=== PATIENT | female | born 1985 | race Caucasian/White ===

== ENCOUNTER 2016-06-22 19:58 | Emergency (ER) | payer MEDICAID ==
[2016-06-23] MEDS ORDERED: Ondansetron ODT TAB* 4 MG PO ONE (00:54)
[2016-06-23] MEDS ORDERED: Ketorolac INJ* 60 MG/2 ML VIAL IM ONE (00:54)
--- NOTE | 2016-06-23 01:00 | ED ---
Lower Extremity - HPI Summary HPI Summary: 31 female presents with complaining of right knee pain that began after falling earlier today 06/22/16. Patient states she was walking on the sidewalk when she slipped and fell forward hitting her knee on the pavement. She was able to walk and bear weight right after the incident however a few hours after the pain began and has increasingly gotten worse. She states the pain is in both the front and the back that is achey and sharp. The pain does not radiate. Did not hit her head and no LOC. She tried taking Tylenol, using icy/hot and ice without much relief. She is able to bear weight however it causes her a lot of pain. Limited ROM. Denies numbness and tingling and any other injuries. Patient states the pain is so severe it has caused her to be nauseous. - History of Current Complaint Chief Complaint: EDExtremityLower Stated Complaint: FALL,RIGHT KNEE INJURY Time Seen by Provider: 06/23/16 00:39 Hx Obtained From: Patient Hx Last Menstrual Period: hysterectomy 01/2013 Mechanism Of Injury: Blunt Trauma, Fall From A Standing Position - landing on knee Onset of Pain: Hours, Post Accident Onset/Duration: Still Present Severity Initially: Moderate Severity Currently: Severe Pain Intensity: 10 Pain Scale Used: 0-10 Numeric Timing: Constant Location: Is Discrete @ - right knee Associated Signs And Symptoms: Positive: Swelling, Bruising, Knee Pain Aggravating Factor(s): Standing, Ambulation, Movement, Weight Bearing Alleviating Factor(s): Rest, Ice Able to Bear Weight: Yes - with pain - Allergies/Home Medications Allergies/Adverse Reactions: Allergies Allergy/AdvReac Type Severity Reaction Status Date / Time No Known Allergies Allergy Verified 02/02/16 01:09 PMH/Surg Hx/FS Hx/Imm Hx Endocrine/Hematology History: Denies: Hx Diabetes, Hx Systemic Lupus Erythematosus, Hx Thyroid Disease Cardiovascular History: Reports: Hx Hypercholesterolemia Denies: Hx Congestive Heart Failure, Hx Hypertension, Hx Pacemaker/ICD, Other Cardiovascular Problems/Disorders Respiratory History: Denies: Hx Asthma, Hx Chronic Bronchitis, Hx Chronic Obstructive Pulmonary Disease (COPD), Other Respiratory Problems/Disorders GI History: Reports: Hx Gall Bladder Disease, Hx Irritable Bowel, Other GI Disorders - PACREATITIS Denies: Hx Ulcer History: Denies: Hx Dialysis, Hx Renal Disease, Other Problems/Disorders Musculoskeletal History: Denies: Other Musculoskeletal History Sensory History: Denies: Hx Contacts or Glasses Opthamlomology History: Denies: Hx Contacts or Glasses Neurological History: Denies: Other Neuro Impairments/Disorders Psychiatric History: Reports: Hx Anxiety, Hx Attention Deficit Hyperactivity Disorder, Hx Depression, Hx Inpatient Treatment, Hx Community Mental Health Tx, Hx Bipolar Disorder, Hx Substance Abuse - etoh abuse hx Denies: Hx Eating Disorder, Hx Panic Disorder, Hx Post Traumatic Stress Disorder, Hx Schizophrenia, Hx Suicide Attempt - some instances of self harm, Hx of Violent Episodes Against Others, Other Psychiatric Issues/Disorders - Surgical History Surgery Procedure, Year, and Place: MULTIPLE LAPRASCOPIC PROCEDURES,. COMPLETE HYSTERECTOMY, 01/2013, [place]. [place] 06/15/13, [facility] [place] [facility] [place] Right knee scopy Hx Anesthesia Reactions: No - Immunization History Date of Tetanus Vaccine: Unknown Infectious Disease History: No Infectious Disease History: Denies: Hx Clostridium Difficile, Hx Hepatitis, Hx Human Immunodeficiency Virus (HIV), Hx of Known/Suspected MRSA, Hx Shingles, Hx Tuberculosis, Hx Known/ Suspected VRE, Hx Known/Suspected VRSA, History Other Infectious Disease, Traveled Outside the [place] in Last 30 Days - Family History Known Family History: Positive: None, Cardiac Disease, Hypertension, Other - father: EtOH abuse - Social History Alcohol Use: None Alcohol Amount: Pt states sober since May 07, 2015 Hx Substance Use: No Substance Use Type: Reports: None Substance Use Comment - Amount & Last Used: 05/07/15 Hx Tobacco Use: Yes Smoking Status (MU): Former Smoker Type: Cigarettes Amount Used/How Often: 1/2 PPD Length of Time of Smoking/Using Tobacco: 10YRS Have You Smoked in the Last Year: Yes Review of Systems Constitutional: Negative Cardiovascular: Negative Respiratory: Negative Gastrointestinal: Negative Genitourinary: Negative Positive: Arthralgia, Myalgia, Decreased ROM - right knee, Edema Positive: Bruising Neurological: Negative Psychological: Normal All Other Systems Reviewed And Are Negative: Yes Physical Exam Triage Information Reviewed: Yes Vital Signs On Initial Exam: Initial Vitals Temp Pulse Resp BP Pulse Ox 98.9 F 118 18 125/82 100 06/22/16 20:25 06/22/16 20:25 06/22/16 20:25 06/22/16 20:25 06/22/16 20:25 Vital Signs Reviewed: Yes Appearance: Positive: Well-Appearing, Pain Distress - mild, sitting in wheelchair with ice applied Skin: Positive: Warm, Skin Color Reflects Adequate Perfusion, Dry, Other - ecchymois of right knee noted Head/Face: Positive: Normal Head/Face Inspection Eyes: Positive: Normal, Conjunctiva Clear ENT: Positive: Normal ENT inspection, Hearing grossly normal Neck: Positive: Supple, Nontender Respiratory/Lung Sounds: Positive: Clear to Auscultation, Breath Sounds Present Cardiovascular: Positive: Normal, RRR, Pulses are Symmetrical in both Upper and Lower Extremities - 2+ pedal pulses bilateral Bowel Sounds: Positive: Present Musculoskeletal: Positive: Normal, Limited @ - right knee with flexion and extension, mild edema and some ecchymosis noted over patella. tenderness on palpation of anterior and posterior knee. no obvious deformity. patella intact. no crepitus or step-off noted. no tenderness on palapation of lower extremity and foot. stregnth right leg 3/5 at knee due to pain left leg 5/5. sensation and skin intact., Pain @ - right knee diffuse, Edema Right - minimal. Negative : Interruption @, Landon Sign Left, Landon Sign Right Neurological: Positive: Normal, Sensory/Motor Intact, Alert, Oriented to Person Place, Time, CN Intact II-III, Reflexes Intact - did not asses right platella reflex due to injury, NV Bundle Intact Distally, Abnormal Gait - due to limping due to pain of right knee, however is able Psychiatric: Positive: Normal AVPU Assessment: Alert Diagnostics - Vital Signs Vital Signs Temp Pulse Resp BP Pulse Ox 06/22/16 20:25 98.9 F 118 18 125/82 100 - Laboratory Lab Statement: Any lab studies that have been ordered have been reviewed, and results considered in the medical decision making process. - Radiology right knee Xray Interpretation: Positive (See Comments) - small to moderate size right knee joint effusion witout radiographically apparent bony abnormality. if the patients symptoms persist, follow up imaging is recommended. Radiology Interpretation Completed By: Radiologist Lower Extremity Course/Dx - Course Course Of Treatment: given toradol and zofran for pain and nausea. patient had some relief. x-ray obtained and negative for fracture. brace and crutches given. ibuprofen prescription given for pain and swelling. instructed to follow up with pcp or orthopedist within the next week to possibly have another x-ray and rule out fracture. may need further imaging such as MRI if symptoms persist to rule out ligament or cartilage damage. ARIC. - Diagnoses Differential Diagnosis/HQI/PQRI: Positive: Contusion, Dislocation, Fracture ( Closed), Sprain, Strain Provider Diagnoses: Knee pain, right, Knee sprain, Contusion of knee, right Discharge - Discharge Plan Condition: Stable Disposition: HOME Prescriptions: Ibuprofen TAB* [Motrin TAB* 800 MG] 800 mg PO Q6H PRN #20 tab PRN Reason: Pain Patient Education Materials: Knee Sprain (ED), Knee Immobilizer (ED) Referrals: Rodrick Holt MD [Medical Doctor] - [facility] [place] [facility] [place] [facility]FERRAL [Outside] Additional Instructions: Take medication as needed for pain and inflammation. Rest and ice your knee. Keep it elevated to decrease swelling while sitting at home. Follow up with PCP or orthopedics for further imaging if symptoms persist. Use crutches and knee immobilizer until symptoms improve and seen by orthopedist.
[2016-06-23 01:30] VITALS: BP 122/88
--- NOTE | 2016-06-23 07:36 | RAD ---
INDICATION: Right knee pain after a fall COMPARISON: None TECHNIQUE: 5 view radiograph of the right knee. FINDINGS: The visualized bones are well-corticated and properly aligned. The joint spaces are properly maintained. There is a small to moderate joint effusion. There is no acute fracture, dislocation or other focal bony abnormality. IMPRESSION: Small to moderate size right knee joint effusion without radiographically apparent bony abnormality. If the patient's symptoms persist, follow-up imaging is recommended.
== END 2016-06-23 01:29 | disposition home or self-care (01) ==
LOC: ED 19:58
DX: S83.91XA Sprain of unspecified site of right knee, initial encounter (principal); S80.01XA Contusion of right knee, initial encounter; M25.561 Pain in right knee; M79.1 Myalgia; Z87.891 Personal history of nicotine dependence; W19.XXXA Unspecified fall, initial encounter; Y93.9 Activity, unspecified; Y92.9 Unspecified place or not applicable; Y99.9 Unspecified external cause status
CPT/HCPCS: 96372; 99282; J1885

== ENCOUNTER 2016-07-18 14:03 | Emergency (ER) | payer MEDICAID, OTHER ==
[2016-07-18] MEDS ORDERED: NS 0.9% 1000 ML* 1,000 ML IV ONE (14:20)
[2016-07-18] MEDS ORDERED: Ketorolac INJ* 30 MG/ML 1 ML VIAL IV PUSH ONE (14:37)
[2016-07-18 15:00] LABS: Hematocrit 38 % (35-47); Hemoglobin 12.9 g/dl (12.0-16.0); Mean Corpuscular HGB Conc 34 g/dl (31-36); Mean Corpuscular Hemoglobin 32 pg (27-31); Mean Corpuscular Volume 96 fL (80-97); Mean Platelet Volume 10 um3 (7.4-10.4); Red Cell Distribution Width 17 % (10.5-15); White Blood Count 11.2 10^3/ul (3.5-10.8)
[2016-07-18 15:03] LABS: Comments Flag Yes
[2016-07-18 15:20] LABS: ALT 10 U/L (7-52); AST 18 U/L (13-39); Albumin 3.5 g/dL (3.2-5.2); Alkaline Phosphatase 59 U/L (34-104); Amylase 47 U/L (29-103); Anion Gap 5 mmol/L (2-11); BUN/Creatinine Ratio 17.6 (8-20); Blood Urea Nitrogen 13 mg/dL (6-24); CO2 Carbon Dioxide 24 mmol/L (22-32); Calcium 8.4 mg/dL (8.6-10.3); Chloride 107 mmol/L (101-111); Creatine Kinase 66 U/L (10-223); Globulin 2.6 g/dL (2-4); Glucose 92 mg/dL (70-100); Lipase 93 U/L (11.0-82.0); Magnesium 1.7 mg/dL (1.9-2.7); Potassium 3.9 mmol/L (3.5-5.0); Sodium 136 mmol/L (133-145); Total Protein 6.1 g/dL (6.4-8.9)
--- NOTE | 2016-07-18 15:20 | RAD ---
HISTORY: Pain, nausea COMPARISONS: None VIEWS: Frontal views of the abdomen. FINDINGS: BOWEL: There is a nonspecific bowel gas pattern, with nondilated small bowel gas noted. There is a moderate amount of stool within the colon. CALCULI: There are no abnormal calculi. BONES AND SOFT TISSUES: There are no osseous abnormalities. OTHER FINDINGS: The lung bases are clear. There is no subphrenic gas. Surgical clips are noted in the right upper abdomen IMPRESSION: NONSPECIFIC BOWEL GAS PATTERN. NO SUBPHRENIC GAS.
[2016-07-18] MEDS ORDERED: Ondansetron INJ* 2 MG/ML VIAL ONE (15:23)
[2016-07-18] MEDS ORDERED: Ondansetron INJ* 2 MG/ML VIAL IV ONE (15:29)
[2016-07-18 15:35] LABS: Add Diff/Slide Review? Slide Review Added
--- NOTE | 2016-07-18 15:38 | RAD ---
INDICATION: Vomiting, diarrhea, abdominal pain. Post cholecystectomy, hysterectomy. COMPARISON: April 27, 2015 CT. TECHNIQUE: Multidetector CT images were obtained from the lung bases to the ischial tuberosities. Evaluation of the viscera is limited without IV contrast. Multiplanar reformation. REPORT: Unremarkable visualized inferior thorax. Post cholecystectomy. Unremarkable unenhanced liver. Negative for biliary dilatation. Unremarkable unenhanced pancreas and spleen. Unremarkable upper GI, small bowel, infra cecal appendix, colon. Negative for perienteric inflammatory change, ascites, free air. Small fat-containing umbilical hernia without inflammatory change. Normal adrenal glands. No visible renal stones, hydronephrosis, or focal renal lesions. Unremarkable nondilated ureters and urinary bladder. Post hysterectomy. Unremarkable adnexal regions. Negative for lymphadenopathy. Normal diameter abdominal aorta and iliac arteries. Physiologic distention of the IVC. Negative for suspicious focal osseous lesions. IMPRESSION: Noncontrast CT without evidence for obstructive uropathy or other acute abdominal pelvic pathologic process. Normal appendix documented. Correlate with clinical assessment and consider contrast-enhanced CT for further evaluation if deemed appropriate.
[2016-07-18] MEDS ORDERED: Morphine INJ* 4 MG/ML 1 ML SYRINGE IV ONE (16:05)
--- NOTE | 2016-07-18 17:28 | ED ---
Miguel Morales Adam, scribed for Elia Martin MD on 07/18/16 at 1429 . Abdominal Pain/Female - HPI Summary HPI Summary: Pt is a 31 year old female presenting with abdominal pain. She states that the pain was present for the first time when she woke up this morning. It is localized in the left side of her abdomen and around her left flank. The pain is an 8/10 in severity and it feels like a cramp, but the pain becomes sharp and more severe with movement. Pt also c/o nausea and vomiting and states that she hasn't been able to keep anything down. She had an episode of diarrhea yesterday. She also reports having SOB and palpitations. PMHx of endometriosis. No hx of kidney stones. Positive tobacco use (1 pack every few days). Occasional alcohol. No drug use. Surgical hx of complete hysterectomy. - History of Current Complaint Chief Complaint: EDAbdPain Stated Complaint: COUGH, ABD PAIN, V.D, Time Seen by Provider: 07/18/16 14:20 Hx Obtained From: Patient Hx Last Menstrual Period: hysterectomy 01/2013 Onset/Duration: Sudden Onset, Lasting Hours, Still Present Timing: Constant Severity Initially: Moderate Severity Currently: Moderate Pain Intensity: 8 Pain Scale Used: 0-10 Numeric Location: Diffuse - Left side of abdomen, Flank - Left Radiates: No Character: Sharp - With movement, Cramping Aggravating Factor(s): Movement Associated Signs and Symptoms: Positive: Nausea, Vomiting, Diarrhea, Other: - SOB, palpitations Allergies/Adverse Reactions: Allergies Allergy/AdvReac Type Severity Reaction Status Date / Time No Known Allergies Allergy Verified 02/02/16 01:09 PMH/Surg Hx/FS Hx/Imm Hx Endocrine/Hematology History: Denies: Hx Diabetes, Hx Systemic Lupus Erythematosus, Hx Thyroid Disease Cardiovascular History: Reports: Hx Hypercholesterolemia Denies: Hx Congestive Heart Failure, Hx Hypertension, Hx Pacemaker/ICD, Other Cardiovascular Problems/Disorders Respiratory History: Denies: Hx Asthma, Hx Chronic Bronchitis, Hx Chronic Obstructive Pulmonary Disease (COPD), Other Respiratory Problems/Disorders GI History: Reports: Hx Gall Bladder Disease, Hx Irritable Bowel, Other GI Disorders - PACREATITIS Denies: Hx Ulcer History: Denies: Hx Dialysis, Hx Renal Disease, Other Problems/Disorders Musculoskeletal History: Denies: Other Musculoskeletal History Sensory History: Denies: Hx Contacts or Glasses Opthamlomology History: Denies: Hx Contacts or Glasses Neurological History: Denies: Other Neuro Impairments/Disorders Psychiatric History: Reports: Hx Anxiety, Hx Attention Deficit Hyperactivity Disorder, Hx Depression, Hx Inpatient Treatment, Hx Community Mental Health Tx, Hx Bipolar Disorder, Hx Substance Abuse - etoh abuse hx Denies: Hx Eating Disorder, Hx Panic Disorder, Hx Post Traumatic Stress Disorder, Hx Schizophrenia, Hx Suicide Attempt - some instances of self harm, Hx of Violent Episodes Against Others, Other Psychiatric Issues/Disorders - Surgical History Surgery Procedure, Year, and Place: MULTIPLE LAPRASCOPIC PROCEDURES,. COMPLE[place]ERECT[place]Y, 01[place]2013, [place]. [place] [facility] [place] Hx Anesthesia Reactions: No - Immunization History Date of Tetanus Vaccine: Unknown Infectious Disease History: No Infectious Disease History: Denies: Hx Clostridium Difficile, Hx Hepatitis, Hx Human Immunodeficiency Virus (HIV), Hx of Known/Suspected MRSA, Hx Shingles, Hx Tuberculosis, Hx Known/ Suspected VRE, Hx Known/Suspected VRSA, History Other Infectious Disease, Traveled Outside the [place] in Last 30 Days - Family History Known Family History: Positive: Cardiac Disease, Hypertension, Other - father: EtOH abuse - Social History Occupation: Unemployed Lives: With Family - Significant other Alcohol Use: None Alcohol Amount: Pt states sober since May 07, 2015 Hx Substance Use: No Substance Use Type: Reports: None Substance Use Comment - Amount & Last Used: 05/07/15 Hx Tobacco Use: Yes Smoking Status (MU): Current Some Day Smoker Type: Cigarettes Amount Used/How Often: 1/2 PPD Length of Time of Smoking/Using Tobacco: 10YRS Have You Smoked in the Last Year: Yes Review of Systems Positive: Palpitations Positive: Shortness Of Breath Positive: Abdominal Pain, Vomiting, Diarrhea, Nausea Positive: flank pain - Left All Other Systems Reviewed And Are Negative: Yes Physical Exam - Summary Physical Exam Summary: VITAL SIGNS: Reviewed. GENERAL: Patient is a well developed and nourished female who is lying comfortable in the stretcher. Patient is not in any acute respiratory distress. HEAD AND FACE: Normocephalic and atraumatic. EYES: PERRLA, EOMI x 2, No injected conjunctiva. EARS: Hearing grossly intact. Ear canals and tympanic membranes are WNL. MOUTH: Oropharynx within normal limits. NECK: Supple, trachea is midline, no adenopathy, no JVD. CHEST: Symmetric, no tenderness at palpation LUNGS: Clear to auscultation bilaterally. No wheezing or crackles. CVS: RRR,, S1 and S2 present, no murmurs or gallops appreciated. ABDOMEN: Soft, non-tender. No signs of distention. Positive bowel sounds. No rebound no guarding, and no masses palpated. No abdominal bruit or pulsations. Positive left flank tenderness. EXTREMITIES: FROM in all major joints, no edema, no cyanosis or clubbing. NEURO: Alert and oriented x 3. No acute neurological deficits. Speech is normal. SKIN: Dry and warm Triage Information Reviewed: Yes Vital Signs On Initial Exam: Initial Vitals Temp Pulse Resp BP Pulse Ox 97.3 F 110 22 185/85 96 07/18/16 14:05 07/18/16 14:05 07/18/16 14:05 07/18/16 14:05 07/18/16 14:05 Vital Signs Reviewed: Yes Diagnostics - Vital Signs Vital Signs Temp Pulse Resp BP Pulse Ox 07/18/16 14:07 97.3 F 94 20 185/85 99 07/18/16 14:05 97.3 F 110 22 185/85 96 - Laboratory Lab Results: Lab Results 07/18/16 07/18/16 Range/Units 14:50 14:50 WBC 11.2 H (3.5-10.8) 10^3/ul RBC 4.00 (4.0-5.4) 10^6/ul Hgb 12.9 (12.0-16.0) g/dl Hct 38 (35-47) % MCV 96 (80-97) fL MCH 32 H (27-31) pg MCHC 34 (31-36) g/dl RDW 17 H (10.5-15) % Plt Count 152 (150-450) 10^3/ul MPV 10 (7.4-10.4) um3 Neut % (Auto) 68.1 (38-83) % Lymph % (Auto) 22.8 L (25-47) % [place] % (Auto) 6.9 (1-9) % Eos % (Auto) 1.0 (0-6) % Baso % (Auto) 1.2 (0-2) % Absolute Neuts (auto) 7.6 (1.5-7.7) 10^3/ul Absolute Lymphs (auto) 2.5 (1.0-4.8) 10^3/ul Absolute Monos (auto) 0.8 (0-0.8) 10^3/ul Absolute Eos (auto) 0.1 (0-0.6) 10^3/ul Absolute Basos (auto) 0.1 (0-0.2) 10^3/ul Absolute Nucleated RBC 0 10^3/ul Nucleated RBC % 0 Lactic Acid 1.1 (0.5-2.0) mmol/L Result Diagrams: 07/18/16 14:50 07/18/16 14:50 Lab Statement: Any lab studies that have been ordered have been reviewed, and results considered in the medical decision making process. - Radiology ABDOMEN X-RAY Radiology Interpretation Completed By: Radiologist - IMPRESSION: NONSPECIFIC BOWEL GAS PATTERN. NO SUBPHRENIC GAS. - CT ABDOMEN/PELVIS CT Interpretation Completed By: Radiologist - IMPRESSION: Noncontrast CT without evidence for obstructive uropathy or other acute abdominal pelvic pathologic process. Normal appendix documented. Correlate with clinical assessment and consider contrast-enhanced CT for further evaluation if deemed appropriate. Abdominal Pain Fem Course/Dx - Course Course Of Treatment: Pt is a 31 year old female presenting with abdominal pain. She states that the pain was present for the first time when she woke up this morning. It is localized in the left side of her abdomen and around her left flank. The pain is an 8/10 in severity and it feels like a cramp, but the pain becomes sharp and more severe with movement. Pt also c/o nausea and vomiting and states that she hasn't been able to keep anything down. She had an episode of diarrhea yesterday. She also reports having SOB and palpitations. PMHx of endometriosis. No hx of kidney stones. Positive tobacco use (1 pack every few days). Occasional alcohol. No drug use. Surgical hx of complete hysterectomy. BW is WNL except for WBC count of 11.2, no bands. Calcium 8.4, Magnesium 1.7, lipase 93. Amylase is normal. Abdomen X-Ray Impression: NONSPECIFIC BOWEL GAS PATTERN. NO SUBPHRENIC GAS. Abdomen/Pelvis CT Impression: Noncontrast CT without evidence for obstructive uropathy or other acute abdominal pelvic pathologic process. Normal appendix documented. Correlate with clinical assessment and consider contrast-enhanced CT for further evaluation if deemed appropriate. (END OF CT IMPRESSION) In the ED course the pt was given IV fluids , Zofran for nausea, and toradol for pain. Her pain decreased from 10/10 to approximately 5/10. Therefore she was given one dose of morphine and her pain is now approximately 3/10. The pain increases when she moves. Otherwise the pain is significantly less when she lies down. At this point I do not believe that the pt has appendicitis. The CT shows no renal colic. did not report any pancreatitis. The lipase is slightly elevated but the pain is diffuse all over right now the abdomen pain is not specific for LUQ or flank anymore. Therefore I don't think she has acute appendicitis. However since the CT was w/o contrast we are unable to determine but pain not specific for RLQ. Pt was offered admission, however she declined and requested to be discharged home. If her symptoms worsen with increase in abdominal pain specially in the LUQ, nausea, vomting, and any other pain she will return to the ED for further evaluation and work-up. I discussed all the findings and test results with the patient. Patient was instructed to return to the emergency room immediately if any of the symptoms return or worsens. They were explained the possibility of an early abdominal pathology which was not detected at this time despite the physical exam and testing. They understand and agree. Abdominal exam before discharge: Soft, NT. No signs of distention. BS present. No rebound no guarding , and no masses palpated. Patient is alert and oriented and hemodynamically stable. Patient is to follow up with primary care physician in the next 2 to 3 days. Patient agree and understands. - Diagnoses Differential Diagnosis: Positive: Constipation, Diverticulitis, Renal Colic, Urinary Tract Infection Provider Diagnoses: Abdominal pain, Increased lipase Discharge - Discharge Plan Condition: Stable Disposition: HOME Prescriptions: Naproxen TAB* [Naprosyn 250 mg TAB*] 500 mg PO Q8H PRN #20 tab PRN Reason: Pain Ondansetron TAB* [Zofran 4 MG Tab*] 4 mg PO Q6H PRN #10 tab PRN Reason: Vomiting Patient Education Materials: Abdominal Pain (ED) Referrals: Immanuel Liu MD [Primary Care Provider] - Additional Instructions: Follow up with your Primary Care Provider this week. The documentation as recorded by the Miguel castillo Adam accurately reflects the service I personally performed and the decisions made by me, Elia Martin MD.
[2016-07-18 18:37] VITALS: BP 136/84
== END 2016-07-18 18:34 | disposition home or self-care (01) ==
LOC: ED 14:03
DX: R10.9 Unspecified abdominal pain (principal); R74.8 Abnormal levels of other serum enzymes; F17.210 Nicotine dependence, cigarettes, uncomplicated; E78.00 Pure hypercholesterolemia, unspecified; F31.9 Bipolar disorder, unspecified; F90.9 Attention-deficit hyperactivity disorder, unspecified type
CPT/HCPCS: 36415; 74020; 74176; 80053; 82150; 82550; 83605; 83690; 83735; 83880; 84702; 85025; 86140; 96360; 96374; 96375; 99283; J1885; J2270; J2405

== ENCOUNTER 2016-07-19 07:40 | Emergency (ER) | payer OTHER ==
[2016-07-19] MEDS ORDERED: NS 0.9% 1000 ML* 1,000 ML IV ONE (07:48)
[2016-07-19] MEDS ORDERED: Morphine INJ* 4 MG/ML 1 ML SYRINGE IV ONE ×2 (07:48→07:54)
[2016-07-19 08:12] LABS: Hematocrit 40 % (35-47); Hemoglobin 13.4 g/dl (12.0-16.0); Mean Corpuscular HGB Conc 33 g/dl (31-36); Mean Corpuscular Hemoglobin 32 pg (27-31); Mean Corpuscular Volume 97 fL (80-97); Mean Platelet Volume 10 um3 (7.4-10.4); Red Blood Count 4.16 10^6/ul (4.0-5.4); Red Cell Distribution Width 17 % (10.5-15); White Blood Count 13.4 10^3/ul (3.5-10.8)
[2016-07-19 08:19] LABS: Urine Bilirubin Negative (Negative); Urine Glucose Negative (Negative); Urine Nitrite Negative (Negative)
[2016-07-19 08:29] LABS: Albumin 3.6 g/dL (3.2-5.2); C Reactive Protein 7.33 mg/L (< 5.00); Calcium 8.3 mg/dL (8.6-10.3); EGFR African American 126.8 (>60); EGFR Non-African American 98.6 (>60); Globulin 2.5 g/dL (2-4); Magnesium 1.8 mg/dL (1.9-2.7); Potassium 3.9 mmol/L (3.5-5.0); Total Bilirubin 0.8 mg/dL (0.2-1.0); Total Protein 6.1 g/dL (6.4-8.9)
[2016-07-19] MEDS ORDERED: fentaNYL* 50 MCG/ML 2 ML VIAL (100 MCG VIAL) IV SLOW PU ONE ×2 (09:19→10:49)
[2016-07-19] MEDS ORDERED: Ondansetron INJ* 2 MG/ML VIAL IV ONE (09:35)
[2016-07-19] MEDS ORDERED: Iohexol 300* (CONTRAST) 10 ML SDV IV ONE (09:47)
--- NOTE | 2016-07-19 12:22 | RAD ---
CLINICAL HISTORY: Abdominal pain COMPARISON: July 18, 2016 TECHNIQUE: Multiple contiguous axial CT scans were obtained of the abdomen and pelvis after the administration of intravenous contrast. Coronal and sagittal multiplanar reformations are submitted for review. Oral contrast was administered. Delayed images were obtained through the abdomen and pelvis. FINDINGS: LUNG BASES: The lung bases are clear. LIVER: The liver is diffusely low in attenuation compared to the spleen. There are no focal hepatic parenchymal masses. BILE DUCTS: There is mild ectasia of the common duct measuring up to 0.9 cm. There is no intrahepatic biliary dilatation. GALLBLADDER: The gallbladder is not visualized. Surgical clips are noted in the gallbladder fossa. PANCREAS: The pancreas is normal, without mass or ductal dilatation. SPLEEN: Normal in size and appearance. UPPER GI TRACT: Evaluation of the gastrointestinal tract is limited by incomplete gastric distention. The upper GI tract is unremarkable. SMALL BOWEL AND MESENTERY: The small bowel is normal in contour, course, and caliber. There is no obstruction or dilatation. COLON: The colon is normal in contour, course, caliber. There is no pericolonic inflammatory change. ADRENALS: Normal bilaterally. KIDNEYS: The kidneys are normal in shape, size, contour, and axis. There is no hydronephrosis or nephrolithiasis. BLADDER: The bladder is smooth in contour. PELVIC ORGANS: The pelvic organs are not visualized. AORTA: The aorta is normal. IVC: Unremarkable LYMPH NODES: There is no lymphadenopathy by size criteria. ABDOMINAL WALL: There is a small fat-containing umbilical hernia BONES AND SOFT TISSUES: There are mild diffuse degenerative changes. OTHER: None IMPRESSION: 1. FATTY LIVER. 2. STATUS POST CHOLECYSTECTOMY WITH MILD ECTASIA OF THE COMMON DUCT.
[2016-07-19 13:22] VITALS: BP 122/90
--- NOTE | 2016-07-19 13:27 | ED ---
Veronique Morales Matthew, scribed for Elia Martin MD on 07/19/16 at 0755 . Abdominal Pain/Female - HPI Summary HPI Summary: A 31 y/o female presents to the ED with left sided abdominal pain since yesterday. The pain is rated 10/10 in severity, described as cramping, and becomes sharp/worse with movement. Associated symptoms today include nausea, cough, and dry heaving. She ate soup last night. The patient was seen yesterday in the ED for similar symptoms. PMHx of endometriosis. No hx of kidney stones. Positive tobacco use (1 pack every few days). Occasional alcohol. No drug use. Surgical hx of complete hysterectomy. - History of Current Complaint Chief Complaint: EDAbdPain Stated Complaint: ABD PAIN Time Seen by Provider: 07/19/16 07:47 Hx Obtained From: Patient Hx Last Menstrual Period: hysterectomy 01/2013 ?: No Onset/Duration: Sudden Onset, Lasting Days, Still Present Timing: Constant Severity Initially: Moderate Severity Currently: Moderate Pain Intensity: 10 Pain Scale Used: 0-10 Numeric Location: Diffuse - left sided Radiates: No Character: Sharp - w/ movement, Cramping Aggravating Factor(s): Movement Associated Signs and Symptoms: Positive: Cough, Nausea, Other: - dry heaving Allergies/Adverse Reactions: Allergies Allergy/AdvReac Type Severity Reaction Status Date / Time No Known Allergies Allergy Verified 07/19/16 07:43 Home Medications: Home Medications Estradiol (NF) 1 mg PO DAILY 07/19/16 [History Confirmed 07/19/16] Ibuprofen TAB* [Advil TAB*] 800 mg PO Q6H PRN 07/19/16 [History Confirmed ] Topiramate TAB(*) [Topamax 25 MG tab] 50 mg PO BID 07/19/16 [History Confirmed 07/19/16] Venlafaxine EXT RELEASE CAP* [Effexor Xr CAP*] 300 mg PO DAILY 07/19/16 [ History Confirmed 07/19/16] PMH/Surg Hx/FS Hx/Imm Hx Endocrine/Hematology History: Denies: Hx Diabetes, Hx Systemic Lupus Erythematosus, Hx Thyroid Disease Cardiovascular History: Reports: Hx Hypercholesterolemia Denies: Hx Congestive Heart Failure, Hx Hypertension, Hx Pacemaker/ICD, Other Cardiovascular Problems/Disorders Respiratory History: Denies: Hx Asthma, Hx Chronic Bronchitis, Hx Chronic Obstructive Pulmonary Disease (COPD), Other Respiratory Problems/Disorders GI History: Reports: Hx Gall Bladder Disease, Hx Irritable Bowel, Other GI Disorders - PACREATITIS Denies: Hx Ulcer History: Denies: Hx Dialysis, Hx Renal Disease, Other Problems/Disorders Musculoskeletal History: Denies: Other Musculoskeletal History Sensory History: Denies: Hx Contacts or Glasses Opthamlomology History: Denies: Hx Contacts or Glasses Neurological History: Denies: Other Neuro Impairments/Disorders Psychiatric History: Reports: Hx Anxiety, Hx Attention Deficit Hyperactivity Disorder, Hx Depression, Hx Inpatient Treatment, Hx Community Mental Health Tx, Hx Bipolar Disorder, Hx Substance Abuse - etoh abuse hx Denies: Hx Eating Disorder, Hx Panic Disorder, Hx Post Traumatic Stress Disorder, Hx Schizophrenia, Hx Suicide Attempt - some instances of self harm, Hx of Violent Episodes Against Others, Other Psychiatric Issues/Disorders - Surgical History Surgery Procedure, Year, and Place: MULTIPLE LAPRASCOPIC PROCEDURES,. COMPLETE HYSTERECTOMY, 01/2013, [facility]. NAOM[place] 06/15/13, [facility] [place] scopy Hx Anesthesia Reactions: No - Immunization History Date of Tetanus Vaccine: Unknown Infectious Disease History: No Infectious Disease History: Denies: Hx Clostridium Difficile, Hx Hepatitis, Hx Human Immunodeficiency Virus (HIV), Hx of Known/Suspected MRSA, Hx Shingles, Hx Tuberculosis, Hx Known/ Suspected VRE, Hx Known/Suspected VRSA, History Other Infectious Disease, Traveled Outside the [place] in Last 30 Days - Family History Known Family History: Positive: Cardiac Disease, Hypertension, Other - father: EtOH abuse - Social History Alcohol Use: None Alcohol Amount: Pt states sober since May 07, 2015 Hx Substance Use: No Substance Use Type: Reports: None Substance Use Comment - Amount & Last Used: 05/07/15 Hx Tobacco Use: Yes Smoking Status (MU): Current Some Day Smoker Type: Cigarettes Amount Used/How Often: 1/2 PPD Length of Time of Smoking/Using Tobacco: 10YRS Have You Smoked in the Last Year: Yes Review of Systems Constitutional: Negative Eyes: Negative ENT: Negative Cardiovascular: Negative Positive: Cough Gastrointestinal: Other - dry heaving Positive: Abdominal Pain - left sided, Nausea Genitourinary: Negative Musculoskeletal: Negative Skin: Negative Neurological: Negative Psychological: Normal All Other Systems Reviewed And Are Negative: Yes Physical Exam - Summary Physical Exam Summary: VITAL SIGNS: Reviewed. GENERAL: Patient is a well developed and nourished female who is lying comfortable in the stretcher. Patient is not in any acute respiratory distress. HEAD AND FACE: Normocephalic and atraumatic. EYES: PERRLA, EOMI x 2, No injected conjunctiva. EARS: Hearing grossly intact. Ear canals and tympanic membranes are WNL. MOUTH: Oropharynx within normal limits. NECK: Supple, trachea is midline, no adenopathy, no JVD. CHEST: Symmetric, no tenderness at palpation LUNGS: Clear to auscultation bilaterally. No wheezing or crackles. CVS: RRR,, S1 and S2 present, no murmurs or gallops appreciated. ABDOMEN: Soft, positive diffuse tenderness but increased in the LUQ tenderness. No signs of distention. Positive bowel sounds. No rebound, positive guarding, and no masses palpated. No abdominal bruit or pulsations. EXTREMITIES: FROM in all major joints, no edema, no cyanosis or clubbing. NEURO: Alert and oriented x 3. No acute neurological deficits. Speech is normal. SKIN: Dry and warm Triage Information Reviewed: Yes Vital Signs On Initial Exam: Initial Vitals Temp Pulse Resp BP Pulse Ox 96.9 F 78 18 142/70 100 07/19/16 07:43 07/19/16 07:43 07/19/16 07:43 07/19/16 07:43 07/19/16 07:43 Vital Signs Reviewed: Yes Diagnostics - Vital Signs Vital Signs Temp Pulse Resp BP Pulse Ox 07/19/16 07:43 96.9 F 78 18 142/70 100 - Laboratory Result Diagrams: 07/19/16 08:00 07/19/16 08:00 Lab Statement: Any lab studies that have been ordered have been reviewed, and results considered in the medical decision making process. Abdominal Pain Fem Course/Dx - Course Course Of Treatment: A 31 y/o female presents to the ED with left sided abdominal pain since yesterday. The pain is rated 10/10 in severity, described as cramping, and becomes sharp/worse with movement. Associated symptoms today include nausea, cough, and dry heaving. She ate soup last night. The patient was seen yesterday in the ED for similar symptoms. PMHx of endometriosis. No hx of kidney stones. Positive tobacco use (1 pack every few days). Occasional alcohol. No drug use. Surgical hx of complete hysterectomy. Blood work WNL except WBC of 13.4, plt count 139 without bands. Glucose 102, C-reactive protein of 7.3. Urinalysis negative for UTI. A/P CT shows fatty liver. I saw the patient yesterday when she was c/o of left flank pain. We did CT without contrast thinking the patient had a kidney stone. I gave pain medications, Zofran for n/v and IV fluids. The symptoms improved. The lipase was slightly elevated at that time; however, the patient felt better and I discharged her home. Today, she returns with the same symptoms only worse, therefore, I believe the patient may have developed acute pancreatitis since the lipase was elevated yesterday. So, I deiced to repeat the CT with contrast, which shows no acute pathology. The patient continues to have pain despite two doses of morphine, fentanyl, and one dose of Dilaudid. Since, the patient continues to have pain, I discussed the case with Dr. Esposito who consulted, saw and examined the patient and after his assessment he recommends the patient be discharged home with PCP follow-up. Since all the blood test and CT are within normal limits I will discharge the patient home. She is hemodynamically stable and A& Ox3. I discussed all the findings and test results with the patient. Patient was instructed to return to the emergency room immediately if any of the symptoms return or worsens. Plan of care was discussed with the patient and understands and agrees. All questions were answered at patient satisfaction. There were no further complaints or concerns. Lung exam before discharge: CTA B /L. Good air exchange. No wheezing or crackles heard. CVS: S1 and S2 present. No murmurs appreciated. Patient is alert and oriented x 3. Patient is hemodynamically stable. Patient will be discharged home with follow up PCP in the next 2-3 days - Diagnoses Differential Diagnosis: Positive: Constipation, Diverticulitis, Pancreatitis, Urinary Tract Infection Provider Diagnoses: Abdominal pain - Provider Notifications Discussed Care Of Patient With: Dr. Esposito (Hospitalist) at 12:48 -- Will consult on the patinet. Discharge - Discharge Plan Condition: Stable Disposition: HOME Patient Education Materials: Abdominal Pain (ED) Referrals: Immanuel Liu MD [Primary Care Provider] - 1 Day Additional Instructions: Please follow-up with your primary care physician as soon as possible. The documentation as recorded by the Veronique castillo Matthew accurately reflects the service I personally performed and the decisions made by me, Elia Martin MD.
--- NOTE | 2016-07-19 21:16 | CONS ---
HOSPITAL MEDICINE CONSULTATION REPORT: DATE OF CONSULT: 07/19/16 - EMERGENCY DEPT PRIMARY CARE PROVIDER: Sushil Ruffin NP. ATTENDING PHYSICIAN: Dr. Papito Esposito (dictation provided by Danay Gutierrez NP). REASON FOR CONSULT: Request for possible admission with chief complaint of abdominal epigastric pain. HISTORY OF PRESENT ILLNESS: Ms. Rashid is a 31-year-old female with a past medical history of irritable bowel syndrome, migraines, and endometriosis as well as chronic alcoholism, status post rehab who presents today to the hospital with concern for epigastric pain. Ms. Rashid states that her issues started on Sunday when she developed diarrhea. Since then, she has had bloating. She has had some dry heaving. On Sunday, she continued to have diarrhea and bloating. She had pain on Sunday along her left side and now, the pain is limited to her epigastric region. She did come to the emergency department on 07/18/16, at which time she had a complete workup including abdomen and pelvis CT without contrast. This was read as showing no acute abnormality. She had labs which were unremarkable. She had a lipase that was very mildly elevated at 93. She was discharged to home. She continued to feel unwell and the pain moved from the left flank area over into her epigastric region with persistent diarrhea, bloating, and dry heaving. She presented again today with epigastric pain and she had another CT abdomen and pelvis with contrast which again did not show any acute abnormalities. Her labs were again normal and her lipase which had been 93 yesterday was now 49. Ms. Rashid initially says that she has not really had any similar symptoms in the past, but when I review the medical record with her, I note that she did in 2016 have very similar symptoms of abdominal and epigastric pain and pain along the left side. With this, she was fully worked up and she ultimately went on for an upper endoscopy with Dr. Stevens who thought the patient only had gastritis at that point. It was supposed that this was related to her ongoing alcoholism. I reminded the patient of this workup and she does agree that this pain was in a similar location as it is today and shared similar features including diarrhea and bloating. The patient does note that she has a recorded history of irritable bowel syndrome, but states that she does not understand the diagnosis. Ms. Rashid states that she has been to rehab and then was incarcerated as of 2 weeks ago when she was released from correction. She reports that she is drinking alcohol, although from her report it is only every other day and only 2 glasses of wine per night. I am suspicious of this given her significant history of alcoholism and only recent history of rehabilitation. In the emergency room today, again her CT abdomen and pelvis was normal. Her labs are normal and Hospital Medicine has been consulted to determine whether or not the patient should be admitted to the hospital for observation given her ongoing complaint of pain. PAST MEDICAL HISTORY: 1. Irritable bowel syndrome. 2. Migraines. 3. Endometriosis. 4. History of alcoholism. 5. History of hysterectomy. 6. History of laparoscopic cholecystectomy. MEDICATIONS: 1. Tylenol p.r.n. 2. Estradiol 1 mg p.o. daily. 3. Ibuprofen 800 mg p.o. q.6 hours p.r.n. 4. Topamax 50 mg p.o. b.i.d. 5. Venlafaxine 300 mg p.o. daily, that is an extended release capsule. ALLERGIES: No known drug allergies. FAMILY HISTORY: The patient reports that her mom has diabetes. Her dad related to alcoholism. SOCIAL HISTORY: The patient smokes half a pack of cigarettes a day. She is drinking alcohol again, but she states it is only in very limited quantities. No report of drug use. She lives with her fiance who is the healthcare proxy. REVIEW OF SYSTEMS: A 14-point review of systems was completed with Ms. Rashid and all those not mentioned above were negative. PHYSICAL EXAM: Vital Signs: Temperature 97.0, pulse rate 69, respiratory rate 16, blood pressure 122/90. General: Ms. Rashid is sitting up in the bed. She is in no acute distress. She appears mildly uncomfortable. Neuro: She is alert and oriented x3. She moves all extremities equally. There is no facial asymmetry or focal weakness. Extraocular movements are intact. Heart: S1, S2. No murmur, rub, or gallop and regular. Lungs are clear to auscultation bilaterally with no accessory muscle use and good aeration. The abdomen is soft. She has some mild tenderness to palpation that is generalized. There is no rebound. The bowel sounds are positive. Extremities: No cyanosis or edema. Skin is intact. DIAGNOSTIC STUDIES/LAB DATA: Sodium 137, potassium 3.9, chloride 107, serum bicarbonate 24, BUN 9, creatinine 0.69, glucose 102, lactic acid 1.5, magnesium 1.8. CRP 7.33. Lipase 49. WBC 13.4, hemoglobin 13.4, hematocrit 40, platelet count 139. Urine shows no evidence of infection. CT abdomen and pelvis from today is read as follows: This is a contrast-enhanced CT which shows "fatty liver and status post cholecystectomy with mild dilatation of the common duct." ASSESSMENT: Ms. Rashid is a 31-year-old female with a past medical history of irritable bowel syndrome, migraines, endometriosis, and alcoholism who presents today to the hospital with concern for abdominal pain, bloating, nausea, and dry heaving. She has had a completely normal workup both yesterday and today with no evidence of pancreatitis or other inflammation in the abdomen with both contrast and noncontrast enhanced CT, both being negative. The patient's symptoms are completely consistent with irritable bowel syndrome with bloating, diarrhea, and nausea with dry heaving. She has tolerated oral intake as of last night per her fiance who is at the bedside. I reviewed with the patient that her symptoms are classic for irritable bowel syndrome and consistent with similar symptoms she was having last year for which she did have another extensive workup including an upper endoscopy. I explained to her that irritable bowel syndrome can be worsened by stress and sometimes by particular foods and that she should follow up with her provider, Ms. Ruffin, and possibly consider followup with Gastroenterology regarding management of her irritable bowel syndrome and possible initiation of medications such as Imodium or cholestyramine if her current bout of symptoms is not short lived. I provided Ms. Rashid with information about irritable bowel syndrome today including a printout and I have given instructions to her and her fiance about food choices including the use of a high-fiber diet and a trial of various food categories to determine if perhaps food allergy or intolerance is playing into her symptoms in addition to the role that stress and/or alcohol intake would play as well. Ms. Rashid is medically stable to go home today. I have reviewed this with Dr. Martin who is in agreement. TIME SPENT: Approximately 60 minutes were spent in the consultation of this patient, more than half time spent with the patient at the bedside reviewing the events leading up to today, performing the physical examination, and reviewing my plan of care. DANAY GUTIERREZ NP CC: Sushil Ruffin, MACHINIST [employer]* [id number]/[facility] #: [id number] [facility] HOSPITALVarsha
== END 2016-07-19 13:30 | disposition home or self-care (01) ==
LOC: ED 07:40
DX: R10.9 Unspecified abdominal pain (principal); R05 Cough; R11.0 Nausea; Z72.0 Tobacco use
CPT/HCPCS: 36415; 74177; 80053; 81003; 82150; 82550; 83605; 83690; 83735; 83880; 85025; 86140; 96374; 96375; 99283; J2270; J2405; J3010; Q9967

== ENCOUNTER 2016-08-07 14:38 | Emergency (ER) | payer OTHER ==
[2016-08-07] MEDS ORDERED: fentaNYL* 50 MCG/ML 2 ML VIAL (100 MCG VIAL) IV SLOW PU ONE (17:29)
[2016-08-07] MEDS ORDERED: Lidocaine 2% VISCOUS* 15 ML UDC PO ONE (17:29)
[2016-08-07] MEDS ORDERED: Al Hydrox/Mg Hydrox/Simet LIQ* 30 ML UDC PO ONE (17:29)
[2016-08-07] MEDS ORDERED: NS 0.9% 1000 ML* 1,000 ML IV ONE (17:29)
[2016-08-07] MEDS ORDERED: Iohexol 300* (CONTRAST) 10 ML SDV IV ONE (17:35)
[2016-08-07 17:38] LABS: Hematocrit 41 % (35-47); Hemoglobin 13.5 g/dl (12.0-16.0); Mean Corpuscular HGB Conc 33 g/dl (31-36); Mean Corpuscular Hemoglobin 32 pg (27-31); Mean Corpuscular Volume 98 fL (80-97); Mean Platelet Volume 10 um3 (7.4-10.4); Red Blood Count 4.17 10^6/ul (4.0-5.4); Red Cell Distribution Width 16 % (10.5-15)
[2016-08-07 17:51] LABS: Albumin 4.4 g/dL (3.2-5.2); BUN/Creatinine Ratio 15.7 (8-20); Calcium 9.6 mg/dL (8.6-10.3); EGFR African American 102.5 (>60); EGFR Non-African American 79.7 (>60); Globulin 3.3 g/dL (2-4); Potassium 4.4 mmol/L (3.5-5.0); Total Bilirubin 0.4 mg/dL (0.2-1.0); Total Protein 7.7 g/dL (6.4-8.9)
--- NOTE | 2016-08-07 18:14 | RAD ---
CLINICAL HISTORY: Epigastric pain, rebound tenderness COMPARISON: July 19, 2016 TECHNIQUE: Multiple contiguous axial CT scans were obtained of the abdomen and pelvis after the administration of intravenous contrast. Coronal and sagittal multiplanar reformations are submitted for review. Oral contrast was not administered. Delayed images were obtained through the abdomen and pelvis. FINDINGS: LUNG BASES: The lung bases are clear. LIVER: The liver is diffusely low in attenuation compared to the spleen. There are no focal hepatic parenchymal masses. BILE DUCTS: There is no intrahepatic or extrahepatic biliary dilatation. The common duct ectasia noted on the previous examination is not visualized on the current examination GALLBLADDER: The gallbladder is not visualized. Surgical clips are noted in the gallbladder fossa. PANCREAS: The pancreas is normal, without mass or ductal dilatation. SPLEEN: Normal in size and appearance. UPPER GI TRACT: Evaluation of the gastrointestinal tract is limited by incomplete gastric distention. The upper GI tract is unremarkable. SMALL BOWEL AND MESENTERY: The small bowel is normal in contour, course, and caliber. There is no obstruction or dilatation. COLON: The colon is normal in contour, course, caliber. There is no pericolonic inflammatory change. There is a tubular, vermiform, hollow viscus that is blind ending, and originates from the cecum, consistent with a normal appendix. There is no periappendiceal inflammatory change. ADRENALS: Normal bilaterally. KIDNEYS: The kidneys are normal in shape, size, contour, and axis. There is no hydronephrosis or nephrolithiasis. BLADDER: The bladder is smooth in contour. PELVIC ORGANS: The pelvic organs are not visualized. AORTA: The aorta is normal. IVC: Unremarkable LYMPH NODES: There is no lymphadenopathy by size criteria. ABDOMINAL WALL: There is a small fat-containing umbilical hernia BONES AND SOFT TISSUES: The bones and soft tissues are unremarkable. OTHER: There is no free intraperitoneal fluid or free intraperitoneal gas. IMPRESSION: STATUS POST CHOLECYSTECTOMY. NO ACUTE CT PATHOLOGY OF THE VISUALIZED ABDOMEN OR PELVIS
[2016-08-07] MEDS ORDERED: HYDROcodone/ACETAMIN 5-325 MG* 1 TAB PO ONE (18:23)
[2016-08-07 18:52] VITALS: BP 116/66
--- NOTE | 2016-08-09 08:24 | ED ---
Veronique Morales Matthew, scribed for Agustin Noguera MD on 08/07/16 at 1732 . Abdominal Pain/Female - HPI Summary HPI Summary: A 31 y/o female presents to the ED with gradually worsening epigastric abdominal pain since 2 days ago. Associated symptoms include SOB, productive cough, lightheadedness, and vomiting since 1.5 hours ago. The patient denies diarrhea, black stools, and blood w/ stool. The patient takes Motrin as needed. No Hx of ulcers. She does not drink everyday. - History of Current Complaint Chief Complaint: EDShortnessOfBreath Stated Complaint: SOB / HIGH HEART RATE/SHOULDER BLADE PAIN Time Seen by Provider: 08/07/16 17:03 Hx Obtained From: Patient Hx Last Menstrual Period: hysterectomy 01/2013 ?: No Onset/Duration: Gradual Onset, Lasting Days, Still Present Timing: Constant Severity Initially: Moderate Severity Currently: Moderate Pain Intensity: 0 Location: Epigastric Radiates: No Aggravating Factor(s): Other: - Touch, Vomiting, Coughing Alleviating Factor(s): Nothing Associated Signs and Symptoms: Positive: Cough - Productive Cough, Vomiting, Other: - Lightheadedness; SOB. Negative: Blood in Stool Allergies/Adverse Reactions: Allergies Allergy/AdvReac Type Severity Reaction Status Date / Time No Known Allergies Allergy Verified 08/07/16 14:41 PMH/Surg Hx/FS Hx/Imm Hx Endocrine/Hematology History: Denies: Hx Diabetes, Hx Systemic Lupus Erythematosus, Hx Thyroid Disease Cardiovascular History: Reports: Hx Hypercholesterolemia Denies: Hx Congestive Heart Failure, Hx Hypertension, Hx Pacemaker/ICD, Other Cardiovascular Problems/Disorders Respiratory History: Denies: Hx Asthma, Hx Chronic Bronchitis, Hx Chronic Obstructive Pulmonary Disease (COPD), Other Respiratory Problems/Disorders GI History: Reports: Hx Gall Bladder Disease, Hx Irritable Bowel, Other GI Disorders - PACREATITIS Denies: Hx Ulcer History: Denies: Hx Dialysis, Hx Renal Disease, Other Problems/Disorders Musculoskeletal History: Denies: Other Musculoskeletal History Sensory History: Denies: Hx Contacts or Glasses Opthamlomology History: Denies: Hx Contacts or Glasses Neurological History: Denies: Other Neuro Impairments/Disorders Psychiatric History: Reports: Hx Anxiety, Hx Attention Deficit Hyperactivity Disorder, Hx Depression, Hx Inpatient Treatment, Hx Community Mental Health Tx, Hx Bipolar Disorder, Hx Substance Abuse - etoh abuse hx Denies: Hx Eating Disorder, Hx Panic Disorder, Hx Post Traumatic Stress Disorder, Hx Schizophrenia, Hx Suicide Attempt - some instances of self harm, Hx of Violent Episodes Against Others, Other Psychiatric Issues/Disorders - Surgical History Surgery Procedure, Year, and Place: MULTIPLE LAPRASCOPIC PROCEDURES,. COMPLETE HYSTERECTOMY, 01/2013, [facility]. NAOMY 06/15/13, [facility] [place]. Right knee scopy Hx Anesthesia Reactions: No - Immunization History Date of Tetanus Vaccine: Unknown Infectious Disease History: No Infectious Disease History: Denies: Hx Clostridium Difficile, Hx Hepatitis, Hx Human Immunodeficiency Virus (HIV), Hx of Known/Suspected MRSA, Hx Shingles, Hx Tuberculosis, Hx Known/ Suspected VRE, Hx Known/Suspected VRSA, History Other Infectious Disease, Traveled Outside the [place] in Last 30 Days - Family History Known Family History: Positive: None, Cardiac Disease, Hypertension, Other - father: EtOH abuse - Social History Alcohol Use: None Alcohol Amount: Pt states sober since May 07, 2015 Hx Substance Use: No Substance Use Type: Reports: None Substance Use Comment - Amount & Last Used: 05/07/15 Hx Tobacco Use: Yes Smoking Status (MU): Current Some Day Smoker Type: Cigarettes Amount Used/How Often: 1/2 PPD Length of Time of Smoking/Using Tobacco: 10YRS Have You Smoked in the Last Year: Yes Review of Systems Constitutional: Negative Negative: Fever, Chills Eyes: Negative Negative: Erythema ENT: Negative Negative: Sore Throat Cardiovascular: Negative Negative: Chest Pain Positive: Shortness Of Breath, Cough - productive Positive: Abdominal Pain - epigastric , Vomiting, Nausea. Negative: Diarrhea - doesn't differ from baseline Genitourinary: Negative Negative: dysuria, hematuria Musculoskeletal: Negative Negative: Myalgia, Edema Skin: Negative Negative: Rash Neurological: Other - lighteadedness Negative: Headache Psychological: Normal All Other Systems Reviewed And Are Negative: Yes Physical Exam Triage Information Reviewed: Yes Vital Signs On Initial Exam: Initial Vitals Temp Pulse Resp BP Pulse Ox 97.8 F 91 16 116/92 100 08/07/16 14:42 08/07/16 14:42 08/07/16 14:42 08/07/16 14:42 08/07/16 14:42 Vital Signs Reviewed: Yes Appearance: Positive: Well-Appearing, Pain Distress - mild to moderate Skin: Positive: Warm, Dry Head/Face: Positive: Other - Normocephalic; Atraumatic Eyes: Positive: Conjunctiva Clear ENT: Positive: Normal ENT inspection Dental: Negative: Cervical Lymphadenopathy Neck: Positive: No Lymphadenopathy, Other: - Full ROM; No JVD Respiratory/Lung Sounds: Positive: Other - Normal Effort; No respiratory distress. Negative: Rales, Rhonchi, Stridor, Tracheal Deviation, Wheezes Cardiovascular: Positive: RRR, Other - Rhythm regular, rate normal, Heart sounds normal; Intact distal pulses; The pedal pulses are 2+ and symmetric. Radial pulses are 2+ and symmetric. Negative: Murmur Abdomen Description: Positive: Soft, Guarding, Other: - Exquisite epigastric tenderness; Positive Rebound. Negative: Distended Bowel Sounds: Positive: Present Musculoskeletal: Negative: Edema Left, Edema Right Neurological: Positive: Alert, Oriented to Person Place, Time Psychiatric: Positive: Affect/Mood Appropriate - Eugenie Coma Scale Coma Scale Total: 15 Diagnostics - Vital Signs Vital Signs Temp Pulse Resp BP Pulse Ox 08/07/16 16:26 87 18 100 08/07/16 14:42 97.8 F 91 16 116/92 100 - Laboratory Result Diagrams: 08/07/16 16:25 08/07/16 16:25 Lab Statement: Any lab studies that have been ordered have been reviewed, and results considered in the medical decision making process. - CT A/P CT CT Interpretation: No Acute Changes - IMPRESSION: STATUS POST CHOLECYSTECTOMY. NO ACUTE CT PATHOLOGY OF THE VISUALIZED ABDOMEN OR PELVIS CT Interpretation Completed By: Radiologist - EKG 14:49 Cardiac Rate: NL - 91 bpm EKG Rhythm: Sinus Rhythm EKG Interpretation: No STEMI Re-Evaluation - Re-Evaluation First Eval Re-Evaluation Time: 18:47 Change: Improved Comment: The patient understands and agrees with the treatment plan. Abdominal Pain Fem Course/Dx - Course Course Of Treatment: A 31 y/o female presents to the ED with gradually worsening epigastric abdominal pain since 2 days ago. Associated symptoms include SOB, productive cough, lightheadedness, and vomiting since 1.5 hours ago. The patient denies diarrhea, black stools, and blood w/ stool. The patient takes Motrin as needed. No Hx of ulcers. She does not drink every day. CT A/P shows status post cholecystectomy. no acute ct pathology of the visualized abdomen or pelvis. EKG shows sinus rhythm with no STEMI. In the ED course, the patient was given Maalox, hydrocodone, lidocaine viscous, IV fluids, and fentanyl. The patient will be discharged home on [place] and follow-up with Dr. Becker. May required colonoscopy, endoscopy, or hida scan. The abdominal pain is acute on chronic. Menses. - Diagnoses Provider Diagnoses: Epigastric abdominal pain Discharge - Discharge Plan Condition: Stable Disposition: HOME Prescriptions: HYDROcodone/ACETAMIN 5-325 MG* [[place] 5-325 TAB*] 1 tab PO Q6H PRN #8 tab MDD 4 PRN Reason: Pain Scale 6-10 Ondansetron ODT TAB* [Zofran 4 MG Odt TAB*] 4 mg PO Q8H PRN #12 tab.odt PRN Reason: Nausea/Vomiting Patient Education Materials: Hydrocodone/Acetaminophen (By mouth), Epigastric Pain (ED) Referrals: Erasmo Becker MD [Medical Doctor] - 3 Days Additional Instructions: Please follow-up with Dr. Becker in 2-3 days. Return to the ED for changing or worsening symptoms. The documentation as recorded by the Veronique castillo Matthew accurately reflects the service I personally performed and the decisions made by , Agustin Noguera MD.
== END 2016-08-07 19:16 | disposition home or self-care (01) ==
LOC: ED 14:38
DX: R10.13 Epigastric pain (principal); R05 Cough; R11.2 Nausea with vomiting, unspecified; R42 Dizziness and giddiness; R06.02 Shortness of breath; Z72.0 Tobacco use
CPT/HCPCS: 36415; 74177; 80053; 83605; 85025; 93005; 99284; A9270-GY; J3010; Q9967

== ENCOUNTER 2016-08-21 20:02 | Emergency (ER) | payer OTHER ==
--- NOTE | 2016-08-21 22:16 | ED ---
Madhavi Morales Salem, scribed for Orion Choi MD on 08/21/16 at 2155 . Abdominal Pain/Female - HPI Summary HPI Summary: Patient is a 31 y/o female who presents to the ED with abd pain since yesterday night. She reports nausea and vomiting all day today. She denies any food intake today and states she has rested all day with little alleviation. She also denies consuming any atypical meals yesterday. Pt states she was in the ER for similar sx a couple of weeks ago, but these sx are worse. She denies following up with PCP after last time. - History of Current Complaint Chief Complaint: EDNauseaVomitDiarrh Stated Complaint: VOMITING/DIARRHEA/ABD PAIN Time Seen by Provider: 08/21/16 21:38 Hx Obtained From: Patient Hx Last Menstrual Period: hysterectomy 01/2013 ?: No Onset/Duration: Gradual Onset, Lasting Days, Still Present Timing: Constant Severity Initially: Moderate Severity Currently: Moderate Pain Intensity: 10 Pain Scale Used: 0-10 Numeric Location: Diffuse Radiates: No Character: Sharp Aggravating Factor(s): Nothing Alleviating Factor(s): Nothing Associated Signs and Symptoms: Positive: Nausea, Vomiting Allergies/Adverse Reactions: Allergies Allergy/AdvReac Type Severity Reaction Status Date / Time No Known Allergies Allergy Verified 08/07/16 14:41 PMH/Surg Hx/FS Hx/Imm Hx Endocrine/Hematology History: Denies: Hx Diabetes, Hx Systemic Lupus Erythematosus, Hx Thyroid Disease Cardiovascular History: Reports: Hx Hypercholesterolemia Denies: Hx Congestive Heart Failure, Hx Hypertension, Hx Pacemaker/ICD, Other Cardiovascular Problems/Disorders Respiratory History: Denies: Hx Asthma, Hx Chronic Bronchitis, Hx Chronic Obstructive Pulmonary Disease (COPD), Other Respiratory Problems/Disorders GI History: Reports: Hx Gall Bladder Disease, Hx Irritable Bowel, Other GI Disorders - PACREATITIS Denies: Hx Ulcer History: Denies: Hx Dialysis, Hx Renal Disease, Other Problems/Disorders Musculoskeletal History: Denies: Other Musculoskeletal History Sensory History: Denies: Hx Contacts or Glasses Opthamlomology History: Denies: Hx Contacts or Glasses Neurological History: Denies: Other Neuro Impairments/Disorders Psychiatric History: Reports: Hx Anxiety, Hx Attention Deficit Hyperactivity Disorder, Hx Depression, Hx Inpatient Treatment, Hx Community Mental Health Tx, Hx Bipolar Disorder, Hx Substance Abuse - etoh abuse hx Denies: Hx Eating Disorder, Hx Panic Disorder, Hx Post Traumatic Stress Disorder, Hx Schizophrenia, Hx Suicide Attempt - some instances of self harm, Hx of Violent Episodes Against Others, Other Psychiatric Issues/Disorders - Surgical History Surgery Procedure, Year, and Place: MULTIPLE LAPRASCOPIC PROCEDURES,. COMPLETE HYSTERECTOMY, 01/2013, [facility]. NAOMY 06/15/13, [facility] [place]. Right knee scopy Hx Anesthesia Reactions: No - Immunization History Date of Tetanus Vaccine: Unknown Infectious Disease History: No Infectious Disease History: Denies: Hx Clostridium Difficile, Hx Hepatitis, Hx Human Immunodeficiency Virus (HIV), Hx of Known/Suspected MRSA, Hx Shingles, Hx Tuberculosis, Hx Known/ Suspected VRE, Hx Known/Suspected VRSA, History Other Infectious Disease, Traveled Outside the [place] in Last 30 Days - Family History Known Family History: Positive: Cardiac Disease, Hypertension, Other - father: EtOH abuse - Social History Alcohol Use: None Alcohol Amount: Pt states sober since May 07, 2015 Hx Substance Use: No Substance Use Type: Reports: None Substance Use Comment - Amount & Last Used: 05/07/15 Hx Tobacco Use: Yes Smoking Status (MU): Current Some Day Smoker Type: Cigarettes Amount Used/How Often: 1/2 PPD Length of Time of Smoking/Using Tobacco: 10YRS Have You Smoked in the Last Year: Yes Review of Systems Negative: Fever Positive: Abdominal Pain, Vomiting, Nausea All Other Systems Reviewed And Are Negative: Yes Physical Exam Triage Information Reviewed: Yes Vital Signs On Initial Exam: Initial Vitals Temp Pulse Resp BP Pulse Ox 98.5 F 76 18 135/76 99 08/21/16 20:09 08/21/16 20:09 08/21/16 20:09 08/21/16 20:09 08/21/16 20:09 Vital Signs Reviewed: Yes Appearance: Positive: Well-Appearing, No Pain Distress Skin: Positive: Warm Eyes: Positive: DARIEN ENT: Positive: Hearing grossly normal Neck: Positive: Supple Respiratory/Lung Sounds: Positive: Breath Sounds Present Cardiovascular: Positive: RRR Abdomen Description: Positive: Nontender, Soft Bowel Sounds: Positive: Present Neurological: Positive: Sensory/Motor Intact, Alert, Oriented to Person Place, Time Psychiatric: Positive: Affect/Mood Appropriate Diagnostics - Vital Signs Vital Signs Temp Pulse Resp BP Pulse Ox 05/15/17 21:40 98.3 F 78 24 115/44 100 08/21/16 20:09 98.5 F 76 18 135/76 99 - Laboratory Result Diagrams: 08/21/16 22:20 08/21/16 22:20 Lab Statement: Any lab studies that have been ordered have been reviewed, and results considered in the medical decision making process. Re-Evaluation - Re-Evaluation First Eval Re-Evaluation Time: 23:57 Change: Improved Comment: Informed pt of plan. Abdominal Pain Fem Course/Dx - Diagnoses Provider Diagnoses: Abdominal pain Discharge - Discharge Plan Condition: Stable Disposition: HOME Patient Education Materials: Abdominal Pain (ED) Referrals: Sushil Ruffin NP [Primary Care Provider] - [facility] [place] PHYSICIAN REFERRAL [Outside] Additional Instructions: Follow up with PCP. The documentation as recorded by the Madhavi castillo Salem accurately reflects the service I personally performed and the decisions made by me, Orion Choi MD.
[2016-08-21] MEDS ORDERED: Ondansetron INJ* 2 MG/ML VIAL IV ONE (22:34)
[2016-08-21] MEDS ORDERED: NS 0.9% 1000 ML* 1,000 ML IV ONE (22:34)
[2016-08-21 22:44] LABS: Hematocrit 37 % (35-47); Hemoglobin 12.1 g/dl (12.0-16.0); Mean Corpuscular HGB Conc 33 g/dl (31-36); Mean Corpuscular Hemoglobin 32 pg (27-31); Mean Corpuscular Volume 98 fL (80-97); Mean Platelet Volume 10 um3 (7.4-10.4); Red Blood Count 3.78 10^6/ul (4.0-5.4); Red Cell Distribution Width 15 % (10.5-15); White Blood Count 6.7 10^3/ul (3.5-10.8)
[2016-08-21 22:55] LABS: Albumin 3.9 g/dL (3.2-5.2); BUN/Creatinine Ratio 15.9 (8-20); C Reactive Protein 2.41 mg/L (< 5.00); Calcium 8.8 mg/dL (8.6-10.3); EGFR African American 103.9 (>60); EGFR Non-African American 80.8 (>60); Globulin 2.7 g/dL (2-4); Potassium 3.5 mmol/L (3.5-5.0); Total Bilirubin 0.5 mg/dL (0.2-1.0); Total Protein 6.6 g/dL (6.4-8.9)
[2016-08-21] MEDS ORDERED: Morphine INJ* 2 MG/ML 1 ML SYRINGE IV ONE (22:56)
[2016-08-21] MEDS ORDERED: Morphine INJ* 2 MG/ML 1 ML SYRINGE ONE (22:59)
[2016-08-21] MEDS ORDERED: Al Hydrox/Mg Hydrox/Simet LIQ* 30 ML UDC PO ONE (23:56)
[2016-08-21] MEDS ORDERED: Lidocaine 2% VISCOUS* 15 ML UDC PO ONE (23:56)
[2016-08-22 00:06] LABS: Urine Bilirubin Negative (Negative); Urine Glucose Negative (Negative); Urine Nitrite Negative (Negative)
[2016-08-22 00:31] VITALS: BP 113/72
== END 2016-08-22 00:29 | disposition home or self-care (01) ==
LOC: ED 20:02
DX: R10.9 Unspecified abdominal pain (principal); R11.2 Nausea with vomiting, unspecified; Z72.0 Tobacco use
CPT/HCPCS: 36415; 80053; 81003; 83690; 85025; 86140; 96374; 96375; 99283; A9270-GY; J2270; J2405

== ENCOUNTER 2016-09-03 16:42 | Emergency (ER) | payer OTHER ==
[2016-09-03 16:56] VITALS: BP 153/92
--- NOTE | 2016-09-03 18:45 | UC ---
Back Pain HPI - HPI Summary HPI Summary: 31 yo female who reports she woke up and moved a certain way this morning and had an intense pain in her low right back which has worsened over the day reporting "it feels like intense spasms". She reports the pain travels down her right glute - reported numbness in her right foot earlier today which has resolved. She now denies numbness/tingling and no bladder/bowel incontinence. She reports she is currently being followed by her PCP and is being referred for a breast reduction. She denies fever or chills. no N/V/D. denies IVDU. - History of Current Complaint Chief Complaint: UCBackPain Stated Complaint: BACK PAIN Time Seen by Provider: 09/03/16 18:40 Hx Obtained From: Patient Hx Last Menstrual Period: Complete Hysterectomy ?: No Onset/Duration: Sudden Onset - this morning Timing: Constant Severity Currently: Severe Pain Intensity: 8 Pain Scale Used: 0-10 Numeric Character: Sharp, Aching, Spasmodic Aggravating: Movement, Lifting, Bending, Walking Alleviating: Rest Associated Signs And Symptoms: Positive: Negative - Risk Factors AAA Risk Factors: Negative TAD Risk Factors: Negative Cauda Equina Risk Factors: Negative Epidural Abscess Risk Factors: Negative - Allergies/Home Medications Allergies/Adverse Reactions: Allergies Allergy/AdvReac Type Severity Reaction Status Date / Time No Known Allergies Allergy Verified 09/03/16 16:56 Home Medications: Home Medications Montelukast Sodium TAB* [Singulair 10 MG TAB*] 10 mg PO DAILY 09/03/16 [History Confirmed 09/03/16] Omeprazole CAP* [Prilosec CAP* 20 MG] 40 mg PO DAILY 09/03/16 [History Confirmed 09/03/16] PMH/Surg Hx/FS Hx/Imm Hx Endocrine History Of: Denies: Diabetes, Thyroid Disease Cardiovascular History Of: Denies: Cardiac Disorders, Hypertension, Pacemaker/ICD, Congestive Heart Failure Respiratory History Of: Reports: Bronchitis Denies: COPD, Asthma GI/ History Of: Reports: Gall Bladder Disease Denies: Ulcer, Renal Disease Psychological History Of: Reports: Anxiety, Depression, Bipolar Disorder Denies: Schizophrenia - Surgical History Surgical History: Yes Surgery Procedure, Year, and Place: MULTIPLE LAPRASCOPIC PROCEDURES,. COMPLETE HYSTERECTOMY, 01/2013, [facility]. NAOMY 06/15/13, [facility] [place]. Right knee scopy - Family History Known Family History: Positive: None, Cardiac Disease, Hypertension, Other - father: EtOH abuse - Social History Alcohol Use: Occasionally Alcohol Amount: Pt states sober since May 07, 2015 Substance Use Type: None Substance Use Comment - Amount & Last Used: 05/07/15 Smoking Status (MU): Current Some Day Smoker Type: Cigarettes Amount Used/How Often: 1/2 PPD Length of Time of Smoking/Using Tobacco: 10YRS Have You Smoked in the Last Year: Yes When Did the Patient Quit Smoking/Using Tobacco: stopped 2 weeks ago (June 2014 ) Household Exposure Type: Cigarettes - Immunization History Most Recent Influenza Vaccination: 2014 Most Recent Tetanus Shot: 2014 Most Recent Pneumonia Vaccination: never Review of Systems Constitutional: Other Skin: Negative Eyes: Negative ENT: Negative Respiratory: Negative Cardiovascular: Negative Gastrointestinal: Negative Genitourinary: Negative Motor: Negative Neurovascular: Negative Musculoskeletal: Other: - low right back pain Neurological: Negative Psychological: Negative All Other Systems Reviewed And Are Negative: Yes Physical Exam Triage Information Reviewed: Yes Appearance: Well-Appearing, Well-Nourished, Pain Distress - mild-mod Vital Signs: Initial Vital Signs Temp 97.7 F 09/03/16 16:53 Pulse 80 09/03/16 16:53 Resp 16 09/03/16 16:53 BP 153/92 09/03/16 16:53 Pulse Ox 100 09/03/16 16:53 Vital Signs Reviewed: Yes Neck: Positive: Supple, Nontender, No Lymphadenopathy. Negative: Nuchal Rigidity Respiratory: Positive: Chest non-tender, Lungs clear, Normal breath sounds, No respiratory distress, No accessory muscle use Cardiovascular: Positive: RRR, No Murmur, Pulses Normal, Brisk Capillary Refill Abdomen Description: Positive: Nontender, Soft. Negative: CVA Tenderness (R), CVA Tenderness (L), Distended, Guarding, Hernia @, Peritoneal Signs Bowel Sounds: Positive: Present Musculoskeletal: Positive: Strength Intact, ROM Intact, No Edema, Other: - tenderness to palpation in right lumbar/sacral area and tenderness to sacral/ iliac joint Neurological: Positive: Alert Psychological Exam: Normal Skin Exam: Normal Back Pain Course/Dx - Course Course Of Treatment: flexeril, supportive treatment - heat, baths with epsom salts, PT eval - Differential Dx/Diagnosis Differential Diagnosis/HQI/PQRI: Strain, Sprain Provider Diagnoses: 1. Low back strain Discharge - Discharge Plan Condition: Stable Disposition: HOME Prescriptions: Cyclobenzaprine TAB* [Flexeril 10 MG TAB*] 10 mg PO TID PRN #9 tab PRN Reason: Spasms Patient Education Materials: Low Back Strain (ED), Sacroiliitis (ED) Referrals: Sushil Ruffin, [facility]NER [Primary Care Provider] - 3 Days (please call for a follow up this week) Additional Instructions: As discussed, rest, heat, baths and physical therapy evaluation. Follow up with your primary this week. If you have any worsening symptoms such as numbness, tingling especially in the groin area or bladder or bowel loss you need to been seen immediately in the Emergency department.
[2016-09-03] MEDS ORDERED: Ketorolac INJ* 60 MG/2 ML VIAL IM ONE (18:52)
[2016-09-03] MEDS ORDERED: Cyclobenzaprine TAB* 10 MG PO ONE (18:53)
== END 2016-09-03 19:46 | disposition home or self-care (01) ==
LOC: UCEAST 16:42
DX: S39.012A Strain of muscle, fascia and tendon of lower back, initial encounter (principal); X58.XXXA Exposure to other specified factors, initial encounter; Y93.9 Activity, unspecified; Y92.9 Unspecified place or not applicable; Z90.49 Acquired absence of other specified parts of digestive tract; Z90.710 Acquired absence of both cervix and uterus; F41.9 Anxiety disorder, unspecified; F31.9 Bipolar disorder, unspecified; Z72.0 Tobacco use
CPT/HCPCS: 96372; 99212; A9270-GY; G0463; J1885

== ENCOUNTER 2016-10-11 12:42 | Emergency (ER) | payer SELFPAY ==
[2016-10-11 18:08] LABS: Hematocrit 46 % (35-47); Hemoglobin 15.1 g/dl (12.0-16.0); Mean Corpuscular HGB Conc 33 g/dl (31-36); Mean Corpuscular Hemoglobin 33 pg (27-31); Mean Corpuscular Volume 98 fL (80-97); Mean Platelet Volume 11 um3 (7.4-10.4); Red Blood Count 4.63 10^6/ul (4.0-5.4); Red Cell Distribution Width 13 % (10.5-15); White Blood Count 10.5 10^3/ul (3.5-10.8)
[2016-10-11 18:41] LABS: ALT 13 U/L (7-52); Albumin 4.5 g/dL (3.2-5.2); Alkaline Phosphatase 79 U/L (34-104); BUN/Creatinine Ratio 14.8 (8-20); Blood Urea Nitrogen 12 mg/dL (6-24); C Reactive Protein 1.99 mg/L (< 5.00); CO2 Carbon Dioxide 21 mmol/L (22-32); Calcium 9.1 mg/dL (8.6-10.3); Chloride 103 mmol/L (101-111); EGFR African American 105.4 (>60); EGFR Non-African American 81.9 (>60); Globulin 3.4 g/dL (2-4); Glucose 85 mg/dL (70-100); Lipase 28 U/L (11.0-82.0); Sodium 135 mmol/L (133-145); Total Protein 7.9 g/dL (6.4-8.9)
[2016-10-11 18:43] LABS: AST 25 U/L (13-39); Anion Gap 11 mmol/L (2-11); Potassium 3.8 mmol/L (3.5-5.0)
[2016-10-11] MEDS ORDERED: Ketorolac INJ* 30 MG/ML 1 ML VIAL IV ONE (19:12)
[2016-10-11] MEDS ORDERED: NS 0.9% 1000 ML* 1,000 ML IV ONE (19:12)
[2016-10-11 19:16] LABS: Urine Bacteria 1+ (Absent); Urine Bilirubin Negative (Negative); Urine Glucose Negative (Negative); Urine Nitrite Negative (Negative)
--- NOTE | 2016-10-11 20:07 | RAD ---
Indication: Diffuse abdominal pain CT of the abdomen and pelvis was performed without oral or IV contrast administration. Coronal and sagittal reconstructed images were obtained. Lung bases demonstrate no pleural fluid, nodules or masses. Heart is of normal size without evidence of pericardial effusion. Liver is normal in size. No focal lesions or intrahepatic ductal dilatation is noted. The patient is status post cholecystectomy. The spleen is normal in size. The pancreas demonstrates no mass or pancreatic duct dilatation where visualized. The common duct is not dilated. No adrenal lesions are noted. The kidneys demonstrate no hydronephrosis. No retroperitoneal adenopathy is noted. No dilated loops of bowel are noted. The aorta and inferior vena cava are grossly unremarkable. No retroperitoneal adenopathy is noted. CT of the pelvis demonstrates no retroperitoneal or pelvic lymphadenopathy. There is mucosal thickening of the descending colon and sigmoid colon. This is suspicious for colitis. No dilated loops of bowel are noted. The appendix is visualized and is unremarkable. Patient status post hysterectomy. Urinary bladder is unremarkable. No hernias are noted. IMPRESSION: PATIENT IS STATUS POST CHOLECYSTECTOMY. MUCOSAL THICKENING OF THE DESCENDING COLON AND SIGMOID COLON SUSPICIOUS FOR COLITIS. NO OTHER MASSES OR FLUID COLLECTIONS ARE NOTED.
[2016-10-11] MEDS ORDERED: Ondansetron INJ* 2 MG/ML VIAL IV ONE (20:13)
[2016-10-11] MEDS ORDERED: Ondansetron INJ* 2 MG/ML VIAL ONE (20:14)
[2016-10-11] MEDS ORDERED: Ondansetron ODT TAB* 4 MG PO ONE (20:18)
[2016-10-11] MEDS ORDERED: HYDROcodone/ACETAMIN 5-325 MG* 1 TAB PO ONE (20:18)
[2016-10-11] MEDS ORDERED: metroNIDAZOLE TAB* 250 MG PO ONE (20:20)
[2016-10-11] MEDS ORDERED: Ciprofloxacin TAB* 500 MG PO ONE (20:20)
[2016-10-11] MEDS ORDERED: Ondansetron ODT TAB* 4 MG ONE (20:59)
[2016-10-11 21:08] VITALS: BP 106/48
--- NOTE | 2016-10-11 21:57 | ED ---
Maria Del Carmen Morales SooYoung, scribed for Abraham Aleman MD on 10/11/16 at 1701 . Abdominal Pain/Female - HPI Summary HPI Summary: A 31 y/o F presents to ED with c/o abd pain onset yesterday. Pain is described as sharp and cramping, she notes it initially began epigastric and has since become diffuse. Associated sx: n/v/d. Aggravating factors include movement, palpation. SHx: cholecystectomy, hysterectomy. Pert PMHx: IBS - History of Current Complaint Chief Complaint: EDAbdPain Stated Complaint: VOMITING/ABD PAIN Time Seen by Provider: 10/11/16 16:56 Hx Obtained From: Patient Hx Last Menstrual Period: Complete Hysterectomy ?: No Onset/Duration: Lasting Days, Still Present Timing: Constant Severity Currently: Severe Pain Intensity: 10 Pain Scale Used: 0-10 Numeric Location: Diffuse Character: Sharp, Cramping Aggravating Factor(s): Movement Associated Signs and Symptoms: Positive: Nausea, Vomiting, Diarrhea Allergies/Adverse Reactions: Allergies Allergy/AdvReac Type Severity Reaction Status Date / Time No Known Allergies Allergy Verified 09/03/16 16:56 PMH/Surg Hx/FS Hx/Imm Hx Previously Healthy: No Endocrine/Hematology History: Denies: Hx Diabetes, Hx Systemic Lupus Erythematosus, Hx Thyroid Disease Cardiovascular History: Reports: Hx Hypercholesterolemia Denies: Hx Congestive Heart Failure, Hx Hypertension, Hx Pacemaker/ICD, Other Cardiovascular Problems/Disorders Respiratory History: Denies: Hx Asthma, Hx Chronic Bronchitis, Hx Chronic Obstructive Pulmonary Disease (COPD), Other Respiratory Problems/Disorders GI History: Reports: Hx Gall Bladder Disease, Hx Irritable Bowel, Other GI Disorders - PACREATITIS Denies: Hx Ulcer History: Denies: Hx Dialysis, Hx Renal Disease, Other Problems/Disorders Musculoskeletal History: Denies: Other Musculoskeletal History Sensory History: Denies: Hx Contacts or Glasses Opthamlomology History: Denies: Hx Contacts or Glasses Neurological History: Denies: Other Neuro Impairments/Disorders Psychiatric History: Reports: Hx Anxiety, Hx Attention Deficit Hyperactivity Disorder, Hx Depression, Hx Inpatient Treatment, Hx Community Mental Health Tx, Hx Bipolar Disorder, Hx Substance Abuse - etoh abuse hx Denies: Hx Eating Disorder, Hx Panic Disorder, Hx Post Traumatic Stress Disorder, Hx Schizophrenia, Hx Suicide Attempt - some instances of self harm, Hx of Violent Episodes Against Others, Other Psychiatric Issues/Disorders - Surgical History Surgery Procedure, Year, and Place: MULTIPLE LAPRASCOPIC PROCEDURES,. COMPLETE HYSTERECTOMY, 01/2013, [facility]. [place] 06/15/13, [facility] [place]. Right knee scopy Hx Anesthesia Reactions: No - Immunization History Date of Tetanus Vaccine: Unknown Infectious Disease History: No Infectious Disease History: Denies: Hx Clostridium Difficile, Hx Hepatitis, Hx Human Immunodeficiency Virus (HIV), Hx of Known/Suspected MRSA, Hx Shingles, Hx Tuberculosis, Hx Known/ Suspected VRE, Hx Known/Suspected VRSA, History Other Infectious Disease, Traveled Outside the [place] in Last 30 Days - Family History Known Family History: Positive: Cardiac Disease, Hypertension, Other - father: EtOH abuse - Social History Occupation: Unemployed Lives: With Family Alcohol Use: Occasionally Alcohol Amount: Pt states sober since May 07, 2015 Hx Substance Use: No Substance Use Type: Reports: None Substance Use Comment - Amount & Last Used: 05/07/15 Hx Tobacco Use: Yes Smoking Status (MU): Current Some Day Smoker Type: Cigarettes Amount Used/How Often: 1/2 PPD Length of Time of Smoking/Using Tobacco: 10YRS Have You Smoked in the Last Year: Yes Review of Systems Negative: Fever Positive: Abdominal Pain, Vomiting, Diarrhea, Nausea All Other Systems Reviewed And Are Negative: Yes Physical Exam Triage Information Reviewed: Yes Vital Signs On Initial Exam: Initial Vitals Temp Pulse Resp BP Pulse Ox 97.6 F 83 18 130/89 100 10/11/16 12:45 10/11/16 12:45 10/11/16 12:45 10/11/16 12:45 10/11/16 12:45 Vital Signs Reviewed: Yes Appearance: Positive: Well-Appearing, No Pain Distress Skin: Positive: Warm, Skin Color Reflects Adequate Perfusion, Dry Head/Face: Positive: Normal Head/Face Inspection Eyes: Positive: Normal ENT: Positive: Normal ENT inspection Neck: Positive: Supple, Nontender Respiratory/Lung Sounds: Positive: Clear to Auscultation, Breath Sounds Present Cardiovascular: Positive: RRR Abdomen Description: Positive: Soft, Other: - DIFFUSE ABD TENDERNESS Bowel Sounds: Positive: Present Musculoskeletal: Positive: Normal Neurological: Positive: Normal Psychiatric: Positive: Normal, Affect/Mood Appropriate Diagnostics - Vital Signs Vital Signs Temp Pulse Resp BP Pulse Ox 10/11/16 14:59 97.2 F 62 18 146/100 100 10/11/16 12:45 97.6 F 83 18 130/89 100 - Laboratory Lab Results: Lab Results 10/11/16 10/11/16 10/11/16 Range/Units 17:30 17:30 17:30 WBC 10.5 (3.5-10.8) 10^3/ul RBC 4.63 (4.0-5.4) 10^6/ul Hgb 15.1 (12.0-16.0) g/dl Hct 46 (35-47) % MCV 98 H (80-97) fL MCH 33 H (27-31) pg MCHC 33 (31-36) g/dl RDW 13 (10.5-15) % Plt Count 202 (150-450) 10^3/ul MPV 11 H (7.4-10.4) um3 Neut % (Auto) 63.5 (38-83) % Lymph % (Auto) 28.7 (25-47) % [place] % (Auto) 6.5 (1-9) % Eos % (Auto) 0.8 (0-6) % Baso % (Auto) 0.5 (0-2) % Absolute Neuts (auto) 6.7 (1.5-7.7) 10^3/ul Absolute Lymphs (auto) 3.0 (1.0-4.8) 10^3/ul Absolute Monos (auto) 0.7 (0-0.8) 10^3/ul Absolute Eos (auto) 0.1 (0-0.6) 10^3/ul Absolute Basos (auto) 0 (0-0.2) 10^3/ul Absolute Nucleated RBC 0.01 10^3/ul Nucleated RBC % 0.1 Sodium 135 (133-145) mmol/L Potassium 3.8 (3.5-5.0) mmol/L Chloride 103 (101-111) mmol/L Carbon Dioxide 21 L (22-32) mmol/L Anion Gap 11 (2-11) mmol/L BUN 12 (6-24) mg/dL Creatinine 0.81 (0.51-0.95) mg/dL Est GFR ( Amer) 105.4 (>60) Est GFR (Non-Af Amer) 81.9 (>60) BUN/Creatinine Ratio 14.8 (8-20) Glucose 85 (70-100) mg/dL Lactic Acid 1.0 (0.5-2.0) mmol/L Calcium 9.1 (8.6-10.3) mg/dL Total Bilirubin 0.60 (0.2-1.0) mg/dL AST 25 (13-39) U/L ALT 13 (7-52) U/L Alkaline Phosphatase 79 (34-104) U/L C-Reactive Protein 1.99 (< 5.00) mg/L Total Protein 7.9 (6.4-8.9) g/dL Albumin 4.5 (3.2-5.2) g/dL Globulin 3.4 (2-4) g/dL Albumin/Globulin Ratio 1.3 (1-3) Lipase 28 (11.0-82.0) U/L Beta HCG, Quant < 0.60 mIU/mL Urine Color Urine Appearance Urine pH (5-9) Ur Specific [place] (1.010-1.030) Urine Protein (Negative) Urine Ketones (Negative) Urine Blood (Negative) Urine Nitrate (Negative) Urine Bilirubin (Negative) Urine Urobilinogen (Negative) Ur Leukocyte Esterase (Negative) Urine WBC (Auto) (Absent) Urine RBC (Auto) (Absent) Ur Squamous Epith Cells (Absent) Urine Bacteria (Absent) Hyaline Casts (Absent) Urine Glucose (Negative) 10/11/16 Range/Units 18:17 WBC (3.5-10.8) 10^3/ul RBC (4.0-5.4) 10^6/ul Hgb (12.0-16.0) g/dl Hct (35-47) % MCV (80-97) fL MCH (27-31) pg MCHC (31-36) g/dl RDW (10.5-15) % Plt Count (150-450) 10^3/ul MPV (7.4-10.4) um3 Neut % (Auto) (38-83) % Lymph % (Auto) (25-47) % [place] % (Auto) (1-9) % Eos % (Auto) (0-6) % Baso % (Auto) (0-2) % Absolute Neuts (auto) (1.5-7.7) 10^3/ul Absolute Lymphs (auto) (1.0-4.8) 10^3/ul Absolute Monos (auto) (0-0.8) 10^3/ul Absolute Eos (auto) (0-0.6) 10^3/ul Absolute Basos (auto) (0-0.2) 10^3/ul Absolute Nucleated RBC 10^3/ul Nucleated RBC % Sodium (133-145) mmol/L Potassium (3.5-5.0) mmol/L Chloride (101-111) mmol/L Carbon Dioxide (22-32) mmol/L Anion Gap (2-11) mmol/L BUN (6-24) mg/dL Creatinine (0.51-0.95) mg/dL Est GFR ( Amer) (>60) Est GFR (Non-Af Amer) (>60) BUN/Creatinine Ratio (8-20) Glucose (70-100) mg/dL Lactic Acid (0.5-2.0) mmol/L Calcium (8.6-10.3) mg/dL Total Bilirubin (0.2-1.0) mg/dL AST (13-39) U/L ALT (7-52) U/L Alkaline Phosphatase (34-104) U/L C-Reactive Protein (< 5.00) mg/L Total Protein (6.4-8.9) g/dL Albumin (3.2-5.2) g/dL Globulin (2-4) g/dL Albumin/Globulin Ratio (1-3) Lipase (11.0-82.0) U/L Beta HCG, Quant mIU/mL Urine Color Yellow Urine Appearance Clear Urine pH 5.0 (5-9) Ur Specific [place] 1.028 (1.010-1.030) Urine Protein 2+(100 mg/dl) H (Negative) Urine Ketones 2+ H (Negative) Urine Blood 1+ H (Negative) Urine Nitrate Negative (Negative) Urine Bilirubin Negative (Negative) Urine Urobilinogen Negative (Negative) Ur Leukocyte Esterase Negative (Negative) Urine WBC (Auto) Trace(0-5/hpf) (Absent) Urine RBC (Auto) 2+(6-10/hpf) H (Absent) Ur Squamous Epith Cells Present H (Absent) Urine Bacteria 1+ H (Absent) Hyaline Casts Present H (Absent) Urine Glucose Negative (Negative) Result Diagrams: 10/11/16 17:30 10/11/16 17:30 Lab Statement: Any lab studies that have been ordered have been reviewed, and results considered in the medical decision making process. - CT ABD/PEL CT Interpretation: Positive (See Comments) - IMPRESSION: PATIENT IS STATUS POST CHOLECYSTECTOMY. MUCOSAL THICKENING OF THE DESCENDING COLON AND SIGMOID COLON SUSPICIOUS FOR COLITIS. NO OTHER MASSES OR FLUID COLLECTIONS ARE NOTED. CT Interpretation Completed By: Radiologist Re-Evaluation - Re-Evaluation 1 Re-Evaluation Time: 20:15 Change: Improved Comment: Discussing lab and CT results with pt. Abdominal Pain Fem Course/Dx - Course Course Of Treatment: Ms. Rashid presented with diffuse abdominal pain accompanied by nausea and diarrhea. She was found to have colitis. This is likely infectious in origin although infammatory bowel disease can not be R/U'd at this point. I will treat her symptomatically and with antibiotics initially. - Diagnoses Provider Diagnoses: Colitis Discharge - Discharge Plan Condition: Stable Disposition: HOME Prescriptions: Ciprofloxacin TAB* [Cipro Tab*] 500 mg PO BID #20 tab HYDROcodone/ACETAMIN 5-325 MG* [[place] 5-325 TAB*] 1 tab PO Q6H PRN #20 tab MDD 4 PRN Reason: Pain Metronidazole [Flagyl 500 MG TAB] 500 mg PO TID #30 tab Ondansetron ODT TAB* [Zofran Odt TAB*] 4 mg PO Q6H PRN #20 tab.odt PRN Reason: Nausea/Vomiting Patient Education Materials: Ciprofloxacin (By mouth), Hydrocodone/ Acetaminophen (By mouth), Metronidazole (By mouth), Ondansetron (By mouth), Colitis (ED) Referrals: Sushil Ruffin, [employer] [Primary Care Provider] - 1 Week Additional Instructions: Follow up with your primary care provider in a week. Please return to the ED if you experience new or worsening symptoms. The documentation as recorded by the Maria Del Carmen castillo SooYoung accurately reflects the service I personally performed and the decisions made by me, Abraham Aleman MD.
== END 2016-10-11 21:06 | disposition home or self-care (01) ==
LOC: ED 12:42
DX: K52.9 Noninfective gastroenteritis and colitis, unspecified (principal); R11.2 Nausea with vomiting, unspecified; R19.7 Diarrhea, unspecified
CPT/HCPCS: 36415; 74176; 80053; 81003; 81015; 83605; 83690; 84702; 85025; 86140; 87086; 96374; 96375; 99284; A9270-GY; J1885; J2405

== ENCOUNTER 2016-11-20 12:26 | Emergency (ER) | payer OTHER ==
[2016-11-20 12:35] VITALS: BP 146/72
--- NOTE | 2016-11-20 12:57 | UC ---
Knee Pain HPI - HPI Summary HPI Summary: 31 yo female with right knee pain x 3 days no injury feels like knee will buckle hx of arthroscopy grinding - History of Current Complaint Chief Complaint: UCLowerExtremity Stated Complaint: KNEE PAIN Time Seen by Provider: 11/20/16 12:38 Hx Obtained From: Patient Hx Last Menstrual Period: Complete Hysterectomy Onset/Duration: Sudden Onset, Lasting Days Severity Initially: Moderate Severity Currently: Moderate Pain Intensity: 4 Pain Scale Used: 0-10 Numeric Character: Sharp, Aching Aggravating Factor(s): Movement, Weight Bearing Alleviating Factor(s): Rest Associated Signs And Symptoms: Positive: Swelling Able to Bear Weight: Yes - Allergies/Home Medications Allergies/Adverse Reactions: Allergies Allergy/AdvReac Type Severity Reaction Status Date / Time No Known Allergies Allergy Verified 11/20/16 12:35 PMH/Surg Hx/FS Hx/Imm Hx Previously Healthy: Yes - Surgical History Surgical History: Yes Surgery Procedure, Year, and Place: MULTIPLE LAPRASCOPIC PROCEDURES,. COMPLETE HYSTERECTOMY, 01/2013, [facility]. NAOMY 06/15/13, [facility] [place]. Right knee scopy - Family History Known Family History: Positive: Cardiac Disease, Hypertension, Other - father: EtOH abuse - Social History Alcohol Use: None Alcohol Amount: 145 days ago last drink Substance Use Type: None Substance Use Comment - Amount & Last Used: 05/07/15 Smoking Status (MU): Current Every Day Smoker Type: Cigarettes Amount Used/How Often: 1/2 PPD Length of Time of Smoking/Using Tobacco: 10YRS Have You Smoked in the Last Year: Yes When Did the Patient Quit Smoking/Using Tobacco: stopped 2 weeks ago (June 2014 ) Household Exposure Type: Cigarettes - Immunization History Most Recent Influenza Vaccination: 2014 Most Recent Tetanus Shot: 2014 Most Recent Pneumonia Vaccination: never Review of Systems Constitutional: Negative Skin: Negative Eyes: Negative ENT: Negative Respiratory: Negative Cardiovascular: Negative Gastrointestinal: Negative Genitourinary: Negative Motor: Negative Neurovascular: Negative Musculoskeletal: Arthralgia Neurological: Negative Psychological: Negative All Other Systems Reviewed And Are Negative: Yes Physical Exam Triage Information Reviewed: Yes Appearance: Well-Appearing, No Pain Distress, Well-Nourished Vital Signs: Initial Vital Signs Temp 98.0 F 11/20/16 12:32 Pulse 87 11/20/16 12:32 Resp 12 11/20/16 12:32 BP 146/72 11/20/16 12:32 Pulse Ox 100 11/20/16 12:32 Eyes: Positive: Conjunctiva Clear ENT: Positive: Hearing grossly normal. Negative: Nasal congestion, Nasal drainage, Trismus, Muffled/hoarse voice Neck: Positive: Supple, Nontender, No Lymphadenopathy Respiratory: Positive: Lungs clear, Normal breath sounds, No respiratory distress Cardiovascular: Positive: RRR, No Murmur Musculoskeletal: Positive: Strength Intact, ROM Intact, Other: - antalgic gait/ right patellar grind/tender medial joint line Neurological: Positive: Alert Psychological Exam: Normal Skin Exam: Normal Knee Pain Course/Dx - Differential Dx/Diagnosis Provider Diagnoses: right knee pain. ? medial meniscal tear vs patellofemoral pain syndrome vs other Discharge - Discharge Plan Condition: Stable Disposition: HOME Patient Education Materials: Knee Pain (ED) Referrals: Marcus Cruz MD [Medical Doctor] - 4 Days Sushil Ruffin NP [Primary Care Provider] - 2 Weeks (should have your BP recheck in 2-4 weeks) Additional Instructions: I am unsure of the cause of your knee pain ? cartilage versus patello femoral pain syndrome vs other ice twice daily advil or aleve wear knee immobilizer when wt bearing I suggest you follow up with an orthopedist
--- NOTE | 2016-11-20 13:40 | RAD ---
INDICATION: Right knee pain. TECHNIQUE: 4 views of the right knee were obtained. FINDINGS: The bones are in normal alignment. No joint effusion or fracture is seen. Joint spaces appear maintained. IMPRESSION: NO EVIDENCE FOR FRACTURE.
== END 2016-11-20 13:35 | disposition home or self-care (01) ==
LOC: UCEAST 12:26
DX: M25.561 Pain in right knee (principal); Z90.710 Acquired absence of both cervix and uterus; Z90.49 Acquired absence of other specified parts of digestive tract; F17.210 Nicotine dependence, cigarettes, uncomplicated
CPT/HCPCS: 99212; G0463

== ENCOUNTER 2016-11-20 20:07 | Emergency (ER) | payer OTHER ==
[2016-11-20] MEDS ORDERED: Ketorolac INJ* 60 MG/2 ML VIAL IM ONE (22:31)
[2016-11-20] MEDS ORDERED: hydrOXYzine HCL TAB* 50 MG PO ONE (22:31)
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
[2016-11-21 00:24] VITALS: BP 135/98
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
--- NOTE | 2016-11-21 07:45 | RAD ---
Indication: Left wrist injury. 3 views of the wrist demonstrates no fracture. No other bone or joint abnormality is identified. IMPRESSION: NO FRACTURE OF THE WRIST IS NOTED.
--- NOTE | 2016-11-21 07:45 | RAD ---
Indication: Fall, right knee injury. 4 views of the right knee demonstrates no fracture. No other bone or joint abnormality is identified. No joint effusion is noted. IMPRESSION: No fracture of the right knee is noted.
--- NOTE | 2016-11-21 07:48 | RAD ---
INDICATION: Fall . Back pain. COMPARISON: None TECHNIQUE: Routine 2 view imaging was performed FINDINGS: Bones: There are no acute bony findings. There are no significant osteoarthritic findings. Alignment: Normal Disc spaces: The disc spaces are well-maintained Soft tissues: There are no soft tissue abnormalities. IMPRESSION: NO ACUTE BONY FINDINGS.
--- NOTE | 2016-11-21 07:49 | RAD ---
HISTORY: Left forearm pain, trauma COMPARISONS: None VIEWS: 4, Frontal, lateral, and oblique views of the left elbow FINDINGS: BONE DENSITY: Normal. BONES: There is no displaced fracture. JOINTS: There is no arthropathy. There is no posterior supracondylar fat pad to suggest a joint effusion. ALIGNMENT: There is no dislocation. SOFT TISSUES: Unremarkable. OTHER FINDINGS: None. IMPRESSION: NO ACUTE OSSEOUS INJURY. IF SYMPTOMS PERSIST, RECOMMEND REPEAT IMAGING.
== END 2016-11-21 00:23 | disposition home or self-care (01) ==
LOC: ED 20:07
DX: S50.12XA Contusion of left forearm, initial encounter (principal); S60.212A Contusion of left wrist, initial encounter; S80.01XA Contusion of right knee, initial encounter; S50.312A Abrasion of left elbow, initial encounter; S60.511A Abrasion of right hand, initial encounter; S60.512A Abrasion of left hand, initial encounter; Y04.8XXA Assault by other bodily force, initial encounter; Y93.9 Activity, unspecified; Y92.039 Unspecified place in apartment as the place of occurrence of the external cause; Y07.03 Male partner, perpetrator of maltreatment and neglect; R51 Headache; F41.9 Anxiety disorder, unspecified; E78.00 Pure hypercholesterolemia, unspecified; Z90.710 Acquired absence of both cervix and uterus; F17.210 Nicotine dependence, cigarettes, uncomplicated
CPT/HCPCS: 72070; 96372; 99282; A9270-GY; J1885

== ENCOUNTER 2016-11-27 11:29 | Emergency (ER) | payer OTHER ==
--- NOTE | 2016-11-27 11:47 | UC ---
Eye Complaint HPI - HPI Summary HPI Summary: 31 YEAR OLD FEMALE PRESENTS WITH COMPLAINS OF RIGHT EYELID SWELLING/REDNESS AFTER A POSSIBLE ALLERGIC REACTION. - History of Current Complaint Chief Complaint: UCEye Stated Complaint: EYE COMPLAINT Time Seen by Provider: 11/27/16 11:47 Hx Obtained From: Patient Hx Last Menstrual Period: Complete Hysterectomy Onset/Duration: Sudden Onset, Lasting Hours Timing: Constant Pain Scale Used: 0-10 Numeric - 5 Location of Injury: Conjunctiva, Eye Lid (upper) - RIGHT Character: Sharp - Allergies/Home Medications Allergies/Adverse Reactions: Allergies Allergy/AdvReac Type Severity Reaction Status Date / Time No Known Allergies Allergy Verified 11/20/16 12:35 PMH/Surg Hx/FS Hx/Imm Hx Previously Healthy: Yes Other History Of: Negative For: Anticoagulant Therapy - Surgical History Surgical History: Yes Surgery Procedure, Year, and Place: MULTIPLE LAPRASCOPIC PROCEDURES,. COMPLETE HYSTERECTOMY, 01/2013, [facility]. [place] [facility] 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 Smoking Status (MU): Current Every Day Smoker Type: Cigarettes Amount Used/How Often: 1/4 PPD Length of Time of Smoking/Using Tobacco: 10YRS Have You Smoked in the Last Year: Yes When Did the Patient Quit Smoking/Using Tobacco: stopped 2 weeks ago (June 2014 ) Household Exposure Type: Cigarettes - Immunization History Most Recent Influenza Vaccination: 2014 Most Recent Tetanus Shot: 2015 Most Recent Pneumonia Vaccination: never Review of Systems Constitutional: Negative Skin: Negative Eyes: Eye Redness, Other - RIGHT UPPER EYELID SWELLING ENT: Negative Respiratory: Negative Cardiovascular: Negative Gastrointestinal: Negative Genitourinary: Negative Motor: Negative Neurovascular: Negative Musculoskeletal: Negative Neurological: Negative Psychological: Negative All Other Systems Reviewed And Are Negative: Yes Physical Exam Triage Information Reviewed: Yes Eyes: Positive: Other: - RIGHT UPPER EYELID SWELLING ENT Exam: Normal Dental Exam: Normal Neck exam: Normal Neck: Positive: 1 Respiratory Exam: Normal Cardiovascular Exam: Normal Abdominal Exam: Normal Musculoskeletal Exam: Normal Neurological Exam: Normal Psychological Exam: Normal Skin Exam: Normal Eye Complaint Course/Dx - Differential Dx/Diagnosis Provider Diagnoses: RIGHT UPPER EYELID SWELLING Discharge - Discharge Plan Condition: Stable Disposition: HOME Prescriptions: Amoxicillin PO (*) [Amoxicillin 875 MG (*)] 875 mg PO BID #14 tab Methylprednisolone [Medrol Dosepak 4 MG*] 4 mg PO .SEE J[employer]GE [employer] #21 tab Polymyx/Trimethoprim OPTH* [Polytrim OPHTH*] 1 drop RIGHT EYE Q8H #1 btl Patient Education Materials: Conjunctivitis (ED) Referrals: Silvia Langston NP [Primary Care Provider] -
[2016-11-27 11:48] VITALS: BP 139/86
== END 2016-11-27 12:14 | disposition home or self-care (01) ==
LOC: UCEAST 11:29
DX: H02.841 Edema of right upper eyelid (principal); F17.210 Nicotine dependence, cigarettes, uncomplicated
CPT/HCPCS: 99212; G0463

== ENCOUNTER 2016-12-12 11:26 | Observation (INO) | payer OTHER ==
[2016-12-12] MEDS ORDERED: Morphine INJ* 4 MG/ML 1 ML SYRINGE IV ONE (15:17)
[2016-12-12] MEDS ORDERED: Ondansetron INJ* 2 MG/ML VIAL IV ONE (15:17)
[2016-12-12] MEDS ORDERED: NS 0.9% 1000 ML* 2,000 ML IV ONE (15:17)
[2016-12-12 16:00] LABS: Hematocrit 42 % (35-47); Mean Corpuscular HGB Conc 34 g/dl (31-36); Mean Corpuscular Hemoglobin 32 pg (27-31); Mean Corpuscular Volume 95 fL (80-97); Mean Platelet Volume 10 um3 (7.4-10.4); Red Blood Count 4.36 10^6/ul (4.0-5.4); Red Cell Distribution Width 14 % (10.5-15); White Blood Count 7.7 10^3/ul (3.5-10.8)
[2016-12-12 16:15] LABS: Albumin 4.1 g/dL (3.2-5.2); BUN/Creatinine Ratio 12.7 (8-20); C Reactive Protein 41.67 mg/L (< 5.00); Calcium 9.3 mg/dL (8.6-10.3); EGFR African American 108.5 (>60); EGFR Non-African American 84.3 (>60); Globulin 2.7 g/dL (2-4); Potassium 3.6 mmol/L (3.5-5.0); Total Bilirubin 1.2 mg/dL (0.2-1.0); Total Protein 6.8 g/dL (6.4-8.9)
[2016-12-12] MEDS ORDERED: Al Hydrox/Mg Hydrox/Simet LIQ* 30 ML UDC PO ONE (16:31)
[2016-12-12] MEDS ORDERED: Lidocaine 2% VISCOUS* 15 ML UDC PO ONE (16:31)
[2016-12-12] MEDS ORDERED: HYDROmorphone* 1 MG/ML 1 ML SYR IV ONE ×2 (16:31→18:11)
[2016-12-12] MEDS ORDERED: Pantoprazole IV* 40 MG IV ONE (16:31)
[2016-12-12] MEDS ORDERED: Iohexol 300* (CONTRAST) 10 ML SDV IV ONE (16:33)
--- NOTE | 2016-12-12 17:36 | RAD ---
INDICATION: LEFT upper quadrant abdominal pain radiating to the RIGHT side. Diagnosed with colitis last month. Post multiple prior laparoscopies. Post complete hysterectomy. Post cholecystectomy. COMPARISON: October 11, 2016 CT. TECHNIQUE: Multidetector CT images were obtained from the lung bases to the ischial tuberosities with 103 mL Omnipaque 300 IV and oral contrast. Multiplanar reformation. REPORT: Minimal bibasilar subsegmental atelectasis. Unremarkable liver. Post cholecystectomy. Negative for biliary dilatation. Unremarkable pancreas and spleen. Tiny splenule at the splenic hilum. Negative for CT abnormality of the upper GI, small bowel, or retrocecal appendix. Fluid levels in the ascending and transverse colon without significant dilatation or mural thickening. Negative for perienteric inflammatory change. Small volume of free pelvic fluid. Negative for free air. Small fat-containing umbilical hernia without inflammatory change. Normal adrenal glands. Unremarkable kidneys with symmetric nephrograms and pyelograms. Unremarkable nondilated ureters and partially distended urinary bladder. Post hysterectomy. Negative for adnexal region lesions. Negative for lymphadenopathy. Normal diameter abdominal aorta and iliac arteries. Physiologic distention of the IVC. Negative for suspicious osseous lesions. IMPRESSION: 1. Post cholecystectomy. 2. Normal appendix documented. 3. Fluid levels within the colon without significant bowel dilatation or mural thickening. Consider gastroenteritis. 4. Negative for obstructive uropathy. 5. Post hysterectomy. 6. Small volume of free pelvic fluid.
[2016-12-12 18:19] LABS: Urine Bilirubin Negative (Negative); Urine Glucose Negative (Negative); Urine Nitrite Negative (Negative)
[2016-12-12] MEDS ORDERED: Ondansetron INJ* 2 MG/ML VIAL IV PRN (19:16)
[2016-12-12] MEDS ORDERED: hydrOXYzine HCL TAB* 50 MG PO PRN (19:17)
--- NOTE | 2016-12-12 19:25 | ADMNOTE ---
Subjective Date of Service: 12/12/16 Interval History: ADMISSION HISTORY AND PHYSICAL EXAM: Allergies Allergy/AdvReac Type Severity Reaction Status Date / Time No Known Allergies Allergy Verified 12/12/16 15:04 Home Medications Medication Instructions Recorded Confirmed Type Acetaminophen TAB* [Tylenol TAB*] 650 mg PO Q4H PRN 07/14/15 12/12/16 History Estradiol (NF) 1 mg PO DAILY 07/19/16 12/12/16 History Omeprazole CAP* [Prilosec CAP* 20 40 mg PO DAILY 09/03/16 12/12/16 History MG] hydrOXYzine HCL TAB* [Atarax TAB 50 mg PO TID PRN #15 tab 11/20/16 12/12/16 Rx 50 MG *] HPI: The patient was in her usual state of health until last evening when she developed generalized abdominal pain, emesis x1, nausea, and diarrhea. She has had abd pain, nausea, and diarrhea in the ED today. She is not aware of exposure to sick people. She has been staying in [facility] about 3 weeks. She sees her 9 yr old daughter every day. Family History: Findings - unremarkable Social History: Findings - , living in [place] longterm. last heavy drinking over a yr ago. Smoker. Cousin Alannah is her SDM. Past Medical History: Findings - appy, hysterectomy for endometriosis. One child. Alcoholism. GERD, headaches Review of Systems - Measurements Intake and Output: Intake and Output Last 24 Hours 12/10/16 12/11/16 12/12/16 12/13/16 06:59 06:59 06:59 06:59 Weight 170 lb Other: Date of Last Bowel 12/12/16 Movement - Review of Systems Constitutional Symptoms: Negative: Weight Gain, Weight Loss, Weakness, Fatigue, Fever, Night Sweats, Unexplained Falls, Other Dermatology: Positive: Normal HEENT: Positive: Normal Eyes: Positive: Normal Thyroid: Positive: Normal Pulmonary: Positive: Normal Cardiology: Positive: Normal Gastroenterology: Positive: Abdominal Pain, Nausea, Vomiting, Heartburn, Diarrhea Genital - Urinary: Positive: Normal Genitourinay - Female: Positive: Other - surgical menopause Endocrinology: Positive: Normal Hematologic/Lymphatic: Negative: Anemia, Easy Brusing, Hx Leukemia, Hx Lymphoma, Use of Anticoagulant, Use of Antiplatelet Drugs, Other Neurology: Positive: Normal Psychiatry: Positive: Normal Allergic/Immunologic: Negative: Hx Anaphylaxis, Hx Angioedema, Hx Environmental, Hx Seasonal, Athsma, Hx HIV, Immunocompromise, Swollen Glands LymphNodes, Other Objective Active Medications: Estradiol (Estradiol (Nf)) 1 mg PO DAILY FCO Hydroxyzine HCl (Atarax Tab*) 50 mg PO TID PRN PRN Reason: ANXIETY Potassium Chloride/Dextrose (D5w 1/2 Ns Kcl 20 Meq 1000 Ml*) 1,000 mls @ 150 mls/hr IV PER RATE FCO Omeprazole (Prilosec Cap*) 40 mg PO DAILY FCO Ondansetron HCl (Zofran Inj*) 4 mg IV Q3H PRN PRN Reason: NAUSEA Oxycodone HCl (Roxycodone Tab*) 10 mg PO Q2H PRN PRN Reason: PAIN Vital Signs 12/12/16 12/12/16 12/12/16 11:31 12:50 15:00 Temperature 97.4 F 97.9 F Pulse Rate 93 89 80 Respiratory 20 20 Rate Blood Pressure 132/87 131/96 130/91 (mmHg) O2 Sat by Pulse 97 99 96 Oximetry 12/12/16 12/12/16 12/12/16 15:03 15:42 15:43 Temperature 97.9 F Pulse Rate 82 64 Respiratory 20 16 Rate Blood Pressure 130/91 129/79 (mmHg) O2 Sat by Pulse 97 99 Oximetry 12/12/16 12/12/16 12/12/16 16:00 16:30 16:41 Temperature Pulse Rate 70 74 Respiratory 20 Rate Blood Pressure 119/89 113/62 (mmHg) O2 Sat by Pulse 99 98 Oximetry 12/12/16 12/12/16 12/12/16 17:13 18:11 18:21 Temperature Pulse Rate 77 79 Respiratory 20 Rate Blood Pressure (mmHg) O2 Sat by Pulse 98 98 Oximetry Result Diagrams: 12/12/16 15:44 12/12/16 15:44 Microbiology and Other Data: Microbiology 12/12/16 17:55 Stool Gross Appearance - Final Stool Stool Occult Blood (TARUN) - Final 12/12/16 17:55 Stool Gross Appearance - Final Stool 12/12/16 17:55 Stool Gross Appearance - Final Stool Stool Lactoferrin - Final Assess/Plan/Problems-Billing Assessment: - Patient Problems (1) Gastroenteritis Current Visit: Yes Status: Acute Code(s): K52.9 - NONINFECTIVE GASTROENTERITIS AND COLITIS, UNSPECIFIED SNOMED Code(s): 56054795 Comment: IV fluids, clear liquid diet, antiemetics, analgesics. Stool sent for C. diff. (2) GERD (gastroesophageal reflux disease) Current Visit: Yes Status: Acute Code(s): K21.9 - GASTRO-ESOPHAGEAL REFLUX DISEASE WITHOUT ESOPHAGITIS SNOMED Code(s): 360195280 Comment: Continue omeprazole (3) Frequent headaches Current Visit: Yes Status: Acute Code(s): R51 - HEADACHE SNOMED Code(s): 533226012 Comment: Suggest APAP PRN.
--- NOTE | 2016-12-12 19:43 | ED ---
Jaime Morales Angela, scribed for Matias Harris MD on 12/12/16 at 1510 . Abdominal Pain/Female - HPI Summary HPI Summary: This pt is a 31 y/o female presenting to [facility] c/o diffuse abd pain radiating to the right side of her abd since last night. She states her pain started as cramps last night and continued as intermittent sharp waves of pain. Pt reports associated symptoms of decreased appetite, 1 episode of vomiting, "really bad" diarrhea, and chills. Pt rates her pain 8 out of 10 in severity. She notes her pain is aggravated by movement. Pt denies urinary symptoms, vaginal discharge, back pain, fever, bloody stools. Pt has a PMHx of colitis (last month) but she reports this pain is different. PMHx: cholecystectomy, complete hysterectomy. - History of Current Complaint Chief Complaint: EDAbdPain Stated Complaint: ABD PAIN Time Seen by Provider: 12/12/16 14:54 Hx Obtained From: Patient Hx Last Menstrual Period: Complete Hysterectomy Onset/Duration: Lasting Hours, Still Present Timing: Hours Pain Intensity: 9 Pain Scale Used: 0-10 Numeric Radiates: Yes Radiates to: Other - right side of abdomen Character: Sharp, Cramping Aggravating Factor(s): Movement Alleviating Factor(s): Nothing Associated Signs and Symptoms: Positive: Decreased Appetite, Vomiting, Diarrhea , Other: - chills. Negative: Fever, Back Pain, Constipation, Blood in Stool Allergies/Adverse Reactions: Allergies Allergy/AdvReac Type Severity Reaction Status Date / Time No Known Allergies Allergy Verified 12/12/16 15:04 PMH/Surg Hx/FS Hx/Imm Hx Endocrine/Hematology History: Denies: Hx Anticoagulant Therapy, Hx Blood Disorders, Hx Diabetes, Hx Systemic Lupus Erythematosus, Hx Thyroid Disease Cardiovascular History: Reports: Hx Hypercholesterolemia Denies: Hx Congestive Heart Failure, Hx Hypertension, Hx Pacemaker/ICD, Other Cardiovascular Problems/Disorders Respiratory History: Denies: Hx Asthma, Hx Chronic Bronchitis, Hx Chronic Obstructive Pulmonary Disease (COPD), Other Respiratory Problems/Disorders GI History: Reports: Hx Gall Bladder Disease, Hx Irritable Bowel, Other GI Disorders - PANCREATITIS Denies: Hx Ulcer History: Denies: Hx Dialysis, Hx Renal Disease, Other Problems/Disorders Musculoskeletal History: Denies: Other Musculoskeletal History Sensory History: Denies: Hx Contacts or Glasses Opthamlomology History: Denies: Hx Contacts or Glasses Neurological History: Denies: Other Neuro Impairments/Disorders Psychiatric History: Reports: Hx Anxiety, Hx Attention Deficit Hyperactivity Disorder, Hx Depression, Hx Inpatient Treatment, Hx Community Mental Health Tx, Hx Bipolar Disorder, Hx Substance Abuse - etoh abuse hx Denies: Hx Eating Disorder, Hx Panic Disorder, Hx Post Traumatic Stress Disorder, Hx Schizophrenia, Hx Suicide Attempt - some instances of self harm, Hx of Violent Episodes Against Others, Other Psychiatric Issues/Disorders - Surgical History Surgery Procedure, Year, and Place: MULTIPLE LAPRASCOPIC PROCEDURES,. COMPLETE HYSTERECTOMY, 01/2013, [facility]. [place] [facility] [place] Hx Anesthesia Reactions: No - Immunization History Date of Tetanus Vaccine: Unknown Infectious Disease History: Denies: Hx Clostridium Difficile, Hx Hepatitis, Hx Human Immunodeficiency Virus (HIV), Hx of Known/Suspected MRSA, Hx Shingles, Hx Tuberculosis, Hx Known/ Suspected VRE, Hx Known/Suspected VRSA, History Other Infectious Disease, Traveled Outside the [place] in Last 30 Days - Family History Known Family History: Positive: None, Cardiac Disease, Hypertension, Other - father: EtOH abuse - Social History 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" Alcohol Amount: 2 glasses of wine tonight 11/20/2016 Hx Substance Use: No Substance Use Type: Reports: None Substance Use Comment - Amount & Last Used: 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 Negative: Fever Eyes: Negative ENT: Negative Negative: Chest Pain Negative: Shortness Of Breath, Cough Positive: Abdominal Pain, Vomiting - 1 episode, Diarrhea Genitourinary: Negative Musculoskeletal: Negative Skin: Negative Neurological: Negative All Other Systems Reviewed And Are Negative: Yes Physical Exam Triage Information Reviewed: Yes Vital Signs On Initial Exam: Initial Vitals Temp Pulse Resp BP Pulse Ox 97.4 F 93 20 132/87 97 12/12/16 11:31 12/12/16 11:31 12/12/16 11:31 12/12/16 11:31 12/12/16 11:31 Vital Signs Reviewed: Yes Appearance: Positive: Well-Appearing, Pain Distress - moderate pain distress Skin: Positive: Warm, Skin Color Reflects Adequate Perfusion, Dry Head/Face: Positive: Normal Head/Face Inspection Eyes: Positive: EOMI, DARIEN ENT: Positive: Normal ENT inspection Neck: Positive: Supple, Nontender Respiratory/Lung Sounds: Positive: Clear to Auscultation, Breath Sounds Present Cardiovascular: Positive: RRR Abdomen Description: Positive: Soft, Other: - Diffuse tenderness. Bowel Sounds: Positive: Hypoactive Musculoskeletal: Positive: Normal, Strength/ROM Intact Neurological: Positive: Normal, Sensory/Motor Intact, Alert, Oriented to Person Place, Time Psychiatric: Positive: Other - tearful Diagnostics - Vital Signs Vital Signs Temp Pulse Resp BP Pulse Ox 12/12/16 15:00 80 130/91 96 12/12/16 12:50 97.9 F 89 20 131/96 99 12/12/16 11:31 97.4 F 93 20 132/87 97 - Laboratory Lab Results: Lab Results 12/12/16 12/12/16 12/12/16 Range/Units 15:44 15:44 15:44 WBC 7.7 (3.5-10.8) 10^3/ul RBC 4.36 (4.0-5.4) 10^6/ul Hgb 14.0 (12.0-16.0) g/dl Hct 42 (35-47) % MCV 95 (80-97) fL MCH 32 H (27-31) pg MCHC 34 (31-36) g/dl RDW 14 (10.5-15) % Plt Count 121 L (150-450) 10^3/ul MPV 10 (7.4-10.4) um3 Neut % (Auto) 78.0 (38-83) % Lymph % (Auto) 12.2 L (25-47) % Catahoula % (Auto) 8.2 (1-9) % Eos % (Auto) 1.4 (0-6) % Baso % (Auto) 0.2 (0-2) % Absolute Neuts (auto) 6.0 (1.5-7.7) 10^3/ul Absolute Lymphs (auto) 0.9 L (1.0-4.8) 10^3/ul Absolute Monos (auto) 0.6 (0-0.8) 10^3/ul Absolute Eos (auto) 0.1 (0-0.6) 10^3/ul Absolute Basos (auto) 0 (0-0.2) 10^3/ul Absolute Nucleated RBC 0 10^3/ul Nucleated RBC % 0 Sodium 137 (133-145) mmol/L Potassium 3.6 (3.5-5.0) mmol/L Chloride 107 (101-111) mmol/L Carbon Dioxide 24 (22-32) mmol/L Anion Gap 6 (2-11) mmol/L BUN 10 (6-24) mg/dL Creatinine 0.79 (0.51-0.95) mg/dL Est GFR ( Amer) 108.5 (>60) Est GFR (Non-Af Amer) 84.3 (>60) BUN/Creatinine Ratio 12.7 (8-20) Glucose 95 (70-100) mg/dL Lactic Acid 1.0 (0.5-2.0) mmol/L Calcium 9.3 (8.6-10.3) mg/dL Total Bilirubin 1.20 H (0.2-1.0) mg/dL AST 18 (13-39) U/L ALT 14 (7-52) U/L Alkaline Phosphatase 66 (34-104) U/L C-Reactive Protein 41.67 H (< 5.00) mg/L Total Protein 6.8 (6.4-8.9) g/dL Albumin 4.1 (3.2-5.2) g/dL Globulin 2.7 (2-4) g/dL Albumin/Globulin Ratio 1.5 (1-3) Lipase 34 (11.0-82.0) U/L Beta HCG, Quant 2.17 mIU/mL Urine Color Urine Appearance Urine pH (5-9) Ur Specific Renner (1.010-1.030) Urine Protein (Negative) Urine Ketones (Negative) Urine Blood (Negative) Urine Nitrate (Negative) Urine Bilirubin (Negative) Urine Urobilinogen (Negative) Ur Leukocyte Esterase (Negative) Urine Glucose (Negative) 12/12/16 Range/Units 16:45 WBC (3.5-10.8) 10^3/ul RBC (4.0-5.4) 10^6/ul Hgb (12.0-16.0) g/dl Hct (35-47) % MCV (80-97) fL MCH (27-31) pg MCHC (31-36) g/dl RDW (10.5-15) % Plt Count (150-450) 10^3/ul MPV (7.4-10.4) um3 Neut % (Auto) (38-83) % Lymph % (Auto) (25-47) % Catahoula % (Auto) (1-9) % Eos % (Auto) (0-6) % Baso % (Auto) (0-2) % Absolute Neuts (auto) (1.5-7.7) 10^3/ul Absolute Lymphs (auto) (1.0-4.8) 10^3/ul Absolute Monos (auto) (0-0.8) 10^3/ul Absolute Eos (auto) (0-0.6) 10^3/ul Absolute Basos (auto) (0-0.2) 10^3/ul Absolute Nucleated RBC 10^3/ul Nucleated RBC % Sodium (133-145) mmol/L Potassium (3.5-5.0) mmol/L Chloride (101-111) mmol/L Carbon Dioxide (22-32) mmol/L Anion Gap (2-11) mmol/L BUN (6-24) mg/dL Creatinine (0.51-0.95) mg/dL Est GFR ( Amer) (>60) Est GFR (Non-Af Amer) (>60) BUN/Creatinine Ratio (8-20) Glucose (70-100) mg/dL Lactic Acid (0.5-2.0) mmol/L Calcium (8.6-10.3) mg/dL Total Bilirubin (0.2-1.0) mg/dL AST (13-39) U/L ALT (7-52) U/L Alkaline Phosphatase (34-104) U/L C-Reactive Protein (< 5.00) mg/L Total Protein (6.4-8.9) g/dL Albumin (3.2-5.2) g/dL Globulin (2-4) g/dL Albumin/Globulin Ratio (1-3) Lipase (11.0-82.0) U/L Beta HCG, Quant mIU/mL Urine Color Straw Urine Appearance Clear Urine pH 5.0 (5-9) Ur Specific Renner 1.006 L (1.010-1.030) Urine Protein Negative (Negative) Urine Ketones Negative (Negative) Urine Blood Negative (Negative) Urine Nitrate Negative (Negative) Urine Bilirubin Negative (Negative) Urine Urobilinogen Negative (Negative) Ur Leukocyte Esterase Negative (Negative) Urine Glucose Negative (Negative) Result Diagrams: 12/12/16 15:44 12/12/16 15:44 Lab Statement: Any lab studies that have been ordered have been reviewed, and results considered in the medical decision making process. - CT CT Abd/Pel CT Interpretation: Positive (See Comments) - IMPRESSION: 1. Post cholecystectomy. 2. Normal appendix documented. 3. Fluid levels within the colon without significant bowel dilatation or mural thickening. Consider gastroenteritis. 4. Negative for obstructive uropathy. 5. Post hysterectomy. 6. Small volume of free pelvic fluid. ED physician has reviewed this radiology report and agrees. CT Interpretation Completed By: Radiologist Re-Evaluation - Re-Evaluation First Eval Re-Evaluation Time: 18:05 Comment: I reviewed the results with the pt. Abdominal Pain Fem Course/Dx - Course Course Of Treatment: This pt is a 31 y/o female presenting to [facility] c/o diffuse abd pain radiating to the right side of her abd since last night. She states her pain started as cramps last night and continued as intermittent sharp waves of pain. Pt reports associated symptoms of decreased appetite, 1 episode of vomiting, "really bad" diarrhea, and chills. Labs, UA, and CT abd/pel were obtained. In the ED course, the pt was given morphine, IV fluids, GI cocktail, protonix IV and zofran. Labs reveal platelet count of 121, lymph % of 12.2, and CRP of 41.67. Abd/pel CT shows 1. Post cholecystectomy. 2. Normal appendix documented. 3. Fluid levels within the colon without significant bowel dilatation or mural thickening. Consider gastroenteritis. 4. Negative for obstructive uropathy. 5. Post hysterectomy. 6. Small volume of free pelvic fluid. Elevated BP noted and advised to follow up with PCP. Medications reviewed. Pt will be admitted to the hospitalist in stable condition. PATIENT' S PAIN RETURNS DESPITE 3 DOSES OF IV PAIN MEDICATION. ADMIT HOSPITALIST STABLE. NO CRITICAL CARE TIME. - Diagnoses Provider Diagnoses: Intractable abdominal pain, Diarrhea Discharge - Discharge Plan Condition: Stable Disposition: ADMITTED TO [facility] The documentation as recorded by the Jaime castillo Angela accurately reflects the service I personally performed and the decisions made by me, Matias Harris MD.
[2016-12-12] MEDS: D5W 1/2 NS KCl 20 Meq 1000 ML* 1,000 ML IV SCH (20:14)
[2016-12-12] MEDS: oxyCODONE TAB* 5 MG TAB PO PRN ×2 (20:46→22:46)
[2016-12-13] MEDS: oxyCODONE TAB* 5 MG TAB PO PRN ×6 (01:35→14:01)
[2016-12-13] MEDS: D5W 1/2 NS KCl 20 Meq 1000 ML* 1,000 ML IV SCH ×3 (03:20→11:52)
--- NOTE | 2016-12-13 08:57 | PN ---
Subjective Date of Service: 12/13/16 Interval History: No emesis. Nausea partly relieved by IV ondansetron. Much diarrhea and abd pain. Pain controlled by oral oxycodone but some pain at end of dosing interval. Family History: Findings - unremarkable Social History: Findings - , [facility]. last heavy drinking over a yr ago. Smoker. Cousin Alannah is her SDM. Past Medical History: Findings - appy, hysterectomy for endometriosis. One child. Alcoholism. GERD, headaches Objective Active Medications: Estradiol (Estradiol Tab(Nf)) 1 mg PO DAILY [facility] Hydroxyzine HCl (Atarax Tab*) 50 mg PO TID PRN PRN Reason: ANXIETY Potassium Chloride/Dextrose (D5w 1/2 Ns Kcl 20 Meq 1000 Ml*) 1,000 mls @ 100 mls/hr IV PER RATE [facility] Influenza Virus Vaccine (Fluarix *Quad* *) 0.5 ml IM .ONCE ONE Stop: 12/13/16 09:01 Omeprazole (Prilosec Cap*) 40 mg PO DAILY [facility] Ondansetron HCl (Zofran Inj*) 4 mg IV Q3H PRN PRN Reason: NAUSEA Last Admin: 12/12/16 22:46 Dose: 4 mg Oxycodone HCl (Roxycodone Tab*) 10 mg PO Q2H PRN PRN Reason: PAIN Last Admin: 12/13/16 06:28 Dose: 10 mg Trimethobenzamide HCl (Tigan Cap*) 300 mg PO QID [facility] Vital Signs 12/12/16 12/12/16 12/12/16 19:50 20:46 21:34 Temperature 98.3 F Pulse Rate 69 Respiratory 20 20 20 Rate Blood Pressure 140/88 (mmHg) O2 Sat by Pulse 97 Oximetry 12/12/16 12/12/16 12/12/16 22:39 22:46 23:37 Temperature 98.2 F Pulse Rate 69 Respiratory 18 18 20 Rate Blood Pressure 102/53 (mmHg) O2 Sat by Pulse 95 Oximetry 12/13/16 12/13/16 12/13/16 00:46 01:35 03:35 Temperature Pulse Rate Respiratory 18 17 18 Rate Blood Pressure (mmHg) O2 Sat by Pulse Oximetry 12/13/16 12/13/16 12/13/16 04:14 04:17 06:17 Temperature 97.7 F Pulse Rate 73 Respiratory 20 18 20 Rate Blood Pressure 95/59 (mmHg) O2 Sat by Pulse 98 Oximetry 12/13/16 12/13/16 12/13/16 06:28 07:10 08:20 Temperature 97.7 F Pulse Rate 53 53 Respiratory 20 16 Rate Blood Pressure 90/48 124/64 (mmHg) O2 Sat by Pulse 99 98 Oximetry Oxygen Devices in Use Now: None Appearance: Alert, sitting up in bed. In fair spirits. Looks sl uncomfortable. Eyes: No Scleral Icterus Respiratory: Symmetrical Chest Expansion and Respiratory Effort, Clear to Auscultation, Clear to Percussion Cardiovascular: NL Sounds; No Murmurs; No JVD, RRR, No Edema, - Abdominal: NL Sounds; No Tenderness; No Distention, No Hepatosplenomegaly, - Extremities: No Edema, No Clubbing, Cyanosis, - Skin: No Rash or Ulcers, No Nodules or Sclerosis, - Neurological: Alert and Oriented x 3, NL Sensation Result Diagrams: 12/12/16 15:44 12/12/16 15:44 Additional Lab and Data: Lab Results 12/12/16 12/12/16 12/12/16 Range/Units 15:44 15:44 15:44 WBC 7.7 (3.5-10.8) 10^3/ul RBC 4.36 (4.0-5.4) 10^6/ul Hgb 14.0 (12.0-16.0) g/dl Hct 42 (35-47) % MCV 95 (80-97) fL MCH 32 H (27-31) pg MCHC 34 (31-36) g/dl RDW 14 (10.5-15) % Plt Count 121 L (150-450) 10^3/ul MPV 10 (7.4-10.4) um3 Neut % (Auto) 78.0 (38-83) % Lymph % (Auto) 12.2 L (25-47) % [place] % (Auto) 8.2 (1-9) % Eos % (Auto) 1.4 (0-6) % Baso % (Auto) 0.2 (0-2) % Absolute Neuts (auto) 6.0 (1.5-7.7) 10^3/ul Absolute Lymphs (auto) 0.9 L (1.0-4.8) 10^3/ul Absolute Monos (auto) 0.6 (0-0.8) 10^3/ul Absolute Eos (auto) 0.1 (0-0.6) 10^3/ul Absolute Basos (auto) 0 (0-0.2) 10^3/ul Absolute Nucleated RBC 0 10^3/ul Nucleated RBC % 0 Sodium 137 (133-145) mmol/L Potassium 3.6 (3.5-5.0) mmol/L Chloride 107 (101-111) mmol/L Carbon Dioxide 24 (22-32) mmol/L Anion Gap 6 (2-11) mmol/L BUN 10 (6-24) mg/dL Creatinine 0.79 (0.51-0.95) mg/dL Est GFR ( Amer) 108.5 (>60) Est GFR (Non-Af Amer) 84.3 (>60) BUN/Creatinine Ratio 12.7 (8-20) Glucose 95 (70-100) mg/dL Lactic Acid 1.0 (0.5-2.0) mmol/L Calcium 9.3 (8.6-10.3) mg/dL Total Bilirubin 1.20 H (0.2-1.0) mg/dL AST 18 (13-39) U/L ALT 14 (7-52) U/L Alkaline Phosphatase 66 (34-104) U/L C-Reactive Protein 41.67 H (< 5.00) mg/L Total Protein 6.8 (6.4-8.9) g/dL Albumin 4.1 (3.2-5.2) g/dL Globulin 2.7 (2-4) g/dL Albumin/Globulin Ratio 1.5 (1-3) Lipase 34 (11.0-82.0) U/L Beta HCG, Quant 2.17 mIU/mL Urine Color Urine Appearance Urine pH (5-9) Ur Specific [place] (1.010-1.030) Urine Protein (Negative) Urine Ketones (Negative) Urine Blood (Negative) Urine Nitrate (Negative) Urine Bilirubin (Negative) Urine Urobilinogen (Negative) Ur Leukocyte Esterase (Negative) Urine Glucose (Negative) 12/12/16 Range/Units 16:45 WBC (3.5-10.8) 10^3/ul RBC (4.0-5.4) 10^6/ul Hgb (12.0-16.0) g/dl Hct (35-47) % MCV (80-97) fL MCH (27-31) pg MCHC (31-36) g/dl RDW (10.5-15) % Plt Count (150-450) 10^3/ul MPV (7.4-10.4) um3 Neut % (Auto) (38-83) % Lymph % (Auto) (25-47) % [place] % (Auto) (1-9) % Eos % (Auto) (0-6) % Baso % (Auto) (0-2) % Absolute Neuts (auto) (1.5-7.7) 10^3/ul Absolute Lymphs (auto) (1.0-4.8) 10^3/ul Absolute Monos (auto) (0-0.8) 10^3/ul Absolute Eos (auto) (0-0.6) 10^3/ul Absolute Basos (auto) (0-0.2) 10^3/ul Absolute Nucleated RBC 10^3/ul Nucleated RBC % Sodium (133-145) mmol/L Potassium (3.5-5.0) mmol/L Chloride (101-111) mmol/L Carbon Dioxide (22-32) mmol/L Anion Gap (2-11) mmol/L BUN (6-24) mg/dL Creatinine (0.51-0.95) mg/dL Est GFR ( Amer) (>60) Est GFR (Non-Af Amer) (>60) BUN/Creatinine Ratio (8-20) Glucose (70-100) mg/dL Lactic Acid (0.5-2.0) mmol/L Calcium (8.6-10.3) mg/dL Total Bilirubin (0.2-1.0) mg/dL AST (13-39) U/L ALT (7-52) U/L Alkaline Phosphatase (34-104) U/L C-Reactive Protein (< 5.00) mg/L Total Protein (6.4-8.9) g/dL Albumin (3.2-5.2) g/dL Globulin (2-4) g/dL Albumin/Globulin Ratio (1-3) Lipase (11.0-82.0) U/L Beta HCG, Quant mIU/mL Urine Color Straw Urine Appearance Clear Urine pH 5.0 (5-9) Ur Specific [place] 1.006 L (1.010-1.030) Urine Protein Negative (Negative) Urine Ketones Negative (Negative) Urine Blood Negative (Negative) Urine Nitrate Negative (Negative) Urine Bilirubin Negative (Negative) Urine Urobilinogen Negative (Negative) Ur Leukocyte Esterase Negative (Negative) Urine Glucose Negative (Negative) Microbiology and Other Data: Microbiology 12/12/16 17:55 Stool Gross Appearance - Final Stool Stool Occult Blood (TARUN) - Final 12/12/16 17:55 Stool Gross Appearance - Final Stool 12/12/16 17:55 Stool Gross Appearance - Final Stool Stool Lactoferrin - Final Assess/Plan/Problems-Billing Assessment: - Patient Problems (1) Gastroenteritis Status: Acute Code(s): K52.9 - NONINFECTIVE GASTROENTERITIS AND COLITIS, UNSPECIFIED SNOMED Code(s): 79369461 Comment: Improved. D/C with rx for oxycodone and trimethobenzamide. (2) GERD (gastroesophageal reflux disease) Status: Acute Code(s): K21.9 - GASTRO-ESOPHAGEAL REFLUX DISEASE WITHOUT ESOPHAGITIS SNOMED Code(s): 947879309 Comment: Continue omeprazole (3) Frequent headaches Status: Acute Code(s): R51 - HEADACHE SNOMED Code(s): 446161708 Comment: Suggest APAP PRN. Status and Disposition: Discharge now. Fup TOMER Langston.
[2016-12-13] MEDS ORDERED: Estradiol TAB(NF) 1 MG TAB PO SCH (09:00)
[2016-12-13] MEDS ORDERED: Omeprazole CAP* 20 MG PO SCH (09:00)
[2016-12-13] MEDS ORDERED: Influenza VAC *QUAD* 2017-18* 0.5 ML SYRINGE IM ONE (09:00)
[2016-12-13] MEDS: Trimethobenzamide CAP* 300 MG PO SCH ×2 (10:22→14:00)
[2016-12-13] MEDS ORDERED: Nicotine Inhaler* 10 MG AMP INH PRN (10:48)
[2016-12-13 11:15] VITALS: BP 108/72
--- NOTE | 2016-12-13 13:07 | PN ---
"Progress Note - Progress Note Date of Service: 12/13/16 Note: This report was requested by: Chito Esposito | Reference #: [id number] Others' Prescriptions Patient Name: Sobeida Rashid Date: 1985 Address: [address] [place] [address] Sex: Female Rx Written Rx Dispensed Drug Quantity Days Supply Prescriber Name 10/11/2016 10/13/2016 hydrocodone-acetaminophen 5-325 mg tablet 20 5 Abraham Aleman MD 09/06/2016 09/06/2016 tramadol hcl 50 mg tablet 5 5 Silvia Langston 08/07/2016 08/07/2016 hydrocodone-acetaminophen 5-325 mg tablet 8 2 Agustin Noguera MD Patient Name: Sobeida Rashid Date: 1985 Address: [address] [place] [address] Sex: Female Rx Written Rx Dispensed Drug Quantity Days Supply Prescriber Name 06/23/2016 06/23/2016 tramadol hcl 50 mg tablet 20 5 Sushil Ruffin (SAND BUFFER) Patient Name: Sobeida Rashid Date: 1985 Address: [address] [place] [address] Sex: Female Rx Written Rx Dispensed Drug Quantity Days Supply Prescriber Name 02/15/2016 02/15/2016 suboxone 8 mg-2 mg sl film 30 30 Ria Ortega MD 01/21/2016 01/21/2016 suboxone 4 mg-1 mg sl film 30 30 Ria Ortega MD"
--- NOTE | 2016-12-13 19:14 | DS ---
CC: Silvia Langston NP at [facility] * DISCHARGE SUMMARY: DATE OF ADMISSION: DATE OF DISCHARGE: 12/13/16 HOSPITAL COURSE: This 31-year-old woman presented with abdominal pain, nausea, and diarrhea. The history is detailed in my admission note. She was given intravenous fluids, analgesics, and antiemetics. She did well. She improved quite a bit and felt well enough to go home with some oral medications. She ate a meal well here. Her stool for C. diff was negative. She was afebrile. Her white blood count was 7.7. FINAL DIAGNOSES: 1. Viral gastroenteritis. 2. Gastroesophageal reflux disease. 3. Frequent headaches. 4. Status post surgical menopause. DISCHARGE MEDICATIONS: 1. Oxycodone 5 mg 1 to 2 tablets every 4 hours as needed, not to exceed 8 per day. 2. Acetaminophen 650 mg every 4 hours p.r.n. 3. Omeprazole 40 mg daily. 4. Hydroxyzine 50 mg t.i.d. p.r.n. 5. Estradiol 1 mg daily. 6. Trimethobenzamide 300 mg 4 times a day p.r.n. [id number]/[facility] #: [id number] [facility]
== END 2016-12-13 14:10 | disposition home or self-care (01) ==
LOC: ED 11:26 → MEDTELE 19:03
PROVIDERS: ADMIT Internal Medicine; ATTEND Internal Medicine
DX: A08.4 Viral intestinal infection, unspecified (principal); R10.11 Right upper quadrant pain; R11.10 Vomiting, unspecified; R19.7 Diarrhea, unspecified; F17.210 Nicotine dependence, cigarettes, uncomplicated; K21.9 Gastro-esophageal reflux disease without esophagitis
CPT/HCPCS: 36415; 74177; 80053; 81003; 82270; 83605; 83630; 83690; 84702; 85025; 86140; 87045; 87046; 87077; 87328; 87329; 87493; 87899; 90471; 90686; 96361; 96374; 96375; 96376; 99283; A9270-GY; G0008; G0378; J1170; J2270; J2405; Q9967

== ENCOUNTER 2017-01-26 11:24 | Emergency (ER) | payer OTHER ==
[2017-01-26] MEDS ORDERED: NS 0.9% 1000 ML* 1,000 ML IV ONE (11:51)
[2017-01-26] MEDS ORDERED: Ondansetron INJ* 2 MG/ML VIAL IV ONE (11:51)
[2017-01-26] MEDS ORDERED: HYDROmorphone INJ* 1 MG/ML CARPUJECT SYRINGE IV SLOW PU ONE ×3 (11:51→14:49)
[2017-01-26] MEDS ORDERED: Ondansetron INJ* 2 MG/ML VIAL ONE (12:10)
[2017-01-26 12:31] LABS: Hematocrit 40 % (35-47); Hemoglobin 13.6 g/dl (12.0-16.0); Mean Corpuscular HGB Conc 34 g/dl (31-36); Mean Corpuscular Hemoglobin 33 pg (27-31); Mean Corpuscular Volume 98 fL (80-97); Red Blood Count 4.11 10^6/ul (4.0-5.4); Red Cell Distribution Width 14 % (10.5-15); White Blood Count 5.5 10^3/ul (3.5-10.8)
[2017-01-26 12:32] LABS: Add Diff/Slide Review? Slide Review Added; Comments Flag Yes
[2017-01-26 12:41] LABS: Albumin 3.8 g/dL (3.2-5.2); BUN/Creatinine Ratio 10.3 (8-20); C Reactive Protein 1.88 mg/L (< 5.00); Calcium 9.5 mg/dL (8.6-10.3); EGFR African American 110.1 (>60); EGFR Non-African American 85.6 (>60); Globulin 2.8 g/dL (2-4); Magnesium 1.9 mg/dL (1.9-2.7); Potassium 3.9 mmol/L (3.5-5.0); Total Bilirubin 0.5 mg/dL (0.2-1.0); Total Protein 6.6 g/dL (6.4-8.9)
[2017-01-26 12:59] LABS: Mean Platelet Volume 10 um3 (7.4-10.4)
[2017-01-26 13:03] LABS: Urine Bacteria Absent (Absent); Urine Bilirubin Negative (Negative); Urine Glucose Negative (Negative); Urine Nitrite Negative (Negative)
[2017-01-26] MEDS ORDERED: HYDROmorphone INJ* 1 MG/ML CARPUJECT SYRINGE IV ONE (13:23)
[2017-01-26] MEDS ORDERED: HYDROmorphone INJ* 2 MG/ML CARPUJECT SYRINGE ONE (13:42)
[2017-01-26 14:22] VITALS: BP 115/74
[2017-01-26] MEDS ORDERED: LORazepam INJ* 2 MG/ML 1 ML VIAL IV PUSH ONE (14:49)
--- NOTE | 2017-01-26 14:54 | ED ---
Beverly Morales Alfonso, scribed for Mora Levy MD on 01/26/17 at 1155 . Abdominal Pain/Female - HPI Summary HPI Summary: This patient is a 31 year old F BIBA to [facility] with a chief complaint of sharp and cramping LUQ abdominal pain since one year ago, worse since 3 days ago. The patient rates the sharp pain 9/10 in severity. Symptoms aggravated by BM. Symptoms alleviated by nothing. She reports vomiting her Tylenol. Patient reports nausea, diarrhea (constant 3 days), and vomiting (since last night). Patient denies urinary symptoms. She reports her PCP suspects IBS and that she is awaiting a GI consult. - History of Current Complaint Chief Complaint: EDAbdPain Stated Complaint: ABD PAIN Time Seen by Provider: 01/26/17 11:31 Hx Obtained From: Patient Hx Last Menstrual Period: Complete Hysterectomy Onset/Duration: Gradual Onset, Worse Since - 3 days ago, Other - Since one year ago Timing: Constant Severity Currently: Severe Pain Intensity: 9 Pain Scale Used: 0-10 Numeric Location: Discrete At: LUQ Character: Sharp, Cramping Aggravating Factor(s): Other: - BM Alleviating Factor(s): Nothing Associated Signs and Symptoms: Positive: Other: - nausea, diarrhea (constant 3 days), and vomiting (since last night). Patient denies urinary symptoms. Allergies/Adverse Reactions: Allergies Allergy/AdvReac Type Severity Reaction Status Date / Time No Known Allergies Allergy Verified 12/12/16 15:04 PMH/Surg Hx/FS Hx/Imm Hx Endocrine/Hematology History: Denies: Hx Anticoagulant Therapy, Hx Blood Disorders, Hx Diabetes, Hx Systemic Lupus Erythematosus, Hx Thyroid Disease Cardiovascular History: Reports: Hx Hypercholesterolemia Denies: Hx Congestive Heart Failure, Hx Hypertension, Hx Pacemaker/ICD, Other Cardiovascular Problems/Disorders Respiratory History: Denies: Hx Asthma, Hx Chronic Bronchitis, Hx Chronic Obstructive Pulmonary Disease (COPD), Other Respiratory Problems/Disorders GI History: Reports: Hx Gall Bladder Disease, Hx Irritable Bowel, Other GI Disorders - PANCREATITIS Denies: Hx Ulcer History: Denies: Hx Dialysis, Hx Renal Disease, Other Problems/Disorders Musculoskeletal History: Denies: Other Musculoskeletal History Sensory History: Denies: Hx Contacts or Glasses, Hx Hearing Aid Opthamlomology History: Denies: Hx Contacts or Glasses Neurological History: Denies: Other Neuro Impairments/Disorders Psychiatric History: Reports: Hx Anxiety, Hx Attention Deficit Hyperactivity Disorder, Hx Depression, Hx Inpatient Treatment, Hx Community Mental Health Tx, Hx Bipolar Disorder, Hx Substance Abuse - etoh abuse hx Denies: Hx Eating Disorder, Hx Panic Disorder, Hx Post Traumatic Stress Disorder, Hx Schizophrenia, Hx Suicide Attempt - some instances of self harm, Hx of Violent Episodes Against Others, Other Psychiatric Issues/Disorders - Surgical History Surgery Procedure, Year, and Place: MULTIPLE LAPRASCOPIC PROCEDURES,. COMPLETE HYSTERECTOMY, 01/2013, [facility]. NAOMY 06/15/13, [facility]. Right knee scopy Hx Anesthesia Reactions: No - Immunization History Date of Tetanus Vaccine: Unknown Infectious Disease History: No Infectious Disease History: Reports: Traveled Outside the [place] in Last 30 Days Denies: Hx Clostridium Difficile, Hx Hepatitis, Hx Human Immunodeficiency Virus (HIV), Hx of Known/Suspected MRSA, Hx Shingles, Hx Tuberculosis, Hx Known/ Suspected VRE, Hx Known/Suspected VRSA, History Other Infectious Disease - Family History Known Family History: Positive: Cardiac Disease, Hypertension, Diabetes, Other - father: EtOH abuse - Social History Occupation: Unemployed Lives: Dormitory/Roommates - Lives with friends Alcohol Use: denies current use Alcohol Amount: 2 glasses of wine tonight 11/20/2016 Hx Substance Use: No Substance Use Type: Reports: None Substance Use Comment - Amount & Last Used: 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 Hx Tobacco Use: Yes Smoking Status (MU): Current Every Day Smoker Type: Cigarettes Amount Used/How Often: 1/4 PPD Length of Time of Smoking/Using Tobacco: 10YRS Have You Smoked in the Last Year: Yes Review of Systems Negative: Fever Positive: Abdominal Pain, Vomiting, Diarrhea, Nausea Positive: no symptoms reported All Other Systems Reviewed And Are Negative: Yes Physical Exam - Summary Physical Exam Summary: General: Well appearing, moderate pain distress Skin: Warm, Skin Color Reflects Adequate Perfusion, Dry Eyes: EOMI, DARIEN ENT: Pharynx normal, TMs normal Neck: Supple, nontender Respiratory: CTA, breath sounds present, no rhonchi, no wheezes, no rales Cardiovascular: RRR, no murmur, no rub, no gallop Abdomen: Soft, Diffuse tenderness mostly at LUQ and left flank, Non-distended, no guarding, no rebound Bowel: Present Musculoskeletal: PHUC, No edema Neuro: Sensory/motor intact, A&Ox3, CN intact 2-12 Psych: Affect/mood appropriate Triage Information Reviewed: Yes Vital Signs On Initial Exam: Initial Vitals Temp Pulse Resp BP Pulse Ox 98 F 60 18 116/61 98 01/26/17 11:33 01/26/17 11:33 01/26/17 11:33 01/26/17 11:33 01/26/17 11:33 Vital Signs Reviewed: Yes - [place] Coma Scale Coma Scale Total: 15 Diagnostics - Vital Signs Vital Signs Temp Pulse Resp BP Pulse Ox 01/26/17 11:34 60 100 01/26/17 11:33 98 F 60 18 116/61 98 - Laboratory Lab Results: Lab Results 01/26/17 01/26/17 01/26/17 Range/Units 12:08 12:08 12:08 WBC 5.5 (3.5-10.8) 10^3/ul RBC 4.11 (4.0-5.4) 10^6/ul Hgb 13.6 (12.0-16.0) g/dl Hct 40 (35-47) % MCV 98 H (80-97) fL MCH 33 H (27-31) pg MCHC 34 (31-36) g/dl RDW 14 (10.5-15) % Plt Count 111 L (150-450) 10^3/ul MPV 10 (7.4-10.4) um3 Neut % (Auto) 62.1 (38-83) % Lymph % (Auto) 28.6 (25-47) % [place] % (Auto) 7.6 (1-9) % Eos % (Auto) 1.2 (0-6) % Baso % (Auto) 0.5 (0-2) % Absolute Neuts (auto) 3.4 (1.5-7.7) 10^3/ul Absolute Lymphs (auto) 1.6 (1.0-4.8) 10^3/ul Absolute Monos (auto) 0.4 (0-0.8) 10^3/ul Absolute Eos (auto) 0.1 (0-0.6) 10^3/ul Absolute Basos (auto) 0 (0-0.2) 10^3/ul Absolute Nucleated RBC 0 10^3/ul Nucleated RBC % 0.1 Sodium 137 (133-145) mmol/L Potassium 3.9 (3.5-5.0) mmol/L Chloride 110 (101-111) mmol/L Carbon Dioxide 21 L (22-32) mmol/L Anion Gap 6 (2-11) mmol/L BUN 8 (6-24) mg/dL Creatinine 0.78 (0.51-0.95) mg/dL Est GFR ( Amer) 110.1 (>60) Est GFR (Non-Af Amer) 85.6 (>60) BUN/Creatinine Ratio 10.3 (8-20) Glucose 85 (70-100) mg/dL Lactic Acid 0.7 (0.5-2.0) mmol/L Calcium 9.5 (8.6-10.3) mg/dL Magnesium 1.9 (1.9-2.7) mg/dL Total Bilirubin 0.50 (0.2-1.0) mg/dL AST 22 (13-39) U/L ALT 17 (7-52) U/L Alkaline Phosphatase 55 (34-104) U/L C-Reactive Protein 1.88 (< 5.00) mg/L Total Protein 6.6 (6.4-8.9) g/dL Albumin 3.8 (3.2-5.2) g/dL Globulin 2.8 (2-4) g/dL Albumin/Globulin Ratio 1.4 (1-3) Lipase 44 (11.0-82.0) U/L Urine Color Urine Appearance Urine pH (5-9) Ur Specific [place] (1.010-1.030) Urine Protein (Negative) Urine Ketones (Negative) Urine Blood (Negative) Urine Nitrate (Negative) Urine Bilirubin (Negative) Urine Urobilinogen (Negative) Ur Leukocyte Esterase (Negative) Urine WBC (Auto) (Absent) Urine RBC (Auto) (Absent) Ur Squamous Epith Cells (Absent) Urine Bacteria (Absent) Urine Glucose (Negative) 01/26/17 Range/Units 12:23 WBC (3.5-10.8) 10^3/ul RBC (4.0-5.4) 10^6/ul Hgb (12.0-16.0) g/dl Hct (35-47) % MCV (80-97) fL MCH (27-31) pg MCHC (31-36) g/dl RDW (10.5-15) % Plt Count (150-450) 10^3/ul MPV (7.4-10.4) um3 Neut % (Auto) (38-83) % Lymph % (Auto) (25-47) % [place] % (Auto) (1-9) % Eos % (Auto) (0-6) % Baso % (Auto) (0-2) % Absolute Neuts (auto) (1.5-7.7) 10^3/ul Absolute Lymphs (auto) (1.0-4.8) 10^3/ul Absolute Monos (auto) (0-0.8) 10^3/ul Absolute Eos (auto) (0-0.6) 10^3/ul Absolute Basos (auto) (0-0.2) 10^3/ul Absolute Nucleated RBC 10^3/ul Nucleated RBC % Sodium (133-145) mmol/L Potassium (3.5-5.0) mmol/L Chloride (101-111) mmol/L Carbon Dioxide (22-32) mmol/L Anion Gap (2-11) mmol/L BUN (6-24) mg/dL Creatinine (0.51-0.95) mg/dL Est GFR ( Amer) (>60) Est GFR (Non-Af Amer) (>60) BUN/Creatinine Ratio (8-20) Glucose (70-100) mg/dL Lactic Acid (0.5-2.0) mmol/L Calcium (8.6-10.3) mg/dL Magnesium (1.9-2.7) mg/dL Total Bilirubin (0.2-1.0) mg/dL AST (13-39) U/L ALT (7-52) U/L Alkaline Phosphatase (34-104) U/L C-Reactive Protein (< 5.00) mg/L Total Protein (6.4-8.9) g/dL Albumin (3.2-5.2) g/dL Globulin (2-4) g/dL Albumin/Globulin Ratio (1-3) Lipase (11.0-82.0) U/L Urine Color Colorless Urine Appearance Clear Urine pH 7.0 (5-9) Ur Specific [place] 1.003 L (1.010-1.030) Urine Protein Negative (Negative) Urine Ketones Negative (Negative) Urine Blood 1+ H (Negative) Urine Nitrate Negative (Negative) Urine Bilirubin Negative (Negative) Urine Urobilinogen Negative (Negative) Ur Leukocyte Esterase Negative (Negative) Urine WBC (Auto) Trace(0-5/hpf) (Absent) Urine RBC (Auto) Trace(0-2/hpf) (Absent) Ur Squamous Epith Cells Present H (Absent) Urine Bacteria Absent (Absent) Urine Glucose Negative (Negative) Result Diagrams: 01/26/17 12:08 01/26/17 12:08 Lab Statement: Any lab studies that have been ordered have been reviewed, and results considered in the medical decision making process. Re-Evaluation - Re-Evaluation First Eval Re-Evaluation Time: 14:20 Change: Improved Comment: Patient still has slight pain. Labs normal. She reports follow up with GI. Abdominal Pain Fem Course/Dx - Course Course Of Treatment: 31 yo female on ppi's with chronic left upper quadrant pain with worsened pain over the last few days awaiting gi followup had a ct in sept labs look good, denies opiate disorder. abd is non surgical and pt is not ill appearing - Diagnoses Provider Diagnoses: Abdominal pain Discharge - Discharge Plan Condition: Stable Disposition: HOME Prescriptions: HYDROcodone/ACETAMIN 5-325 MG* [[place] 5-325 TAB*] 1 tab PO Q8H PRN #9 tab MDD 3 PRN Reason: Pain Ondansetron ODT TAB* [Zofran 4 MG Odt TAB*] 4 mg PO Q8H PRN #14 tab.odt PRN Reason: Nausea Patient Education Materials: Abdominal Pain (ED) Referrals: Erasmo Becker MD [Medical Doctor] - 3 Days Silvia Langston NP [Primary Care Provider] - Additional Instructions: RETURN TO THE EMERGENCY DEPARTMENT FOR CHANGING OR WORSENING SYMPTOMS. The documentation as recorded by the Beverly castillo Alfonso accurately reflects the service I personally performed and the decisions made by me, Mora Levy MD.
== END 2017-01-26 15:06 | disposition home or self-care (01) ==
LOC: ED 11:24
DX: R10.12 Left upper quadrant pain (principal); R11.2 Nausea with vomiting, unspecified; R19.7 Diarrhea, unspecified; E78.00 Pure hypercholesterolemia, unspecified; Z90.710 Acquired absence of both cervix and uterus; Z90.49 Acquired absence of other specified parts of digestive tract; Z11.4 Encounter for screening for human immunodeficiency virus [HIV]; F17.210 Nicotine dependence, cigarettes, uncomplicated
CPT/HCPCS: 36415; 80053; 81003; 81015; 83605; 83690; 83735; 85025; 86140; 86703; 96374; 96375; 99283; J1170; J2405

== ENCOUNTER 2017-02-25 13:30 | Emergency (ER) | payer OTHER ==
[2017-02-25] MEDS ORDERED: Ondansetron INJ* 2 MG/ML VIAL IV ONE (13:48)
[2017-02-25] MEDS ORDERED: HYDROmorphone INJ* 1 MG/ML CARPUJECT SYRINGE IV ONE (13:48)
[2017-02-25 15:00] LABS: Hematocrit 43 % (35-47); Hemoglobin 14.8 g/dl (12.0-16.0); Mean Corpuscular HGB Conc 34 g/dl (31-36); Mean Corpuscular Hemoglobin 32 pg (27-31); Mean Corpuscular Volume 95 fL (80-97); Mean Platelet Volume 10 um3 (7.4-10.4); Red Blood Count 4.57 10^6/ul (4.0-5.4); Red Cell Distribution Width 13 % (10.5-15); White Blood Count 5.7 10^3/ul (3.5-10.8)
[2017-02-25 15:14] LABS: Albumin 4.3 g/dL (3.2-5.2); BUN/Creatinine Ratio 12.1 (8-20); C Reactive Protein 2.8 mg/L (< 5.00); Calcium 9.5 mg/dL (8.6-10.3); EGFR African American 91.6 (>60); EGFR Non-African American 71.2 (>60); Globulin 2.9 g/dL (2-4); Potassium 3.8 mmol/L (3.5-5.0); Total Protein 7.2 g/dL (6.4-8.9)
[2017-02-25] MEDS ORDERED: oxyCODONE/Acetamin 5/325 MG* TAB PO ONE (16:48)
[2017-02-25 17:01] VITALS: BP 131/64
--- NOTE | 2017-02-25 20:12 | ED ---
Maria Del Carmen Morales SooYoung, scribed for Abraham Aleman MD on 02/25/17 at 1425 . Abdominal Pain/Female - HPI Summary HPI Summary: A 32 y/o F presents to ED with c/o ongoing severe abd pain onset approx two days ago. Abd pain is described as cramping. Pt was [place] [facility], dx: gastroenteritis. Pt had a colonoscopy performed two days ago at [facility]. Associated sx: nausea, diarrhea, decreased oral intake, malaise. Pt was prescribed steroids upon release but states it "makes her feel sick." She contacted the on-call number at [place], who referred her to ED. - History of Current Complaint Chief Complaint: EDAbdPain Stated Complaint: ABD PAIN/DIARRHEA/COLONOSCOPY 3DAYS AGO Time Seen by Provider: 02/25/17 13:36 Hx Obtained From: Patient, Medical Records Hx Last Menstrual Period: Complete Hysterectomy Onset/Duration: Lasting Days, Still Present Timing: Constant Severity Currently: Severe Pain Intensity: 9 Pain Scale Used: 0-10 Numeric Location: Diffuse Character: Cramping Associated Signs and Symptoms: Positive: Decreased Appetite, Nausea, Diarrhea, Other: - pos: malaise Allergies/Adverse Reactions: Allergies Allergy/AdvReac Type Severity Reaction Status Date / Time No Known Allergies Allergy Verified 02/12/17 17:04 PMH/Surg Hx/FS Hx/Imm Hx Previously Healthy: No Endocrine/Hematology History: Denies: Hx Anticoagulant Therapy, Hx Blood Disorders, Hx Diabetes, Hx Systemic Lupus Erythematosus, Hx Thyroid Disease Cardiovascular History: Reports: Hx Hypercholesterolemia Denies: Hx Congestive Heart Failure, Hx Hypertension, Hx Pacemaker/ICD, Other Cardiovascular Problems/Disorders Respiratory History: Denies: Hx Asthma, Hx Chronic Bronchitis, Hx Chronic Obstructive Pulmonary Disease (COPD), Other Respiratory Problems/Disorders GI History: Reports: Hx Gall Bladder Disease, Hx Irritable Bowel, Other GI Disorders - PANCREATITIS Denies: Hx Ulcer History: Denies: Hx Dialysis, Hx Renal Disease, Other Problems/Disorders Musculoskeletal History: Denies: Other Musculoskeletal History Sensory History: Denies: Hx Contacts or Glasses, Hx Hearing Aid Opthamlomology History: Denies: Hx Contacts or Glasses Neurological History: Denies: Other Neuro Impairments/Disorders Psychiatric History: Reports: Hx Anxiety, Hx Attention Deficit Hyperactivity Disorder, Hx Depression, Hx Inpatient Treatment, Hx Community Mental Health Tx, Hx Bipolar Disorder, Hx Substance Abuse - etoh abuse hx Denies: Hx Eating Disorder, Hx Panic Disorder, Hx Post Traumatic Stress Disorder, Hx Schizophrenia, Hx Suicide Attempt - some instances of self harm, Hx of Violent Episodes Against Others, Other Psychiatric Issues/Disorders - Surgical History Surgery Procedure, Year, and Place: MULTIPLE LAPRASCOPIC PROCEDURES,. COMPLETE HYSTERECTOMY, 01/2013, [place]. NAOMY 06/15/13, [facility]. [place] scopy Hx Anesthesia Reactions: No - Immunization History Date of Tetanus Vaccine: Unknown Infectious Disease History: No Infectious Disease History: Denies: Hx Clostridium Difficile, Hx Hepatitis, Hx Human Immunodeficiency Virus (HIV), Hx of Known/Suspected MRSA, Hx Shingles, Hx Tuberculosis, Hx Known/ Suspected VRE, Hx Known/Suspected VRSA, History Other Infectious Disease, Traveled Outside the [place] in Last 30 Days - Family History Known Family History: Positive: Cardiac Disease, Hypertension, Diabetes, Other - father: EtOH abuse - Social History Occupation: Employed Full-time Lives: Alone Alcohol Use: None Alcohol Amount: 2 glasses of wine tonight 11/20/2016 Hx Substance Use: No Substance Use Type: Reports: None Substance Use Comment - Amount & Last Used: 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 Hx Tobacco Use: Yes Smoking Status (MU): Current Every Day Smoker Type: Cigarettes Amount Used/How Often: 1/4 PPD Length of Time of Smoking/Using Tobacco: 10YRS Have You Smoked in the Last Year: Yes Review of Systems Negative: Fever Positive: Abdominal Pain, Diarrhea, Nausea, Other - pos: decreased oral intake All Other Systems Reviewed And Are Negative: Yes Physical Exam - Summary Physical Exam Summary: The patient is well-nourished in no acute distress and in no acute pain. The skin is warm and dry and skin color reflects adequate perfusion. HEENT: The head is normocephalic and atraumatic. The pupils are equal and reactive. The conjunctivae are clear and without drainage. Nares are patent and without drainage. Mouth reveals moist mucous membranes and the throat is without erythema and exudate. The external ears are intact. The ear canals are patent and without drainage. The tympanic membranes are intact. Neck is supple with full range of motion and non-tender. There are no carotid bruits. There is no neck vein distension. Respiratory: Chest is non-tender. Lungs are clear to auscultation and breath sounds are symmetrical and equal. Cardiovascular: Heart is regular rate and rhythm. There is no murmur or rub auscultated. There is no peripheral edema and pulses are symmetrical and equal. Abdomen: The abdomen is soft and diffusely tender, moreso in RLQ. There are normal bowel sounds heard in all four quadrants and there is no organomegaly palpated. Musculoskeletal: There is no back pain noted. Extremities are non-tender with full range of motion. There is good capillary refill. There is no peripheral edema or calf tenderness elicited. Neurological: Patient is alert and oriented to person, place and time. The patient has symmetrical motor strength in all four extremities. Cranial nerves are grossly intact. Deep tendon reflexes are symmetrical and equal in all four extremities. Psychiatric: The patient has an appropriate affect and does not exhibit any anxiety or depression. Triage Information Reviewed: Yes Vital Signs On Initial Exam: Initial Vitals Temp Pulse Resp BP Pulse Ox 97.3 F 82 18 136/93 99 02/25/17 13:32 02/25/17 13:32 02/25/17 13:32 02/25/17 13:32 02/25/17 13:32 Vital Signs Reviewed: Yes Diagnostics - Vital Signs Vital Signs Temp Pulse Resp BP Pulse Ox 02/25/17 13:32 97.3 F 82 18 136/93 99 - Laboratory Lab Results: Lab Results 02/25/17 02/25/17 02/25/17 Range/Units 14:50 14:50 14:50 WBC 5.7 (3.5-10.8) 10^3/ul RBC 4.57 (4.0-5.4) 10^6/ul Hgb 14.8 (12.0-16.0) g/dl Hct 43 (35-47) % MCV 95 (80-97) fL MCH 32 H (27-31) pg MCHC 34 (31-36) g/dl RDW 13 (10.5-15) % Plt Count 130 L (150-450) 10^3/ul MPV 10 (7.4-10.4) um3 Neut % (Auto) 54.8 (38-83) % Lymph % (Auto) 36.1 (25-47) % [place] % (Auto) 7.3 (1-9) % Eos % (Auto) 1.4 (0-6) % Baso % (Auto) 0.4 (0-2) % Absolute Neuts (auto) 3.1 (1.5-7.7) 10^3/ul Absolute Lymphs (auto) 2.1 (1.0-4.8) 10^3/ul Absolute Monos (auto) 0.4 (0-0.8) 10^3/ul Absolute Eos (auto) 0.1 (0-0.6) 10^3/ul Absolute Basos (auto) 0 (0-0.2) 10^3/ul Absolute Nucleated RBC 0 10^3/ul Nucleated RBC % 0 Sodium 137 (133-145) mmol/L Potassium 3.8 (3.5-5.0) mmol/L Chloride 108 (101-111) mmol/L Carbon Dioxide 20 L (22-32) mmol/L Anion Gap 9 (2-11) mmol/L BUN 11 (6-24) mg/dL Creatinine 0.91 (0.51-0.95) mg/dL Est GFR ( Amer) 91.6 (>60) Est GFR (Non-Af Amer) 71.2 (>60) BUN/Creatinine Ratio 12.1 (8-20) Glucose 77 (70-100) mg/dL Lactic Acid 0.7 (0.5-2.0) mmol/L Calcium 9.5 (8.6-10.3) mg/dL Total Bilirubin 1.00 (0.2-1.0) mg/dL AST 29 (13-39) U/L ALT 23 (7-52) U/L Alkaline Phosphatase 58 (34-104) U/L C-Reactive Protein 2.80 (< 5.00) mg/L Total Protein 7.2 (6.4-8.9) g/dL Albumin 4.3 (3.2-5.2) g/dL Globulin 2.9 (2-4) g/dL Albumin/Globulin Ratio 1.5 (1-3) Lipase 34 (11.0-82.0) U/L Result Diagrams: 02/25/17 14:50 02/25/17 14:50 Lab Statement: Any lab studies that have been ordered have been reviewed, and results considered in the medical decision making process. Re-Evaluation - Re-Evaluation 1 Re-Evaluation Time: 16:22 Change: Improved Comment: Discussing results with pt, plans to dispo. Pt voiced understanding. Abdominal Pain Fem Course/Dx - Course Course Of Treatment: Ms. Rashid was here a couple weeks ago with low abdominal pain. A CT scan showed a colitis and she was admitted and treated with antibiotics. She did improve some but not completely and F/U'd with [facility] for a colonoscopy to distinguish an inflammatory process from infectious. She doesn't know the results yet but she was started on steroids which she isn't tolerating. She comes in today saying she hasn't gotten any better and is feeling a bit worse. I treated her symptomatically and rehydrated her while checking labs which were consistent with the past. I will continue symptomatic treatment and she will F/U with the GI doc tomorrow. - Diagnoses Provider Diagnoses: Colitis Discharge - Discharge Plan Condition: Stable Disposition: HOME Prescriptions: oxyCODONE/Acetamin 5/325 MG* [Percocet 5/325 TAB*] 1 tab PO Q6H PRN #20 tab MDD 4 PRN Reason: Pain Patient Education Materials: Oxycodone/Acetaminophen (By mouth), Colitis (ED) Referrals: Silvia Langston GORE MAKER [Primary Care Provider] - Additional Instructions: Follow up at [place] tomorrow. Please return to the ED if you experience new or worsening symptoms. The documentation as recorded by the Maria Del Carmen castillo SooYoung accurately reflects the service I personally performed and the decisions made by me, Abraham Aleman MD.
== END 2017-02-25 17:01 | disposition home or self-care (01) ==
LOC: ED 13:30
DX: K52.9 Noninfective gastroenteritis and colitis, unspecified (principal); F17.210 Nicotine dependence, cigarettes, uncomplicated; E78.00 Pure hypercholesterolemia, unspecified
CPT/HCPCS: 36415; 80053; 83605; 83690; 85025; 86140; 96374; 96375; 99283; A9270-GY; J1170; J2405

== ENCOUNTER 2017-03-29 11:23 | Emergency (ER) | payer SELFPAY ==
[2017-03-29 11:45] VITALS: BP 144/67
[2017-03-29] MEDS: Ibuprofen TAB* 600 MG PO ONE (12:48)
--- NOTE | 2017-03-29 13:13 | RAD ---
INDICATION: "Smashed" proximal phalanx of left index finger in a desk drawer TECHNIQUE: 3 views of the left index finger were obtained. FINDINGS: The bones are normal alignment. Joint spaces appear maintained. No fracture is seen. IMPRESSION: NO EVIDENCE FOR FRACTURE, IF THE PATIENT'S SYMPTOMS PERSIST RECOMMEND FOLLOW-UP IMAGING.
--- NOTE | 2017-03-29 13:32 | UC ---
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 hyper extended finger and contusion to dorsum of finger no prior hx of injury - History Of Current Complaint Chief Complaint: UCUpperExtremity Stated Complaint: FINGER INJURY Time Seen by Provider: 03/29/17 12:41 Hx Obtained From: Patient Hx Last Menstrual Period: Complete Hysterectomy Onset/Duration: Sudden Onset, Lasting Minutes Severity Initially: Moderate Severity Currently: Moderate Pain Intensity: 6 Pain Scale Used: 0-10 Numeric Character Of Pain: Dull, Aching Aggravating Factor(s): Movement Alleviating Factor(s): Rest Related History: Occupational Injury, Dominant Hand Right - Allergies/Home Medications Allergies/Adverse Reactions: Allergies Allergy/AdvReac Type Severity Reaction Status Date / Time No Known Allergies Allergy Verified 03/29/17 11:45 PMH/Surg Hx/FS Hx/Imm Hx Previously Healthy: Yes Other History Of: Negative For: Anticoagulant Therapy - Surgical History Surgical History: Yes Surgery Procedure, Year, and Place: MULTIPLE LAPRASCOPIC PROCEDURES,. COMPLETE HYSTERECTOMY, 01/2013, [place]. [place] 06[place]13[place] [facility] [place] - Family History Known Family History: Positive: Cardiac Disease, Hypertension, Diabetes, Other - father: EtOH abuse - Social History Alcohol Use: None Alcohol Amount: 2 glasses of wine tonight 11/20/2016 Substance Use Type: None Substance Use Comment - Amount & Last Used: 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 Smoking Status (MU): Current Every Day Smoker Type: Cigarettes Amount Used/How Often: 1/4 PPD Length of Time of Smoking/Using Tobacco: 10YRS Have You Smoked in the Last Year: Yes When Did the Patient Quit Smoking/Using Tobacco: stopped 2 weeks ago (June 2014 ) Household Exposure Type: Cigarettes - Immunization History Most Recent Influenza Vaccination: 2016 Most Recent Tetanus Shot: 2015 Most Recent Pneumonia Vaccination: never Review of Systems Constitutional: Negative Skin: Negative Eyes: Negative ENT: Negative Respiratory: Negative Cardiovascular: Negative Gastrointestinal: Negative Genitourinary: Negative Motor: Negative Neurovascular: Negative Musculoskeletal: Arthralgia, Myalgia Neurological: Negative Psychological: Negative Is Patient Immunocompromised?: No All Other Systems Reviewed And Are Negative: Yes Physical Exam Triage Information Reviewed: Yes Appearance: Well-Appearing, No Pain Distress, Well-Nourished Vital Signs: Initial Vital Signs Temp 98.1 F 03/29/17 11:42 Pulse 70 03/29/17 11:42 Resp 16 03/29/17 11:42 BP 144/67 03/29/17 11:42 Pulse Ox 100 03/29/17 11:42 Eye Exam: Normal Eyes: Positive: Conjunctiva Clear ENT: Positive: Hearing grossly normal, TMs normal, Uvula midline. Negative: Nasal congestion, Nasal drainage Neck: Positive: Supple, Nontender, No Lymphadenopathy Respiratory: Positive: Lungs clear, Normal breath sounds, No respiratory distress, No accessory muscle use Cardiovascular: Positive: RRR, No Murmur Musculoskeletal: Positive: ROM Limited @ - left index finger Neurological: Positive: Alert Hand/Wrist Course/Dx - Differential Dx/Diagnosis Provider Diagnoses: left index finger strain/contusion Discharge - Discharge Plan Condition: Stable Disposition: HOME Patient Education Materials: Contusion in Adults (ED), Finger Sprain (ED) Forms: *Work Release Referrals: Silvia Langston NP [Primary Care Provider] - Additional Instructions: ralph tape ice aleve 2 pills twice daily with food recheck next week if not better Images Hands: 1 - tender/limited ROM
== END 2017-03-29 13:40 | disposition home or self-care (01) ==
LOC: UCEAST 11:23
DX: S63.611A Unspecified sprain of left index finger, initial encounter (principal); W23.0XXA Caught, crushed, jammed, or pinched between moving objects, initial encounter; Y93.H3 Activity, building and construction; Y92.9 Unspecified place or not applicable; Y99.0 Civilian activity done for income or pay; Z72.89 Other problems related to lifestyle; Z87.891 Personal history of nicotine dependence; F11.11 Opioid abuse, in remission
CPT/HCPCS: 73140; 99211; A9270-GY; G0463

== ENCOUNTER 2017-04-11 07:12 | Emergency (ER) | payer OTHER ==
[2017-04-11] MEDS ORDERED: NS 0.9% 1000 ML* 1,000 ML IV ONE (07:31)
[2017-04-11] MEDS ORDERED: Ondansetron INJ* 2 MG/ML VIAL IV ONE (07:40)
[2017-04-11] MEDS ORDERED: HYDROmorphone INJ* 2 MG/ML CARPUJECT SYRINGE IV SLOW PU ONE ×3 (07:40→10:32)
--- NOTE | 2017-04-11 07:45 | ED ---
Jaime Morales Angela, scribed for Urvashi Hoffmann MD on 04/11/17 at 0743 . Abdominal Pain/Female - HPI Summary HPI Summary: This pt is a 32 y/o female presenting to [facility] c/o right flank pain radiating to her mid abdomen since yesterday in the afternoon. Pt reports that she normally has pain in the middle of her abd but today it is different as she doesn't usually have discomfort in her back. Pt states pain is currently throughout her entire abdomen. Pt states her pain began shortly after eating dinner yesterday at 16:00. She ate spaghetti with meat sauce for dinner, noting it was nothing out of the ordinary. Symptoms include nausea, vomiting, diarrhea , and chills. She describes her emesis as clear and bright red blood when wiping with diarrhea - but states "because I went so much." Denies dysuria, fever, chills, and rash. Pt has taken Aleve with mild relief, last taken at midnight today. Pt states she saw a GI doctor (at [place]) and had 1 colonoscopy done as she is believed to have Crohn's disease. Pt will have a second colonoscopy, not yet scheduled. Pt did not contact her GI provider prior to eval in ED today. Her last image (CT) was a little over 2 months. Pt is currently on estradiol and omeprazole. Denies chance of . Pt is s/p hysterectomy for endometriosis Patients medication reviewed this visit. - History of Current Complaint Chief Complaint: EDAbdPain Stated Complaint: ABD PAIN Time Seen by Provider: 04/11/17 07:27 Hx Obtained From: Patient Hx Last Menstrual Period: Complete Hysterectomy ?: No Onset/Duration: Lasting Hours, Still Present Timing: Constant Severity Currently: Severe Pain Intensity: 10 Pain Scale Used: 0-10 Numeric Location: Diffuse, Flank - right Radiates: Yes Radiates to: Other - mid abdomen, diffuse Aggravating Factor(s): Nothing Alleviating Factor(s): Nothing Associated Signs and Symptoms: Positive: Back Pain, Nausea, Vomiting, Diarrhea. Negative: Fever, Urinary Symptoms, Decreased Appetite, Vaginal Bleeding Allergies/Adverse Reactions: Allergies Allergy/AdvReac Type Severity Reaction Status Date / Time No Known Allergies Allergy Verified 03/29/17 11:45 PMH/Surg Hx/FS Hx/Imm Hx Endocrine/Hematology History: Denies: Hx Anticoagulant Therapy, Hx Blood Disorders, Hx Diabetes, Hx Systemic Lupus Erythematosus, Hx Thyroid Disease Cardiovascular History: Reports: Hx Hypercholesterolemia Denies: Hx Congestive Heart Failure, Hx Hypertension, Hx Pacemaker/ICD, Other Cardiovascular Problems/Disorders Respiratory History: Denies: Hx Asthma, Hx Chronic Bronchitis, Hx Chronic Obstructive Pulmonary Disease (COPD), Other Respiratory Problems/Disorders GI History: Reports: Hx Gall Bladder Disease, Hx Irritable Bowel, Other GI Disorders - PANCREATITIS Denies: Hx Ulcer History: Denies: Hx Dialysis, Hx Renal Disease, Other Problems/Disorders Musculoskeletal History: Denies: Other Musculoskeletal History Sensory History: Denies: Hx Contacts or Glasses, Hx Hearing Aid Opthamlomology History: Denies: Hx Contacts or Glasses Neurological History: Denies: Other Neuro Impairments/Disorders Psychiatric History: Reports: Hx Anxiety, Hx Attention Deficit Hyperactivity Disorder, Hx Depression, Hx Inpatient Treatment, Hx Community Mental Health Tx, Hx Bipolar Disorder, Hx Substance Abuse - etoh abuse hx Denies: Hx Eating Disorder, Hx Panic Disorder, Hx Post Traumatic Stress Disorder, Hx Schizophrenia, Hx Suicide Attempt - some instances of self harm, Hx of Violent Episodes Against Others, Other Psychiatric Issues/Disorders - Surgical History Surgery Procedure, Year, and Place: MULTIPLE LAPRASCOPIC PROCEDURES,. COMPLETE HYSTERECTOMY, 01/2013, [facility]. NAOMY 06/15/13, [facility] [place]. 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 Negative: Fever Eyes: Negative ENT: Negative Cardiovascular: Negative Respiratory: Negative Positive: Abdominal Pain, Vomiting, Diarrhea, Nausea Negative: dysuria Musculoskeletal: Negative Skin: Negative Neurological: Negative All Other Systems Reviewed And Are Negative: Yes Physical Exam Triage Information Reviewed: Yes Vital Signs On Initial Exam: Initial Vitals Temp Pulse Resp BP Pulse Ox 97.4 F 75 26 122/93 97 04/11/17 07:15 04/11/17 07:15 04/11/17 07:15 04/11/17 07:15 04/11/17 07:15 Vital Signs Reviewed: Yes Appearance: Positive: Well-Nourished, Pain Distress Skin: Positive: Warm, Skin Color Reflects Adequate Perfusion, Dry Eyes: Positive: Normal, EOMI, DARIEN ENT: Positive: Pharynx normal, Pharyngeal erythema Neck: Positive: Supple, Nontender Respiratory/Lung Sounds: Positive: Clear to Auscultation, Breath Sounds Present , Decreased Breath Sounds Cardiovascular: Positive: Normal, RRR Abdomen Description: Positive: No Organomegaly, Soft. Negative: Nontender - diffusely tender all quadrants. No guarding, no rebound abd soft no distension , CVA Tenderness (R), CVA Tenderness (L), Distended Bowel Sounds: Positive: Present Musculoskeletal: Positive: Normal, Strength/ROM Intact Neurological: Positive: Normal, Sensory/Motor Intact, Alert, Oriented to Person Place, Time Psychiatric: Positive: Normal AVPU Assessment: Alert - Eugenie Coma Scale Best Eye Response: 4 - Spontaneous Best Motor Response: 6 - Obeys Commands Best Verbal Response: 5 - Oriented Procedures - Procedure Summary Procedure Summary: RN unable to get vascular access. I attempted right EJ x 1 - unable to get on first attempt Vascular RN now oncall - will attempt to come see pt Diagnostics - Vital Signs Vital Signs Temp Pulse Resp BP Pulse Ox 04/11/17 07:15 97.4 F 75 26 122/93 97 - Laboratory Result Diagrams: 04/11/17 09:40 04/11/17 09:40 Lab Statement: Any lab studies that have been ordered have been reviewed, and results considered in the medical decision making process. Re-Evaluation - Re-Evaluation First Eval Re-Evaluation Time: 10:31 Comment: Nause has resolved. Pt is still in pain. Pt is urinating now. Second Eval Re-Evaluation Time: 11:44 Comment: Pt is "almost" pain free. Ispoke with pt's GI specialist at [place] - Tangela ([facility] [employer] SUPER[employer]) - states pt had "completely normal" colonoscopy and she missed her follow-up appointment. Will see pt on 04/12 at 3pm. appt made. d/w pt - states understanding and agree with plan. Rx norco. rest. zofran. work note Abdominal Pain Fem Course/Dx - Course Course Of Treatment: Pt presents with diffuse abdominal pain, mild right flank pain with n/v/d since last night. Pt has had similar epsidoes in the past - dx with colitis in February. Pt states she is supposed to have a colonoscopy by her GI doctor at [place]. I inquired about previously documented colonoscopy - pt states she is supposed to have another one. Pt with stable VS. Diffuse abd pain on exam with apparent nausea. Will give IVF. check labs. analgesia. antiemtic. reassess. Will hold on imaging pending labst. If hematuria, will check for renal colic given right flank component - however, very low suspcion as pt diffusely tender - Diagnoses Provider Diagnoses: Abdominal pain, Vomiting - Provider Notifications Discussed Care Of Patient With: Tangela Deutsch - [facility]PER[facility]OR for GI Time Discussed With Above Provider: 11:40 Instructed by Provider To: Other - I discussed pt's case with Tangela Deutsch NP for GI. She reports pt's colonoscopy was completely normal. I made an appointment for the pt for a follow up tomorrow at 15:00. Discharge - Discharge Plan Condition: Stable Disposition: HOME Prescriptions: Hydrocodone-Acetaminophen [[place] 5-325 mg] 1 - 2 tab PO Q6HR PRN #10 tab MDD 8 PRN Reason: Pain Ondansetron [Zofran 4 MG Odt] 4 mg PO Q6HR PRN #10 tab PRN Reason: Nausea Patient Education Materials: Acute Abdominal Pain (ED) Forms: *Work Release Referrals: Silvia Langston NP [Primary Care Provider] - Additional Instructions: - Stay well hydrated, drink plenty of non-alcoholic, non-caffinated beverages - For the first 6 hours, eat and drink clears (water, maria d dex, soup broth, jello, popsicles, Gatorade). If you tolerate this okay, add bland foods such as dry toast, scrambled eggs, crackers. Wait until you are feeling better for 24 hours before eating spicy food, acidic food, tomato based food, fried food. - Okay to take nausea medication as prescribed - Okay to take Tylenol product (Tylenol or [place]) every [address]. [address], operate machinery - You have an appointment with your GI specialist at [place] - tomorrow at 3pm. It is very important you keep this appointment The documentation as recorded by the Jaime castillo Angela accurately reflects the service I personally performed and the decisions made by me, Urvashi Hoffmann MD.
[2017-04-11] MEDS ORDERED: Ondansetron ODT TAB* 4 MG PO ONE (08:20)
[2017-04-11] MEDS ORDERED: Ondansetron ODT TAB* 4 MG ONE (08:22)
[2017-04-11] MEDS ORDERED: oxyCODONE/Acetamin 5/325 MG* TAB PO ONE (09:19)
[2017-04-11] MEDS ORDERED: HYDROmorphone INJ* 2 MG/ML CARPUJECT SYRINGE IM ONE (09:25)
[2017-04-11 09:50] LABS: ABS Basophils 0 10^3/ul (0-0.2); ABS Eosinophils 0.1 10^3/ul (0-0.6); ABS Monocytes 0.6 10^3/ul (0-0.8); ABS Neutrophils 6.2 10^3/ul (1.5-7.7); ABS Nucleated RBC 0 10^3/ul; Eosinophil % 0.8 % (0-6); Hematocrit 42 % (35-47); Hemoglobin 14.1 g/dl (12.0-16.0); Lymphocyte % 22.8 % (25-47); Mean Corpuscular HGB Conc 34 g/dl (31-36); Mean Corpuscular Hemoglobin 32 pg (27-31); Mean Corpuscular Volume 95 fL (80-97); Mean Platelet Volume 10 um3 (7.4-10.4); Nucleated Red Blood Cells % 0; Platelet Count 133 10^3/ul (150-450); Red Blood Count 4.38 10^6/ul (4.0-5.4); Red Cell Distribution Width 14 % (10.5-15)
[2017-04-11 10:16] LABS: EGFR Non-African American 79.2 (>60)
[2017-04-11] MEDS ORDERED: Magnesium Sulfate 2 GM IV* 2 GM/50 ML BAG IVPB ONE (10:33)
[2017-04-11] MEDS ORDERED: Ketorolac INJ* 30 MG/ML 1 ML VIAL IV PUSH ONE (10:57)
[2017-04-11] MEDS ORDERED: Ketorolac INJ* 60 MG/2 ML VIAL ONE (11:09)
[2017-04-11] MEDS: NS 0.9% 1000 ML* 2,000 ML IV ONE ×2 (11:13→12:20)
[2017-04-11 11:58] LABS: Urine Appearance Clear; Urine Blood Negative (Negative); Urine Color Yellow; Urine Ketones Negative (Negative); Urine Protein Negative (Negative); Urine Specific Gravity 1.011 (1.010-1.030); Urine Urobilinogen Negative (Negative)
[2017-04-11 13:13] VITALS: BP 126/68
== END 2017-04-11 13:12 | disposition home or self-care (01) ==
LOC: ED 07:12
DX: R10.9 Unspecified abdominal pain (principal); R11.2 Nausea with vomiting, unspecified; R19.7 Diarrhea, unspecified; F17.210 Nicotine dependence, cigarettes, uncomplicated
CPT/HCPCS: 36415; 80053; 81003; 83690; 83735; 84702; 85025; 86140; 96361; 96365; 96372; 96375; 96376; 99285; A9270-GY; J1170; J1885; J2405; J3475

== ENCOUNTER 2017-05-06 12:28 | Emergency (ER) | payer OTHER ==
[2017-05-06] MEDS ORDERED: Ondansetron INJ* 2 MG/ML VIAL ONE (13:55)
[2017-05-06] MEDS ORDERED: Morphine INJ* 4 MG/ML 1 ML CARPUJECT IV ONE ×3 (13:56→14:57)
[2017-05-06] MEDS ORDERED: Ondansetron INJ* 2 MG/ML VIAL IV ONE ×2 (14:05→16:07)
[2017-05-06 14:08] LABS: ABS Basophils 0 10^3/ul (0-0.2); ABS Eosinophils 0 10^3/ul (0-0.6); ABS Lymphocytes 2.2 10^3/ul (1.0-4.8); ABS Monocytes 0.5 10^3/ul (0-0.8); ABS Nucleated RBC 0 10^3/ul; Eosinophil % 0.7 % (0-6); Hematocrit 41 % (35-47); Hemoglobin 13.7 g/dl (12.0-16.0); Lymphocyte % 37.9 % (25-47); Mean Corpuscular HGB Conc 34 g/dl (31-36); Mean Corpuscular Hemoglobin 33 pg (27-31); Mean Corpuscular Volume 97 fL (80-97); Mean Platelet Volume 10 um3 (7.4-10.4); Nucleated Red Blood Cells % 0.1; Platelet Count 133 10^3/ul (150-450); Red Blood Count 4.21 10^6/ul (4.0-5.4); Red Cell Distribution Width 14 % (10.5-15); White Blood Count 5.7 10^3/ul (3.5-10.8)
[2017-05-06 14:23] LABS: EGFR Non-African American 82.6 (>60)
[2017-05-06] MEDS ORDERED: NS 0.9% 500 ML* 500 ML IV ONE (14:58)
[2017-05-06 15:31] LABS: Urine Appearance Clear; Urine Blood Negative (Negative); Urine Color Straw; Urine Ketones Negative (Negative); Urine Protein Negative (Negative); Urine Specific Gravity 1.004 (1.010-1.030); Urine Urobilinogen Negative (Negative)
[2017-05-06] MEDS ORDERED: Al Hydrox/Mg Hydrox/Simet LIQ* 30 ML UDC PO ONE (16:10)
[2017-05-06] MEDS ORDERED: Lidocaine 2% VISCOUS* 15 ML UDC PO ONE (16:10)
[2017-05-06] MEDS ORDERED: Iohexol 300* (CONTRAST) 10 ML SDV IV ONE (17:11)
--- NOTE | 2017-05-06 17:48 | RAD ---
INDICATION: Abdominal pain COMPARISON: CT abdomen pelvis February 12, 2017 TECHNIQUE: Axial source images were obtained from the hemidiaphragms to the symphysis pubis following administration of oral and intravenous contrast. 93 mL Omnipaque 300 was utilized. Coronal and sagittal reconstructed images were acquired. Lung bases: The lung bases are clear. Liver: The liver is top normal in size. There is mild hepatic steatosis. There are no masses. There is no ductal dilatation. Gallbladder: Cholecystectomy. Spleen: The spleen is normal in size. There are no masses. Pancreas: There is no focal pancreatic mass or ductal dilatation. Adrenal glands: There is no evidence of adrenal mass. Kidneys: The kidneys are normal in size and position. There are prompt nephrograms and there is prompt excretion bilaterally. There are no renal parenchymal masses. There is no evidence of nephrolithiasis. Adenopathy: There is no evidence of adenopathy by size criteria. Fluid collections: There are no free or localized fluid collections. Vessels:There are no significant atherosclerotic changes involving the aorta. There is no focal aneurysm. The iliac vessels are normal in caliber. The IVC appears normal. GI tract: There are no acute CT bowel findings. There is no obstruction. The stomach and small bowel appear normal. The lower GI tract is remarkable for mild diffuse mucosal edema most consistent with a colitis. There is interval improvement, however. The cecum, ileocecal valve, and terminal ileum appear normal. The appendix is visualized and appear normal. There is no obstruction. Pelvic organs: There is hysterectomy. There is no adnexal mass Bladder: There are no bladder masses. Abdominal and pelvic soft tissues: There is a tiny fat-containing periumbilical hernia. Osseous structures: There are no acute osseous findings. Other: None IMPRESSION: SUSPECT MILD DIFFUSE COLITIS DEMONSTRATING INTERVAL IMPROVEMENT. POST SURGICAL CHANGES TO INCLUDE CHOLECYSTECTOMY AND HYSTERECTOMY.
[2017-05-06] MEDS ORDERED: Ketorolac INJ* 30 MG/ML 1 ML VIAL IV PUSH ONE (17:54)
[2017-05-06] MEDS ORDERED: Ketorolac INJ* 30 MG/ML 1 ML VIAL ONE (17:55)
[2017-05-06] MEDS ORDERED: oxyCODONE/Acetamin 5/325 MG* TAB PO ONE ×2 (19:19→21:48)
[2017-05-06] MEDS ORDERED: metroNIDAZOLE TAB* 250 MG PO ONE (20:48)
[2017-05-06] MEDS ORDERED: Ciprofloxacin TAB* 500 MG PO ONE (20:48)
[2017-05-06 22:28] VITALS: BP 111/70
--- NOTE | 2017-05-13 14:24 | ED ---
Kong Morales Stephanie, scribed for Agustin Noguera MD on 05/06/17 at 1754 . Progress - Results/Orders Results/Orders: CT Abdomen/Pelvis reveals: SUSPECT MILD DIFFUSE COLITIS DEMONSTRATING INTERVAL IMPROVEMENT. POST SURGICAL CHANGES TO INCLUDE CHOLECYSTECTOMY AND HYSTERECTOMY. Re-Evaluation - Re-Evaluation First Eval Re-Evaluation Time: 21:54 Change: Improved - The pt tolerated PO. Her pain is now tolerable. Pt agrees with discharge. Course/Dx - Course Course Of Treatment: ED physician spoke to Dr. Helton GI production support specialist at [facility] , who reported a negative colonoscopy and biopsy of the pt. The pt tolerated PO. Her pain is now tolerable. The pt will be discharged. Follow up with Dr. Dominguez and PCP in 2-[address] Morales verified that they will notify Dr. Dominguez that the pt will follow up with them in 2 days. - Diagnoses Provider Diagnoses: Colitis The documentation as recorded by the Kong castillo Stephanie accurately reflects the service I personally performed and the decisions made by , Agustin Noguera MD.
--- NOTE | 2017-05-13 14:24 | ED ---
Maegan Morales Emily, scribed for Agustin Noguera MD on 05/06/17 at 1356 . Abdominal Pain/Female - HPI Summary HPI Summary: This patient is a 32 year old F presenting to [facility] with a chief complaint of epigastric abd pain radiating to back that began 8 weeks ago and worsened last night. The patient rates the pain 9/10 in severity. Symptoms aggravated by movement and attempts to pass a BM. Symptoms alleviated by nothing. Patient reports nausea, vomiting, decrease in appetite, and inability to pass BM since last night. Pt denies hematochezia. Pt reports getting a colonoscopy at [place] and was told she did not have Crohns disease. - History of Current Complaint Chief Complaint: EDAbdPain Stated Complaint: ABD PAIN/CONSTIPATION Time Seen by Provider: 05/06/17 13:49 Hx Obtained From: Patient Hx Last Menstrual Period: Complete Hysterectomy Onset/Duration: Sudden Onset, Lasting Weeks Timing: Constant Severity Initially: Severe Severity Currently: Severe Pain Intensity: 8 Pain Scale Used: 0-10 Numeric Location: Epigastric Radiates: Yes Radiates to: Back Aggravating Factor(s): Movement, Other: - Trying to pass a BM Alleviating Factor(s): Nothing Associated Signs and Symptoms: Positive: Nausea, Vomiting, Diarrhea Allergies/Adverse Reactions: Allergies Allergy/AdvReac Type Severity Reaction Status Date / Time No Known Allergies Allergy Verified 05/06/17 12:30 PMH/Surg Hx/FS Hx/Imm Hx Previously Healthy: No Endocrine/Hematology History: Denies: Hx Anticoagulant Therapy, Hx Blood Disorders, Hx Diabetes, Hx Systemic Lupus Erythematosus, Hx Thyroid Disease Cardiovascular History: Reports: Hx Hypercholesterolemia Denies: Hx Congestive Heart Failure, Hx Hypertension, Hx Pacemaker/ICD, Other Cardiovascular Problems/Disorders Respiratory History: Denies: Hx Asthma, Hx Chronic Bronchitis, Hx Chronic Obstructive Pulmonary Disease (COPD), Other Respiratory Problems/Disorders GI History: Reports: Hx Gall Bladder Disease, Hx Irritable Bowel, Other GI Disorders - PANCREATITIS Denies: Hx Ulcer History: Denies: Hx Dialysis, Hx Renal Disease, Other Problems/Disorders Musculoskeletal History: Denies: Other Musculoskeletal History Sensory History: Denies: Hx Contacts or Glasses, Hx Hearing Aid Opthamlomology History: Denies: Hx Contacts or Glasses Neurological History: Denies: Other Neuro Impairments/Disorders Psychiatric History: Reports: Hx Anxiety, Hx Attention Deficit Hyperactivity Disorder, Hx Depression, Hx Inpatient Treatment, Hx Community Mental Health Tx, Hx Bipolar Disorder, Hx Substance Abuse - etoh abuse hx Denies: Hx Eating Disorder, Hx Panic Disorder, Hx Post Traumatic Stress Disorder, Hx Schizophrenia, Hx Suicide Attempt - some instances of self harm, Hx of Violent Episodes Against Others, Other Psychiatric Issues/Disorders - Surgical History Surgery Procedure, Year, and Place: MULTIPLE LAPRASCOPIC PROCEDURES,. COMPLETE HYSTERECTOMY, 01/2013, [facility]. [place] [facility] [place] Hx Anesthesia Reactions: No - Immunization History Date of Tetanus Vaccine: Unknown Infectious Disease History: No Infectious Disease History: Denies: Hx Clostridium Difficile, Hx Hepatitis, Hx Human Immunodeficiency Virus (HIV), Hx of Known/Suspected MRSA, Hx Shingles, Hx Tuberculosis, Hx Known/ Suspected VRE, Hx Known/Suspected VRSA, History Other Infectious Disease, Traveled Outside the [place] in Last 30 Days - Family History Known Family History: Positive: Cardiac Disease, Hypertension, Diabetes, Other - father: EtOH abuse - Social History Occupation: Employed Full-time Lives: Alone Alcohol Use: None Alcohol Amount: 2 glasses of wine tonight 11/20/2016 Hx Substance Use: No Substance Use Type: Reports: None Substance Use Comment - Amount & Last Used: 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 Hx Tobacco Use: Yes Smoking Status (MU): Current Every Day Smoker Type: Cigarettes Amount Used/How Often: 1 pack per week Length of Time of Smoking/Using Tobacco: 10YRS Have You Smoked in the Last Year: Yes Review of Systems Negative: Fever, Chills Negative: Erythema Negative: Sore Throat Negative: Chest Pain Negative: Shortness Of Breath, Cough Positive: Abdominal Pain, Vomiting, Nausea, Other - Positive decrease in apetite and inability to pass BM since last night. Negative hematochezia Negative: dysuria, hematuria Negative: Edema Negative: Rash Neurological: Other - Negative dizziness All Other Systems Reviewed And Are Negative: Yes Physical Exam - Summary Physical Exam Summary: Constitutional: Well-developed, Well-nourished, Alert. (-) Distressed; inconsistent exam Skin: Warm, Dry HENT: Normocephalic; Atraumatic Eyes: Conjunctiva normal Neck: Musculoskeletal ROM normal neck. (-) JVD, (-) Stridor, (-) Tracheal deviation Cardio: Rhythm regular, rate normal, Heart sounds normal; Intact distal pulses; The pedal pulses are 2+ and symmetric. Radial pulses are 2+ and symmetric. (-) Murmur Pulmonary/Chest wall: Effort normal. (-) Respiratory distress, (-) Wheezes, (-) Rales Abd: Soft, (-) Distension, (-) Guarding, (-) Rebound, (+) mild epigastric tenderness. She yells when I press her LLQ Musculoskeletal: (-) Edema Lymph: (-) Cervical adenopathy Neuro: Alert, Oriented x3 Psych: Mood and affect Normal Triage Information Reviewed: Yes Vital Signs On Initial Exam: Initial Vitals Temp Pulse Resp BP Pulse Ox 97.6 F 73 16 127/65 99 05/06/17 12:30 05/06/17 12:30 05/06/17 12:30 05/06/17 12:30 05/06/17 12:30 Vital Signs Reviewed: Yes Diagnostics - Vital Signs Vital Signs Temp Pulse Resp BP Pulse Ox 05/06/17 12:30 97.6 F 73 16 127/65 99 - Laboratory Lab Results: Lab Results 05/06/17 05/06/17 05/06/17 Range/Units 13:58 13:58 13:58 WBC 5.7 (3.5-10.8) 10^3/ul RBC 4.21 (4.0-5.4) 10^6/ul Hgb 13.7 (12.0-16.0) g/dl Hct 41 (35-47) % MCV 97 (80-97) fL MCH 33 H (27-31) pg MCHC 34 (31-36) g/dl RDW 14 (10.5-15) % Plt Count 133 L (150-450) 10^3/ul MPV 10 (7.4-10.4) um3 Neut % (Auto) 52.8 (38-83) % Lymph % (Auto) 37.9 (25-47) % [place] % (Auto) 7.9 (1-9) % Eos % (Auto) 0.7 (0-6) % Baso % (Auto) 0.7 (0-2) % Absolute Neuts (auto) 3.0 (1.5-7.7) 10^3/ul Absolute Lymphs (auto) 2.2 (1.0-4.8) 10^3/ul Absolute Monos (auto) 0.5 (0-0.8) 10^3/ul Absolute Eos (auto) 0 (0-0.6) 10^3/ul Absolute Basos (auto) 0 (0-0.2) 10^3/ul Absolute Nucleated RBC 0 10^3/ul Nucleated RBC % 0.1 Sodium 137 (133-145) mmol/L Potassium 4.1 (3.5-5.0) mmol/L Chloride 109 (101-111) mmol/L Carbon Dioxide 21 L (22-32) mmol/L Anion Gap 7 (2-11) mmol/L BUN 8 (6-24) mg/dL Creatinine 0.80 (0.51-0.95) mg/dL Est GFR ( Amer) 106.2 (>60) Est GFR (Non-Af Amer) 82.6 (>60) BUN/Creatinine Ratio 10.0 (8-20) Glucose 90 (70-100) mg/dL Lactic Acid 1.2 (0.5-2.0) mmol/L Calcium 9.3 (8.6-10.3) mg/dL Total Bilirubin 1.10 H (0.2-1.0) mg/dL AST 17 (13-39) U/L ALT 14 (7-52) U/L Alkaline Phosphatase 59 (34-104) U/L C-Reactive Protein < 1.00 (< 5.00) mg/L Total Protein 6.5 (6.4-8.9) g/dL Albumin 4.0 (3.2-5.2) g/dL Globulin 2.5 (2-4) g/dL Albumin/Globulin Ratio 1.6 (1-3) Lipase 32 (11.0-82.0) U/L Beta HCG, Quant 1.11 mIU/mL Urine Color Urine Appearance Urine pH (5-9) Ur Specific [place] (1.010-1.030) Urine Protein (Negative) Urine Ketones (Negative) Urine Blood (Negative) Urine Nitrate (Negative) Urine Bilirubin (Negative) Urine Urobilinogen (Negative) Ur Leukocyte Esterase (Negative) Urine Glucose (Negative) 05/06/17 Range/Units 15:21 WBC (3.5-10.8) 10^3/ul RBC (4.0-5.4) 10^6/ul Hgb (12.0-16.0) g/dl Hct (35-47) % MCV (80-97) fL MCH (27-31) pg MCHC (31-36) g/dl RDW (10.5-15) % Plt Count (150-450) 10^3/ul MPV (7.4-10.4) um3 Neut % (Auto) (38-83) % Lymph % (Auto) (25-47) % [place] % (Auto) (1-9) % Eos % (Auto) (0-6) % Baso % (Auto) (0-2) % Absolute Neuts (auto) (1.5-7.7) 10^3/ul Absolute Lymphs (auto) (1.0-4.8) 10^3/ul Absolute Monos (auto) (0-0.8) 10^3/ul Absolute Eos (auto) (0-0.6) 10^3/ul Absolute Basos (auto) (0-0.2) 10^3/ul Absolute Nucleated RBC 10^3/ul Nucleated RBC % Sodium (133-145) mmol/L Potassium (3.5-5.0) mmol/L Chloride (101-111) mmol/L Carbon Dioxide (22-32) mmol/L Anion Gap (2-11) mmol/L BUN (6-24) mg/dL Creatinine (0.51-0.95) mg/dL Est GFR ( Amer) (>60) Est GFR (Non-Af Amer) (>60) BUN/Creatinine Ratio (8-20) Glucose (70-100) mg/dL Lactic Acid (0.5-2.0) mmol/L Calcium (8.6-10.3) mg/dL Total Bilirubin (0.2-1.0) mg/dL AST (13-39) U/L ALT (7-52) U/L Alkaline Phosphatase (34-104) U/L C-Reactive Protein (< 5.00) mg/L Total Protein (6.4-8.9) g/dL Albumin (3.2-5.2) g/dL Globulin (2-4) g/dL Albumin/Globulin Ratio (1-3) Lipase (11.0-82.0) U/L Beta HCG, Quant mIU/mL Urine Color Straw Urine Appearance Clear Urine pH 6.0 (5-9) Ur Specific [place] 1.004 L (1.010-1.030) Urine Protein Negative (Negative) Urine Ketones Negative (Negative) Urine Blood Negative (Negative) Urine Nitrate Negative (Negative) Urine Bilirubin Negative (Negative) Urine Urobilinogen Negative (Negative) Ur Leukocyte Esterase Negative (Negative) Urine Glucose Negative (Negative) Result Diagrams: 05/06/17 13:58 05/06/17 13:58 Lab Statement: Any lab studies that have been ordered have been reviewed, and results considered in the medical decision making process. Abdominal Pain Fem Course/Dx - Course Course Of Treatment: Signed-out to Adriana Triana upon scribe shift change pending CT, diagnosis, and disposition. - Diagnoses Provider Diagnoses: Colitis Discharge - Discharge Plan Condition: Stable Disposition: OTHER Discharge Disposition Comment: Signoff to Adriana Triana upon shift change Prescriptions: Ciprofloxacin TAB* [Cipro 500 MG TAB*] 500 mg PO BID #28 tab metroNIDAZOLE [Flagyl 500 MG TAB] 500 mg PO TID #40 tab Ondansetron ODT TAB* [Zofran 4 MG Odt TAB*] 4 mg PO Q8H PRN #15 tab.odt PRN Reason: Nausea/Vomiting oxyCODONE/Acetamin 5/325 MG* [Percocet 5/325 TAB*] 1 tab PO Q6H PRN #20 tab MDD 4 PRN Reason: Pain - Moderate To Severe Patient Education Materials: Colitis (ED) Referrals: Tamiko Dominguez MD [Medical Doctor] - 3 Days Silvia Langston NP [Primary Care Provider] - 3 Days The documentation as recorded by the Maegan castillo Emily accurately reflects the service I personally performed and the decisions made by , Agustin Noguera MD.
== END 2017-05-06 22:28 ==
LOC: ED 12:28
DX: K52.9 Noninfective gastroenteritis and colitis, unspecified (principal); E78.00 Pure hypercholesterolemia, unspecified; F17.210 Nicotine dependence, cigarettes, uncomplicated
CPT/HCPCS: 36415; 74177; 80053; 81003; 83605; 83690; 84702; 85025; 86140; 96360; 96374; 96375; 96376; 99284; A9270-GY; J1885; J2270; J2405; Q9967

== ENCOUNTER 2017-05-28 09:30 | Emergency (ER) | payer OTHER ==
[2017-05-28 09:49] VITALS: BP 157/83
--- NOTE | 2017-05-28 10:08 | UC ---
Neck Pain HPI - HPI Summary HPI Summary: 32F presents with neck pain for 3 days. She describes it as a stiffness in the right side of her neck. She has been taking alleve and heat on the area with minimal relief. She states she has developed a headache on her right side. She is not able to lift her arm as high. She states she gets a sharp pain down her right arm. She denies any fever. She denies any chest pain or SOB. She is right handed. - History of Current Complaint Chief Complaint: UCBackPain Stated Complaint: NECK AND ARM PAIN Time Seen by Provider: 05/28/17 10:03 Hx Last Menstrual Period: Complete Hysterectomy Pain Intensity: 8 - Allergies/Home Medications Allergies/Adverse Reactions: Allergies Allergy/AdvReac Type Severity Reaction Status Date / Time No Known Allergies Allergy Verified 05/28/17 09:49 Home Medications: Home Medications Naproxen Sodium [Aleve] 2 cap PO Q4HR PRN 05/28/17 [History Confirmed 05/28/17] PMH/Surg Hx/FS Hx/Imm Hx Endocrine History: Other Other Endocrine History: no DM Cardiovascular History: Other Other Cardiovascular History: no HTN Other History Of: Negative For: Anticoagulant Therapy - Surgical History Surgical History: Yes Surgery Procedure, Year, and Place: MULTIPLE LAPRASCOPIC PROCEDURES,. COMPLETE HYSTERECTOMY, 01/2013, [facility]. [place] 06/15/13, [facility] [place]. [place] scopy - Family History Known Family History: Positive: None, Cardiac Disease, Hypertension, Diabetes, Other - father: EtOH abuse - Social History Alcohol Use: None Alcohol Amount: 2 glasses of wine tonight 11/20/2016 Substance Use Type: None Substance Use Comment - Amount & Last Used: 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 Smoking Status (MU): Current Every Day Smoker Type: Cigarettes Amount Used/How Often: 1 pack per week Length of Time of Smoking/Using Tobacco: 10YRS Have You Smoked in the Last Year: Yes When Did the Patient Quit Smoking/Using Tobacco: stopped 2 weeks ago (June 2014 ) Household Exposure Type: Cigarettes - Immunization History Most Recent Influenza Vaccination: 2016 Most Recent Tetanus Shot: 2014 Most Recent Pneumonia Vaccination: never Review Of Systems Constitutional: Negative: Negative Respiratory: Negative: Cough Cardiovascular: Negative: Chest Pain Musculoskeletal: Positive: Other: - neck pain All Other Systems Reviewed And Are Negative: Yes Physical Exam Triage Information Reviewed: Yes Appearance: Well-Appearing Vital Signs: Initial Vital Signs Temp 97.6 F 05/28/17 09:44 Pulse 68 05/28/17 09:44 Resp 22 05/28/17 09:44 BP 157/83 05/28/17 09:44 Pulse Ox 100 05/28/17 09:44 Vital Signs Reviewed: Yes Eyes: Positive: Conjunctiva Clear Neck: Positive: Supple, Nontender, No Lymphadenopathy Respiratory: Positive: Lungs clear, Normal breath sounds Cardiovascular: Positive: RRR Abdomen Description: Positive: Nontender, Soft Bowel Sounds: Positive: Present Musculoskeletal: Positive: Other: - unable to turn neck towards right, tenderness over right trapezius muscle, able to lift arm with pain. good pulses, Neurological Exam: Normal Neurological: Positive: Other: - sensation grossly intact Psychological Exam: Normal Skin Exam: Normal Diagnostics - Radiology neck Xray Interpretation: No Acute Changes Radiology Interpretation Completed By: Radiologist Neck Pain Course/Dx - Course Course Of Treatment: 32F presents with neck pain for 3 days. She describes it as a stiffness in the right side of her neck. She has been taking alleve and heat on the area with minimal relief. She states she has developed a headache on her right side. She is not able to lift her arm as high. She states she gets a sharp pain down her right arm. She denies any fever. She denies any chest pain or SOB. She is right handed. on exam has tenderness over right trapezius, neurovascular intact. xray normal. will treat with steriod and muscle relaxer as has torticollis like neck pain. will have follow up with primary about blood pressure but likely due to pain. patient understand and agrees with plan - Differential Dx/Diagnosis Differential Dx/HQI/PQRI: Sprain, Strain, Torticollis Provider Diagnoses: neck pain, elevated blood pressure Discharge - Discharge Plan Condition: Good Disposition: HOME Prescriptions: Cyclobenzaprine TAB* [Flexeril 10 MG TAB*] 10 mg PO TID PRN #21 tab PRN Reason: Pain Lidocaine PATCH 5%* [Lidoderm 5% Patch*] 1 patch TRANSDERM DAILY #7 patch methylPREDNISolone [Medrol Dosepak 4 MG*] 4 mg PO .SEE JORGE INSTRUCTION #1 packet Patient Education Materials: Neck Pain (ED) Forms: *Work Release Referrals: Silvia Langston NP [Primary Care Provider] - Additional Instructions: Follow directions on package for Medrol pack Take muscle relaxers three times a day Apply lidocaine patches to area for up to 12 hours in one 24 hour period Use ibuprofen or Tylenol for pain every 6 hours ice/heat area, move as much as possible Follow up with primary within 5 days about blood pressure Return to ED if develop any new or worsening symptoms
--- NOTE | 2017-05-28 10:42 | RAD ---
Indication: Right-sided neck pain. 5 views of the cervical spine demonstrates vertebral bodies to be normal in height. There is straightening of the normal lordosis. Disc space narrowing C5-C6 is noted. Spinal canal appears to be intact. The intervertebral foramen appear patent. IMPRESSION: Degenerative disc disease at C5-C6. No fracture is noted. Straightening of the normal lordosis.
== END 2017-05-28 11:04 | disposition home or self-care (01) ==
LOC: UCEAST 09:30
DX: M54.2 Cervicalgia (principal); M50.322 Other cervical disc degeneration at C5-C6 level; R03.0 Elevated blood-pressure reading, without diagnosis of hypertension; F17.210 Nicotine dependence, cigarettes, uncomplicated
CPT/HCPCS: 72050; 99212; G0463

== ENCOUNTER 2017-06-27 16:42 | Emergency (ER) | payer OTHER ==
[2017-06-27] MEDS ORDERED: HYDROmorphone INJ* 1 MG/ML CARPUJECT SYRINGE IV ONE (18:06)
[2017-06-27] MEDS ORDERED: Metoclopramide IV* 5 MG/ML 2 ML VIAL IV ONE (18:06)
[2017-06-27 18:50] LABS: ABS Basophils 0 10^3/ul (0-0.2); ABS Eosinophils 0.1 10^3/ul (0-0.6); ABS Lymphocytes 2.8 10^3/ul (1.0-4.8); ABS Monocytes 0.6 10^3/ul (0-0.8); ABS Neutrophils 3.4 10^3/ul (1.5-7.7); ABS Nucleated RBC 0 10^3/ul; Eosinophil % 0.8 % (0-6); Hematocrit 41 % (35-47); Hemoglobin 14.1 g/dl (12.0-16.0); Lymphocyte % 40.7 % (25-47); Mean Corpuscular HGB Conc 34 g/dl (31-36); Mean Corpuscular Hemoglobin 34 pg (27-31); Mean Corpuscular Volume 99 fL (80-97); Mean Platelet Volume 10.1 um3 (7.4-10.4); Nucleated Red Blood Cells % 0.2; Platelet Count 147 10^3/ul (150-450); Red Blood Count 4.18 10^6/ul (4.0-5.4); Red Cell Distribution Width 14 % (10.5-15)
[2017-06-27 19:08] LABS: EGFR Non-African American 79.2 (>60)
[2017-06-27] MEDS ORDERED: Sucralfate TAB* 1 GM PO ONE (19:17)
[2017-06-27] MEDS ORDERED: Pantoprazole IV* 40 MG IV ONE (19:17)
--- NOTE | 2017-06-27 19:17 | ED ---
Ashely Morales Julia, scribed for Abraham Aleman MD on 06/27/17 at 1730 . Abdominal Pain/Female - HPI Summary HPI Summary: This patient is a 32 year old F presenting to [facility] with a chief complaint of epigastric abdominal pain and vomiting since this morning. The patient rates the pain 10/10 in severity. Patient reports she has recently changed her diet, as instructed by her new primary care physician Lesley Langston. She states she has limited caffeine, junk food, fatty food, and has added in more whole grains. Patient states she has not had any pain in the past two months. She reports a recently normal colonoscopy and is waiting for a referral to a GI physician. Patient has history of pancreatitis. - History of Current Complaint Chief Complaint: EDAbdPain Stated Complaint: ABD PAIN Time Seen by Provider: 06/27/17 17:20 Hx Obtained From: Patient Hx Last Menstrual Period: Complete Hysterectomy Onset/Duration: Sudden Onset, Lasting Hours Timing: Constant Pain Intensity: 10 Pain Scale Used: 0-10 Numeric Location: Epigastric Associated Signs and Symptoms: Positive: Vomiting Allergies/Adverse Reactions: Allergies Allergy/AdvReac Type Severity Reaction Status Date / Time No Known Allergies Allergy Verified 06/27/17 17:15 PMH/Surg Hx/FS Hx/Imm Hx Endocrine/Hematology History: Denies: Hx Anticoagulant Therapy, Hx Blood Disorders, Hx Diabetes, Hx Systemic Lupus Erythematosus, Hx Thyroid Disease Cardiovascular History: Reports: Hx Hypercholesterolemia Denies: Hx Congestive Heart Failure, Hx Hypertension, Hx Pacemaker/ICD, Other Cardiovascular Problems/Disorders Respiratory History: Denies: Hx Asthma, Hx Chronic Bronchitis, Hx Chronic Obstructive Pulmonary Disease (COPD), Other Respiratory Problems/Disorders GI History: Reports: Hx Gall Bladder Disease, Hx Irritable Bowel, Other GI Disorders - PANCREATITIS Denies: Hx Ulcer History: Denies: Hx Dialysis, Hx Renal Disease, Other Problems/Disorders Musculoskeletal History: Denies: Hx Scoliosis, Other Musculoskeletal History Sensory History: Denies: Hx Contacts or Glasses, Hx Hearing Aid Opthamlomology History: Denies: Hx Contacts or Glasses Neurological History: Denies: Hx Headaches, Other Neuro Impairments/Disorders Psychiatric History: Reports: Hx Anxiety, Hx Attention Deficit Hyperactivity Disorder, Hx Depression, Hx Inpatient Treatment, Hx Community Mental Health Tx, Hx Bipolar Disorder, Hx Substance Abuse - etoh abuse hx Denies: Hx Eating Disorder, Hx Panic Disorder, Hx Post Traumatic Stress Disorder, Hx Schizophrenia, Hx Suicide Attempt - some instances of self harm, Hx of Violent Episodes Against Others, Other Psychiatric Issues/Disorders - Surgical History Surgery Procedure, Year, and Place: MULTIPLE LAPRASCOPIC PROCEDURES,. COMPLETE [place], 01/2013, [place]. [place] [facility] [place] Hx Anesthesia Reactions: No - Immunization History Date of Tetanus Vaccine: Unknown Infectious Disease History: No Infectious Disease History: Denies: Hx Clostridium Difficile, Hx Hepatitis, Hx Human Immunodeficiency Virus (HIV), Hx of Known/Suspected MRSA, Hx Shingles, Hx Tuberculosis, Hx Known/ Suspected VRE, Hx Known/Suspected VRSA, History Other Infectious Disease, Traveled Outside the [place] in Last 30 Days - Family History Known Family History: Positive: Cardiac Disease, Hypertension, Diabetes, Other - father: EtOH abuse - Social History Alcohol Use: None Alcohol Amount: 2 glasses of wine tonight 11/20/2016 Hx Substance Use: No Substance Use Type: Reports: None Substance Use Comment - Amount & Last Used: 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 Hx Tobacco Use: Yes Smoking Status (MU): Current Every Day Smoker Type: Cigarettes Amount Used/How Often: 1 pack per week Length of Time of Smoking/Using Tobacco: 10YRS Have You Smoked in the Last Year: Yes Review of Systems Negative: Fever Positive: Abdominal Pain, Vomiting All Other Systems Reviewed And Are Negative: Yes Physical Exam - Summary Physical Exam Summary: Appearance: The patient is well-nourished in no acute distress and in no acute pain. Skin: The skin is warm and dry and skin color reflects adequate perfusion. HEENT: The head is normocephalic and atraumatic. The pupils are equal and reactive. The conjunctivae are clear and without drainage. Nares are patent and without drainage. Mouth reveals moist mucous membranes and the throat is without erythema and exudate. The external ears are intact. The ear canals are patent and without drainage. The tympanic membranes are intact. Neck: the neck is supple with full range of motion and non-tender. There are no carotid bruits. There is no neck vein distension. Respiratory: Chest is non-tender. Lungs are clear to auscultation and breath sounds are symmetrical and equal. Cardiovascular: Heart is regular rate and rhythm. There is no murmur or rub auscultated. There is no peripheral edema and pulses are symmetrical and equal. Abdomen: The abdomen is soft with epigastric tenderness. There are normal bowel sounds heard in all four quadrants and there is no organomegaly palpated. Musculoskeletal: There is no back tenderness noted. Extremities are non-tender with full range of motion. There is good capillary refill. There is no peripheral edema or calf tenderness elicited. Neurological: Patient is alert and oriented to person, place and time. The patient has symmetrical motor strength in all four extremities. Cranial nerves are grossly intact. Deep tendon reflexes are symmetrical and equal in all four extremities. Psychiatric: The patient has an appropriate affect and does not exhibit any anxiety or depression. Triage Information Reviewed: Yes Vital Signs On Initial Exam: Initial Vitals Temp Pulse Resp BP Pulse Ox 96.9 F 72 17 129/89 100 06/27/17 17:12 06/27/17 17:12 06/27/17 17:12 06/27/17 17:12 06/27/17 17:12 Vital Signs Reviewed: Yes Diagnostics - Vital Signs Vital Signs Temp Pulse Resp BP Pulse Ox 06/27/17 17:12 96.9 F 72 17 129/89 100 - Laboratory Lab Results: Lab Results 06/27/17 06/27/17 06/27/17 Range/Units 18:35 18:35 18:35 WBC 7.0 (3.5-10.8) 10^3/ul RBC 4.18 (4.0-5.4) 10^6/ul Hgb 14.1 (12.0-16.0) g/dl Hct 41 (35-47) % MCV 99 H (80-97) fL MCH 34 H (27-31) pg MCHC 34 (31-36) g/dl RDW 14 (10.5-15) % Plt Count 147 L (150-450) 10^3/ul MPV 10.1 (7.4-10.4) um3 Neut % (Auto) 49.3 (38-83) % Lymph % (Auto) 40.7 (25-47) % Wilkinson % (Auto) 8.6 H (0-7) % Eos % (Auto) 0.8 (0-6) % Baso % (Auto) 0.6 (0-2) % Absolute Neuts (auto) 3.4 (1.5-7.7) 10^3/ul Absolute Lymphs (auto) 2.8 (1.0-4.8) 10^3/ul Absolute Monos (auto) 0.6 (0-0.8) 10^3/ul Absolute Eos (auto) 0.1 (0-0.6) 10^3/ul Absolute Basos (auto) 0 (0-0.2) 10^3/ul Absolute Nucleated RBC 0 10^3/ul Nucleated RBC % 0.2 Sodium 138 (133-145) mmol/L Potassium 4.0 (3.5-5.0) mmol/L Chloride 108 (101-111) mmol/L Carbon Dioxide 22 (22-32) mmol/L Anion Gap 8 (2-11) mmol/L BUN 6 (6-24) mg/dL Creatinine 0.83 (0.51-0.95) mg/dL Est GFR ( Amer) 101.8 (>60) Est GFR (Non-Af Amer) 79.2 (>60) BUN/Creatinine Ratio 7.2 L (8-20) Glucose 82 (70-100) mg/dL Lactic Acid 1.3 (0.5-2.0) mmol/L Calcium 9.7 (8.6-10.3) mg/dL Total Bilirubin 1.00 (0.2-1.0) mg/dL AST 22 (13-39) U/L ALT 16 (7-52) U/L Alkaline Phosphatase 61 (34-104) U/L C-Reactive Protein 1.50 (< 5.00) mg/L Total Protein 7.0 (6.4-8.9) g/dL Albumin 4.3 (3.2-5.2) g/dL Globulin 2.7 (2-4) g/dL Albumin/Globulin Ratio 1.6 (1-3) Lipase 38 (11.0-82.0) U/L Beta HCG, Quant 1.85 mIU/mL Result Diagrams: 06/27/17 18:35 06/27/17 18:35 Lab Statement: Any lab studies that have been ordered have been reviewed, and results considered in the medical decision making process. Abdominal Pain Fem Course/Dx - Course Course Of Treatment: Ms. Rashid has been battling epigastic pain for quite some time. She has done well recently but has had a reccurrence today. She has received some pain medications which has helped some and she is now getting some sulcrafate and protonix. Her labs are still pending. - Diagnoses Provider Diagnoses: Epigastric abdominal pain Discharge - Sign-Out/Discharge Documenting (check all that apply): Discharge, Sign-Out Patient Signing out patient TO: Jeremymynor Butler - Discharge Plan Condition: Stable Disposition: HOME Patient Education Materials: Epigastric Pain (ED) Referrals: Lesley Langston MD [Medical Doctor] - As Soon As Possible (Follow up with your primary care physician.) - Billing Disposition and Condition Condition: STABLE Disposition: HOME The documentation as recorded by the Ashely castillo Julia accurately reflects the service I personally performed and the decisions made by me, Abraham Aleman MD.
[2017-06-27 20:03] VITALS: BP 124/85
== END 2017-06-27 20:01 | disposition home or self-care (01) ==
LOC: ED 16:42
DX: R11.10 Vomiting, unspecified (principal); R10.13 Epigastric pain
CPT/HCPCS: 36415; 80053; 83605; 83690; 84702; 85025; 86140; 96374; 96375; 99284; A9270-GY; J1170; J2765

== ENCOUNTER 2017-07-22 13:18 | Emergency (ER) | payer OTHER | END 2017-07-22 15:11 | disposition left against medical advice (07) | LOC: UCEAST 13:18 | DX: M54.2 Cervicalgia (principal); R51 Headache; Z53.21 Procedure and treatment not carried out due to patient leaving prior to being seen by health care provider ==

== ENCOUNTER 2017-07-24 10:01 | Emergency (ER) | payer OTHER ==
[2017-07-24] MEDS ORDERED: NS 0.9% 1000 ML* 1,000 ML IV ONE (10:26)
[2017-07-24] MEDS ORDERED: Ondansetron INJ* 2 MG/ML VIAL IV ONE (10:26)
--- NOTE | 2017-07-24 10:46 | ED ---
Abdominal Pain/Female - HPI Summary HPI Summary: Patient is a 32-year-old female who presents emergency department for left upper quadrant epigastric abdominal pain, vomiting and diarrhea that started yesterday. History of cholecystectomy, hysterectomy. No current modifying factors. Pain is described as cramping and constant. Denies urinary symptoms or upper respiratory symptoms. Patient has been seen in the ER numerous times for similar complaints in the past. History of substance abuse. Is currently taking omeprazole. Symptoms are moderate in severity. Currently taking ultram for neck pain. - History of Current Complaint Chief Complaint: EDNauseaVomitDiarrh Stated Complaint: VOMITING Time Seen by Provider: 07/24/17 10:21 Hx Last Menstrual Period: Complete Hysterectomy Pain Intensity: 10 Allergies/Adverse Reactions: Allergies Allergy/AdvReac Type Severity Reaction Status Date / Time No Known Allergies Allergy Verified 07/17/17 15:43 Home Medications: Home Medications traMADol TAB* [Ultram*] 50 mg PO Q6HR PRN 07/24/17 [History Confirmed 07/24/17] PMH/Surg Hx/FS Hx/Imm Hx Endocrine/Hematology History: Denies: Hx Anticoagulant Therapy, Hx Blood Disorders, Hx Diabetes, Hx Systemic Lupus Erythematosus, Hx Thyroid Disease Cardiovascular History: Reports: Hx Hypercholesterolemia Denies: Hx Congestive Heart Failure, Hx Hypertension, Hx Pacemaker/ICD, Other Cardiovascular Problems/Disorders Respiratory History: Denies: Hx Asthma, Hx Chronic Bronchitis, Hx Chronic Obstructive Pulmonary Disease (COPD), Other Respiratory Problems/Disorders GI History: Reports: Hx Gall Bladder Disease, Hx Irritable Bowel, Other GI Disorders - PANCREATITIS Denies: Hx Ulcer History: Denies: Hx Dialysis, Hx Renal Disease, Other Problems/Disorders Musculoskeletal History: Denies: Hx Scoliosis, Other Musculoskeletal History Sensory History: Denies: Hx Contacts or Glasses, Hx Hearing Aid Opthamlomology History: Denies: Hx Contacts or Glasses Neurological History: Denies: Hx Headaches, Other Neuro Impairments/Disorders Psychiatric History: Reports: Hx Anxiety, Hx Attention Deficit Hyperactivity Disorder, Hx Depression, Hx Inpatient Treatment, Hx Community Mental Health Tx, Hx Bipolar Disorder, Hx Substance Abuse - etoh abuse hx Denies: Hx Eating Disorder, Hx Panic Disorder, Hx Post Traumatic Stress Disorder, Hx Schizophrenia, Hx Suicide Attempt - some instances of self harm, Hx of Violent Episodes Against Others, Other Psychiatric Issues/Disorders - Cancer History Hx Chemotherapy: No Hx Radiation Therapy: No - Surgical History Surgery Procedure, Year, and Place: MULTIPLE LAPRASCOPIC PROCEDURES,. COMPLETE HYSTERECTOMY, 01/2013, [facility]. [place] [facility] [place] sc[place] Hx Anesthesia Reactions: No - Immunization History Date of Tetanus Vaccine: Unknown Infectious Disease History: No Infectious Disease History: Denies: Hx Clostridium Difficile, Hx Hepatitis, Hx Human Immunodeficiency Virus (HIV), Hx of Known/Suspected MRSA, Hx Shingles, Hx Tuberculosis, Hx Known/ Suspected VRE, Hx Known/Suspected VRSA, History Other Infectious Disease, Traveled Outside the [place] in Last 30 Days - Family History Known Family History: Positive: None, Cardiac Disease, Hypertension, Diabetes, Other - father: EtOH abuse - Social History Occupation: Unemployed Lives: With Family Alcohol Use: None Alcohol Amount: 2 glasses of wine tonight 11/20/2016 Hx Substance Use: No Substance Use Type: Reports: None Substance Use Comment - Amount & Last Used: 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 Hx Tobacco Use: Yes Smoking Status (MU): Current Every Day Smoker Type: Cigarettes Amount Used/How Often: 1 pack per week Length of Time of Smoking/Using Tobacco: 10YRS Have You Smoked in the Last Year: Yes Review of Systems Constitutional: Negative Positive: Fever, Chills Eyes: Negative ENT: Negative Cardiovascular: Negative Respiratory: Negative Positive: Abdominal Pain, Vomiting, Diarrhea, Nausea Genitourinary: Negative Negative: burning, dysuria, discharge, frequency, flank pain Musculoskeletal: Negative Skin: Negative Neurological: Negative All Other Systems Reviewed And Are Negative: Yes Physical Exam Triage Information Reviewed: Yes Vital Signs On Initial Exam: Initial Vitals Temp Pulse Resp BP Pulse Ox 97 F 73 18 143/77 96 07/24/17 10:02 07/24/17 10:02 07/24/17 10:02 07/24/17 10:02 07/24/17 10:02 Vital Signs Reviewed: Yes Appearance: Positive: Pain Distress - Pt. lying on her left side, dry heaving into an emesis bag. Nontoxic. Skin: Positive: Warm, Dry Head/Face: Positive: Normal Head/Face Inspection Eyes: Positive: Normal Respiratory/Lung Sounds: Positive: Clear to Auscultation Cardiovascular: Positive: Normal, RRR Abdomen Description: Positive: Other: - Abd. is soft with marked tenderness to light palpation to the RUQ, epigastric and LUQs. No rebound tenderness or guarding. Neurological: Positive: Normal, CN Intact II-III Psychiatric: Positive: Normal Diagnostics - Vital Signs Vital Signs Temp Pulse Resp BP Pulse Ox 07/24/17 10:02 97 F 73 18 143/77 96 - Laboratory Result Diagrams: 07/24/17 10:40 07/24/17 10:40 Lab Statement: Any lab studies that have been ordered have been reviewed, and results considered in the medical decision making process. Abdominal Pain Fem Course/Dx - Course Course Of Treatment: Pt. presenting to the ER for upper abd. pain and N/V. She is afebrile with stable vital signs. Labs drawn and IV placed. Pt. was started on IV fluids and zofran. Labs and abd. xray were ordered. Pt. has been to the ER numerous times for similar complaints. Labs are unremarkable. Xray is concernning for SBO vs ileus. On re-exam pt. is tearful. She states her nausea is better but she is still having pain. CT scan w/o contrast ordered. CT read per radiology: IMPRESSION: Moderately dilated loops of bowel in the left upper quadrant in a nonspecific. pattern. A partial bowel obstruction or focal adynamic ileus cannot BE excluded. Case was discussed with Dr. Porras. Suspect ileus. On re-exam pt.'s nausea has resovled and she has had no vomiting in the ER. Pt. is comfortable going home. Advised to call PCP in the am for an apt. Clear liquid diet. Return to ER for increased pain, intractable vomiting. Pt. understands and agrees with plan. - Diagnoses Provider Diagnoses: Ileus Discharge - Sign-Out/Discharge Documenting (check all that apply): Discharge - Discharge Plan Condition: Good Disposition: HOME Prescriptions: Ondansetron ODT TAB* [Zofran 4 MG Odt TAB*] 4 mg PO Q6H PRN #12 tab.odt PRN Reason: Nausea Patient Education Materials: Ileus (ED) Referrals: Lesley Langston MD [Primary Care Provider] - Additional Instructions: Call PCP today for an appointment Increase fluids Clear liquid x 24 hours Avoid narcotic use Return to ER for uncontrollable vomiting, pain, fever or if concerned - Billing Disposition and Condition Condition: GOOD Disposition: HOME
[2017-07-24 10:50] LABS: ABS Basophils 0 10^3/ul (0-0.2); ABS Eosinophils 0.1 10^3/ul (0-0.6); ABS Lymphocytes 1.8 10^3/ul (1.0-4.8); ABS Monocytes 0.6 10^3/ul (0-0.8); ABS Neutrophils 3.9 10^3/ul (1.5-7.7); ABS Nucleated RBC 0 10^3/ul; Eosinophil % 1.2 % (0-6); Hematocrit 41 % (35-47); Hemoglobin 14.3 g/dl (12.0-16.0); Lymphocyte % 27.9 % (25-47); Mean Corpuscular HGB Conc 35 g/dl (31-36); Mean Corpuscular Hemoglobin 34 pg (27-31); Mean Corpuscular Volume 99 fL (80-97); Mean Platelet Volume 10.2 um3 (7.4-10.4); Nucleated Red Blood Cells % 0.1; Platelet Count 124 10^3/ul (150-450); Red Blood Count 4.18 10^6/ul (4.0-5.4); Red Cell Distribution Width 13 % (10.5-15); White Blood Count 6.4 10^3/ul (3.5-10.8)
--- NOTE | 2017-07-24 11:08 | RAD ---
INDICATION: Vomiting. Severe abdominal pain. COMPARISON: None TECHNIQUE: A single view of the abdomen is submitted. FINDINGS: Bones: There are no acute bony findings. Soft tissues: The soft tissues appear normal. The psoas margins are sharp. Bowel gas pattern: Mildly prominent air-filled loops of small bowel in the central abdomen. There is a paucity of gas throughout the colon. The findings may be related to an early or partial small bowel obstruction versus a localized ileus. Suggest follow-up as clinically indicated. Calcifications: There are no abnormal calcifications. Other: None IMPRESSION: LOCALIZED ILEUS VERSUS PARTIAL OR EARLY SMALL BOWEL OBSTRUCTION. SUGGEST FOLLOW-UP INDICATED.
--- NOTE | 2017-07-24 13:02 | RAD ---
Indication: Small bowel obstruction. CT of the abdomen and pelvis was performed without oral or IV contrast administration. Coronal and sagittal reconstructed images were obtained. Comparison is made with previous exam dated October 11, 2016. The lung bases demonstrate no pleural fluid, nodules or masses. Heart is of normal size without evidence of pericardial effusion. The liver is normal in size. No focal lesions or intrahepatic ductal dilatation is noted. The gallbladder demonstrates patient is status post cholecystectomy. The pancreas demonstrates no mass or pancreatic ductal dilatation. The spleen is normal in size. No adrenal masses are noted. The kidneys demonstrate no hydronephrosis. No retroperitoneal lymphadenopathy is noted. CT of the pelvis rates moderately dilated loops of bowel in the left upper quadrant which is nonspecific. No obvious zone of transition is noted although a partial obstruction is not totally excluded. The distal small bowel is relatively collapsed. The colon demonstrates mild mucosal thickening. No retroperitoneal adenopathy is noted. No pelvic adenopathy is noted. Urinary bladder is unremarkable. Patient is status post hysterectomy. IMPRESSION: Moderately dilated loops of bowel in the left upper quadrant in a nonspecific pattern. A partial bowel obstruction or focal adynamic ileus cannot BE excluded. Patient is status post hysterectomy.
[2017-07-24 13:35] VITALS: BP 130/83
== END 2017-07-24 13:33 | disposition home or self-care (01) ==
LOC: ED 10:01
DX: K56.7 Ileus, unspecified (principal); R11.2 Nausea with vomiting, unspecified; R10.13 Epigastric pain; R19.7 Diarrhea, unspecified; F17.210 Nicotine dependence, cigarettes, uncomplicated
CPT/HCPCS: 36415; 74018; 74176; 80053; 83690; 84702; 85025; 99282; J2405

== ENCOUNTER 2017-10-21 14:10 | Emergency (ER) | payer OTHER ==
[2017-10-21] MEDS ORDERED: NS 0.9% 1000 ML* 1,000 ML IV ONE (15:06)
[2017-10-21] MEDS ORDERED: Metoclopramide IV* 5 MG/ML 2 ML VIAL IV ONE (15:06)
[2017-10-21] MEDS ORDERED: Ketorolac INJ* 15 MG/ML 1 ML VIAL IV PUSH ONE (15:06)
[2017-10-21 15:29] LABS: ABS Basophils 0 10^3/ul (0-0.2); ABS Eosinophils 0.1 10^3/ul (0-0.6); ABS Lymphocytes 2.2 10^3/ul (1.0-4.8); ABS Monocytes 0.4 10^3/ul (0-0.8); ABS Neutrophils 2.6 10^3/ul (1.5-7.7); ABS Nucleated RBC 0 10^3/ul; Eosinophil % 1.3 % (0-6); Hematocrit 39 % (35-47); Hemoglobin 13.2 g/dl (12.0-16.0); Lymphocyte % 41.2 % (25-47); Mean Corpuscular HGB Conc 34 g/dl (31-36); Mean Corpuscular Hemoglobin 34 pg (27-31); Mean Corpuscular Volume 99 fL (80-97); Mean Platelet Volume 10.1 um3 (7.4-10.4); Nucleated Red Blood Cells % 0.1; Platelet Count 120 10^3/ul (150-450); Red Blood Count 3.91 10^6/ul (4.00-5.40); Red Cell Distribution Width 14 % (10.5-15); White Blood Count 5.2 10^3/ul (3.5-10.8)
[2017-10-21 15:46] LABS: EGFR Non-African American 83.8 (>60)
[2017-10-21] MEDS ORDERED: Iohexol 300* (CONTRAST) 10 ML SDV IV ONE (15:55)
--- NOTE | 2017-10-21 17:07 | ED ---
Abdominal Pain/Female - HPI Summary HPI Summary: A 32 y/o female presents to ED c/o left-sided and LUQ abdominal pain. Additionally, pt c/o vomiting and the abdominal pain radiating to her lower back. According to the patient, she has been vomiting since 0400 with the pain starting shortly after. Pt denies any diarrhea, fever, chills or any blood in urine. She stated that the pain is on her left-side of her abdomen, especially in the LUQ radiating to her lower back reaching 10/10 in severity. She noted in triage, "feels like someone is punching me". Moving aggravates the pain. No PMHx of renal calculi, HTN or DM. She had a complete hysterectomy because of endometriosis. SHx of moderate smoking, however no recreational drugs. Major surgeries include cholecystectomy. No known allergies. - History of Current Complaint Chief Complaint: EDAbdPain Stated Complaint: LWR BACK PAIN/VOMITING Hx Obtained From: Patient Hx Last Menstrual Period: Complete Hysterectomy Onset/Duration: Sudden Onset - Last night, Lasting Hours, Still Present Timing: Hours Severity Initially: Severe Severity Currently: Severe Pain Intensity: 10 Pain Scale Used: 0-10 Numeric Location: Discrete At: LUQ, Other - Left-sided Radiates: Yes Radiates to: Back - lower Character: Other: - "Feels like someone is punching me" as per triage. Aggravating Factor(s): Movement Alleviating Factor(s): Nothing Associated Signs and Symptoms: Positive: Back Pain, Vomiting, Other: - NEGATIVE : chills. Negative: Fever, Urinary Symptoms - No blood in urine, Diarrhea Allergies/Adverse Reactions: Allergies Allergy/AdvReac Type Severity Reaction Status Date / Time No Known Allergies Allergy Verified 10/21/17 14:14 PMH/Surg Hx/FS Hx/Imm Hx Endocrine/Hematology History: Denies: Hx Anticoagulant Therapy, Hx Blood Disorders, Hx Diabetes, Hx Systemic Lupus Erythematosus, Hx Thyroid Disease Cardiovascular History: Reports: Hx Hypercholesterolemia Denies: Hx Congestive Heart Failure, Hx Hypertension, Hx Pacemaker/ICD, Other Cardiovascular Problems/Disorders Respiratory History: Denies: Hx Asthma, Hx Chronic Bronchitis, Hx Chronic Obstructive Pulmonary Disease (COPD), Other Respiratory Problems/Disorders GI History: Reports: Hx Gall Bladder Disease, Hx Irritable Bowel, Other GI Disorders - PANCREATITIS Denies: Hx Ulcer History: Denies: Hx Dialysis, Hx Renal Disease, Other Problems/Disorders Musculoskeletal History: Denies: Hx Scoliosis, Other Musculoskeletal History Sensory History: Denies: Hx Contacts or Glasses, Hx Hearing Aid Opthamlomology History: Denies: Hx Contacts or Glasses Neurological History: Denies: Hx Headaches, Other Neuro Impairments/Disorders Psychiatric History: Reports: Hx Anxiety, Hx Attention Deficit Hyperactivity Disorder, Hx Depression, Hx Inpatient Treatment, Hx Community Mental Health Tx, Hx Bipolar Disorder, Hx Substance Abuse - etoh abuse hx Denies: Hx Eating Disorder, Hx Panic Disorder, Hx Post Traumatic Stress Disorder, Hx Schizophrenia, Hx Suicide Attempt - some instances of self harm, Hx of Violent Episodes Against Others, Other Psychiatric Issues/Disorders - Cancer History Hx Chemotherapy: No Hx Radiation Therapy: No - Surgical History Surgery Procedure, Year, and Place: MULTIPLE LAPRASCOPIC PROCEDURES,. COMPLETE HYSTERECTOMY, 01/2013, [facility]. NAOMY 06/15/13, [facility] [place]. Right knee scopy Hx Anesthesia Reactions: No - Immunization History Date of Tetanus Vaccine: Unknown Infectious Disease History: No Infectious Disease History: Denies: Hx Clostridium Difficile, Hx Hepatitis, Hx Human Immunodeficiency Virus (HIV), Hx of Known/Suspected MRSA, Hx Shingles, Hx Tuberculosis, Hx Known/ Suspected VRE, Hx Known/Suspected VRSA, History Other Infectious Disease, Traveled Outside the [place] in Last 30 Days - Family History Known Family History: Positive: Cardiac Disease, Hypertension, Diabetes, Other - father: EtOH abuse - Social History Alcohol Use: None Alcohol Amount: 2 glasses of wine tonight 11/20/2016 Hx Substance Use: No Substance Use Type: Reports: None Substance Use Comment - Amount & Last Used: 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 Negative: Diarrhea Negative: dysuria Positive: Other - POSITIVE: lower back pain All Other Systems Reviewed And Are Negative: Yes Physical Exam - Summary Physical Exam Summary: GENERAL: Patient is a well developed and nourished female who is lying comfortable in the stretcher. Patient is not in any acute respiratory distress. HEAD AND FACE: Normocephalic EYES: PERRLA, EOMI x 2. EARS: Hearing grossly intact. MOUTH: Oropharynx within normal limits. NECK: Supple, trachea is midline, no adenopathy, no JVD, no carotid bruit. CHEST: Symmetric, no tenderness at palpation LUNGS: Clear to auscultation bilaterally. No wheezing or crackles. CVS: Regular rate and rhythm, S1 and S2 present, no murmurs or gallops appreciated. ABDOMEN: Soft, tender to palpation in LUQ. Bowel sounds are normal. No abdominal abnormal pulsations. EXTREMITIES: Full ROM in all major joints, no edema, no cyanosis or clubbing. NEURO: Alert and oriented x 3. No acute neurological deficits. Speech is normal and follows commands. SKIN: Dry and warm Triage Information Reviewed: Yes Vital Signs On Initial Exam: Initial Vitals Temp Pulse Resp BP Pulse Ox 97.5 F 76 20 135/99 99 10/21/17 14:11 10/21/17 14:11 10/21/17 14:11 10/21/17 14:11 10/21/17 14:11 Vital Signs Reviewed: Yes Diagnostics - Vital Signs Vital Signs Temp Pulse Resp BP Pulse Ox 10/21/17 15:00 78 100 10/21/17 14:53 65 134/77 98 10/21/17 14:23 71 137/76 99 10/21/17 14:22 97 97 10/21/17 14:11 97.5 F 76 20 135/99 99 - Laboratory Lab Results: Lab Results 10/21/17 10/21/17 10/21/17 Range/Units 15:17 15:17 15:17 WBC 5.2 (3.5-10.8) 10^3/ul RBC 3.91 L (4.00-5.40) 10^6/ul Hgb 13.2 (12.0-16.0) g/dl Hct 39 (35-47) % MCV 99 H (80-97) fL MCH 34 H (27-31) pg MCHC 34 (31-36) g/dl RDW 14 (10.5-15) % Plt Count 120 L (150-450) 10^3/ul MPV 10.1 (7.4-10.4) um3 Neut % (Auto) 48.8 (38-83) % Lymph % (Auto) 41.2 (25-47) % [place] % (Auto) 7.9 H (0-7) % Eos % (Auto) 1.3 (0-6) % Baso % (Auto) 0.8 (0-2) % Absolute Neuts (auto) 2.6 (1.5-7.7) 10^3/ul Absolute Lymphs (auto) 2.2 (1.0-4.8) 10^3/ul Absolute Monos (auto) 0.4 (0-0.8) 10^3/ul Absolute Eos (auto) 0.1 (0-0.6) 10^3/ul Absolute Basos (auto) 0 (0-0.2) 10^3/ul Absolute Nucleated RBC 0 10^3/ul Nucleated RBC % 0.1 Sodium 141 (135-145) mmol/L Potassium 4.3 (3.5-5.0) mmol/L Chloride 108 (101-111) mmol/L Carbon Dioxide 24 (22-32) mmol/L Anion Gap 9 (2-11) mmol/L BUN 8 (6-24) mg/dL Creatinine 0.79 (0.51-0.95) mg/dL Est GFR ( Amer) 101.4 (>60) Est GFR (Non-Af Amer) 83.8 (>60) BUN/Creatinine Ratio 10.1 (8-20) Glucose 85 (70-100) mg/dL Lactic Acid 0.7 (0.5-2.0) mmol/L Calcium 9.0 (8.6-10.3) mg/dL Total Bilirubin 0.50 (0.2-1.0) mg/dL AST 19 (13-39) U/L ALT 12 (7-52) U/L Alkaline Phosphatase 49 (34-104) U/L C-Reactive Protein < 1.00 (<8.01) mg/L Total Protein 6.3 L (6.4-8.9) g/dL Albumin 3.9 (3.2-5.2) g/dL Globulin 2.4 (2-4) g/dL Albumin/Globulin Ratio 1.6 (1-3) Lipase 53 (11.0-82.0) U/L Beta HCG, Quant < 0.60 mIU/mL Result Diagrams: 10/21/17 15:17 10/21/17 15:17 Lab Statement: Any lab studies that have been ordered have been reviewed, and results considered in the medical decision making process. - CT CT A/P CT Interpretation Completed By: Radiologist - Chronic and iatrogenic findings described in the body the report without CT apparent acute abnormality that would account for the patient's current clinical presentation. ED physician reviewed this radiology report. Re-Evaluation - Re-Evaluation First Eval Re-Evaluation Time: 18:52 Comment: DISCUSSED DISCHARGE WITH PATIENT Abdominal Pain Fem Course/Dx - Course Course Of Treatment: A 32 y/o female presents to ED c/o left-sided and LUQ abdominal pain. Additionally, pt c/o vomiting and the abdominal pain radiating to her lower back. According to the patient, she has been vomiting since 0400 with the pain starting shortly after. Pt denies any diarrhea, fever, chills or any blood in urine. She stated that the pain is on her left-side of her abdomen , especially in the LUQ radiating to her lower back reaching 10/[address] A/P revealed chronic and iatrogenic findings described in the body the report without CT apparent acute abnormality that would account for the patient' s current clinical presentation. In the ED course, pt recieved Omnipaque, Toradol, Reglan and IV fluids. Pt will be discharged with a diagnosis of abdominal pain. Pt is to follow up with PCP in 2-3 days. Pt is agreeable with this plan. - Diagnoses Provider Diagnoses: Abdominal pain Discharge - Sign-Out/Discharge Documenting (check all that apply): Patient Departure - DISCHARGE - Discharge Plan Condition: Stable Disposition: HOME Prescriptions: Ondansetron ODT TAB* [Zofran 4 MG Odt TAB*] 4 mg PO Q6H PRN #12 tab.odt PRN Reason: Nausea/Vomiting Patient Education Materials: Abdominal Pain (ED) Referrals: Lesley Langston MD [Primary Care Provider] - 2 Days (FOLLOW UP WITH PRIMARY CARE PHYSICIAN IN 2-3 DAYS.) Additional Instructions: RETURN TO ED FOR ANY NEW OR WORSENING SYMPTOMS. - Billing Disposition and Condition Condition: STABLE Disposition: Home
[2017-10-21 18:10] VITALS: BP 120/65
[2017-10-21 18:17] LABS: Urine Appearance Clear; Urine Blood Negative (Negative); Urine Color Colorless; Urine Ketones Negative (Negative); Urine Protein Negative (Negative); Urine Specific Gravity 1.016 (1.010-1.030); Urine Urobilinogen Negative (Negative)
--- NOTE | 2017-10-21 18:37 | RAD ---
CLINICAL HISTORY: Left upper quadrant pain. Surgical history includes hysterectomy, cholecystectomy and "multiple laparoscopic procedures" COMPARISON: The patient has at least 10 prior CTs of the abdomen and pelvis, most recently dated May 06, 2017 TECHNIQUE: Contrast enhanced CT examination of the abdomen and pelvis from the lung bases through the initial tuberosities. The patient received 88 mL Omnipaque 300 intravenously prior to imaging.The patient received oral contrast as well prior to imaging. FINDINGS: VISUALIZED LUNG BASES: The visualized lung bases are grossly clear. There is no pleural effusion. ABDOMEN AND PELVIS: The liver, spleen, pancreas and adrenal glands are grossly normal in appearance. The gallbladder is surgically absent. The kidneys are normal in appearance without focal mass, calcification or signs of hydronephrosis. Evaluation of the gastrointestinal tract is limited without oral contrast. The partially gas-filled appendix measures 5 mm in diameter (image 51) The small and large bowel are not distended. There is no gross retroperitoneal or mesenteric lymphadenopathy. The uterus is surgically absent. The abdominal aorta and iliac arteries are normal in course and diameter. Degenerative changes include multilevel loss of intervertebral disc height involving the lower thoracic and lumbar spine.There are no sinister bone lesions. IMPRESSION: Chronic and iatrogenic findings described in the body the report without CT apparent acute abnormality that would account for the patient's current clinical presentation.
== END 2017-10-21 19:08 | disposition home or self-care (01) ==
LOC: ED 14:10
DX: R10.12 Left upper quadrant pain (principal); F17.210 Nicotine dependence, cigarettes, uncomplicated; Z90.710 Acquired absence of both cervix and uterus; Z90.49 Acquired absence of other specified parts of digestive tract
CPT/HCPCS: 36415; 74177; 80053; 81003; 83605; 83690; 84702; 85025; 86140; 96361; 96374; 96375; 99283; J1885; J2765; Q9967

== ENCOUNTER 2017-12-10 09:54 | Emergency (ER) | payer OTHER ==
[2017-12-10] MEDS ORDERED: Ketorolac INJ* 60 MG/2 ML VIAL IM ONE (12:22)
[2017-12-10 12:49] VITALS: BP 155/87
--- NOTE | 2017-12-10 17:59 | ED ---
Throat Pain/Nasal Congestion - HPI Summary HPI Summary: Patient is a 32-year-old female presenting with a one-day history of sore throat and body aches. She states she developed a sore throat late last evening and awoke this morning with body aches and mild cough. Denies any fevers, sweats, chills. Denies any urinary symptoms or back pain. Denies any abdominal pain, chest pressure or pain. She is otherwise healthy. Pain to the throat is currently a 7/10, constant and burning. She denies any difficulty swallowing or odynophagia. - History of Current Complaint Chief Complaint: EDThroatPain Time Seen by Provider: 12/10/17 10:49 Hx Obtained From: Patient Onset/Duration: Sudden Onset Severity: Moderate Associated Signs And Symptoms: Negative: Dysphagia, Drooling, Sinus Discomfort, Nasal Discharge - Epiglottits Risk Factors Epiglottis Risk Factors: Negative - Allergies/Home Medications Allergies/Adverse Reactions: Allergies Allergy/AdvReac Type Severity Reaction Status Date / Time No Known Allergies Allergy Verified 10/21/17 14:14 PMH/Surg Hx/FS Hx/Imm Hx Previously Healthy: Yes Endocrine/Hematology History: Denies: Hx Anticoagulant Therapy, Hx Blood Disorders, Hx Diabetes, Hx Systemic Lupus Erythematosus, Hx Thyroid Disease Cardiovascular History: Reports: Hx Hypercholesterolemia Denies: Hx Congestive Heart Failure, Hx Hypertension, Hx Pacemaker/ICD, Other Cardiovascular Problems/Disorders Respiratory History: Denies: Hx Asthma, Hx Chronic Bronchitis, Hx Chronic Obstructive Pulmonary Disease (COPD), Other Respiratory Problems/Disorders GI History: Reports: Hx Gall Bladder Disease, Hx Irritable Bowel, Other GI Disorders - PANCREATITIS Denies: Hx Ulcer History: Denies: Hx Dialysis, Hx Renal Disease, Other Problems/Disorders Musculoskeletal History: Denies: Hx Scoliosis, Other Musculoskeletal History Sensory History: Denies: Hx Contacts or Glasses, Hx Hearing Aid Opthamlomology History: Denies: Hx Contacts or Glasses Neurological History: Denies: Hx Headaches, Other Neuro Impairments/Disorders Psychiatric History: Reports: Hx Anxiety, Hx Attention Deficit Hyperactivity Disorder, Hx Depression, Hx Inpatient Treatment, Hx Community Mental Health Tx, Hx Bipolar Disorder, Hx Substance Abuse - etoh abuse hx Denies: Hx Eating Disorder, Hx Panic Disorder, Hx Post Traumatic Stress Disorder, Hx Schizophrenia, Hx Suicide Attempt - some instances of self harm, Hx of Violent Episodes Against Others, Other Psychiatric Issues/Disorders - Cancer History Hx Chemotherapy: No Hx Radiation Therapy: No - Surgical History Surgery Procedure, Year, and Place: MULTIPLE LAPRASCOPIC PROCEDURES,. COMPLETE [place]Y, 01/2013, [place]. [place] [facility] [place] Hx Anesthesia Reactions: No - Immunization History Date of Tetanus Vaccine: Unknown Hx Pertussis Vaccination: No Immunizations Up to Date: Yes Infectious Disease History: No Infectious Disease History: Denies: Hx Clostridium Difficile, Hx Hepatitis, Hx Human Immunodeficiency Virus (HIV), Hx of Known/Suspected MRSA, Hx Shingles, Hx Tuberculosis, Hx Known/ Suspected VRE, Hx Known/Suspected VRSA, History Other Infectious Disease, Traveled Outside the [place] in Last 30 Days - Family History Known Family History: Positive: None, Cardiac Disease, Hypertension, Diabetes, Other - father: EtOH abuse - Social History Occupation: Unemployed Lives: With Family Alcohol Use: None Alcohol Amount: 2 glasses of wine tonight 11/20/2016 Hx Substance Use: No Substance Use Type: Reports: None Substance Use Comment - Amount & Last Used: 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 Negative: Shortness Of Breath Negative: Abdominal Pain, Vomiting, Diarrhea, Nausea Genitourinary: Negative Positive: no symptoms reported, see HPI Positive: Arthralgia, Myalgia Skin: Negative Positive: Weakness All Other Systems Reviewed And Are Negative: Yes Physical Exam Triage Information Reviewed: Yes Vital Signs On Initial Exam: Initial Vitals Temp Pulse Resp BP Pulse Ox 97.4 F 92 19 137/99 99 12/10/17 10:12/10/17 10:12/10/17 10:12/10/17 10:12/10/17 10:09 Vital Signs Reviewed: Yes Appearance: Positive: Well-Appearing, Well-Nourished Skin: Positive: Warm, Skin Color Reflects Adequate Perfusion Head/Face: Positive: Normal Head/Face Inspection Eyes: Positive: EOMI, DARIEN, Conjunctiva Clear ENT: Positive: Pharynx normal. Negative: Tonsillar swelling, Tonsillar exudate , Dental tenderness, Sinus tenderness Neck: Positive: Supple, No Lymphadenopathy Respiratory/Lung Sounds: Positive: Clear to Auscultation, Breath Sounds Present Cardiovascular: Positive: RRR, Pulses are Symmetrical in both Upper and Lower Extremities Musculoskeletal: Positive: Normal, Strength/ROM Intact Neurological: Positive: Speech Normal Psychiatric: Positive: Normal, Affect/Mood Appropriate AVPU Assessment: Alert Diagnostics - Vital Signs Vital Signs Temp Pulse Resp BP Pulse Ox 12/10/17 12:46 96.8 F 68 15 155/87 99 12/10/17 10:09 97.4 F 92 19 137/99 99 - Laboratory Lab Statement: Any lab studies that have been ordered have been reviewed, and results considered in the medical decision making process. EENT Course/Dx - Course Course Of Treatment: Physical examination, lungs CTA. RRR. Afebrile and other vital signs stable. Strep swab obtained and is negative. She appears to have a viral illness and is encouraged Tylenol and ibuprofen as well as Cepacol tabs for sore throat. She is okay with this plan and discharged. She is given Toradol 30 mg IM prior to discharge. - Diagnoses Provider Diagnoses: Pharyngitis, Myalgia Discharge - Sign-Out/Discharge Documenting (check all that apply): Patient Departure - Discharge Plan Condition: Stable Disposition: HOME Patient Education Materials: Pharyngitis (ED), Viral Syndrome (ED) Referrals: Lesley Langston MD [Primary Care Provider] - Additional Instructions: Cepacol or Chloraseptic lozenges Ibuprofen and Tylenol intermittently every 3 hours Drink plenty of fluids including Gatorade Humidifier in the home will help Eat cold food items such as ice cream, apple sauce, popsicles and continue with chicken broth - Billing Disposition and Condition Condition: STABLE Disposition: Home
== END 2017-12-10 12:46 | disposition home or self-care (01) ==
LOC: ED 09:54
DX: J02.9 Acute pharyngitis, unspecified (principal); M79.1 Myalgia; R53.1 Weakness; F17.210 Nicotine dependence, cigarettes, uncomplicated
CPT/HCPCS: 87651; 96372; 99282; J1885

== ENCOUNTER 2018-01-13 09:23 | Emergency (ER) | payer OTHER ==
--- NOTE | 2018-01-13 10:14 | ED ---
Shortness of Breath - HPI Summary HPI Summary: Patient is a 29-year-old smoker presenting with a three-day history of cough and congestion. She is also endorsing midsternal chest pain with cough. Cough is nonproductive. She endorses some rhinorrhea, but denies any sinus pressure. She denies any fevers, however his endorsing sweats and chills intermittently. She states this is affecting her ability to smoke and has not smoked in approximately 4 days. Father recently from COPD. Patient is an asthmatic and has needed her albuterol inhaler more frequently over the past few days. She denies any nausea, vomiting, abdominal pain, urinary symptoms, headache, visual changes or ear pain. - History of Current Complaint Chief Complaint: EDUpperRespComplaint Time Seen by Provider: 01/13/18 09:37 Hx Obtained From: Patient Onset/Duration: Sudden Onset Timing: Constant Current Severity: Moderate Dyspnea At: Exertion Aggrevating Factors: Allergens, Deep Breaths Alleviating Factors: Bronchodilators Associated Signs & Symptoms: Cough (Nonproductive), Chest Pain w/Cough - Risk Factors Pulmonary Embolism: Negative Cardiac: Negative Pseudomonas: Negative Tuberculosis: Negative - Allergy/Home Medications Allergies/Adverse Reactions: Allergies Allergy/AdvReac Type Severity Reaction Status Date / Time No Known Allergies Allergy Verified 01/13/18 09:34 PMH/Surg Hx/FS Hx/Imm Hx Previously Healthy: Yes Endocrine/Hematology History: Denies: Hx Anticoagulant Therapy, Hx Blood Disorders, Hx Diabetes, Hx Systemic Lupus Erythematosus, Hx Thyroid Disease Cardiovascular History: Reports: Hx Hypercholesterolemia Denies: Hx Congestive Heart Failure, Hx Hypertension, Hx Pacemaker/ICD, Other Cardiovascular Problems/Disorders Respiratory History: Denies: Hx Asthma, Hx Chronic Bronchitis, Hx Chronic Obstructive Pulmonary Disease (COPD), Other Respiratory Problems/Disorders GI History: Reports: Hx Gall Bladder Disease, Hx Irritable Bowel, Other GI Disorders - PANCREATITIS Denies: Hx Ulcer History: Denies: Hx Dialysis, Hx Renal Disease, Other Problems/Disorders Musculoskeletal History: Denies: Hx Scoliosis, Other Musculoskeletal History Sensory History: Denies: Hx Contacts or Glasses Opthamlomology History: Denies: Hx Contacts or Glasses Neurological History: Denies: Hx Headaches, Other Neuro Impairments/Disorders Psychiatric History: Reports: Hx Anxiety, Hx Attention Deficit Hyperactivity Disorder, Hx Depression, Hx Inpatient Treatment, Hx Community Mental Health Tx, Hx Bipolar Disorder, Hx Substance Abuse - etoh abuse hx Denies: Hx Eating Disorder, Hx Panic Disorder, Hx Post Traumatic Stress Disorder, Hx Schizophrenia, Hx Suicide Attempt - some instances of self harm, Hx of Violent Episodes Against Others, Other Psychiatric Issues/Disorders - Cancer History Hx Chemotherapy: No Hx Radiation Therapy: No - Surgical History Surgery Procedure, Year, and Place: MULTIPLE LAPRASCOPIC PROCEDURES,. COMPLETE HYSTERECTOMY, 01/2013, [facility]. NAOMY 06/15/13, [facility] [place]. Right knee scopy Hx Anesthesia Reactions: No - Immunization History Date of Tetanus Vaccine: Unknown Hx Pertussis Vaccination: No Immunizations Up to Date: Yes Infectious Disease History: No Infectious Disease History: Denies: Hx Clostridium Difficile, Hx Hepatitis, Hx Human Immunodeficiency Virus (HIV), Hx of Known/Suspected MRSA, Hx Shingles, Hx Tuberculosis, Hx Known/ Suspected VRE, Hx Known/Suspected VRSA, History Other Infectious Disease, Traveled Outside the [place] in Last 30 Days - Family History Known Family History: Positive: None, Cardiac Disease, Hypertension, Diabetes, Other - father: EtOH abuse - Social History Occupation: Unemployed Lives: With Family Alcohol Use: None Hx Substance Use: No Substance Use Type: Reports: None Substance Use Comment - 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 Negative: Palpitations Positive: Shortness Of Breath, Cough Negative: Abdominal Pain, Vomiting, Diarrhea, Nausea Genitourinary: Negative Positive: no symptoms reported, see HPI Negative: Headache, Weakness, Paresthesia Psychological: Normal All Other Systems Reviewed And Are Negative: Yes Physical Exam Triage Information Reviewed: Yes Vital Signs On Initial Exam: Initial Vitals Temp Pulse Resp BP Pulse Ox 97.3 F 64 22 152/86 96 01/13/18 09:34 01/13/18 09:34 01/13/18 09:34 01/13/18 09:34 01/13/18 09:34 Vital Signs Reviewed: Yes Appearance: Positive: Well-Appearing, Well-Nourished Skin: Positive: Warm, Skin Color Reflects Adequate Perfusion Head/Face: Positive: Normal Head/Face Inspection Eyes: Positive: EOMI, DARIEN, Conjunctiva Clear Neck: Positive: Supple, No Lymphadenopathy Respiratory/Lung Sounds: Positive: Clear to Auscultation, Breath Sounds Present Cardiovascular: Positive: RRR, Pulses are Symmetrical in both Upper and Lower Extremities Musculoskeletal: Positive: Normal, Strength/ROM Intact Neurological: Positive: Speech Normal Psychiatric: Positive: Normal, Affect/Mood Appropriate AVPU Assessment: Alert Diagnostics - Vital Signs Vital Signs Temp Pulse Resp BP Pulse Ox 01/13/18 09:34 97.3 F 64 22 152/86 96 - Laboratory Result Diagrams: 01/13/18 10:04 01/13/18 10:04 Lab Statement: Any lab studies that have been ordered have been reviewed, and results considered in the medical decision making process. Course/Dx - Course Course Of Treatment: During the course of treatment, the patient's evaluated for cough and congestion with chest pain with cough. Chest x-ray obtained which was COPD. Labs obtained and are otherwise WNL. Patient is wheezy bilaterally and is given a breathing treatment with good relief. She is given a steroid in the ED and will be discharged with prescription. Troponin 0.00. - Diagnoses Differential Diagnosis/HQI/PQRI: Positive: Bronchitis, Chest Wall Pain, COPD Exacerbation, Pneumonia Provider Diagnoses: Bronchitis Discharge - Sign-Out/Discharge Documenting (check all that apply): Patient Departure - Discharge Plan Condition: Stable Disposition: HOME Prescriptions: predniSONE TAB* [Deltasone TAB*] 50 mg PO DAILY #5 tab Patient Education Materials: Acute Bronchitis (ED), COPD (Chronic Obstructive Pulmonary Disease) (ED), Bronchospasm (ED) Referrals: Lesley Langston MD [Primary Care Provider] - Additional Instructions: Please continue to use your at home albuterol inhaler as needed Prednisone once daily x 5 days (start tomorrow AM) - Billing Disposition and Condition Condition: STABLE Disposition: Home
[2018-01-13 10:15] LABS: ABS Basophils 0 10^3/ul (0-0.2); ABS Eosinophils 0.1 10^3/ul (0-0.6); ABS Lymphocytes 1.5 10^3/ul (1.0-4.8); ABS Monocytes 0.5 10^3/ul (0-0.8); ABS Neutrophils 2.8 10^3/ul (1.5-7.7); ABS Nucleated RBC 0 10^3/ul; Eosinophil % 1.2 % (0-6); Hematocrit 42 % (35-47); Hemoglobin 14.1 g/dl (12.0-16.0); Lymphocyte % 30.9 % (25-47); Mean Corpuscular HGB Conc 34 g/dl (31-36); Mean Corpuscular Hemoglobin 35 pg (27-31); Mean Corpuscular Volume 102 fL (80-97); Mean Platelet Volume 9.6 um3 (7.4-10.4); Nucleated Red Blood Cells % 0.2; Platelet Count 106 10^3/ul (150-450); Red Blood Count 4.09 10^6/ul (4.00-5.40); Red Cell Distribution Width 15 % (10.5-15); White Blood Count 4.8 10^3/ul (3.5-10.8)
--- NOTE | 2018-01-13 10:29 | RAD ---
INDICATION: Chest pain with cough. Congestion. Shortness of breath. History of tobacco use. COMPARISON: October 21, [address] February 02, 2016 chest radiograph TECHNIQUE: Dual energy PA and routine lateral views of the chest were obtained. REPORT: Elevated lung volumes and both diffuse mild prominence of the interstitial markings and patchy rarefaction of the mid to upper lung zone interstitial markings. No focal pulmonary lesion, compelling alveolar consolidation, pleural effusion, pneumothorax. The heart, pulmonary vasculature, and mediastinal contours are unremarkable. Gallbladder fossa level surgical clips. IMPRESSION: #. Stigmata of obstructive lung disease. No acute pulmonary or cardiac process evident.
[2018-01-13 10:33] LABS: EGFR Non-African American 93.3 (>60)
[2018-01-13] MEDS ORDERED: guaiFENesin/CODIEN 100MG-10MG* 5 ML UDC PO ONE (11:09)
[2018-01-13] MEDS ORDERED: Albuterol/Ipratropium NEB.SOL* Albuterol 2.5 MG/Ipratropium 0.5 MG 3 ML INH ONE (11:32)
[2018-01-13] MEDS ORDERED: predniSONE TAB* 20 MG PO ONE (11:32)
[2018-01-13 11:46] VITALS: BP 126/71
== END 2018-01-13 12:06 | disposition home or self-care (01) ==
LOC: ED 09:23
DX: J40 Bronchitis, not specified as acute or chronic (principal); E78.00 Pure hypercholesterolemia, unspecified; J45.909 Unspecified asthma, uncomplicated; Z79.899 Other long term (current) drug therapy
CPT/HCPCS: 36415; 71046; 80053; 84484; 85025; 86140; 99283; A9270-GY; J7512

== ENCOUNTER → 2018-02-07 11:42 | Emergency (ER) | payer OTHER ==
[~2018-02-07 11:42] MED LIST: Ciprofloxacin TAB* 500 MG PO ONE; Dexamethasone IV* 4 MG/ML 5 ML VIAL (20 MG) IVPB ONE; Iohexol 300* (CONTRAST) 10 ML SDV IV ONE; Morphine INJ* 4 MG/ML 1 ML SYRINGE (NEW SYRINGE VERSION) IV ONE; Morphine VIAL* 10 MG/ML 1 ML VIAL IV ONE; Morphine VIAL* 4 MG/ML VIAL (1 ml vial) IV ONE; Ondansetron INJ* 2 MG/ML VIAL IV ONE; metroNIDAZOLE TAB* 250 MG PO ONE
[2018-02-07 12:32] LABS: Urine Appearance Clear; Urine Blood Negative (Negative); Urine Color Yellow; Urine Ketones Negative (Negative); Urine Protein Negative (Negative); Urine Specific Gravity 1.017 (1.010-1.030); Urine Urobilinogen Negative (Negative)
[2018-02-07 12:47] LABS: ABS Basophils 0 10^3/ul (0-0.2); ABS Eosinophils 0 10^3/ul (0-0.6); ABS Lymphocytes 1.5 10^3/ul (1.0-4.8); ABS Monocytes 0.4 10^3/ul (0-0.8); ABS Neutrophils 3.7 10^3/ul (1.5-7.7); ABS Nucleated RBC 0 10^3/ul; Eosinophil % 0.8 % (0-6); Hematocrit 38 % (35-47); Lymphocyte % 26.9 % (25-47); Mean Corpuscular HGB Conc 34 g/dl (31-36); Mean Corpuscular Hemoglobin 35 pg (27-31); Mean Corpuscular Volume 103 fL (80-97); Mean Platelet Volume 9.2 um3 (7.4-10.4); Nucleated Red Blood Cells % 0.1; Platelet Count 140 10^3/ul (150-450); Red Blood Count 3.72 10^6/ul (4.00-5.40); Red Cell Distribution Width 15 % (10.5-15); White Blood Count 5.6 10^3/ul (3.5-10.8)
[2018-02-07 12:59] LABS: EGFR Non-African American 70.3 (>60)
--- NOTE | 2018-02-07 17:46 | ED ---
Abdominal Pain/Female - HPI Summary HPI Summary: This patient is a 32 year old F presenting to ED with a chief complaint of abdominal pain that woke her from sleep at 0500 this morning. The pain began last night as cramps. The patient rates the pain 8/10 in severity. Symptoms aggravated by movement. Symptoms alleviated by nothing. Patient reports yellow BM that looks like bile and decreased PO intake. Patient denies vomiting, dysuria, and hematuria. PMHx of complete hysterectomy and cholecystectomy. Her appendix is still there. - History of Current Complaint Chief Complaint: EDAbdPain Stated Complaint: epigastric pain Time Seen by Provider: 02/07/18 16:39 Hx Obtained From: Patient Hx Last Menstrual Period: Complete Hysterectomy Onset/Duration: Sudden Onset, Lasting Hours, Still Present Timing: Hours Severity Initially: Severe Severity Currently: Severe Pain Intensity: 8 Pain Scale Used: 0-10 Numeric Character: Cramping Aggravating Factor(s): Movement Alleviating Factor(s): Nothing Associated Signs and Symptoms: Positive: Decreased Appetite - decreased overall PO, Other: - yellow BM that looks like bile Allergies/Adverse Reactions: Allergies Allergy/AdvReac Type Severity Reaction Status Date / Time No Known Allergies Allergy Verified 02/07/18 12:06 PMH/Surg Hx/FS Hx/Imm Hx Endocrine/Hematology History: Denies: Hx Anticoagulant Therapy, Hx Blood Disorders, Hx Diabetes, Hx Systemic Lupus Erythematosus, Hx Thyroid Disease Cardiovascular History: Reports: Hx Hypercholesterolemia Denies: Hx Congestive Heart Failure, Hx Hypertension, Hx Pacemaker/ICD, Other Cardiovascular Problems/Disorders Respiratory History: Denies: Hx Asthma, Hx Chronic Bronchitis, Hx Chronic Obstructive Pulmonary Disease (COPD), Other Respiratory Problems/Disorders GI History: Reports: Hx Gall Bladder Disease, Hx Irritable Bowel, Other GI Disorders - PANCREATITIS Denies: Hx Ulcer History: Denies: Hx Dialysis, Hx Renal Disease, Other Problems/Disorders Musculoskeletal History: Denies: Hx Scoliosis, Other Musculoskeletal History Sensory History: Denies: Hx Contacts or Glasses Opthamlomology History: Denies: Hx Contacts or Glasses Neurological History: Denies: Hx Headaches, Other Neuro Impairments/Disorders Psychiatric History: Reports: Hx Anxiety, Hx Attention Deficit Hyperactivity Disorder, Hx Depression, Hx Inpatient Treatment, Hx Community Mental Health Tx, Hx Bipolar Disorder, Hx Substance Abuse - etoh abuse hx Denies: Hx Eating Disorder, Hx Panic Disorder, Hx Post Traumatic Stress Disorder, Hx Schizophrenia, Hx Suicide Attempt - some instances of self harm, Hx of Violent Episodes Against Others, Other Psychiatric Issues/Disorders - Cancer History Hx Chemotherapy: No Hx Radiation Therapy: No - Surgical History Surgery Procedure, Year, and Place: MULTIPLE LAPRASCOPIC PROCEDURES,. COMPLETE HYSTERECTOMY, 01/2013, [facility]. NAOMY 06/15/13, [facility] [place]. Right knee scopy Hx Anesthesia Reactions: No - Immunization History Date of Tetanus Vaccine: Unknown Immunizations Up to Date: Yes Infectious Disease History: No Infectious Disease History: Denies: Hx Clostridium Difficile, Hx Hepatitis, Hx Human Immunodeficiency Virus (HIV), Hx of Known/Suspected MRSA, Hx Shingles, Hx Tuberculosis, Hx Known/ Suspected VRE, Hx Known/Suspected VRSA, History Other Infectious Disease, Traveled Outside the [place] in Last 30 Days - Family History Known Family History: Positive: Cardiac Disease, Hypertension, Diabetes, Other - father: EtOH abuse - Social History Alcohol Use: Occasionally Alcohol Amount: 2 glasses of wine tonight 11/20/2016 Hx Substance Use: No Substance Use Type: Reports: None Substance Use Comment - 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 Negative: Vomiting, Nausea Negative: dysuria, hematuria Negative: Myalgia, Edema Negative: Rash Neurological: Other - denies dizziness All Other Systems Reviewed And Are Negative: Yes Physical Exam - Summary Physical Exam Summary: Constitutional: Well-developed, Well-nourished, Alert. (-) Distressed Skin: Warm, Dry HENT: Normocephalic; Atraumatic Eyes: Conjunctiva normal Neck: Musculoskeletal ROM normal neck. (-) JVD, (-) Stridor, (-) Tracheal deviation Cardio: Rhythm regular, rate normal, Heart sounds normal; Intact distal pulses; The pedal pulses are 2+ and symmetric. Radial pulses are 2+ and symmetric. (-) Murmur Pulmonary/Chest wall: Effort normal. (-) Respiratory distress, (-) Wheezes, (-) Rales Abd: Soft, (-) Distension, (-) Guarding, (-) Rebound, She is in pain with extremely light touch. Abdominal pain appears migratory. She does report pain as I palpate the RLQ. Musculoskeletal: (-) Edema Lymph: (-) Cervical adenopathy Neuro: Alert, Oriented x3 Psych: Mood and affect Normal Triage Information Reviewed: Yes Vital Signs On Initial Exam: Initial Vitals Temp Pulse Resp BP Pulse Ox 97.2 F 81 18 131/92 98 02/07/18 12:02 02/07/18 12:02 02/07/18 12:02 02/07/18 12:02 02/07/18 12:02 Vital Signs Reviewed: Yes Diagnostics - Vital Signs Vital Signs Temp Pulse Resp BP Pulse Ox 02/07/18 17:00 64 99 02/07/18 16:57 66 158/80 100 02/07/18 16:27 76 143/94 98 02/07/18 16:00 64 99 02/07/18 15:57 66 131/83 99 02/07/18 15:45 74 144/83 99 02/07/18 15:28 73 98 02/07/18 15:27 77 148/102 99 02/07/18 13:52 97.9 F 86 18 145/85 02/07/18 12:02 97.2 F 81 18 131/92 98 - Laboratory Lab Results: Lab Results 02/07/18 02/07/18 02/07/18 Range/Units 12:15 12:30 12:30 WBC 5.6 (3.5-10.8) 10^3/ul RBC 3.72 L (4.00-5.40) 10^6/ul Hgb 13.0 (12.0-16.0) g/dl Hct 38 (35-47) % MCV 103 H (80-97) fL MCH 35 H (27-31) pg MCHC 34 (31-36) g/dl RDW 15 (10.5-15) % Plt Count 140 L (150-450) 10^3/ul MPV 9.2 (7.4-10.4) um3 Neut % (Auto) 65.4 (38-83) % Lymph % (Auto) 26.9 (25-47) % [place] % (Auto) 6.3 (0-7) % Eos % (Auto) 0.8 (0-6) % Baso % (Auto) 0.6 (0-2) % Absolute Neuts (auto) 3.7 (1.5-7.7) 10^3/ul Absolute Lymphs (auto) 1.5 (1.0-4.8) 10^3/ul Absolute Monos (auto) 0.4 (0-0.8) 10^3/ul Absolute Eos (auto) 0 (0-0.6) 10^3/ul Absolute Basos (auto) 0 (0-0.2) 10^3/ul Absolute Nucleated RBC 0 10^3/ul Nucleated RBC % 0.1 Sodium 141 (135-145) mmol/L Potassium 4.4 (3.5-5.0) mmol/L Chloride 109 (101-111) mmol/L Carbon Dioxide 24 (22-32) mmol/L Anion Gap 8 (2-11) mmol/L BUN 12 (6-24) mg/dL Creatinine 0.92 (0.51-0.95) mg/dL Est GFR ( Amer) 85.1 (>60) Est GFR (Non-Af Amer) 70.3 (>60) BUN/Creatinine Ratio 13.0 (8-20) Glucose 100 (70-100) mg/dL Lactic Acid (0.5-2.0) mmol/L Calcium 8.9 (8.6-10.3) mg/dL Total Bilirubin 0.60 (0.2-1.0) mg/dL AST 20 (13-39) U/L ALT 16 (7-52) U/L Alkaline Phosphatase 59 (34-104) U/L C-Reactive Protein < 1.00 (<8.01) mg/L Total Protein 6.4 (6.4-8.9) g/dL Albumin 3.8 (3.2-5.2) g/dL Globulin 2.6 (2-4) g/dL Albumin/Globulin Ratio 1.5 (1-3) Lipase 64 (11.0-82.0) U/L Urine Color Yellow Urine Appearance Clear Urine pH 7.0 (5-9) Ur Specific [place] 1.017 (1.010-1.030) Urine Protein Negative (Negative) Urine Ketones Negative (Negative) Urine Blood Negative (Negative) Urine Nitrate Negative (Negative) Urine Bilirubin Negative (Negative) Urine Urobilinogen Negative (Negative) Ur Leukocyte Esterase Negative (Negative) Urine Glucose Negative (Negative) 02/07/18 02/07/18 Range/Units 12:30 16:42 WBC (3.5-10.8) 10^3/ul RBC (4.00-5.40) 10^6/ul Hgb (12.0-16.0) g/dl Hct (35-47) % MCV (80-97) fL MCH (27-31) pg MCHC (31-36) g/dl RDW (10.5-15) % Plt Count (150-450) 10^3/ul MPV (7.4-10.4) um3 Neut % (Auto) (38-83) % Lymph % (Auto) (25-47) % [place] % (Auto) (0-7) % Eos % (Auto) (0-6) % Baso % (Auto) (0-2) % Absolute Neuts (auto) (1.5-7.7) 10^3/ul Absolute Lymphs (auto) (1.0-4.8) 10^3/ul Absolute Monos (auto) (0-0.8) 10^3/ul Absolute Eos (auto) (0-0.6) 10^3/ul Absolute Basos (auto) (0-0.2) 10^3/ul Absolute Nucleated RBC 10^3/ul Nucleated RBC % Sodium (135-145) mmol/L Potassium (3.5-5.0) mmol/L Chloride (101-111) mmol/L Carbon Dioxide (22-32) mmol/L Anion Gap (2-11) mmol/L BUN (6-24) mg/dL Creatinine (0.51-0.95) mg/dL Est GFR ( Amer) (>60) Est GFR (Non-Af Amer) (>60) BUN/Creatinine Ratio (8-20) Glucose (70-100) mg/dL Lactic Acid 1.4 1.2 (0.5-2.0) mmol/L Calcium (8.6-10.3) mg/dL Total Bilirubin (0.2-1.0) mg/dL AST (13-39) U/L ALT (7-52) U/L Alkaline Phosphatase (34-104) U/L C-Reactive Protein (<8.01) mg/L Total Protein (6.4-8.9) g/dL Albumin (3.2-5.2) g/dL Globulin (2-4) g/dL Albumin/Globulin Ratio (1-3) Lipase (11.0-82.0) U/L Urine Color Urine Appearance Urine pH (5-9) Ur Specific [place] (1.010-1.030) Urine Protein (Negative) Urine Ketones (Negative) Urine Blood (Negative) Urine Nitrate (Negative) Urine Bilirubin (Negative) Urine Urobilinogen (Negative) Ur Leukocyte Esterase (Negative) Urine Glucose (Negative) Result Diagrams: 02/07/18 12:30 02/07/18 12:30 Lab Statement: Any lab studies that have been ordered have been reviewed, and results considered in the medical decision making process. Abdominal Pain Fem Course/Dx - Course Course Of Treatment: This patient is a 32 year old F presenting to ED with a chief complaint of abdominal pain that woke her from sleep at 0500 this morning. This patient will be signed out to Dr. Watts, pending dispo, awaiting CT abd/pel radiologist official interpretation. - Diagnoses Provider Diagnoses: Abdominal pain, Colitis Discharge - Sign-Out/Discharge Documenting (check all that apply): Sign-Out Patient - pending dispo, awaiting CT abd/pel radiologist official interpretation. Signing out patient TO: Sandeep Watts Receiving patient FROM: Agustin Noguera - Discharge Plan Condition: Stable Disposition: HOME Prescriptions: Ciprofloxacin TAB* [Cipro 500 MG TAB*] 500 mg PO BID #20 tab Ibuprofen 600 mg PO TID #20 tablet metroNIDAZOLE [Flagyl] 500 mg PO TID #30 tablet Ondansetron [Zofran Odt] 4 mg PO TID #12 tab.[email or web address] Patient Education Materials: Colitis (ED) Referrals: Lesley Langston MD [Primary Care Provider] - Erasmo Becker MD [Medical Doctor] - Additional Instructions: Follow up with PCP in 1-3 days and with the intelligence senior sergeant as soon as possible. Return to ED for any new or worsening symptoms - Billing Disposition and Condition Condition: STABLE Disposition: Home - Attestation Statements Document Initiated by Scribe: Yes Documenting Scribe: Mario Mccormick Provider For Whom Scribe is Documenting (Include Credential): Agustin Noguera MD Scribe Attestation: I, Mario Mccormick, scribed for Agustin Noguera MD on 02/11/18 at 1137. Scribe Documentation Reviewed: Yes Provider Attestation: The documentation as recorded by the scribeMario accurately reflects the service I personally performed and the decisions made by me, Agustin Noguera MD
--- NOTE | 2018-02-07 19:22 | ED ---
Progress - Progress Note Progress Note: 19:00 hrs- Pt sign out received from Dr.Jerry Poornima MD due to a pending Abd/ Pel CT - Results/Orders Results/Orders: ABD/PEL CT IMPRESSION: Mild diffuse colonic wall thickening suggestive of colitis. There is associated mild small bowel ileus. No obstructive uropathy. Normal appendix is visualized. The ED physician reviewed this radiology report. Course/Dx - Course Course Of Treatment: This patient is a 32 year old F presenting to ED with a chief complaint of abdominal pain that woke her from sleep at 0500 this morning. This patient will be signed out to Dr. Watts, pending dispo, awaiting CT abd/pel radiologist official interpretation. 1951hrs - The pt will be discharged with a final Dx of colitis. - Diagnoses Provider Diagnoses: Abdominal pain, Colitis Discharge - Sign-Out/Discharge Documenting (check all that apply): Patient Departure - Discharge Plan Condition: Stable Disposition: HOME Prescriptions: Ciprofloxacin TAB* [Cipro 500 MG TAB*] 500 mg PO BID #20 tab Ibuprofen 600 mg PO TID #20 tablet metroNIDAZOLE [Flagyl] 500 mg PO TID #30 tablet Ondansetron [Zofran Odt] 4 mg PO TID #12 tab.rapdis Patient Education Materials: Colitis (ED) Referrals: Lesley Langston MD [Primary Care Provider] - Erasmo Becker MD [Medical Doctor] - Additional Instructions: Follow up with PCP in 1-3 days and with the crop consultant as soon as possible. Return to ED for any new or worsening symptoms - Billing Disposition and Condition Condition: STABLE Disposition: Home - Attestation Statements Document Initiated by Scribe: Yes Documenting Scribe: Anayeli Wynn Provider For Whom Hali is Documenting (Include Credential): Dr. Sandeep Watts MD Scribe Attestation: Anayeli Morales scribed for Dr. Sandeep Watts MD on 02/08/18 at 0509. Scribe Documentation Reviewed: Yes Provider Attestation: The documentation as recorded by the Anayeli castillo accurately reflects the service I personally performed and the decisions made by , Dr. Sandeep Watts MD
--- NOTE | 2018-02-07 19:28 | RAD ---
EXAM: CT Abdomen and Pelvis With Intravenous Contrast EXAM DATE/TIME: 02/07/2018 6:55 PM CLINICAL HISTORY: 32 years old, female; Pain; Abdominal pain; Localized; Right lower quadrant (rlq); Prior surgery; Surgery date: 6+ months; Patient HX: Cholecystectomy, hysterectomy; Additional info: Rlq pain; Eval appendix TECHNIQUE: Axial computed tomography images of the abdomen and pelvis with intravenous contrast. All CT scans at this facility use at least one of these dose optimization techniques: automated exposure control; mA and/or kV adjustment per patient size (includes targeted exams where dose is matched to clinical indication); or iterative reconstruction. Coronal and sagittal reformatted images were created and reviewed. CONTRAST: 79 ml of [id number] administered intravenously. COMPARISON: A/P W CT ABD/PEL W 10/21/2017 5:49 PM FINDINGS: Lower thorax: The lung bases are clear. ABDOMEN: Liver: The liver is within normal limits. Gallbladder and bile ducts: Clips are seen in the gallbladder fossa from prior cholecystectomy. Pancreas: Normal. No ductal dilation. Spleen: Normal. No splenomegaly. Adrenals: Normal. No mass. Kidneys and ureters: No hydronephrosis, calculi or renal masses. No perinephric abnormalities. Stomach and bowel: Small bowel distally is slightly prominent and fluid-filled. There is mild to mucosal thickening of the colon which is empty. Appendix: Normal appendix is visualized. PELVIS: Bladder: The bladder is incompletely distended. Reproductive: Unremarkable as visualized. No adnexal masses or free fluid. ABDOMEN and PELVIS: Intraperitoneal space: Normal. No free air. No significant fluid collection. Bones/joints: Bones are unremarkable. Soft tissues: Unremarkable. Vasculature: Normal. No abdominal aortic aneurysm. Lymph nodes: Normal. No enlarged lymph nodes. IMPRESSION: Mild diffuse colonic wall thickening suggestive of colitis. There is associated mild small bowel ileus. No obstructive uropathy. Normal appendix is visualized. To contact [facility] with a general question: Operations Center - [phone] For direct physician to physician contact: Physician Hotline - [phone] [facility] ([facility] Facility ID #[id number])
[2018-02-07 20:27] VITALS: BP 127/82
== END | disposition home or self-care (01) ==
LOC: ED 11:42
DX: R10.13 Epigastric pain (principal); K52.9 Noninfective gastroenteritis and colitis, unspecified; Z90.710 Acquired absence of both cervix and uterus; Z90.49 Acquired absence of other specified parts of digestive tract; F17.210 Nicotine dependence, cigarettes, uncomplicated
CPT/HCPCS: 36415; 74177; 80053; 81003; 83605; 83690; 85025; 86140; 96374; 96375; 99284; A9270-GY; J1100; J2270; J2405; Q9967

== ENCOUNTER 2018-05-16 11:33 | Observation (INO) | payer OTHER ==
[2018-05-16] MEDS ORDERED: Ondansetron INJ* 2 MG/ML VIAL IV ONE (11:53)
[2018-05-16] MEDS ORDERED: Ketorolac INJ* 30 MG/ML 1 ML VIAL IV PUSH ONE (11:53)
[2018-05-16] MEDS ORDERED: NS 0.9% 1000 ML** 1,000 ML IV ONE (11:53)
--- NOTE | 2018-05-16 12:13 | ED ---
GI/ HPI - HPI Summary HPI Summary: 33-year-old female presents with abdominal pain today. She admits to nausea vomiting diarrhea. She states that her symptoms started with diarrhea. She denies any blood in her stool. No urinary symptoms. she denies any vaginal discharge. She has history of gallbladder removed and hysterectomy. She states she's never had this pain before. She has history of IBS but states the pain feels different. She also has a history of colitis. she had a colonoscopy a year ago which states may have been abnormal but does not remember what it said. she was not started on any medication afterwards. she does not currently have a GI doctor. No fevers. She's had a cough for the past couple weeks that has been unchanged. Denies any chest pain or shortness breath. She hasn't tried any medication as she cannot keep anything down. - History of Current Complaint Chief Complaint: EDAbdPain Time Seen by Provider: 05/16/18 11:38 Stated Complaint: ABD PAIN/NAUSEA Hx Last Menstrual Period: Complete Hysterectomy Pain Intensity: 10 - Additional Pertinent History Primary Care Physician: [id number] - Allergy/Home Medications Allergies/Adverse Reactions: Allergies Allergy/AdvReac Type Severity Reaction Status Date / Time No Known Allergies Allergy Verified 05/16/18 11:38 Home Medications: Home Medications Dicyclomine CAP* [Bentyl CAP*] 10 mg PO TID PRN 05/16/18 [History Confirmed 10/25] Methylphenidate TAB* [Ritalin TAB*] 10 mg PO DAILY 05/16/18 [History Confirmed 05/16/18] PMH/Surg Hx/FS Hx/Imm Hx Endocrine/Hematology History: Denies: Hx Anticoagulant Therapy, Hx Blood Disorders, Hx Diabetes, Hx Systemic Lupus Erythematosus, Hx Thyroid Disease Cardiovascular History: Reports: Hx Hypercholesterolemia Denies: Hx Congestive Heart Failure, Hx Hypertension, Hx Pacemaker/ICD, Other Cardiovascular Problems/Disorders Respiratory History: Reports: Hx Chronic Obstructive Pulmonary Disease (COPD) Denies: Hx Asthma, Hx Chronic Bronchitis, Other Respiratory Problems/ Disorders GI History: Reports: Hx Gall Bladder Disease, Hx Irritable Bowel, Other GI Disorders - PANCREATITIS Denies: Hx Ulcer History: Denies: Hx Dialysis, Hx Renal Disease, Other Problems/Disorders Musculoskeletal History: Denies: Hx Scoliosis, Other Musculoskeletal History Sensory History: Denies: Hx Contacts or Glasses Opthamlomology History: Denies: Hx Contacts or Glasses Neurological History: Denies: Hx Headaches, Other Neuro Impairments/Disorders Psychiatric History: Reports: Hx Anxiety, Hx Attention Deficit Hyperactivity Disorder, Hx Depression, Hx Inpatient Treatment, Hx Community Mental Health Tx, Hx Bipolar Disorder, Hx Substance Abuse - etoh abuse hx Denies: Hx Eating Disorder, Hx Panic Disorder, Hx Post Traumatic Stress Disorder, Hx Schizophrenia, Hx Suicide Attempt - some instances of self harm, Hx of Violent Episodes Against Others, Other Psychiatric Issues/Disorders - Cancer History Hx Chemotherapy: No Hx Radiation Therapy: No - Surgical History Surgery Procedure, Year, and Place: MULTIPLE LAPRASCOPIC PROCEDURES,. COMPLETE HYSTERECTOMY, 01/2013, [place]. [place] 06/15/13[place] [facility] Right knee scopy Hx Anesthesia Reactions: No - Immunization History Date of Tetanus Vaccine: Unknown Infectious Disease History: No Infectious Disease History: Denies: Hx Clostridium Difficile, Hx Hepatitis, Hx Human Immunodeficiency Virus (HIV), Hx of Known/Suspected MRSA, Hx Shingles, Hx Tuberculosis, Hx Known/ Suspected VRE, Hx Known/Suspected VRSA, History Other Infectious Disease, Traveled Outside the [place] in Last 30 Days - Family History Known Family History: Positive: Cardiac Disease, Hypertension, Diabetes, Other - father: EtOH abuse - Social History Alcohol Use: Occasionally Alcohol Amount: 2 glasses of wine tonight 11/20/2016 Hx Substance Use: No Substance Use Type: Reports: None Substance Use Comment - Amount & Last Used: 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 Hx Tobacco Use: Yes Smoking Status (MU): Light Every Day Tobacco Smoker Type: Cigarettes Amount Used/How Often: 1 pack per week Length of Time of Smoking/Using Tobacco: 10YRS Have You Smoked in the Last Year: Yes Review of Systems Negative: Fever Negative: Chest Pain Negative: Shortness Of Breath Positive: Abdominal Pain, Vomiting, Diarrhea, Nausea All Other Systems Reviewed And Are Negative: Yes Physical Exam Triage Information Reviewed: Yes Vital Signs On Initial Exam: Initial Vitals Temp Pulse Resp BP Pulse Ox 97.9 F 93 16 132/93 98 05/16/18 11:35 05/16/18 11:35 05/16/18 11:35 05/16/18 11:35 05/16/18 11:35 Vital Signs Reviewed: Yes Appearance: Positive: Well-Appearing Skin: Positive: Warm, Dry Head/Face: Positive: Normal Head/Face Inspection Eyes: Positive: Normal, Conjunctiva Clear ENT: Positive: Pharynx normal Respiratory/Lung Sounds: Positive: Clear to Auscultation, Breath Sounds Present Cardiovascular: Positive: Normal, RRR Abdomen Description: Positive: Soft, Other: - tenderness in epigastric region Bowel Sounds: Positive: Present Musculoskeletal: Positive: Normal Neurological: Positive: Normal Psychiatric: Positive: Normal Diagnostics - Vital Signs Vital Signs Temp Pulse Resp BP Pulse Ox 05/16/18 11:35 97.9 F 93 16 132/93 98 - Laboratory Result Diagrams: 05/16/18 12:00 05/16/18 12:00 Lab Statement: Any lab studies that have been ordered have been reviewed, and results considered in the medical decision making process. - CT abd CT Interpretation Completed By: Radiologist Summary of CT Findings: IMPRESSION: Mucosal thickening of the entire colon likely representing pancolitis. No. abscess is noted. - EKG No standard instances Cardiac Rate: NL EKG Rhythm: Sinus Rhythm Summary of EKG Findings: sinus rhythm Re-Evaluation - Re-Evaluation First Eval Re-Evaluation Time: 12:34 Change: Unchanged - still in pain Comment: pain is same Second Eval Re-Evaluation Time: 13:41 Change: Worse Comment: pain improved but then returned worse Third Eval Re-Evaluation Time: 14:00 Change: Improved Comment: pain is better. Fourth Eval Re-Evaluation Time: 14:25 Change: Worse Comment: pain is now returning. GIGU Course/Dx - Course Course Of Treatment: 33-year-old female presents with abdominal pain today. She admits to nausea vomiting diarrhea. She denies any blood in her stool. No urinary symptoms. She has history of IBS but states the pain feels different. She also has a history of colitis. on exam has tenderness epigastric. patient is crying on exam. wbc normal. crp normal. CT shows pancolitis. gave dose of cipro and flagyl. patient required multiple doses of pain medication and is still. discussed with dr pena who will see in ED. patient will be admitted - Diagnoses Differential Diagnoses - Female: Gastroenteritis (Viral), Gastroenteritis ( Bacterial), Urinary Tract Infection Provider Diagnoses: Pancolitis Discharge - Sign-Out/Discharge Documenting (check all that apply): Patient Departure - Discharge Plan Condition: Good Disposition: ADMITTED TO [facility] Referrals: Lesley Langston MD [Primary Care Provider] - - Billing Disposition and Condition Condition: GOOD Disposition: Admitted to [facility]
[2018-05-16 12:17] LABS: ABS Basophils 0 10^3/ul (0-0.2); ABS Eosinophils 0.1 10^3/ul (0-0.6); ABS Lymphocytes 1.7 10^3/ul (1.0-4.8); ABS Monocytes 0.5 10^3/ul (0-0.8); ABS Neutrophils 4.8 10^3/ul (1.5-7.7); ABS Nucleated RBC 0 10^3/ul; Eosinophil % 0.9 %; Hematocrit 40 % (35-47); Hemoglobin 13.5 g/dl (12.0-16.0); Lymphocyte % 23.6 %; Mean Corpuscular HGB Conc 34 g/dl (31-36); Mean Corpuscular Hemoglobin 35 pg (27-31); Mean Corpuscular Volume 104 fL (80-97); Nucleated Red Blood Cells % 0.2; Platelet Count 124 10^3/ul (150-450); Red Blood Count 3.86 10^6/ul (4.00-5.40); Red Cell Distribution Width 15 % (10.5-15); White Blood Count 7.1 10^3/ul (3.5-10.8)
[2018-05-16] MEDS ORDERED: Pantoprazole IV* 40 MG IV ONE (12:17)
[2018-05-16] MEDS ORDERED: Morphine VIAL* 10 MG/ML 1 ML VIAL IV ONE ×2 (12:17→13:40)
[2018-05-16 12:45] LABS: Albumin 4.2 g/dL (3.2-5.2); Albumin/Globulin Ratio 1.6 (1-3); BUN/Creatinine Ratio 16.7 (8-20); C Reactive Protein 1.27 mg/L (<8.01); EGFR African American 112.2 (>60); EGFR Non-African American 92.7 (>60); Globulin 2.6 g/dL (2-4); Potassium 3.9 mmol/L (3.5-5.0); Total Bilirubin 0.5 mg/dL (0.2-1.0); Total Protein 6.8 g/dL (6.4-8.9)
[2018-05-16] MEDS ORDERED: Iohexol 300* (CONTRAST) 10 ML SDV IV ONE (13:03)
[2018-05-16] MEDS ORDERED: Metoclopramide IV* 5 MG/ML 2 ML VIAL IV SLOW PU ONE (13:39)
[2018-05-16] MEDS ORDERED: HYDROmorphone INJ1* 1 MG/ML SYRINGE IV SLOW PU ONE (13:57)
[2018-05-16] MEDS ORDERED: metroNIDAZOLE TAB* 250 MG PO ONE (13:57)
[2018-05-16] MEDS ORDERED: Ciprofloxacin TAB* 500 MG PO ONE (13:57)
[2018-05-16 14:29] LABS: Urine Appearance Clear; Urine Bilirubin Negative (Negative); Urine Blood Negative (Negative); Urine Color Yellow; Urine Glucose Negative (Negative); Urine Ketones Negative (Negative); Urine Nitrite Negative (Negative); Urine Protein Negative (Negative); Urine Specific Gravity 1.054 (1.010-1.030); Urine Urobilinogen Negative (Negative)
[2018-05-16] MEDS: Pantoprazole TAB * 40 MG TAB PO SCH (17:36)
[2018-05-16] MEDS: Ondansetron INJ* 2 MG/ML VIAL IV SCH ×2 (17:37→21:50)
[2018-05-16] MEDS: RiFAXimin* 550 MG TAB PO SCH ×2 (17:37→20:26)
[2018-05-16] MEDS: oxyCODONE/Acetamin 5/325 MG* TAB PO PRN ×2 (18:13→22:22)
[2018-05-16] MEDS: NS 0.9% 1000 ML** 1,000 ML IV SCH (18:29)
--- NOTE | 2018-05-16 19:52 | HP ---
HISTORY AND PHYSICAL: DATE OF ADMISSION: 05/16/18 ADMITTING PROVIDER: Arnaud Penn MD PRIMARY CARE PROVIDER: Lesley Langston MD of [facility]. CHIEF COMPLAINT: Intractable epigastric abdominal pain; nausea; diarrhea. HISTORY OF PRESENT ILLNESS: Sobeida Rashid is a 33-year-old female with past medical history of irritable bowel syndrome, endometriosis, alcohol abuse, chronic abdominal pain, daily diarrhea, and ADHD. She attests that she had some abdominal cramping the day prior to admission and about 20 episodes of diarrhea. She has daily diarrhea and takes Bentyl 3 times a day for IBS, but does not follow with a GI doctor. She also just recently was re-prescribed Ritalin after a 10-year break from that medication. She states she took 200 mg of ibuprofen for the cramps, which she states she reserves only for emergency situations and she notes she has been recommended not to take this medication. She states the cramps at that time were 2/10 that she wanted to avoid having to come into the emergency room. She had half a glass of alcohol or wine for dinner and when she woke up this morning she had 10/10 epigastric abdominal pain radiating up to her lower sternum that is sharp in nature. It is worse with food. She states she has not been able to keep things down, has not vomited. She describes her stools as being "bile like." Therefore, she [place] a [place] [facility] and has had blood work, which is frankly within normal limits besides the elevated MCV, mild thrombocytopenia of 124 and elevated specific gravity on urinalysis, her lipase is 62, her CRP is 1.2, she has no leukocytosis. She has no fever. She received multiple doses of pain medications so far without relief, including 4 mg of morphine x2, one mg of IV Dilaudid, she got 40 IV Protonix, 4mg Zofran, and 15mg of ketorolac. She had a CT of abdomen and pelvis, which demonstrated impression of mucosal thickening of the entire colon, likely representing pancolitis. No abscess is noted. The colon was filled with stool, the pancreas demonstrated no mass or pancreatic duct dilatation. Of note, this is the 18th CT abdomen and pelvis she has had since 2012 and many previous ones have also demonstrated this diffuse mucosal thickening consistent with suspicion for potential pancolitis. She attests that her daughter last week was recovering from a diarrheal illness. She was referred to the hospitalist service for intractable pain. She states that she had a colonoscopy through [facility] system about 2 years ago, does not exactly know what the findings were other than that did not show Crohn's disease. She does not follow with a GI doctor. She attests that she has lost "100 pounds" unintentionally in the last 2 years. Of note, her recorded weight on 07/02/16 was 68 kilograms and now is 58.9 kilograms, a loss of 9 kilograms. PAST MEDICAL HISTORY: History of alcohol abuse, chronic abdominal pain, IBS, chronic diarrhea, and ADHD. PAST SURGICAL HISTORY: A total hysterectomy approximately 2012, laparoscopic cholecystectomy approximately 4 years ago. HOME MEDICATIONS: Include: 1. Bentyl 10 mg p.o. t.i.d. 2. Omeprazole 40 mg daily. 3. Ritalin 10 mg daily (just started yesterday). 4. Estradiol 1 mg daily. ALLERGIES: No known drug allergies. FAMILY HISTORY: Mother was a diabetic with coronary artery disease. Father, unknown history other than alcoholism. SOCIAL HISTORY: She attests to occasional smoking, a pack lasts about a week and has been smoking for approximately 20 years. She attests to "occasional alcohol use, which she describes as a couple of glasses of wine 2 to 3 days a week. Medical surrogate is her ex- Mayo Andres, [phone]. She has a child. REVIEW OF SYSTEMS: Complete 14-point review of systems was negative except as per HPI. PHYSICAL EXAMINATION GENERAL APPEARANCE: Alternating between acute distress with palpation to scrolling on her phone in no acute distress. VITAL SIGNS: Temperature 97.9; pulse rate 77, high of 93; respiratory rate between 15 and 26; oxygen sat 96; blood pressure 105/50. HEENT: Normocephalic, atraumatic. Pupils equally round and reactive to light. Extraocular motions intact. No scleral icterus. Moist mucous membranes. NECK: Supple. No cervical lymphadenopathy. LUNGS: Clear to auscultation bilaterally with no wheezing, rales, or rhonchi. CARDIOVASCULAR: Regular rate and rhythm. No murmurs, rubs, or gallops. ABDOMEN: Diffusely guarding with tenderness worse in the epigastric right lower quadrant and also right CVA tenderness. EXTREMITIES: Warm, well perfused. No peripheral edema. NEUROLOGIC: Cranial nerves II through XII intact. Moving all extremities. SKIN: No lesions. No rashes. LABORATORY DATA: White count 7.1, hemoglobin 13.5, hematocrit 40, MCV 104, platelets 124, . Sodium 145, potassium 3.9, chloride 111, carbon dioxide 25, BUN 12, creatinine 0.72, lactic acid 2.0, AST 34, ALT 24, alk phos 65, CRP 1.27. Troponin 0.01. Albumin 4.2, lipase 62, amylase 40. Urinalysis within normal limits except for elevated specific gravity 1.054. IMAGING: CT of abdomen and pelvis with IV and oral contrast showed impression of mucosal thickening of the entire colon likely representing pancolitis, no abscess noted. No other masses or fluid collections noted. The patient is status post cholecystectomy. She has colon filled with stool, pancreas demonstrated no mass or pancreatic duct dilatation. EKG normal sinus rhythm QTc was 425. ASSESSMENT AND PLAN: Sobeida Rashid is a 33-year-old female with past medical history of irritable bowel syndrome, chronic pain, significant alcohol use, and attention deficit hyperactivity disorder, who recently just took her first dose of Ritalin and also chronic diarrhea, presenting with what sounds like an acute on chronic abdominal pain, which she is stating is intractable despite multiple IV opioid medications and states that she cannot tolerate food, is being admitted to observation status for pain control, which was likely related to her chronic irritable bowel syndrome, perhaps worse in the setting of gastroenteritis acquired from her daughter and side effect of medication Ritalin and certainly not helped with the alcohol and NSAID use. Her workup has been unremarkable and her CT scan though showing pancolitis, has showed this multiple times over the 18 CT scans she has had over the last 6 years. In terms of management, I will continue IV fluids at 100 mL/hour for the next 15 hours, give her IV Zofran 4 mg q.4 hours and increase if necessary. I am starting for her suspected irritable bowel syndrome with diarrheal component, Xifaxan 550 mg p.o. t.i.d., continuing her Bentyl. There are elements of her story that don't seem consistent and would closely observe what her bowel movement consistency and frequency are. She is status post Cipro and Flagyl in the emergency room, but she has no signs of acute inflammation other than this chronic mucosal thickening on CT scan, her CRP is normal, she is afebrile, she has no leukocytosis. I am going to monitor her for now with just the initiation of Xifaxan (and no other antibiotics). We will continue pain control. I am going to attempt Percocet 1 tab q.4 hours p.r.n. She of note on review of her HCS, she has gotten intermittent Percocet dosing 20 tabs at the time from [facility] filled on 04/08/18, 03/06/18, and prior to that had intermittent tramadol dosing 84 tabs on 12/07/17 and 03/18/18. She is being admitted to [facility] status. She is a full code. Medical surrogate is her ex-, Mayo Andres. [id number]/[facility] #: [id number] MTDD
[2018-05-16] MEDS ORDERED: Metoclopramide IV* 5 MG/ML 2 ML VIAL IV ONE (20:13)
[2018-05-16] MEDS ORDERED: Metoclopramide IV* 5 MG/ML 2 ML VIAL ONE (20:22)
[2018-05-16] MEDS: Dicyclomine CAP* 10 MG PO PRN (20:25)
[2018-05-17] MEDS: Ondansetron INJ* 2 MG/ML VIAL IV SCH ×4 (01:13→12:28)
[2018-05-17] MEDS: oxyCODONE/Acetamin 5/325 MG* TAB PO PRN ×3 (02:25→10:54)
[2018-05-17] MEDS: NS 0.9% 1000 ML** 1,000 ML IV SCH (04:04)
[2018-05-17 07:08] LABS: Hematocrit 33 % (35-47); Mean Corpuscular HGB Conc 34 g/dl (31-36); Mean Corpuscular Hemoglobin 36 pg (27-31); Mean Corpuscular Volume 105 fL (80-97); Red Cell Distribution Width 16 % (10.5-15); White Blood Count 4.8 10^3/ul (3.5-10.8)
[2018-05-17 07:25] LABS: BUN/Creatinine Ratio 13.4 (8-20); Calcium 7.3 mg/dL (8.6-10.3); EGFR African American 121.9 (>60); EGFR Non-African American 100.8 (>60); Potassium 3.2 mmol/L (3.5-5.0)
[2018-05-17 07:59] LABS: ABS Basophils 0 10^3/ul (0-0.2); ABS Eosinophils 0.1 10^3/ul (0-0.6); ABS Lymphocytes 1.7 10^3/ul (1.0-4.8); ABS Monocytes 0.5 10^3/ul (0-0.8); ABS Neutrophils 2.4 10^3/ul (1.5-7.7); ABS Nucleated RBC 0 10^3/ul; Eosinophil % 1.7 %; Large Platelets Present; Lymphocyte % 36.4 %; Mean Platelet Volume 8.7 fL (7.4-10.4); Nucleated Red Blood Cells % 0.1; Platelet Count 95 10^3/ul (150-450)
[2018-05-17] MEDS: Pantoprazole TAB * 40 MG TAB PO SCH (08:14)
[2018-05-17] MEDS: Dicyclomine CAP* 10 MG PO PRN (08:28)
[2018-05-17] MEDS: RiFAXimin* 550 MG TAB PO SCH (08:29)
[2018-05-17] MEDS ORDERED: CMCS: Estradiol TAB(NF) 1 MG TAB PO SCH (09:00)
[2018-05-17] MEDS ORDERED: Magnesium CITRATE* 300 ML BTL PO ONE (11:19)
--- NOTE | 2018-05-17 11:36 | PN ---
Subjective Date of Service: 05/17/18 Interval History: Some epigastric pain today. Liquid BM. Hungry. Objective Active Medications: Dicyclomine HCl (Bentyl Cap*) 10 mg PO TID PRN PRN Reason: PAIN Last Admin: 05/17/18 08:28 Dose: 10 mg Estradiol (Estradiol Tab(Nf)) 1 mg PO DAILY [facility] Ondansetron HCl (Zofran Inj*) 4 mg IV Q4H [facility] Last Admin: 05/17/18 08:13 Dose: 4 mg Oxycodone/Acetaminophen (Percocet 5/325 Tab*) 1 tab PO Q4H PRN PRN Reason: PAIN Last Admin: 05/17/18 10:54 Dose: 1 tab Pantoprazole Sodium (Protonix Tab*) 40 mg PO DAILY [facility] Last Admin: 05/17/18 08:14 Dose: 40 mg Rifaximin (Xifaxan*) 550 mg PO TID [facility] Last Admin: 05/17/18 08:29 Dose: 550 mg Vital Signs - 8 hr 05/17/18 05/17/18 05/17/18 03:48 04:10 05:29 Temperature 97.7 F Pulse Rate 46 50 Respiratory 19 16 Rate Blood Pressure 120/49 (mmHg) O2 Sat by Pulse 98 Oximetry 05/17/18 05/17/18 05/17/18 06:38 08:04 08:25 Temperature 98.1 F Pulse Rate 56 Respiratory 18 16 16 Rate Blood Pressure 135/62 (mmHg) O2 Sat by Pulse 98 Oximetry 05/17/18 05/17/18 08:28 10:54 Temperature Pulse Rate Respiratory 16 16 Rate Blood Pressure (mmHg) O2 Sat by Pulse Oximetry Oxygen Devices in Use Now: None Appearance: Alert, partly up in bed. In good spirits. Looks comfortable. Eyes: No Scleral Icterus Abdominal: No Hepatosplenomegaly, - - Epigastric tenderness. Nl BS. Soft. Extremities: No Edema, No Clubbing, Cyanosis, - Skin: No Rash or Ulcers, No Nodules or Sclerosis, - Neurological: Alert and Oriented x 3, NL Sensation Result Diagrams: 05/17/18 06:39 05/17/18 06:39 Microbiology and Other Data: Microbiology 05/16/18 22:45 Stool Gross Appearance - Final Stool Assess/Plan/Problems-Billing Assessment: - Patient Problems (1) History of IBS Current Visit: No Status: Chronic Priority: Medium Code(s): Z87.19 - PERSONAL HISTORY OF OTHER DISEASES OF THE DIGESTIVE SYSTEM SNOMED Code(s): 54960481024082 Comment: CT showed "the colon is filled with stool." Pt agrees to take mag citrate 300 ml, hopefully will feel able to go home some time after that. Pt felt much better after mag citrate worked. Rx PEG 17 gm bid sent. Carina Langston, consider GI referral. (2) ADHD Current Visit: Yes Status: Acute Comment: Methylphenidate on hold.
[2018-05-17 12:43] VITALS: BP 146/78
--- NOTE | 2018-05-17 19:53 | DS ---
CC: Dr. Lesley Langston * DISCHARGE SUMMARY: DATE OF ADMISSION: 05/16/18 DATE OF DISCHARGE: 05/17/18 HISTORY OF PRESENT ILLNESS: This 33-year-old woman presented with abdominal pain, nausea, and diarrhea. She has a long history of irritable bowel disease. She has been here many times. I believe she has had [address] scans of the abdomen and pelvis in the last 24 months. According to the admission note, she has had 18 CT scans since 2012. She had a colonoscopy about 2 years ago in the [facility] system. She has not seen a GI doctor in the last couple of years. Rest of the history is detailed in the admission note. I note that the CT scan of the abdomen often shows thickening of the colon, it is a nonspecific finding and appears to be colonic in her case. It was also noted that the colon was filled with stool. I gave her 300 mL of magnesium citrate. She had several bowel movements and felt much better after that. I advised her to take 17 g b.i.d. of polyethylene glycol. She will follow up with her primary care provider and consider a GI consultation. I note her primary care provider recently in the last week started her on methylphenidate. She will continue on this as prescribed. FINAL DIAGNOSIS: Irritable bowel syndrome. DISCHARGE MEDICATIONS: 1. Polyethylene glycol 17 g b.i.d. 2. Omeprazole 40 mg daily. 3. Estradiol 1 mg daily. 4. Methylphenidate 10 mg daily. 5. Dicyclomine 10 mg t.i.d. p.r.n. CONDITION ON DISCHARGE: Improved. DISPOSITION ON DISCHARGE: Discharge home. [id number]/[facility] #: [id number] CHRIS
[2018-05-17] MEDS ORDERED: Polyethylene Glycol 3350* 17 GM PACKET PO SCH (21:00)
== END 2018-05-17 15:10 | disposition home or self-care (01) ==
LOC: ED 11:33 → MED 14:49
PROVIDERS: ADMIT Internal Medicine; ATTEND Internal Medicine
DX: K58.0 Irritable bowel syndrome with diarrhea (principal); R10.9 Unspecified abdominal pain; K51.00 Ulcerative (chronic) pancolitis without complications; F17.210 Nicotine dependence, cigarettes, uncomplicated; R11.2 Nausea with vomiting, unspecified; Z87.19 Personal history of other diseases of the digestive system; F90.9 Attention-deficit hyperactivity disorder, unspecified type; J44.9 Chronic obstructive pulmonary disease, unspecified
CPT/HCPCS: 36415; 74177; 80048; 80053; 81003; 82150; 83605; 83690; 84484; 85025; 85060; 86140; 87045; 87046; 87077; 87899; 93005; 96374; 96375; 96376; 99283; A9270-GY; G0378; J1170; J1885; J2270; J2405; J2765; Q9967

== ENCOUNTER 2018-12-19 16:43 | Emergency (ER) | payer MEDICAID, OTHER ==
[2018-12-19 18:24] LABS: ABS Lymphocytes 1.9 10^3/ul (1.0-4.8); ABS Monocytes 0.5 10^3/ul (0-0.8); ABS Neutrophils 3.9 10^3/ul (1.5-7.7); Eosinophil % 0.6 %; Hematocrit 40 % (35-47); Hemoglobin 13.8 g/dL (12.0-16.0); Lymphocyte % 29.8 %; Mean Corpuscular HGB Conc 34 g/dL (31-36); Mean Corpuscular Hemoglobin 35 pg (27-31); Mean Corpuscular Volume 104 fL (80-97); Mean Platelet Volume 8.6 fL (7.4-10.4); Nucleated Red Blood Cells % 0.1; Platelet Count 157 10^3/uL (150-450); Red Blood Count 3.88 10^6 /uL (3.70-4.87); Red Cell Distribution Width 13 % (10-15); White Blood Count 6.3 10^3/uL (3.5-10.8)
[2018-12-19 18:39] LABS: Albumin/Globulin Ratio 1.7 (1-3); C Reactive Protein 1.11 mg/L (<8.01); Calcium 8.6 mg/dL (8.6-10.3); EGFR African American 96.6 (>60); EGFR Non-African American 79.8 (>60); Globulin 2.4 g/dL (2-4); Total Bilirubin 0.6 mg/dL (0.2-1.0); Total Protein 6.4 g/dL (6.4-8.9)
[2018-12-19 18:45] LABS: HCG Pregnancy 1.37 mIU/mL
--- NOTE | 2018-12-19 19:42 | ED ---
Abdominal Pain/Female - HPI Summary HPI Summary: 33 yo female [place] [facility] [place] pain. She tells me that last night she developed periumbilical abdominal pain with nausea and diarrhea. Today her pain worsened and is more to the right abdomen with vomiting. She has not eaten anything since yesterday due to vomiting, but has been sipping on pedialyte. She has a hx of cholecystectomy and total hysterectomy. She denies fever, chills, SOB, chest pain, dysuria, vaginal discharge or bleeding. - History of Current Complaint Chief Complaint: EDAbdPain Stated Complaint: LOWER BACK PAIN PER PT Time Seen by Provider: 12/19/18 19:41 Hx Obtained From: Patient Hx Last Menstrual Period: Complete Hysterectomy Onset/Duration: Sudden Onset Severity Initially: Moderate Severity Currently: Severe Pain Intensity: 10 Pain Scale Used: 0-10 Numeric Allergies/Adverse Reactions: Allergies Allergy/AdvReac Type Severity Reaction Status Date / Time No Known Allergies Allergy Verified 12/19/18 16:53 PMH/Surg Hx/FS Hx/Imm Hx Endocrine/Hematology History: Denies: Hx Anticoagulant Therapy, Hx Blood Disorders, Hx Diabetes, Hx Systemic Lupus Erythematosus, Hx Thyroid Disease Cardiovascular History: Reports: Hx Hypercholesterolemia Denies: Hx Congestive Heart Failure, Hx Hypertension, Hx Pacemaker/ICD, Other Cardiovascular Problems/Disorders Respiratory History: Reports: Hx Chronic Obstructive Pulmonary Disease (COPD) Denies: Hx Asthma, Hx Chronic Bronchitis, Other Respiratory Problems/ Disorders GI History: Reports: Hx Gall Bladder Disease, Hx Irritable Bowel, Other GI Disorders - PANCREATITIS Denies: Hx Ulcer History: Denies: Hx Dialysis, Hx Renal Disease, Other Problems/Disorders Musculoskeletal History: Denies: Hx Scoliosis, Other Musculoskeletal History Sensory History: Denies: Hx Contacts or Glasses, Hx Hearing Aid Opthamlomology History: Denies: Hx Contacts or Glasses Neurological History: Denies: Hx Headaches, Other Neuro Impairments/Disorders Psychiatric History: Reports: Hx Anxiety, Hx Attention Deficit Hyperactivity Disorder, Hx Depression, Hx Inpatient Treatment, Hx Community Mental Health Tx, Hx Bipolar Disorder, Hx Substance Abuse - etoh abuse hx Denies: Hx Eating Disorder, Hx Panic Disorder, Hx Post Traumatic Stress Disorder, Hx Schizophrenia, Hx Suicide Attempt - some instances of self harm, Hx of Violent Episodes Against Others, Other Psychiatric Issues/Disorders - Cancer History Hx Chemotherapy: No Hx Radiation Therapy: No - Surgical History Surgery Procedure, Year, and Place: MULTIPLE LAPRASCOPIC PROCEDURES,. COMPLETE [place]ST[place]CT[place]Y, 01/2013, [place]. [place] [facility] Hx Anesthesia Reactions: No - Immunization History Date of Tetanus Vaccine: Unknown Infectious Disease History: No Infectious Disease History: Denies: Hx Clostridium Difficile, Hx Hepatitis, Hx Human Immunodeficiency Virus (HIV), Hx of Known/Suspected MRSA, Hx Shingles, Hx Tuberculosis, Hx Known/ Suspected VRE, Hx Known/Suspected VRSA, History Other Infectious Disease, Traveled Outside the [place] in Last 30 Days - Family History Known Family History: Positive: Cardiac Disease, Hypertension, Diabetes, Other - father: EtOH abuse - Social History Alcohol Use: Occasionally Alcohol Amount: 2 glasses of wine tonight 11/20/2016 Hx Substance Use: No Substance Use Type: Reports: None Substance Use Comment - Amount & Last Used: 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 Hx Tobacco Use: Yes Smoking Status (MU): Light Every Day Tobacco Smoker Type: Cigarettes Amount Used/How Often: 1 pack per week Length of Time of Smoking/Using Tobacco: 10YRS Have You Smoked in the Last Year: Yes Review of Systems Constitutional: Negative Cardiovascular: Negative Respiratory: Negative Positive: Abdominal Pain, Vomiting, Diarrhea, Nausea Genitourinary: Negative Musculoskeletal: Negative Skin: Negative Neurological: Negative Psychological: Normal All Other Systems Reviewed And Are Negative: No Physical Exam - Summary Physical Exam Summary: GENERAL: Mild pain distress SKIN: No rashes, sores, lesions, or open wounds. NECK: Supple. Nontender. No lymphadenopathy. CHEST: CTAB. No r/r/w. No accessory muscle use. Breathing comfortably and in no distress. CV: RRR. Without m/r/g. Pulses intact. Cap refill <2seconds ABDOMEN: Moderate TTP right abdomen and RLQ. Soft. No distention or guarding. No CVA tenderness. Bowel sounds present. Negative psoas and obturator. NEURO: Alert. PSYCH: Age appropriate behavior. Triage Information Reviewed: Yes Vital Signs On Initial Exam: Initial Vitals Temp Pulse Resp BP Pulse Ox 97.9 F 90 18 150/91 99 12/19/18 16:53 12/19/18 16:53 12/19/18 16:53 12/19/18 16:53 12/19/18 16:53 Vital Signs Reviewed: Yes Diagnostics - Vital Signs Vital Signs Temp Pulse Resp BP Pulse Ox 12/19/18 17:52 97.6 F 67 20 123/65 99 12/19/18 16:53 97.9 F 90 18 150/91 99 - Laboratory Lab Results: Lab Results 12/19/18 12/19/18 12/19/18 Range/Units 18:15 18:15 18:15 WBC 6.3 (3.5-10.8) 10^3/uL RBC 3.88 (3.70-4.87) 10^6 /uL Hgb 13.8 (12.0-16.0) g/dL Hct 40 (35-47) % MCV 104 H (80-97) fL MCH 35 H (27-31) pg MCHC 34 (31-36) g/dL RDW 13 (10-15) % Plt Count 157 (150-450) 10^3/uL MPV 8.6 (7.4-10.4) fL Neut % (Auto) 61.6 % Lymph % (Auto) 29.8 % Grimes % (Auto) 7.4 % Eos % (Auto) 0.6 % Baso % (Auto) 0.6 % Absolute Neuts (auto) 3.9 (1.5-7.7) 10^3/ul Absolute Lymphs (auto) 1.9 (1.0-4.8) 10^3/ul Absolute Monos (auto) 0.5 (0-0.8) 10^3/ul Absolute Eos (auto) 0.0 (0-0.6) 10^3/ul Absolute Basos (auto) 0.0 (0-0.2) 10^3/ul Absolute Nucleated RBC 0.0 10^3/ul Nucleated RBC % 0.1 Sodium 137 (135-145) mmol/L Potassium 4.0 (3.5-5.0) mmol/L Chloride 104 (101-111) mmol/L Carbon Dioxide 26 (22-32) mmol/L Anion Gap 7 (2-11) mmol/L BUN 18 (6-24) mg/dL Creatinine 0.82 (0.51-0.95) mg/dL Est GFR ( Amer) 96.6 (>60) Est GFR (Non-Af Amer) 79.8 (>60) BUN/Creatinine Ratio 22.0 H (8-20) Glucose 100 (70-100) mg/dL Lactic Acid 0.6 (0.5-2.0) mmol/L Calcium 8.6 (8.6-10.3) mg/dL Total Bilirubin 0.60 (0.2-1.0) mg/dL AST 38 (13-39) U/L ALT 39 (7-52) U/L Alkaline Phosphatase 54 (34-104) U/L C-Reactive Protein 1.11 (<8.01) mg/L Total Protein 6.4 (6.4-8.9) g/dL Albumin 4.0 (3.2-5.2) g/dL Globulin 2.4 (2-4) g/dL Albumin/Globulin Ratio 1.7 (1-3) Lipase 59 (11.0-82.0) U/L Beta HCG, Quant 1.37 mIU/mL Result Diagrams: 12/19/18 18:15 12/19/18 18:15 Lab Statement: Any lab studies that have been ordered have been reviewed, and results considered in the medical decision making process. - Radiology abd/pelv CT Radiology Interpretation Completed By: Radiologist Summary of Radiographic Findings: IMPRESSION: No acute abdominal or pelvic abnormality. Re-Evaluation - Re-Evaluation First Eval Re-Evaluation Time: 21:48 Comment: Vomiting improved, but continues with severe pain. Will give dilaudid at this time Second Eval Re-Evaluation Time: 23:37 Change: Improved Comment: Pt still complaining of pain. Nausea was improved but she feels it is coming back. Will give toradol at this time Third Eval Change: Improved Comment: Pt improved with toradol. Discussed CT results Abdominal Pain Fem Course/Dx - Course Course Of Treatment: In the ED pt was given IV fluids, morphine, zofran, dilaudid, reglan, and toradol. Labwork, urine, and CT scanning revealed no acute processes. Discussed with pt and she was feeling better s/p medications. Advised to rest, drink plenty of fluids, and advance diet as tolerated. She had no episodes of vomiting or diarrhea in the ED. - Diagnoses Provider Diagnoses: Right sided abdominal pain Discharge ED - Sign-Out/Discharge Documenting (check all that apply): Patient Departure Patient Received Moderate/Deep Sedation with Procedure: No - Discharge Plan Condition: Stable Disposition: HOME Prescriptions: Ondansetron ODT TAB* [Zofran 4 MG Odt TAB*] 4 mg PO Q8H PRN #12 tab.odt MDD 3 PRN Reason: Nausea Patient Education Materials: Abdominal Pain (ED) Forms: *Work Release Referrals: Lesley Langston MD [Primary Care Provider] - Additional Instructions: If you develop a fever, shortness of breath, chest pain, new or worsening symptoms - please call your PCP or go to the ED immediately. Your blood pressure was high at todays visit. Please see your primary provider within 4 weeks for recheck and re-evaluation. Your work up today did not reveal any emergent conditions. Please rest, drink plenty of fluids, and advance your diet as tolerated. - Billing Disposition and Condition Condition: STABLE Disposition: Home
[2018-12-19] MEDS ORDERED: Ondansetron INJ* 2 MG/ML VIAL IV ONE (19:58)
[2018-12-19] MEDS ORDERED: NS 0.9% 1000 ML** 1,000 ML IV ONE ×2 (19:58→21:43)
[2018-12-19] MEDS ORDERED: Morphine 4 MG/ML VIAL (1 ml) 4 MG/ML VIAL IV ONE (19:58)
[2018-12-19] MEDS ORDERED: Iohexol 300* (CONTRAST) 10 ML SDV IV ONE (20:54)
[2018-12-19] MEDS ORDERED: HYDROmorphone INJ* 0.5 MG/0.5 ML SYRINGE IV SLOW PU ONE (21:42)
[2018-12-19 22:01] LABS: Urine Appearance Clear; Urine Bilirubin Negative (Negative); Urine Blood Negative (Negative); Urine Color Straw; Urine Glucose Negative (Negative); Urine Ketones Negative (Negative); Urine Nitrite Negative (Negative); Urine Protein Negative (Negative); Urine Specific Gravity 1.009 (1.010-1.030); Urine Urobilinogen Negative (Negative)
[2018-12-19] MEDS ORDERED: Ketorolac INJ* 30 MG/ML 1 ML VIAL IV ONE (23:11)
[2018-12-19] MEDS ORDERED: Metoclopramide IV* 5 MG/ML 2 ML VIAL IV SLOW PU ONE (23:11)
[2018-12-19] MEDS ORDERED: diPHENhydraMINE IV* 50 MG/ML 1 ml VIAL (BENADRYL) IV ONE (23:11)
[2018-12-20 00:35] VITALS: BP 114/68
== END 2018-12-20 00:34 | disposition home or self-care (01) ==
LOC: ED 16:43
DX: R10.9 Unspecified abdominal pain (principal); E78.00 Pure hypercholesterolemia, unspecified; J44.9 Chronic obstructive pulmonary disease, unspecified; F41.9 Anxiety disorder, unspecified; F90.9 Attention-deficit hyperactivity disorder, unspecified type; F32.9 Major depressive disorder, single episode, unspecified; Z90.710 Acquired absence of both cervix and uterus; F17.210 Nicotine dependence, cigarettes, uncomplicated; Z79.899 Other long term (current) drug therapy
CPT/HCPCS: 36415; 74177; 80053; 81003; 83605; 83690; 84702; 85025; 86140; 96361; 96374; 96375; 99283; J1170; J1200; J1885; J2270; J2405; J2765; Q9967

== ENCOUNTER 2019-02-03 12:21 | Emergency (ER) | payer OTHER ==
[2019-02-03 12:53] VITALS: BP 128/78
--- NOTE | 2019-02-03 13:19 | UC ---
Respiratory Complaint HPI - HPI Summary HPI Summary: 33-year-old female who has had cold symptoms with head congestion and nonproductive cough for the past week. The past day she has had sinus pressure and thick coryza. - History of Current Complaint Chief Complaint: UCRespiratory Stated Complaint: COUGH Time Seen by Provider: 02/03/19 13:15 Hx Obtained From: Patient Hx Last Menstrual Period: Complete Hysterectomy ?: No Onset/Duration: Gradual Onset Severity Initially: Mild Severity Currently: Mild Pain Intensity: 6 Character: Cough: Nonproductive Alleviating Factors: Bronchodilator - Patient has been using her albuterol inhaler without much improvement. Associated Signs And Symptoms: Positive: URI, Nasal Congestion, Sinus Discomfort - Allergies/Home Medications Allergies/Adverse Reactions: Allergies Allergy/AdvReac Type Severity Reaction Status Date / Time No Known Allergies Allergy Verified 02/03/19 12:53 Home Medications: Home Medications Oxymetazoline HCl [Afrin] 1 spray INH DAILY PRN 02/03/19 [History Confirmed ] PMH/Surg Hx/FS Hx/Imm Hx Previously Healthy: Yes Respiratory History: COPD, Asthma Other History Of: Negative For: Anticoagulant Therapy - Surgical History Surgical History: Yes Surgery Procedure, Year, and Place: MULTIPLE LAPRASCOPIC PROCEDURES,. COMPLETE HYSTERECTOMY, 01/2013, [facility]. NAOMY 06/15/13, [facility] [place]. 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 Smoking Status (MU): Light Every Day Tobacco Smoker Type: Cigarettes Amount Used/How Often: 1 pack per three days Length of Time of Smoking/Using Tobacco: 10YRS Have You Smoked in the Last Year: Yes When Did the Patient Quit Smoking/Using Tobacco: stopped 2 weeks ago (June 2014 ) Household Exposure Type: Cigarettes - Immunization History Most Recent Influenza Vaccination: 2016 Most Recent Tetanus Shot: 2014 Most Recent Pneumonia Vaccination: never Review of Systems All Other Systems Reviewed And Are Negative: Yes ENT: Positive: Nasal Discharge, Sinus Congestion, Sinus Pain/Tenderness Respiratory: Positive: Shortness Of Breath - At times when she is coughing she feels short of breath but not just sitting on the exam table., Cough - Nonproductive cough. Is Patient Immunocompromised?: No Physical Exam Triage Information Reviewed: Yes Appearance: Well-Appearing, No Pain Distress, Well-Nourished Vital Signs: Initial Vital Signs Temp 97.8 F 02/03/19 12:48 Pulse 66 02/03/19 12:48 Resp 18 02/03/19 12:48 BP 128/78 02/03/19 12:48 Pulse Ox 98 02/03/19 12:48 Vital Signs Reviewed: Yes Eyes: Positive: Conjunctiva Clear ENT: Positive: Hearing grossly normal, Pharynx normal, Nasal congestion, Nasal drainage - Yellow thick nasal coryza right nostril, TMs normal, Uvula midline Neck: Positive: Supple, Nontender, No Lymphadenopathy Respiratory: Positive: Lungs clear, Normal breath sounds, No respiratory distress, No accessory muscle use Cardiovascular: Positive: RRR, No Murmur, Pulses Normal, Brisk Capillary Refill Musculoskeletal: Positive: Strength Intact, ROM Intact, No Edema Neurological: Positive: Alert, Muscle Tone Normal Psychological Exam: Normal Skin Exam: Normal Respiratory Course/Dx - Course Course Of Treatment: Patient is comfortable here. I'm going to treat her for sinus infection with doxycycline 100 mg by mouth twice a day 10 days. Although her lungs were clear I advised her to use her albuterol inhaler 2 puffs every 4 hours as needed for tight cough or wheezing. She is starting a new job tomorrow so she prefers not to have any time out of work. - Differential Dx/Diagnosis Provider Diagnosis: Sinusitis Discharge ED - Sign-Out/Discharge Documenting (check all that apply): Patient Departure All imaging exams completed and their final reports reviewed: No Studies - Discharge Plan Condition: Fair Disposition: HOME Prescriptions: DOXYcycline CAP(*) [DOXYcycline 100MG CAP(*)] 100 mg PO BID 10 Days #20 cap Patient Education Materials: Sinusitis (ED) Referrals: Lesley Langston MD [Primary Care Provider] - Additional Instructions: Increase fluids. No dairy products, antacids or multivitamins 2 hours before you take the doxycycline and 2 hours after you take it however take it with food. Definite follow-up with your primary care provider by Sunday if no improvement in symptoms. - Billing Disposition and Condition Condition: FAIR Disposition: Home
== END 2019-02-03 13:30 | disposition home or self-care (01) ==
LOC: UCEAST 12:21
DX: J32.9 Chronic sinusitis, unspecified (principal); J44.9 Chronic obstructive pulmonary disease, unspecified; F17.210 Nicotine dependence, cigarettes, uncomplicated
CPT/HCPCS: 99212; G0463

== ENCOUNTER 2019-03-04 20:13 | Emergency (ER) | payer OTHER ==
[2019-03-04] MEDS ORDERED: Morphine 4 MG/ML VIAL (1 ml) 4 MG/ML VIAL IV PRN (20:22)
[2019-03-04] MEDS ORDERED: Ondansetron INJ* 2 MG/ML VIAL IV ONE (20:22)
[2019-03-04] MEDS ORDERED: NS 0.9% 1000 ML** 2,000 ML IV ONE (20:22)
[2019-03-04] MEDS ORDERED: Morphine 10 MG/ML VIAL (1 ml) IV ONE (20:22)
--- NOTE | 2019-03-04 20:31 | ED ---
Abdominal Pain/Female - HPI Summary HPI Summary: Pt is a 34 y/o F presenting to the ED brought in by EMS for abd pain. Per EMS, pt was found on floor vomiting and in considerable pain. Hx of Crohns disease, pt states it feels like a flare up with something more, because her Crohns pain is typically tolerable. EMS gave Zofran, Fentanyl, and saline, without much relief. She states the pain is just below her sternum, radiating to her back, and normally her Crohns pain is lower. Pt states her sx began on 03/02 with diarrhea and some intermittent abd cramping. Today, 03/04, about 5 hours [employer], she went to the bathroom, then noted increased abd pain and states she has had diarrhea for two hours straight. She states everything she eats goes right through her, including water, Gatorade, and chicken broth. Hx of cholecystectomy. On review of her medical records here it appears that she definitely has an element of chronicity in her abdominal complaints. While she says she was diagnosed with Crohn's thru the [facility] 2 years ago, I cannot find any notation of that diagnosis in her many visits and several admissions here over the past few years. Further she has had quite a few CT scans of the abdomen. I have reviewed the reports on the scans done since 2016 (of which there are 15), some are normal but most show thickening of the colonic wall c/w colitis, and this is what clinically she appears to be suffering from now. I would wonder if she may have UC vs Crohn's. I checked the [employer] and found that she is prescribed chronic opioid medication through her PCP Dr. Langston at [facility]. She does not have opioid rxs thru other providers. With this in mind, and no mention of that in her record or med list, I asked what medications she takes. She listed everything but the opioids, and and when confronted about this stated that she just couldn't think with the pain. However by this time she had been medicated and certainly was able to list all her other medications. I explained my concern about this and reinforced the need for her to disclose all medications to her health care providers, particularly powerful opioids. - History of Current Complaint Chief Complaint: EDAbdPain Stated Complaint: ABDOMINAL PAIN PER PT Hx Obtained From: Patient Hx Last Menstrual Period: Complete Hysterectomy Onset/Duration: Gradual Onset, Lasting Days, Still Present Timing: Days Severity Initially: Moderate Severity Currently: Severe Pain Intensity: 10 Pain Scale Used: 0-10 Numeric Location: Epigastric Radiates: Yes Radiates to: Back Aggravating Factor(s): Food Alleviating Factor(s): Nothing Associated Signs and Symptoms: Positive: Decreased Appetite, Nausea, Vomiting, Diarrhea Allergies/Adverse Reactions: Allergies Allergy/AdvReac Type Severity Reaction Status Date / Time No Known Allergies Allergy Verified 02/03/19 12:53 Home Medications: Home Medications Dicyclomine CAP* [Bentyl CAP*] 10 mg PO TID PRN 03/04/19 [History Confirmed ] Gabapentin CAP(*) [Neurontin 300 CAP(*)] 600 mg PO BID 03/04/19 [History Confirmed 03/04/19] Methylphenidate TAB* [Ritalin TAB*] 20 mg PO DAILY 03/04/19 [History Confirmed 03/04/19] oxyCODONE TAB* [Roxycodone TAB 5 mg*] 5 mg PO Q8H PRN 03/04/19 [History Confirmed 03/04/19] PMH/Surg Hx/FS Hx/Imm Hx Previously Healthy: Yes Endocrine/Hematology History: Denies: Hx Anticoagulant Therapy, Hx Blood Disorders, Hx Diabetes, Hx Systemic Lupus Erythematosus, Hx Thyroid Disease Cardiovascular History: Reports: Hx Hypercholesterolemia Denies: Hx Congestive Heart Failure, Hx Hypertension, Hx Pacemaker/ICD, Other Cardiovascular Problems/Disorders Respiratory History: Reports: Hx Asthma, Hx Chronic Obstructive Pulmonary Disease (COPD) Denies: Hx Chronic Bronchitis, Other Respiratory Problems/Disorders GI History: Reports: Hx Gall Bladder Disease, Hx Irritable Bowel, Other GI Disorders - PANCREATITIS Denies: Hx Ulcer History: Denies: Hx Dialysis, Hx Renal Disease, Other Problems/Disorders Musculoskeletal History: Denies: Hx Scoliosis, Other Musculoskeletal History Sensory History: Denies: Hx Contacts or Glasses, Hx Hearing Aid Opthamlomology History: Denies: Hx Contacts or Glasses Neurological History: Denies: Hx Headaches, Other Neuro Impairments/Disorders Psychiatric History: Reports: Hx Anxiety, Hx Attention Deficit Hyperactivity Disorder, Hx Depression, Hx Inpatient Treatment, Hx Community Mental Health Tx, Hx Bipolar Disorder, Hx Substance Abuse - etoh abuse hx Denies: Hx Eating Disorder, Hx Panic Disorder, Hx Post Traumatic Stress Disorder, Hx Schizophrenia, Hx Suicide Attempt - some instances of self harm, Hx of Violent Episodes Against Others, Other Psychiatric Issues/Disorders - Cancer History Hx Chemotherapy: No Hx Radiation Therapy: No - Surgical History Surgery Procedure, Year, and Place: MULTIPLE LAPRASCOPIC PROCEDURES,. COMPLETE HYSTERECTOMY, 01/2013, [facility]. [place] [facility] [place] sc[place] Hx Anesthesia Reactions: No - Immunization History Date of Tetanus Vaccine: Unknown Infectious Disease History: No Infectious Disease History: Denies: Hx Clostridium Difficile, Hx Hepatitis, Hx Human Immunodeficiency Virus (HIV), Hx of Known/Suspected MRSA, Hx Shingles, Hx Tuberculosis, Hx Known/ Suspected VRE, Hx Known/Suspected VRSA, History Other Infectious Disease, Traveled Outside the [place] in Last 30 Days - Family History Known Family History: Positive: Cardiac Disease, Hypertension, Diabetes, Other - father: EtOH abuse - Social History Alcohol Use: Occasionally Alcohol Amount: 2 glasses of wine tonight 11/20/2016 Hx Substance Use: No Substance Use Type: Reports: None Substance Use Comment - Amount & Last Used: 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 Hx Tobacco Use: Yes Smoking Status (MU): Light Every Day Tobacco Smoker Type: Cigarettes Amount Used/How Often: 1 pack per three days Length of Time of Smoking/Using Tobacco: 10YRS Have You Smoked in the Last Year: Yes Review of Systems Positive: Other - dec. appetite Positive: Abdominal Pain, Vomiting, Diarrhea, Nausea All Other Systems Reviewed And Are Negative: Yes Physical Exam - Summary Physical Exam Summary: Appearance: Well-appearing, Well-nourished, lying in bed comfortably Skin: Warm, dry, no obvious rash Eyes: sclera anicteric, no conjunctival pallor ENT: mucous membranes moist, pharynx appears normal Neck: Supple, nontender Respiratory: Clear to auscultation, no signs of respiratory distress Cardiovascular: Normal S1, S2. No murmurs. Normal distal pulses in tibial and radial bilaterally. Abdomen: Soft, diffuse abd tenderness without peritoneal signs. The tenderness is especially pronounced in the upper abd. Normal active bowel sounds present Musculoskeletal: Normal, Strength/ROM Intact Neurological: A&Ox3, awake and alert, mentation is normal, speech is fluent and appropriate Psychiatric: affect is normal, does not appear anxious or depressed Triage Information Reviewed: Yes Vital Signs On Initial Exam: Initial Vitals Temp Pulse Resp BP Pulse Ox 99.3 F 90 22 139/96 97 03/04/19 20:20 03/04/19 20:20 03/04/19 20:20 03/04/19 20:20 03/04/19 20:20 Vital Signs Reviewed: Yes Procedures - Sedation Patient Received Moderate/Deep Sedation with Procedure: No Diagnostics - Vital Signs Vital Signs Temp Pulse Resp BP Pulse Ox 03/04/19 20:20 99.3 F 90 22 139/96 97 - Laboratory Result Diagrams: 03/04/19 20:39 03/04/19 20:39 Lab Statement: Any lab studies that have been ordered have been reviewed, and results considered in the medical decision making process. Abdominal Pain Fem Course/Dx - Course Course Of Treatment: 34 y/o F brought in by EMS for abd pain, given Zofran, Fentanyl, and saline [employer]. Pt states sx began on 03/02 with diarrhea, then progressed today into severe abdominal pain and worsened diarrhea. She reports nausea, vomiting, and dec. appetite. She localizes pain to the epigastric region radiating to her back, and she notes her Crohn's pain is usually much lower. Notable hx of hysterectomy and Crohn's disease. On exam, pt's abd is diffusely tender without peritoneal signs. Tenderness is especially pronounced in the upper abd. As noted in HPI, there are concerning issues regarding her opioids, but she has had a number of CT scans documenting colitis, but never any inflammation of other parts of the GI tract, so I suspect she may have UC. With this in mind I have started her on pentasa and given her discs of her CT scans here to take to her GI doctor at [place]. I explained that the GI doctor should be made aware of the findings we have here, it may change your management and in any event he or she needs to review the pentasa that I have started to see if it should be continued or changed in some way. Pt doing better as of 2207. I don't think another CT scan is necessary at this point. She will be d/c'ed with dx of abd pain, vomiting, and ulcerative colitis. - Diagnoses Provider Diagnoses: Abdominal pain, Vomiting, Ulcerative colitis Discharge ED - Sign-Out/Discharge Documenting (check all that apply): Patient Departure - Discharge Plan Condition: Good Disposition: HOME Prescriptions: Hyoscyamine Sulfate [Levsin/Sl] 0.125 mg SL TID #15 sub Mesalamine CAP(NF) [Pentasa(NF)] 1,000 mg PO QID #100 cap Prochlorperazine SUPP* [Compazine Supp*] 25 mg [place] Q12H PRN #10 supp PRN Reason: Nausea Prochlorperazine TAB* [Compazine Tab*] 10 mg PO Q6H PRN #15 tab PRN Reason: Nausea Patient Education Materials: Ulcerative Colitis (ED) Referrals: Lesley Langston MD [Primary Care Provider] - Additional Instructions: I think you may have a condition called Ulcerative Colitis. I am starting you on a medication with this in mind, but you should definitely see your customer sales advisor as soon as you can and bring the discs with the CT scans that have been done here. Your GI doctor obviously knows your history well but may not have had a chance to see the studies done here. I have also prescribed compazine in suppository and tablet form to help with the nausea. I'm not sure if the levsin will be covered by your insurance, but it might be an alternative to bentyl if that does not seem effective. - Billing Disposition and Condition Condition: GOOD Disposition: Home - Attestation Statements Document Initiated by Hali: Yes Documenting Scribe: Mile Quiros Provider For Whom Hali is Documenting (Include Credential): Abraham Cervantes MD. Scribe Attestation: Mile Morales, marcoed for Abraham Cervantes MD. on 03/05/19 at 0148. Scribe Documentation Reviewed: Yes Provider Attestation: The documentation as recorded by the tanneribe, Mile Quiros accurately reflects the service I personally performed and the decisions made by me, Abraham Cervantes MD. Status of Scribe Document: Viewed
[2019-03-04] MEDS ORDERED: Dicyclomine CAP* 10 MG PO ONE (20:44)
[2019-03-04] MEDS ORDERED: Ketorolac INJ* 30 MG/ML 1 ML VIAL IV PUSH ONE (20:44)
[2019-03-04 20:51] LABS: ABS Basophils 0.1 10^3/ul (0-0.2); ABS Lymphocytes 2.4 10^3/ul (1.0-4.8); ABS Monocytes 0.3 10^3/ul (0-0.8); ABS Neutrophils 4.3 10^3/ul (1.5-7.7); Eosinophil % 0.4 %; Hematocrit 42 % (35-47); Hemoglobin 14.5 g/dL (12.0-16.0); Lymphocyte % 33.7 %; Mean Corpuscular HGB Conc 34 g/dL (31-36); Mean Corpuscular Hemoglobin 36 pg (27-31); Mean Corpuscular Volume 105 fL (80-97); Mean Platelet Volume 8.9 fL (7.4-10.4); Nucleated Red Blood Cells % 0.1; Platelet Count 127 10^3/uL (150-450); Red Blood Count 4.04 10^6 /uL (3.70-4.87); Red Cell Distribution Width 15 % (10-15); White Blood Count 7.2 10^3/uL (3.5-10.8)
[2019-03-04 21:07] LABS: Albumin 4.2 g/dL (3.2-5.2); CO2 Carbon Dioxide 21 mmol/L (22-32); Calcium 8.7 mg/dL (8.6-10.3); Sodium 144 mmol/L (135-145)
[2019-03-04 21:08] LABS: Anion Gap 9 mmol/L (2-11); Chloride 114 mmol/L (101-111)
[2019-03-04] MEDS ORDERED: PROCHLORPERAZINE INJ 5 MG/ML 2 ML VIAL IV ONE (21:10)
[2019-03-04 21:14] LABS: ALT 26 U/L (7-52); AST 35 U/L (13-39); Albumin/Globulin Ratio 1.6 (1-3); Alkaline Phosphatase 66 U/L (34-104); BUN/Creatinine Ratio 8.2 (8-20); Blood Urea Nitrogen 6 mg/dL (6-24); C Reactive Protein < 1.00 mg/L (<8.01); EGFR African American 109.8 (>60); EGFR Non-African American 90.7 (>60); Globulin 2.7 g/dL (2-4); Glucose 85 mg/dL (70-100); Total Protein 6.9 g/dL (6.4-8.9)
[2019-03-04 21:33] LABS: HCG Pregnancy 1.88 mIU/mL
[2019-03-04 22:24] VITALS: BP 127/72
== END 2019-03-04 22:15 | disposition home or self-care (01) ==
LOC: ED 20:13
DX: K51.90 Ulcerative colitis, unspecified, without complications (principal); R11.10 Vomiting, unspecified; E78.00 Pure hypercholesterolemia, unspecified; J44.9 Chronic obstructive pulmonary disease, unspecified; F41.9 Anxiety disorder, unspecified; F90.9 Attention-deficit hyperactivity disorder, unspecified type; F17.210 Nicotine dependence, cigarettes, uncomplicated; Z90.710 Acquired absence of both cervix and uterus; Z90.49 Acquired absence of other specified parts of digestive tract; Z79.899 Other long term (current) drug therapy
CPT/HCPCS: 36415; 80053; 83605; 83690; 84702; 85025; 86140; 96361; 96374; 96375; 99283; A9270-GY; J0780; J1885; J2270; J2405

== ENCOUNTER 2019-03-25 01:13 | Emergency (ER) | payer OTHER ==
[2019-03-25] MEDS ORDERED: Lorazepam PYXIS KEY PRN (01:49)
[2019-03-25] MEDS ORDERED: LORazepam INJ* 2 MG/ML 1 ML VIAL IV PUSH ONE (01:49)
[2019-03-25] MEDS ORDERED: Ketorolac INJ* 30 MG/ML 1 ML VIAL IV PUSH ONE ×2 (01:50→04:42)
[2019-03-25] MEDS ORDERED: Ondansetron INJ* 2 MG/ML VIAL IV ONE (01:50)
--- NOTE | 2019-03-25 01:54 | ED ---
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 Was unable to get up after the fall. Unable to bear weight or ambulate. Patient reports swelling and numbness in her left ankle. Symptoms aggravated by movement. Symptoms alleviated by nothing. Medications reviewed. Allergies reviewed. - History of Current Complaint Chief Complaint: EDExtremityLower Stated Complaint: L ANKLE PAIN PER EMS Time Seen by Provider: 03/25/19 01:48 Hx Obtained From: Patient Hx Last Menstrual Period: Complete Hysterectomy Mechanism Of Injury: Other - slipping on wet newspaper at the bottom of stairs and twisting her left ankle and falling on to ground while taking out the trash Onset of Pain: Immediate Onset/Duration: Still Present Severity Currently: Severe Pain Intensity: 10 Pain Scale Used: 0-10 Numeric Character Of Pain: Burning Associated Signs And Symptoms: Positive: Swelling, Other - numbness Aggravating Factor(s): Movement Alleviating Factor(s): Nothing Able to Bear Weight: No - Allergies/Home Medications Allergies/Adverse Reactions: Allergies Allergy/AdvReac Type Severity Reaction Status Date / Time No Known Allergies Allergy Verified 03/25/19 01:28 Home Medications: Home Medications Gabapentin 300 mg PO BID 03/25/19 [History Confirmed 03/25/19] Methylphenidate TAB* [Ritalin TAB*] 10 mg PO DAILY 03/25/19 [History Confirmed 03/25/19] Omeprazole 40 mg PO DAILY 03/25/19 [History Confirmed 03/25/19] Ondansetron ODT TAB* [Zofran 4 MG Odt TAB*] 4 mg PO TID 03/25/19 [History Confirmed 03/25/19] estradioL [Estradiol] 1 tab PO DAILY 03/25/19 [History Confirmed 03/25/19] PMH/Surg Hx/FS Hx/Imm Hx Endocrine/Hematology History: Denies: Hx Anticoagulant Therapy, Hx Blood Disorders, Hx Diabetes, Hx Systemic Lupus Erythematosus, Hx Thyroid Disease Cardiovascular History: Reports: Hx Hypercholesterolemia Denies: Hx Congestive Heart Failure, Hx Hypertension, Hx Pacemaker/ICD, Other Cardiovascular Problems/Disorders Respiratory History: Reports: Hx Asthma, Hx Chronic Obstructive Pulmonary Disease (COPD) Denies: Hx Chronic Bronchitis, Other Respiratory Problems/Disorders GI History: Reports: Hx Gall Bladder Disease, Hx Irritable Bowel, Other GI Disorders - PANCREATITIS Denies: Hx Ulcer History: Denies: Hx Dialysis, Hx Renal Disease, Other Problems/Disorders Musculoskeletal History: Denies: Hx Scoliosis, Other Musculoskeletal History Sensory History: Denies: Hx Contacts or Glasses, Hx Hearing Aid Opthamlomology History: Denies: Hx Contacts or Glasses Neurological History: Denies: Hx Headaches, Other Neuro Impairments/Disorders Psychiatric History: Reports: Hx Anxiety, Hx Attention Deficit Hyperactivity Disorder, Hx Depression, Hx Inpatient Treatment, Hx Community Mental Health Tx, Hx Bipolar Disorder, Hx Substance Abuse - etoh abuse hx Denies: Hx Eating Disorder, Hx Panic Disorder, Hx Post Traumatic Stress Disorder, Hx Schizophrenia, Hx Suicide Attempt - some instances of self harm, Hx of Violent Episodes Against Others, Other Psychiatric Issues/Disorders - Cancer History Hx Chemotherapy: No Hx Radiation Therapy: No - Surgical History Surgery Procedure, Year, and Place: MULTIPLE LAPRASCOPIC PROCEDURES,. COMPLETE HYSTERECTOMY, 01/[address], [facility]. NAOMY 06/15/13, [facility] [place]. Right knee scopy Hx Anesthesia Reactions: No - Immunization History Date of Tetanus Vaccine: Unknown Infectious Disease History: No Infectious Disease History: Denies: Hx Clostridium Difficile, Hx Hepatitis, Hx Human Immunodeficiency Virus (HIV), Hx of Known/Suspected MRSA, Hx Shingles, Hx Tuberculosis, Hx Known/ Suspected VRE, Hx Known/Suspected VRSA, History Other Infectious Disease, Traveled Outside the [place] in Last 30 Days - Family History Known Family History: Positive: Cardiac Disease, Hypertension, Diabetes, Other - father: EtOH abuse - Social History Alcohol Use: Occasionally Hx Substance Use: Yes Substance Use Comment - Amount & Last Used: 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 Hx Tobacco Use: Yes Smoking Status (MU): Light Every Day Tobacco Smoker Type: Cigarettes Amount Used/How Often: 1 pack per three days Length of Time of Smoking/Using Tobacco: 10YRS Have You Smoked in the Last Year: Yes Review of Systems - ROS Summary Review of Systems Summary: Home Medications Medication Instructions Recorded Confirmed Type Omeprazole CAP (NF) [Prilosec CAP* 40 mg PO DAILY 09/03/16 03/04/19 History 20 MG] Oxymetazoline HCl [Afrin] 1 spray INH DAILY PRN 02/03/19 03/04/19 History Dicyclomine CAP* [Bentyl CAP*] 10 mg PO TID PRN 03/04/19 03/04/19 History Gabapentin CAP(*) [Neurontin 300 600 mg PO BID 03/04/19 03/04/19 History CAP(*)] Hyoscyamine Sulfate [Levsin/Sl] 0.125 mg SL TID #15 sub 03/04/19 Rx Mesalamine CAP(NF) [Pentasa(NF)] 1,000 mg PO QID #100 cap 03/04/19 Rx Methylphenidate TAB* [Ritalin TAB*] 20 mg PO DAILY 03/04/19 03/04/19 History Prochlorperazine SUPP* [Compazine 25 mg IN Q12H PRN #10 supp 03/04/19 Rx Supp*] Prochlorperazine TAB* [Compazine 10 mg PO Q6H PRN #15 tab 03/04/19 Rx Tab*] oxyCODONE TAB* [Roxycodone TAB 5 5 mg PO Q8H PRN 03/04/19 03/04/19 History mg*] Positive: Other - left foot pain, left ankle pain, left ankle swelling Positive: Numbness - left ankle All Other Systems Reviewed And Are Negative: Yes Physical Exam - Summary Physical Exam Summary: General: Well-developed, Well-nourished FEMALE. Appears in moderate discomfort HEENT: Normocephalic, Atraumatic. Eyes: Conjuctiva normal, PERRL. Oropharynx: Clear, mucous membranes moist, (-) exudates. Neck: Soft, FROM, (-) lymphadenopathy, (-) thyromegaly, (-) JVD. Cardiovascular: Normal sinus rhythm, (-) murmur. Lungs: Clear to auscultation bilaterally (-) wheezes, (-) rales, (-) rhonchi. Abdomen: Soft, non-tender, non-distended, (-) organomegaly, normal bowel sounds. Back: (-) CVA tenderness Extremities: Left ankle shows significant swelling around the lateral malleolus. Pain out of proportion to palpation. Full exam not possible due to patient's perceived pain. Normal pulse and capillary refill. Skin: Warm, dry, (-) rash. Neuro: Alert and oriented x3, no focal deficits. Psychiatric: Mood normal, affect normal. Triage Information Reviewed: Yes Vital Signs On Initial Exam: Initial Vitals Temp Pulse Resp BP Pulse Ox 97.8 F 128 20 145/107 99 03/25/19 01:16 03/25/19 01:16 03/25/19 01:16 03/25/19 01:16 03/25/19 01:16 Vital Signs Reviewed: Yes Procedures - Sedation Patient Received Moderate/Deep Sedation with Procedure: No Diagnostics - Vital Signs Vital Signs Temp Pulse Resp BP Pulse Ox 03/25/19 01:16 97.8 F 128 20 145/107 99 - Laboratory Lab Statement: Any lab studies that have been ordered have been reviewed, and results considered in the medical decision making process. - Radiology Left ankle XRAY Radiology Interpretation Completed By: ED Physician Summary of Radiographic Findings: NEGATIVE FOR FRACTURE. PENDING OFFICIAL REPORT Left ankle x-ray Radiology Interpretation Completed By: Radiologist Summary of Radiographic Findings: No acute fracture nor dislocation. Soft tissue swelling laterally at the left ankle. ED PHYSICIAN HAS REVIEWED THIS REPORT. Re-Evaluation - Re-Evaluation First Eval Re-Evaluation Time: 03:44 Change: Improved Comment: I have discussed results with the patient and symptoms have resolved. Discussed symptoms that warrant immediate return to ED. Second Eval Re-Evaluation Time: 04:34 Change: Unchanged Comment: Patient was advised to elevate her ankle and to keep her ankle wrapped in the gel wrap. Will give her off work until 03/31/19. Lower Extremity Course/Dx - Course Course Of Treatment: 34-year-old female presents from home by ambulance with left ankle pain. Patient initially very hysterical and agitated upon arrival screaming out in pain. Patient was given Ativan. Toradol, Zofran and fluids. X-ray demonstrates no obvious fracture. X-rays sent to the [facility] with no obvious fracture identified. Patient had leg elevated. Ice on the area. Gel splint was applied patient had crutches given and education. Patient requested something stronger for pain. She states she can't take Tylenol or ibuprofen because of her Crohn's disease. This is not documented on her chart. She has no known allergies according to her initially. Upon review of her medications she is already on oxycodone daily from her primary for chronic neck pain. Patient is discharged home. Follow up with PCP. Follow sooner for any worsening symptoms. - Diagnoses Provider Diagnoses: Grade 2 ankle sprain Discharge ED - Sign-Out/Discharge Documenting (check all that apply): Patient Departure - Discharge Plan Condition: Stable Disposition: HOME Patient Education Materials: Ankle Sprain (ED) Forms: *Work Release Referrals: Lesley Langston MD [Primary Care Provider] - 3 Days Additional Instructions: Take 2 ibuprofen three times a day with food. Elevate your ankle. Use ice. Rest. Please follow up with your primary care physician within 3 days. Please return to Emergency Department for any new or worsening symptoms. - Billing Disposition and Condition Condition: STABLE Disposition: Home - Attestation Statements Document Initiated by Hali: Yes Documenting Scribe: Ramona Fuentes Provider For Whom Hali is Documenting (Include Credential): June Gonzalez MD Scribe Attestation: Ramona Morales, scribed for June Gonzalez MD on 03/25/19 at 0623. Scribe Documentation Reviewed: Yes Provider Attestation: The documentation as recorded by the Ramona castillo accurately reflects the service I personally performed and the decisions made by me, June Gonzalez MD Status of Scribe Document: Viewed
[2019-03-25] MEDS ORDERED: Lorazepam PYXIS KEY ONE (01:59)
[2019-03-25] MEDS ORDERED: NS 0.9% 1000 ML** 1,000 ML IV.FLUID IV ONE (02:09)
[2019-03-25] MEDS ORDERED: Lidocaine PATCH 5%* 1 PATCH TRANSDERM ONE (03:05)
[2019-03-25 05:18] VITALS: BP 113/88
[2019-03-25] MEDS ORDERED: Lidocaine Patch REMOVE* 1 NOTE MISC PATCH OFF SCH (17:00)
== END 2019-03-25 04:45 | disposition home or self-care (01) ==
LOC: ED 01:13
DX: S93.402A Sprain of unspecified ligament of left ankle, initial encounter (principal); W01.0XXA Fall on same level from slipping, tripping and stumbling without subsequent striking against object, initial encounter; Y92.9 Unspecified place or not applicable; F90.9 Attention-deficit hyperactivity disorder, unspecified type; F41.9 Anxiety disorder, unspecified; F17.210 Nicotine dependence, cigarettes, uncomplicated
CPT/HCPCS: 96361; 96374; 96375; 96376; 99282; A9270-GY; J1885; J2060; J2405

== ENCOUNTER 2019-03-25 14:42 | Emergency (ER) | payer OTHER ==
[2019-03-25 14:57] VITALS: BP 139/92
[2019-03-25] MEDS ORDERED: HYDROcodone/ACETAMIN 5-325 MG* 1 TAB PO ONE (15:51)
[2019-03-25] MEDS ORDERED: Ketorolac INJ* 30 MG/ML 1 ML VIAL IM ONE (15:54)
--- NOTE | 2019-03-25 16:58 | UC ---
Lower Extremity/Ankle HPI - HPI Summary HPI Summary: Pleasant 34 yo female c/o L ankle and foot pain since stepping off 2 steps and rolling ankle yesterday. Seen in ED, ankle xray no fx. But woke up this morning with increase pain, swelling, and dysesthesia. Unable to bear weight d/ t pain. Swelling and bruising worse than yesterday. Denies other injury c/o' s. 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 - History of Current Complaint Chief Complaint: UCLowerExtremity Stated Complaint: FOOT INJURY Time Seen by Provider: 03/25/19 15:41 Hx Obtained From: Patient Hx Last Menstrual Period: Complete Hysterectomy Pain Intensity: 10 - Allergies/Home Medications Allergies/Adverse Reactions: Allergies Allergy/AdvReac Type Severity Reaction Status Date / Time No Known Allergies Allergy Verified 03/25/19 14:57 PMH/Surg Hx/FS Hx/Imm Hx Previously Healthy: Yes Other History Of: Negative For: Anticoagulant Therapy - Surgical History Surgical History: Yes Surgery Procedure, Year, and Place: MULTIPLE LAPRASCOPIC PROCEDURES,. COMPLETE HYSTERECTOMY, 01/2013, [facility]. NAOMY 06/15/13, [facility] [place]. 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 Smoking Status (MU): Light Every Day Tobacco Smoker Type: Cigarettes Amount Used/How Often: 1 pack per three days Length of Time of Smoking/Using Tobacco: 10YRS Have You Smoked in the Last Year: Yes When Did the Patient Quit Smoking/Using Tobacco: stopped 2 weeks ago (June 2014 ) Household Exposure Type: Cigarettes - Immunization History Most Recent Influenza Vaccination: 2016 Most Recent Tetanus Shot: 2014 Most Recent Pneumonia Vaccination: never Review of Systems All Other Systems Reviewed And Are Negative: Yes Constitutional: Positive: Negative Skin: Positive: Other - see hpi Eyes: Positive: Negative ENT: Positive: Negative Respiratory: Positive: Negative Cardiovascular: Positive: Negative Gastrointestinal: Positive: Negative Genitourinary: Positive: Negative Motor: Positive: Other - see hpi Neurovascular: Positive: Other - see hpi Musculoskeletal: Positive: Other: - see hpi Neurological: Positive: Other - see hpi Psychological: Positive: Negative Is Patient Immunocompromised?: No Physical Exam Triage Information Reviewed: Yes Appearance: Well-Nourished, Pain Distress Vital Signs: Initial Vital Signs Temp 98.5 F 03/25/19 14:51 Pulse 96 03/25/19 14:51 Resp 18 03/25/19 14:51 BP 139/92 03/25/19 14:51 Pulse Ox 98 03/25/19 14:51 Vital Signs Reviewed: Yes Eye Exam: Normal - grossly nad ENT Exam: Normal - grossly nad Neck exam: Normal - no new c/o's - does have hx neck issues Respiratory Exam: Normal - rr normal, no tachypnea, no dyspnea Cardiovascular Exam: Normal - hr normal, nondiaphoretic Abdominal Exam: Normal Abdomen Description: Positive: Nontender Musculoskeletal Exam: Other - + eccymosis, + swelling L lat mal and L lat foot. CR < 2 sec x 5 toes. + palp dp, pt c/o pain with any touch in L lat mal area. Moves toes but painful. Subj dysesthesia to foot and toes distal to swelling. Without calf post tenderness, but + tender to pressure to bones all the way proximally (up to not including knee). Neurological Exam: Normal - grossly nonfocal, but see above re titi de Psychological Exam: Normal - conversing easily and appropriately. nad. Skin Exam: Normal - no visible or reported rash. nondiaphoretic. see titi de. Lower Extremity Course/Dx - Course Course Of Treatment: Has gelco splint from last evening. Seen in ED - xray report reviewed (no fx). Xrays today - + avulsion fx lat mal, tip of fibula. Correlates with pain c/o. Reviewed results with pt, d/w pt coa / tx plan. CAM boot today, has crutches. Offloading, elevation important. Work note written. Questions as posed answered to the best of my ability. Reports feels better s/p elevation, norco x 1, and ketoralac im 60mg. - Differential Dx/Diagnosis Provider Diagnosis: Avulsion fracture of left ankle Discharge ED - Sign-Out/Discharge Documenting (check all that apply): Patient Departure All imaging exams completed and their final reports reviewed: Yes - Discharge Plan Condition: Stable Disposition: HOME Prescriptions: Ibuprofen TAB* [Motrin TAB* 600 MG] 600 mg PO Q8H PRN #30 tab PRN Reason: Pain - Moderate Patient Education Materials: Ankle Fracture (ED), Avulsion Fracture (ED) Forms: *Work Release Referrals: Marcus Cruz MD [Medical Doctor] - Lesley Langston MD [Primary Care Provider] - Additional Instructions: ELEVATE MUCH AND FREQUENTLY POSSIBLE. Please stay off your foot as much as possible. Crutches are best. ICE periodically 15 min every couple hours for the next 1-2 days while awake to swollen area (do not do this though if it hurts). Seek medical attention for worse or new problems. Follow up with Orthopedic surgery this week. Call tomorrow to schedule an appointment. Check with your doctor re neck pain medication refill. - Billing Disposition and Condition Condition: STABLE Disposition: Home
== END 2019-03-25 17:28 | disposition home or self-care (01) ==
LOC: UCEAST 14:42
DX: S82.62XA Displaced fracture of lateral malleolus of left fibula, initial encounter for closed fracture (principal); F17.210 Nicotine dependence, cigarettes, uncomplicated; X50.9XXA Other and unspecified overexertion or strenuous movements or postures, initial encounter; Y92.9 Unspecified place or not applicable
CPT/HCPCS: 96372; 99213; G0463; J1885

== ENCOUNTER 2019-04-01 23:23 | Emergency (ER) | payer OTHER ==
--- NOTE | 2019-04-01 23:54 | ED ---
Lower Extremity - HPI Summary HPI Summary: Patient with history of left distal fibular avulsion fracture from fall 1 week ago complains of burning throughout lower left extremity, pain, loss of sensation in toes 2 days. Patient states he has been wearing surgical boot which makes pain worse. Patient ambulatory with crutches. Denies any new trauma, fever, cough, sore throat, CP, SOB, N/V/D, abdominal pain, change in urine, change in BM. Taking estradiol per patient med list. - History of Current Complaint Chief Complaint: EDExtremityLower Stated Complaint: ANKLE INJURY PER PT Time Seen by Provider: 04/01/19 23:46 Hx Obtained From: Patient Hx Last Menstrual Period: Complete Hysterectomy Mechanism Of Injury: Unknown Onset/Duration: Days Severity Currently: Severe Pain Intensity: 10 Pain Scale Used: 0-10 Numeric Timing: Constant Location: Is Discrete @ Character Of Pain: Dull, Aching, Throbbing, Burning Associated Signs And Symptoms: Positive: Redness Aggravating Factor(s): Standing, Ambulation, Weight Bearing Alleviating Factor(s): Rest, Elevation Able to Bear Weight: No - Allergies/Home Medications Allergies/Adverse Reactions: Allergies Allergy/AdvReac Type Severity Reaction Status Date / Time No Known Allergies Allergy Verified 03/25/19 14:57 PMH/Surg Hx/FS Hx/Imm Hx Endocrine/Hematology History: Denies: Hx Anticoagulant Therapy, Hx Blood Disorders, Hx Diabetes, Hx Systemic Lupus Erythematosus, Hx Thyroid Disease Cardiovascular History: Reports: Hx Hypercholesterolemia Denies: Hx Congestive Heart Failure, Hx Hypertension, Hx Pacemaker/ICD, Other Cardiovascular Problems/Disorders Respiratory History: Reports: Hx Asthma, Hx Chronic Obstructive Pulmonary Disease (COPD) Denies: Hx Chronic Bronchitis, Other Respiratory Problems/Disorders GI History: Reports: Hx Gall Bladder Disease, Hx Irritable Bowel, Other GI Disorders - PANCREATITIS Denies: Hx Ulcer History: Denies: Hx Dialysis, Hx Renal Disease, Other Problems/Disorders Musculoskeletal History: Denies: Hx Scoliosis, Other Musculoskeletal History Sensory History: Denies: Hx Contacts or Glasses, Hx Hearing Aid Opthamlomology History: Denies: Hx Contacts or Glasses EENT History: Denies: Hx Deafness Neurological History: Denies: Hx Headaches, Other Neuro Impairments/Disorders Psychiatric History: Reports: Hx Anxiety, Hx Attention Deficit Hyperactivity Disorder, Hx Depression, Hx Inpatient Treatment, Hx Community Mental Health Tx, Hx Bipolar Disorder, Hx Substance Abuse - etoh abuse hx Denies: Hx Eating Disorder, Hx Panic Disorder, Hx Post Traumatic Stress Disorder, Hx Schizophrenia, Hx Suicide Attempt - some instances of self harm, Hx of Violent Episodes Against Others, Other Psychiatric Issues/Disorders - Cancer History Hx Chemotherapy: No Hx Radiation Therapy: No - Surgical History Surgery Procedure, Year, and Place: MULTIPLE LAPRASCOPIC PROCEDURES,. COMPLETE HYSTERECTOMY, 01/2013, [facility]. NAOMY 06/15/13, [facility] [place]. Right knee scopy Hx Anesthesia Reactions: No - Immunization History Date of Tetanus Vaccine: Unknown Infectious Disease History: No Infectious Disease History: Denies: Hx Clostridium Difficile, Hx Hepatitis, Hx Human Immunodeficiency Virus (HIV), Hx of Known/Suspected MRSA, Hx Shingles, Hx Tuberculosis, Hx Known/ Suspected VRE, Hx Known/Suspected VRSA, History Other Infectious Disease, Traveled Outside the [place] in Last 30 Days - Family History Known Family History: Positive: Cardiac Disease, Hypertension, Diabetes, Other - father: EtOH abuse - Social History Alcohol Use: Occasionally Alcohol Amount: 2 glasses of wine tonight 11/20/2016 Hx Substance Use: Yes Substance Use Type: Reports: None Substance Use Comment - Amount & Last Used: 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 Hx Tobacco Use: Yes Smoking Status (MU): Light Every Day Tobacco Smoker Type: Cigarettes Amount Used/How Often: 1 pack per three days Length of Time of Smoking/Using Tobacco: 10YRS Have You Smoked in the Last Year: Yes Review of Systems Constitutional: Negative Eyes: Negative ENT: Negative Cardiovascular: Negative Respiratory: Negative Gastrointestinal: Negative Genitourinary: Negative Musculoskeletal: Other Skin: Negative Neurological: Negative Psychological: Normal All Other Systems Reviewed And Are Negative: Yes Physical Exam - Summary Physical Exam Summary: Mild aging ecchymosis mild cold ecchymosis to dorsal surface of the foot. Pedal and posterior tibial pulses intact. Patient able to move toes. Foot is warm. Calf is soft nontender. Minimal swelling to ankle and foot. No erythema , deformity or extra warmth noted. Triage Information Reviewed: Yes Vital Signs On Initial Exam: Initial Vitals Temp Pulse Resp BP Pulse Ox 98.2 F 133 18 161/126 97 04/01/19 23:24 04/01/19 23:24 04/01/19 23:24 04/01/19 23:24 04/01/19 23:24 Vital Signs Reviewed: Yes Appearance: Positive: Well-Appearing Skin: Positive: Warm Head/Face: Positive: Normal Head/Face Inspection Eyes: Positive: Normal Neck: Positive: Supple Respiratory/Lung Sounds: Positive: Clear to Auscultation Cardiovascular: Positive: Normal Abdomen Description: Positive: Nontender Musculoskeletal: Positive: Normal Neurological: Positive: Normal Psychiatric: Positive: Normal AVPU Assessment: Alert - Eugenie Coma Scale Best Eye Response: 4 - Spontaneous Best Motor Response: 6 - Obeys Commands Best Verbal Response: 5 - Oriented Coma Scale Total: 15 Procedures - Sedation Patient Received Moderate/Deep Sedation with Procedure: No Diagnostics - Vital Signs Vital Signs Temp Pulse Resp BP Pulse Ox 04/01/19 23:24 98.2 F 133 18 161/126 97 - Laboratory Lab Statement: Any lab studies that have been ordered have been reviewed, and results considered in the medical decision making process. Lower Extremity Course/Dx - Course Course Of Treatment: Patient with history of left distal fibular avulsion fracture from fall 1 week ago complains of burning throughout lower left extremity, pain, loss of sensation in toes 2 days. Patient states he has been wearing surgical boot which makes pain worse. Patient ambulatory with crutches. Denies any new trauma, fever, cough, sore throat, CP, SOB, N/V/D, abdominal pain, change in urine, change in BM. Taking estradiol per patient med list. Vital signs within normal limits. Ultrasound negative for DVT. Repeat x-ray shows no worsening from prior. - Diagnoses Provider Diagnoses: Fibula fracture Discharge ED - Sign-Out/Discharge Documenting (check all that apply): Patient Departure - Discharge Plan Condition: Stable Disposition: HOME Patient Education Materials: Ankle Fracture (ED) Referrals: Lesley Langston MD [Primary Care Provider] - Additional Instructions: Take Prescribed hydrocodone as directed for pain. Also alternate ibuprofen 600 mg with Tylenol 650 mg every 3 hours for pain the next 3 days. Ice 15 minutes at a time. Wear brace as discussed. Weightbearing as tolerated. Follow-up with orthopedics on your appointment on Apr 08. - Billing Disposition and Condition Condition: STABLE Disposition: Home
[2019-04-02] MEDS ORDERED: traMADol TAB* 50 MG PO ONE (00:05)
[2019-04-02] MEDS ORDERED: Ondansetron ODT TAB* 4 MG PO ONE (00:12)
[2019-04-02] MEDS ORDERED: Acetaminophen TAB* 325 MG PO ONE (01:29)
[2019-04-02 01:45] VITALS: BP 144/83
== END 2019-04-02 01:39 | disposition home or self-care (01) ==
LOC: ED 23:23
DX: S82.832D Other fracture of upper and lower end of left fibula, subsequent encounter for closed fracture with routine healing (principal); W19.XXXD Unspecified fall, subsequent encounter; R60.0 Localized edema; R20.8 Other disturbances of skin sensation; F90.9 Attention-deficit hyperactivity disorder, unspecified type; F41.9 Anxiety disorder, unspecified; Z90.710 Acquired absence of both cervix and uterus; F17.210 Nicotine dependence, cigarettes, uncomplicated
CPT/HCPCS: 99282; A9270-GY

== ENCOUNTER 2019-04-22 14:44 | Emergency (ER) | payer OTHER ==
--- OUTSIDE RECORDS SUMMARY | 2019-04-22 16:25 | XMS REPORT | Continuity of Care Document ---
:1985 External Reference #:[id number] Author Name Rodrick Triana M.D. (transmitted by agent of provider Rossy Flynn) Address [address] [place] [address] Care Team Providers Name Role Phone Lesley Langston MD - Family Care Team Information Brick Wheeler [phone] Medicine Problems Active Problems Provider Date Hyperlipidemia Sushil Ruffin NP Onset: 06/14/2016 Gastroesophageal reflux disease Sushil Ruffin NP Onset: 06/14/2016 Note: dx prior to this visit HRT: unopposed estrogen Sushil Ruffin NP Onset: 06/14/2016 Note: rx'd prior to today s/p total hysterectomy w/ oopherectomy Total abdominal hysterectomy with bilateral Sushil Ruffin NP Onset: 2016 salpingo-oophorectomy Note: 2014: [facility] in [place] Dr. Cueto Perine Migraine Sushil Ruffin NP Onset: 06/14/2016 Note: dx prior to this visit Nightmares Sushil Ruffin NP Onset: 06/14/2016 Note: "night terrors" dx prior to this visit Irritable bowel syndrome Elizabeth Kaiser M.D. Onset: 03/28/2013 History of cholecystectomy Sushil Ruffin NP Onset: 06/15/2016 Note: laparoscopic cholecystectomy History of alcohol abuse Sushil Ruffin NP Onset: 06/15/2016 Note: dx prior to today. Hx of alcohol, pot, & metn, recent drug rehab Asthma without status asthmaticus Sushil Ruffin NP Onset: 07/28/2016 Social History Type Date Description Comments Sex Unknown Tobacco Use Start: Unknown currently smokes 1/2 Pack Daily Tobacco Use Start: Unknown smoking since age 16-16 ETOH Use Has consumed alcohol in Hx of alcohol the past abuse; jailed for DWI while child in vehicle ETOH Use Denies alcohol use Tobacco Use Start: Unknown Patient is a current smoker, smokes every day Recreational Drug Use Denies Drug Use Tobacco Use Start: Unknown Light tobacco smoker (10 or fewer cigarettes/day) Smoking Status Reviewed: 04/08/19 Light tobacco smoker (10 or fewer cigarettes/day) Exercise Type/Frequency Exercises regularly Allergies, Adverse Reactions, Alerts Active Allergies Reaction Severity Comments Date Percocet nausea 03/27/2013 Medications Active Medications SIG Qnty Indications Ordering Date Provider Tramadol HCL 1tab every 6 hours 10tabs Unknown 02/14/2017 50mg as needed Tablets Gabapentin take one capsule 270caps M54.5 Zsofia Kian, 09/27/2016 300mg by mouth 3x daily 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 Ventolin HFA 1-2 puffs by mouth 8gm J45.20 Immanuel Tsai 07/25/2016 every 4 hours as Kj Liu,FACP 108(90Base) mcg/Act needed chest Aerosol tightness Omeprazole 1 by mouth every 30caps K21.9 Killianofimichelle Langston, 04/06/2015 40mg day 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 DR Estradiol 1 by mouth every 30tabs N95.1 Zsofia Kian, 1mg Tablets day [employer]RE[employer]PER[employer] Oxycodone-Acetaminop 1 tabs by mouth Unknown hen every 4-6 hours as 5-325mg Tablets needed for pain Immunizations CPT Code Status Date Vaccine Reaction Lot # [id number] Given 12/20/2016 Influenza Virus Vaccine, Quadrivalent, no reaction [id number] Split, Preservative Free 82781 Given 02/16/2015 Influenza Virus Vaccine, Quadrivalent, [id number] Split, Preservative Free [id number] Given 03/27/2013 Flu Vaccine Split Virus Preservative [id number] Free For Indiv 3Yr Older Vital Signs Date Vital Result Comment 04/08/2019 11:07am Height 62 inches 5'2" Weight 133.25 lb Heart Rate 90 /min BP Systolic 120 mmHg BP Diastolic 74 mmHg Respiratory Rate 18 /min Body Temperature 99.1 F Pain Level 6 BMI (Body Mass Index) 24.4 kg/m2 07/08/2018 2:51pm Height 60 inches 5'0" Weight 140.00 lb Heart Rate 55 /min BP Systolic Sitting 110 mmHg BP Diastolic Sitting 80 mmHg O2 % BldC Oximetry 96 % BMI (Body Mass Index) 27.3 kg/m2 Results Description No Information Available Procedures Date Code Description Status 07/02/2017 66873531 Mammogram Completed 02/22/2017 23010644 Colonoscopy Completed Medical Devices Description No Information Available Encounters Description No Information Available Assessments Date Code Description Provider 04/08/2019 S93.402D Sprain of unspecified ligament of left Rodrick Triana M.D. ankle, subsequent encounter Plan of Treatment Future Appointment(s):04/29/2019 10:00 am - Rodrick Triana M.D. at [facility]04/08/2019 - Rodrick Triana M.D.S93.402D Sprain of unspecified ligament of left ankle, subsequent encounterNew Therapy:Physical TherapyFollow up:3-4 weekws Functional Status Description No Information Available Mental Status Description No Information Available Referrals Description No Information Available
[2019-04-22 16:29] VITALS: BP 139/86
--- NOTE | 2019-04-22 16:51 | UC ---
Ear Complaint HPI - HPI Summary HPI Summary: Pt presents to with 2 days progressive right ear pain. sTates feels full and muffled. states pain worse in cold air. pt mild head congestion. No drainage. No fever. states pain causing right sided headache. Pt ahs taken motrin/apap with little improved not no history of ear surgery medications as entered in EMR by plisse machine operator helper reviewed ths visit - History of Current Complaint Chief Complaint: UCEar Stated Complaint: EARACHE Time Seen by Provider: 04/22/19 16:37 Hx Obtained From: Patient Hx Last Menstrual Period: Complete Hysterectomy Pain Intensity: 9 - Allergies/Home Medications Allergies/Adverse Reactions: Allergies Allergy/AdvReac Type Severity Reaction Status Date / Time No Known Allergies Allergy Verified 04/22/19 16:29 PMH/Surg Hx/FS Hx/Imm Hx Previously Healthy: Yes Other History Of: Negative For: Anticoagulant Therapy - Surgical History Surgical History: Yes Surgery Procedure, Year, and Place: MULTIPLE LAPRASCOPIC PROCEDURES,. COMPLETE HYSTERECTOMY, 01/2013, [facility]. NAOMY 06/15/13, [facility] [place] scopy - Family History Known Family History: Positive: Cardiac Disease, Hypertension, Diabetes, Other - father: EtOH abuse, Non-Contributory - Social History Occupation: Employed Full-time Alcohol Use: Occasionally Alcohol Amount: 2 glasses of wine tonight 11/20/2016 Substance Use Type: None Substance Use Comment - Amount & Last Used: 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 Smoking Status (MU): Light Every Day Tobacco Smoker Type: Cigarettes Amount Used/How Often: 1 pack per three days Length of Time of Smoking/Using Tobacco: 10YRS Have You Smoked in the Last Year: Yes When Did the Patient Quit Smoking/Using Tobacco: stopped 2 weeks ago (June 2014 ) Household Exposure Type: Cigarettes - Immunization History Most Recent Influenza Vaccination: 2016 Most Recent Tetanus Shot: 2015 Most Recent Pneumonia Vaccination: never Review of Systems All Other Systems Reviewed And Are Negative: Yes Constitutional: Positive: Negative. Negative: Fever Skin: Positive: Negative Eyes: Positive: Negative ENT: Positive: Ear Ache, Sinus Congestion Respiratory: Positive: Negative Cardiovascular: Positive: Negative Physical Exam - Summary Physical Exam Summary: Vital Signs Reviewed: Yes A+Ox3, discomfort, holding right ear Eyes: Conjunctiva Clear, DARIEN. EOM intact and full ENT: Hearing grossly normal No mastoid pain b/l + TTP with gentle traction right pinna right canal + edema, mild ertyeham able to visualize tM - no fluid , erythema, left TM wnl mild edema turbiante edema, mmoist, uvula midline, no exudate, no erythema Neck: Positive: Supple Respiratory: Positive: No respiratory distress, No accessory muscle use + CTA throughout no w/r Cardiovascular: RRR nl s1, s2 no m/r CBT <2 sec abd soft + BS nt/nd no guarding, no distension Musculoskeletal Exam: HUNTER x 4 without difficulty Strength Intact, ROM Intact Neurological: Positive: Alert, + sensation throughout Psychological: Positive: Normal Response To afternoon nanny Skin: Positive: no rash, no ecchymosis Triage Information Reviewed: Yes Vital Signs: Initial Vital Signs Temp 97.8 F 04/22/19 16:24 Pulse 76 04/22/19 16:24 Resp 14 04/22/19 16:24 BP 139/86 04/22/19 16:24 Pulse Ox 98 04/22/19 16:24 Ear Complaint Course/Dx - Course Course Of Treatment: Pt presents for eval of 2 days right ear pain. Pt states feels swollen, decreased hearing on exam vss appears uncomfortable , not toxis pt with mod right otitis externa will rX ciprodex motrin/apap heat f/u wppt with pcp on Sun as scheduled return precautions - Differential Dx/Diagnosis Provider Diagnosis: Otitis externa of right ear Discharge ED - Sign-Out/Discharge Documenting (check all that apply): Patient Departure All imaging exams completed and their final reports reviewed: No Studies - Discharge Plan Condition: Stable Disposition: HOME Prescriptions: Neomyc/Polym/HC 1% OTIC SUSP* [Cortisporin Otic Susp 1%*] 4 drop RIGHT EAR QID # 1 btl Patient Education Materials: Otitis Externa (ED) Forms: *Work Release Referrals: Lesley Langston MD [Primary Care Provider] - Additional Instructions: - apply drops to your right ear - 4 drops, 4 times a day for 5 days - Okay to alternate ibuprofen (Advil, Motrin) and Tylenol (acetaminophen) every 3 hours for pain or fever. Take with food. Do NOT take for more than 4-5 days. - It is recommended you wear a hat - avoid cold wind and air into your right ear - Okay to take Tramadol as prescribed - Keep your appointment as scheduled on Sunday with your primary care provider - Billing Disposition and Condition Condition: STABLE Disposition: Home
[2019-04-22] MEDS ORDERED: Acetaminophen TAB* 325 MG PO ONE (17:03)
== END 2019-04-22 17:12 | disposition home or self-care (01) ==
LOC: UCEAST 14:44
DX: H60.91 Unspecified otitis externa, right ear (principal); R09.89 Other specified symptoms and signs involving the circulatory and respiratory systems; Z87.891 Personal history of nicotine dependence
CPT/HCPCS: 99212; A9270-GY; G0463

== ENCOUNTER 2019-05-05 13:06 | Emergency (ER) | payer OTHER ==
[2019-05-05] MEDS ORDERED: Ondansetron ODT TAB* 4 MG PO ONE (13:17)
--- OUTSIDE RECORDS SUMMARY | 2019-05-05 14:04 | XMS REPORT | Continuity of Care Document ---
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 And Polisher [phone] Problems Description No Information Available Social History Type Date Description Comments Sex Unknown Tobacco Use Start: Unknown Current Cigarette Smoker 1/2 Pack Daily Tobacco Use Start: Unknown Never Smoked Cigars Tobacco Use Start: Unknown Never Smoked A Pipe Smokeless Tobacco Never Used Smokeless Tobacco ETOH Use Currently occasionally consumes alcohol Allergies, Adverse Reactions, Alerts Description No Known Drug Allergies Medications Active Medications SIG Qnty Indications Ordering Provider Date Methylphenidate HCL Kian Underwood, 10mg Lesley Buchanan Tablets Gabapentin Take One Capsule Unknown 300mg Capsules By Mouth Four Times A Day Oxycodone HCL Take 1/2 Tablet Unknown 10mg Tablets By Mouth 3 Times A Day as Needed For Pain Maximum Daily Dose 1 1/2 Tablets Neomycin/Polymyxin/[place] Instill 4 Drops Unknown cortisone (Otic) Into Right Ear [id number] Four Times A Day Suspension For 7 Days Estradiol Kian Underwood, 1mg Tablets Lesley Buchanan Omeprazole Kian Underwood, 40mg Capsules DR Lesley Buchanan Methylphenidate HCL Kian Underwood, 20mg Lesley Bogel Tablets Immunizations Description No Information Available Vital Signs Description No Information Available Results Description No Information Available Procedures Date Code Description Status 05/02/2019 76375 Tympanometry Completed 05/02/2019 27357 Injec Of Anest,Cervical Plexus Completed Medical Devices Description No Information Available Encounters Description No Information Available Assessments Date Code Description Provider 05/02/2019 H92.01 Otalgia, right ear Abdulaziz Galdamez MD 05/02/2019 M54.81 Occipital neuralgia Abdulaziz Galdamez MD 05/02/2019 H69.91 Unspecified Eustachian tube disorder, right ear Abdulaziz Galdamez MD Plan of Treatment Future Appointment(s):05/12/2019 11:15 am - Abdulaziz Galdamez MD at [facility] - Abdulaziz Galdamez MDH92.01 Otalgia, right earM54.81 Occipital neuralgiaComments:Patient is to return back once a week for an additional 2 injections to the right occipital area.H69.91 Unspecified Eustachian tube disorder, right ear Functional Status Description No Information Available Mental Status Description No Information Available Referrals Description No Information Available
--- NOTE | 2019-05-05 15:32 | ED ---
Nausea/Vomiting/Diarrhea HPI - HPI Summary HPI Summary: Patient presents with severe epigastric pain and severe nausea vomiting and diarrhea starting yesterday. Patient states she has history of Crohn's, but states her Crohn's flareups is usually in her lower abdomen. Patient has no GI , states she is followed only by primary care is Kian. Patient denies fever, cough, sore throat, CP, SOB, change in urine, vaginal symptoms. LMP 5 years ago. States history of Crohn's, IBS, endometriosis, colitis, GERD. Abdominal surgical history includes total hysterectomy, cholecystectomy. - History of Current Complaint Chief Complaint: EDAbdPain Stated Complaint: NVD/ABD PAIN PER EMS Time Seen by Provider: 05/05/19 15:29 Hx Obtained From: Patient Hx Last Menstrual Period: hyster Onset/Duration: Sudden Onset, Lasting Hours Timing: Constant Severity Initially: Moderate Severity Currently: Severe Pain Intensity: 10 Pain Scale Used: 0-10 Numeric Location: Diffuse Character: Cramping Aggravating Factor(s): Food Alleviating Factor(s): Nothing Nausea/Vomiting Presence: Nauseated, Vomiting Vomiting Characteristics: Nonbilious Diarrhea Characteristics: Watery - Allergies/Home Medications Allergies/Adverse Reactions: Allergies Allergy/AdvReac Type Severity Reaction Status Date / Time No Known Allergies Allergy Verified 04/22/19 16:29 PMH/Surg Hx/FS Hx/Imm Hx Endocrine/Hematology History: Denies: Hx Anticoagulant Therapy, Hx Blood Disorders, Hx Diabetes, Hx Systemic Lupus Erythematosus, Hx Thyroid Disease Cardiovascular History: Reports: Hx Hypercholesterolemia Denies: Hx Congestive Heart Failure, Hx Hypertension, Hx Pacemaker/ICD, Other Cardiovascular Problems/Disorders Respiratory History: Reports: Hx Asthma, Hx Chronic Obstructive Pulmonary Disease (COPD) Denies: Hx Chronic Bronchitis, Other Respiratory Problems/Disorders GI History: Reports: Hx Gall Bladder Disease, Hx Irritable Bowel, Other GI Disorders - PANCREATITIS Denies: Hx Ulcer History: Denies: Hx Dialysis, Hx Renal Disease, Other Problems/Disorders Musculoskeletal History: Denies: Hx Scoliosis, Other Musculoskeletal History Sensory History: Denies: Hx Contacts or Glasses, Hx Deafness, Hx Hearing Aid Opthamlomology History: Denies: Hx Contacts or Glasses Neurological History: Denies: Hx Headaches, Other Neuro Impairments/Disorders Psychiatric History: Reports: Hx Anxiety, Hx Attention Deficit Hyperactivity Disorder, Hx Depression, Hx Inpatient Treatment, Hx Community Mental Health Tx, Hx Bipolar Disorder, Hx Substance Abuse - etoh abuse hx Denies: Hx Eating Disorder, Hx Panic Disorder, Hx Post Traumatic Stress Disorder, Hx Schizophrenia, Hx Suicide Attempt - some instances of self harm, Hx of Violent Episodes Against Others, Other Psychiatric Issues/Disorders - Cancer History Hx Chemotherapy: No Hx Radiation Therapy: No - Surgical History Surgery Procedure, Year, and Place: MULTIPLE LAPRASCOPIC PROCEDURES,. COMPLETE HYSTERECTOMY, 01/2013, [facility]. NAOMY 06/15/13, [facility] [place]. Right knee scopy Hx Anesthesia Reactions: No - Immunization History Date of Tetanus Vaccine: Unknown Infectious Disease History: No Infectious Disease History: Denies: Hx Clostridium Difficile, Hx Hepatitis, Hx Human Immunodeficiency Virus (HIV), Hx of Known/Suspected MRSA, Hx Shingles, Hx Tuberculosis, Hx Known/ Suspected VRE, Hx Known/Suspected VRSA, History Other Infectious Disease, Traveled Outside the in Last 30 Days - Family History Known Family History: Positive: Cardiac Disease, Hypertension, Diabetes, Other - father: EtOH abuse, Non-Contributory - Social History Alcohol Use: Occasionally Alcohol Amount: 2 glasses of wine tonight 11/20/2016 Hx Substance Use: Yes Substance Use Type: Reports: None Substance Use Comment - Amount & Last Used: 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 Hx Tobacco Use: Yes Smoking Status (MU): Light Every Day Tobacco Smoker Type: Cigarettes Amount Used/How Often: 1 pack per three days Length of Time of Smoking/Using Tobacco: 10YRS Have You Smoked in the Last Year: Yes Review of Systems Constitutional: Negative Eyes: Negative ENT: Negative Cardiovascular: Negative Respiratory: Negative Positive: Abdominal Pain, Vomiting, Diarrhea, Nausea Genitourinary: Negative Musculoskeletal: Negative Skin: Negative Neurological: Negative Psychological: Normal All Other Systems Reviewed And Are Negative: Yes Physical Exam - Summary Physical Exam Summary: Very tender to palpation in epigastric area. Negative Haley sign. Abdominal exam of the lower quadrants normal. Patient very dramatic about her pain, retching persistently. Triage Information Reviewed: Yes Vital Signs On Initial Exam: Initial Vitals Temp Pulse Resp BP Pulse Ox 97.1 F 78 18 144/65 100 05/05/19 13:09 05/05/19 13:09 05/05/19 13:09 05/05/19 13:09 05/05/19 13:09 Vital Signs Reviewed: Yes Appearance: Positive: Well-Appearing Skin: Positive: Warm Head/Face: Positive: Normal Head/Face Inspection Eyes: Positive: Normal Neck: Positive: Supple Respiratory/Lung Sounds: Positive: Clear to Auscultation Cardiovascular: Positive: Normal Abdomen Description: Positive: Other: Musculoskeletal: Positive: Normal Neurological: Positive: Normal Psychiatric: Positive: Normal AVPU Assessment: Alert - Eugenie Coma Scale Best Eye Response: 4 - Spontaneous Best Motor Response: 6 - Obeys Commands Best Verbal Response: 5 - Oriented Coma Scale Total: 15 Procedures - Sedation Patient Received Moderate/Deep Sedation with Procedure: No Diagnostics - Vital Signs Vital Signs Temp Pulse Resp BP Pulse Ox 05/05/19 15:08 97.7 F 71 19 170/102 100 05/05/19 13:09 97.1 F 78 18 144/65 100 - Laboratory Result Diagrams: 05/05/19 15:57 05/05/19 15:57 Lab Statement: Any lab studies that have been ordered have been reviewed, and results considered in the medical decision making process. Naus/Vom/Diarrhea Course/Dx - Course Course Of Treatment: Patient presents with severe epigastric pain and severe nausea vomiting and diarrhea starting yesterday. Patient states she has history of Crohn's, but states her Crohn's flareups is usually in her lower abdomen. Patient has no GI, states she is followed only by primary care is Kian. Patient denies fever, cough, sore throat, CP, SOB, change in urine, vaginal symptoms. LMP 5 years ago. States history of Crohn's, IBS, endometriosis, colitis, GERD. Abdominal surgical history includes total hysterectomy, cholecystectomy. Vital signs within normal limits. CMP within normal limits. ESR within normal limits. Anion gap 15. CO2 19. Labs otherwise within normal limits. CT abdomen and pelvis positive for pancolitis. Patient required multiple injections of Dilaudid and morphine for pain control as well as multiple antiemetics for nausea control. Discussed patient with Dr. Eugenio GALLEGOS, who stated that as inflammatory markers were negative that this was not a Crohn's flareup. Believed pancolitis on CT to be a false positive. Recommended discharging the patient symptoms were controlled with follow-up in clinic for admitting patient for observation and evaluation in the morning. Patient declined to be admitted, stated she would follow up with GI in the next day. - Differential Dx/Diagnosis Provider Diagnosis: Gastritis Condition At Discharge: Stable Discharge ED - Sign-Out/Discharge Documenting (check all that apply): Patient Departure - Discharge Plan Condition: Stable Disposition: HOME Patient Education Materials: Gastritis (ED) Referrals: Lesley Langston MD [Primary Care Provider] - Erasmo Becker MD [Medical Doctor] - Additional Instructions: Take prescribed Zofran for nausea or vomiting. Take hydrocodone for epigastric pain. Continue taking omeprazole as prescribed. Follow-up with GI Dr. Becker for further evaluation of Crohn's disease. Return to the ED for any new or worsening symptoms - Billing Disposition and Condition Condition: STABLE Disposition: Home
[2019-05-05] MEDS ORDERED: Morphine 4 MG/ML VIAL (1 ml) 4 MG/ML VIAL IV ONE (15:37)
[2019-05-05] MEDS ORDERED: NS 0.9% 1000 ML** 1,000 ML IV ONE ×2 (15:37→16:46)
[2019-05-05] MEDS ORDERED: Metoclopramide IV* 5 MG/ML 2 ML VIAL IV ONE (15:39)
[2019-05-05] MEDS ORDERED: HYDROmorphone INJ* 0.5 MG/0.5 ML SYRINGE IV ONE ×2 (16:06→18:33)
[2019-05-05 16:17] LABS: ABS Lymphocytes 0.9 10^3/ul (1.0-4.8); ABS Monocytes 0.5 10^3/ul (0-0.8); ABS Neutrophils 7.7 10^3/ul (1.5-7.7); Eosinophil % 0.2 %; Hematocrit 45 % (35-47); Hemoglobin 15.5 g/dL (12.0-16.0); Mean Corpuscular HGB Conc 35 g/dL (31-36); Mean Corpuscular Hemoglobin 38 pg (27-31); Mean Corpuscular Volume 109 fL (80-97); Mean Platelet Volume 9.6 fL (7.4-10.4); Platelet Count 159 10^3/uL (150-450); Red Blood Count 4.11 10^6 /uL (3.70-4.87); Red Cell Distribution Width 15 % (10-15); White Blood Count 9.1 10^3/uL (3.5-10.8)
[2019-05-05 16:35] LABS: ALT 40 U/L (7-52); AST 44 U/L (13-39); Albumin 4.5 g/dL (3.2-5.2); Albumin/Globulin Ratio 1.5 (1-3); Alkaline Phosphatase 73 U/L (34-104); Anion Gap 15 mmol/L (2-11); BUN/Creatinine Ratio 8.6 (8-20); Blood Urea Nitrogen 7 mg/dL (6-24); C Reactive Protein < 1.00 mg/L (<8.01); CO2 Carbon Dioxide 19 mmol/L (22-32); Chloride 107 mmol/L (101-111); EGFR African American 97.4 (>60); EGFR Non-African American 80.5 (>60); Glucose 105 mg/dL (70-100); Magnesium 1.6 mg/dL (1.9-2.7); Potassium 3.4 mmol/L (3.5-5.0); Sodium 141 mmol/L (135-145); Total Protein 7.5 g/dL (6.4-8.9)
[2019-05-05 16:40] LABS: HCG Pregnancy 2.13 mIU/mL
[2019-05-05] MEDS ORDERED: Al Hydrox/Mg Hydrox/Simet LIQ* 30 ML UDC PO ONE (16:47)
[2019-05-05] MEDS ORDERED: Lidocaine 2% VISCOUS* 15 ML UDC PO ONE (16:47)
[2019-05-05] MEDS ORDERED: Magnesium Sulfate 1 GM IV* 1 GM/100 ML BAG IV ONE (16:55)
[2019-05-05] MEDS ORDERED: Iohexol 300* (CONTRAST) 10 ML SDV IV ONE (17:31)
[2019-05-05 17:52] LABS: Urine Appearance Cloudy; Urine Bilirubin Negative (Negative); Urine Blood 1+ (Negative); Urine Color Amber; Urine Glucose Negative (Negative); Urine Ketones 1+ (Negative); Urine Nitrite Negative (Negative); Urine Protein 1+(30 mg/dL) (Negative); Urine Specific Gravity 1.019 (1.010-1.030); Urine Urobilinogen Negative (Negative)
[2019-05-05 17:55] LABS: Urine Bacteria Absent (Absent); Urine Red Blood Cell Trace(0-2/hpf) (Absent); Urine Squamous Epithelial Cell Present (Absent); Urine White Blood Cell Absent (Absent)
[2019-05-05 21:16] VITALS: BP 142/93
== END 2019-05-05 21:17 | disposition home or self-care (01) ==
LOC: ED 13:06
DX: K29.70 Gastritis, unspecified, without bleeding (principal); K50.90 Crohn's disease, unspecified, without complications; E78.00 Pure hypercholesterolemia, unspecified; J44.9 Chronic obstructive pulmonary disease, unspecified; F41.9 Anxiety disorder, unspecified; F90.9 Attention-deficit hyperactivity disorder, unspecified type; F31.9 Bipolar disorder, unspecified; F17.210 Nicotine dependence, cigarettes, uncomplicated; Z90.710 Acquired absence of both cervix and uterus; Z90.49 Acquired absence of other specified parts of digestive tract
CPT/HCPCS: 36415; 74177; 80053; 81003; 81015; 83690; 83735; 84702; 85025; 85652; 86140; 96361; 96365; 96375; 96376; 99283; A9270-GY; J1170; J2270; J2765; J3475; Q9967

== ENCOUNTER 2019-05-06 23:20 | Emergency (ER) | payer MEDICAID, OTHER ==
[2019-05-06] MEDS ORDERED: Ondansetron INJ* 2 MG/ML VIAL IV ONE (23:47)
[2019-05-07 00:12] LABS: ABS Eosinophils 0.1 10^3/ul (0-0.6); ABS Lymphocytes 1.4 10^3/ul (1.0-4.8); ABS Monocytes 0.8 10^3/ul (0-0.8); Eosinophil % 0.7 %; Hematocrit 37 % (35-47); Hemoglobin 12.6 g/dL (12.0-16.0); Lymphocyte % 16.8 %; Mean Corpuscular HGB Conc 34 g/dL (31-36); Mean Corpuscular Hemoglobin 37 pg (27-31); Mean Corpuscular Volume 108 fL (80-97); Mean Platelet Volume 8.9 fL (7.4-10.4); Platelet Count 134 10^3/uL (150-450); Red Blood Count 3.41 10^6 /uL (3.70-4.87); Red Cell Distribution Width 14 % (10-15); White Blood Count 8.2 10^3/uL (3.5-10.8)
[2019-05-07] MEDS ORDERED: Al Hydrox/Mg Hydrox/Simet LIQ* 30 ML UDC PO ONE (00:12)
[2019-05-07] MEDS ORDERED: Orphenadrine Citrate IV* 30 MG/ML 2 ML VIAL IV ONE (00:16)
[2019-05-07 00:27] LABS: ALT 31 U/L (7-52); AST 33 U/L (13-39); Albumin 3.8 g/dL (3.2-5.2); Albumin/Globulin Ratio 1.6 (1-3); Alkaline Phosphatase 57 U/L (34-104); Anion Gap 7 mmol/L (2-11); BUN/Creatinine Ratio 8.5 (8-20); Blood Urea Nitrogen 6 mg/dL (6-24); C Reactive Protein < 1.00 mg/L (<8.01); CO2 Carbon Dioxide 24 mmol/L (22-32); Calcium 8.8 mg/dL (8.6-10.3); Chloride 110 mmol/L (101-111); EGFR African American 113.4 (>60); EGFR Non-African American 93.7 (>60); Globulin 2.4 g/dL (2-4); Glucose 90 mg/dL (70-100); Potassium 3.7 mmol/L (3.5-5.0); Sodium 141 mmol/L (135-145); Total Protein 6.2 g/dL (6.4-8.9)
[2019-05-07 00:34] LABS: HCG Pregnancy 1.78 mIU/mL
--- NOTE | 2019-05-07 00:44 | ED ---
Abdominal Pain/Female - HPI Summary HPI Summary: 34 year old F presenting to [facility] accompanied by EMS complains of abd pain and n /v/d since 1300 05/06/2019. Patient reports being seen at [facility] two days ago, and had a full evaluation that was negative for an acute process. She states that the symptoms have worsened. Fluctuations between feeling hot and cold noted. Patient denies trouble urinating and back pain. The patient rates the pain 10/10 in severity. Symptoms aggravated by nothing. Symptoms alleviated by nothing. - History of Current Complaint Chief Complaint: EDAbdPain Stated Complaint: ABD PAIN PER EMS Time Seen by Provider: 05/06/19 23:39 Hx Obtained From: Patient Hx Last Menstrual Period: hyster Onset/Duration: Lasting Days, Still Present Timing: Constant Severity Currently: Severe Pain Intensity: 10 Pain Scale Used: 0-10 Numeric Aggravating Factor(s): Nothing Alleviating Factor(s): Nothing Associated Signs and Symptoms: Positive: Negative - negative - difficulty urinating and back pain, Nausea, Vomiting, Diarrhea Allergies/Adverse Reactions: Allergies Allergy/AdvReac Type Severity Reaction Status Date / Time No Known Allergies Allergy Verified 04/22/19 16:29 PMH/Surg Hx/FS Hx/Imm Hx Endocrine/Hematology History: Denies: Hx Anticoagulant Therapy, Hx Blood Disorders, Hx Diabetes, Hx Systemic Lupus Erythematosus, Hx Thyroid Disease Cardiovascular History: Reports: Hx Hypercholesterolemia Denies: Hx Congestive Heart Failure, Hx Hypertension, Hx Pacemaker/ICD, Other Cardiovascular Problems/Disorders Respiratory History: Reports: Hx Asthma, Hx Chronic Obstructive Pulmonary Disease (COPD) Denies: Hx Chronic Bronchitis, Other Respiratory Problems/Disorders GI History: Reports: Hx Gall Bladder Disease, Hx Irritable Bowel, Other GI Disorders - PANCREATITIS Denies: Hx Ulcer History: Denies: Hx Dialysis, Hx Renal Disease, Other Problems/Disorders Musculoskeletal History: Denies: Hx Scoliosis, Other Musculoskeletal History Sensory History: Denies: Hx Contacts or Glasses, Hx Deafness, Hx Hearing Aid Opthamlomology History: Denies: Hx Contacts or Glasses Neurological History: Denies: Hx Headaches, Other Neuro Impairments/Disorders Psychiatric History: Reports: Hx Anxiety, Hx Attention Deficit Hyperactivity Disorder, Hx Depression, Hx Inpatient Treatment, Hx Community Mental Health Tx, Hx Bipolar Disorder, Hx Substance Abuse - etoh abuse hx Denies: Hx Eating Disorder, Hx Panic Disorder, Hx Post Traumatic Stress Disorder, Hx Schizophrenia, Hx Suicide Attempt - some instances of self harm, Hx of Violent Episodes Against Others, Other Psychiatric Issues/Disorders - Cancer History Hx Chemotherapy: No Hx Radiation Therapy: No - Surgical History Surgery Procedure, Year, and Place: MULTIPLE LAPRASCOPIC PROCEDURES,. COMPLETE HYSTERECTOMY, 01/2013, [facility] [place]. NAOMY 06/15/13, [facility] [place]. Right knee scopy Hx Anesthesia Reactions: No - Immunization History Date of Tetanus Vaccine: Unknown Infectious Disease History: No Infectious Disease History: Denies: Hx Clostridium Difficile, Hx Hepatitis, Hx Human Immunodeficiency Virus (HIV), Hx of Known/Suspected MRSA, Hx Shingles, Hx Tuberculosis, Hx Known/ Suspected VRE, Hx Known/Suspected VRSA, History Other Infectious Disease, Traveled Outside the [place] in Last 30 Days - Family History Known Family History: Positive: Cardiac Disease, Hypertension, Diabetes, Other - father: EtOH abuse - Social History Alcohol Use: Occasionally Alcohol Amount: 2 glasses of wine tonight 11/20/2016 Hx Substance Use: Yes Substance Use Type: Reports: None Substance Use Comment - Amount & Last Used: 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 Hx Tobacco Use: Yes Smoking Status (MU): Light Every Day Tobacco Smoker Type: Cigarettes Amount Used/How Often: 1 pack per three days Length of Time of Smoking/Using Tobacco: 10YRS Have You Smoked in the Last Year: Yes Review of Systems Positive: Abdominal Pain, Vomiting, Diarrhea, Nausea Negative: dysuria, hematuria Musculoskeletal: Negative - negative - back pain All Other Systems Reviewed And Are Negative: Yes Physical Exam - Summary Physical Exam Summary: Constitutional: Well-developed, Well-nourished, Alert. (-) Distressed Skin: Warm, Dry HENT: Normocephalic; Atraumatic Eyes: Conjunctiva normal Neck: Musculoskeletal ROM normal neck. (-) JVD, (-) Stridor, (-) Tracheal deviation Cardio: Rhythm regular, rate normal, Heart sounds normal; Intact distal pulses; The pedal pulses are 2+ and symmetric. Radial pulses are 2+ and symmetric. (-) Murmur Pulmonary/Chest wall: inferior bilateral chest wall tenderness Abd:diffuse abd pain Musculoskeletal: (-) Edema Lymph: (-) Cervical adenopathy Neuro: Alert, Oriented x3 Psych: Mood and affect Normal Triage Information Reviewed: Yes Vital Signs On Initial Exam: Initial Vitals Temp Pulse Resp BP Pulse Ox 97.5 F 76 19 128/83 96 05/06/19 23:37 05/06/19 23:37 05/06/19 23:37 05/06/19 23:37 05/06/19 23:37 Vital Signs Reviewed: Yes Procedures - Sedation Patient Received Moderate/Deep Sedation with Procedure: No Diagnostics - Vital Signs Vital Signs Temp Pulse Resp BP Pulse Ox 05/06/19 23:37 97.5 F 76 19 128/83 96 - Laboratory Lab Results: Lab Results 05/07/19 05/07/19 05/07/19 Range/Units 00:00 00:00 00:00 WBC 8.2 (3.5-10.8) 10^3/uL RBC 3.41 L (3.70-4.87) 10^6 /uL Hgb 12.6 (12.0-16.0) g/dL Hct 37 (35-47) % MCV 108 H (80-97) fL MCH 37 H (27-31) pg MCHC 34 (31-36) g/dL RDW 14 (10-15) % Plt Count 134 L (150-450) 10^3/uL MPV 8.9 (7.4-10.4) fL Neut % (Auto) 72.6 % Lymph % (Auto) 16.8 % [place] % (Auto) 9.5 % Eos % (Auto) 0.7 % Baso % (Auto) 0.4 % Absolute Neuts (auto) 6.0 (1.5-7.7) 10^3/ul Absolute Lymphs (auto) 1.4 (1.0-4.8) 10^3/ul Absolute Monos (auto) 0.8 (0-0.8) 10^3/ul Absolute Eos (auto) 0.1 (0-0.6) 10^3/ul Absolute Basos (auto) 0.0 (0-0.2) 10^3/ul Absolute Nucleated RBC 0.0 10^3/ul Nucleated RBC % 0.0 Sodium 141 (135-145) mmol/L Potassium 3.7 (3.5-5.0) mmol/L Chloride 110 (101-111) mmol/L Carbon Dioxide 24 (22-32) mmol/L Anion Gap 7 (2-11) mmol/L BUN 6 (6-24) mg/dL Creatinine 0.71 (0.51-0.95) mg/dL Est GFR ( Amer) 113.4 (>60) Est GFR (Non-Af Amer) 93.7 (>60) BUN/Creatinine Ratio 8.5 (8-20) Glucose 90 (70-100) mg/dL Lactic Acid 1.2 (0.5-2.0) mmol/L Calcium 8.8 (8.6-10.3) mg/dL Total Bilirubin 0.50 (0.2-1.0) mg/dL AST 33 (13-39) U/L ALT 31 (7-52) U/L Alkaline Phosphatase 57 (34-104) U/L C-Reactive Protein < 1.00 (<8.01) mg/L Total Protein 6.2 L (6.4-8.9) g/dL Albumin 3.8 (3.2-5.2) g/dL Globulin 2.4 (2-4) g/dL Albumin/Globulin Ratio 1.6 (1-3) Lipase 39 (11.0-82.0) U/L Beta HCG, Quant 1.78 mIU/mL Result Diagrams: 05/07/19 00:00 05/07/19 00:00 Lab Statement: Any lab studies that have been ordered have been reviewed, and results considered in the medical decision making process. Re-Evaluation - Re-Evaluation 0346 Re-Evaluation Time: 03:46 Change: Improved Comment: Pt states she is feeling better. Abdominal Pain Fem Course/Dx - Course Course Of Treatment: 34 year old F presenting to [facility] complains of abd pain and n/v/d since 1300 05/06/2019. Patient reports being seen at [facility] yesterday for same complaints and that the symptoms have worsened. Physical exam findings : diffuse abd pain, inferior bilateral chest wall tenderness. Bloodwork results with no significant abnormalities except for L RBC, H MCV, H MCH, L Plt Count, L Total Protein. In the ED course, the patient was given Maalox Plus 30 ml, Zofran INJ 8 mg IV, Norflex IV 60 mg IV. Re-eval at 0346: pt is feeling better. Patient will be discharged home with a follow with PCP, . Patient was instructed to return to Emergency Department for new or worsening symptoms. Patient understands and is agreeable to this plan. - Diagnoses Provider Diagnoses: Chronic abdominal pain, Chronic pain Discharge ED - Sign-Out/Discharge Documenting (check all that apply): Patient Departure - discharge - Discharge Plan Condition: Stable Disposition: HOME Patient Education Materials: Abdominal Pain (ED) Print Language: ISRAELI Referrals: Lesley Langston MD [Primary Care Provider] - - Billing Disposition and Condition Condition: STABLE Disposition: Home - Attestation Statements Document Initiated by Scribe: Yes Documenting Scribe: Marshall Alvarez Provider For Whom Hali is Documenting (Include Credential): Elizabeth Granger MD Scribe Attestation: I, Marshall Alvarez, scribed for Elizabeth Farah MD on 05/07/19 at 1943. Scribe Documentation Reviewed: Yes Provider Attestation: The documentation as recorded by the scribeMarshall accurately reflects the service I personally performed and the decisions made by me, Elizabeth Farah MD Status of Scribe Document: Viewed
[2019-05-07] MEDS ORDERED: oxyCODONE/Acetamin 5/325 MG* TAB PO ONE (02:40)
[2019-05-07] MEDS ORDERED: HYDROcodone/ACETAMIN 5-325 MG* 1 TAB PO ONE (04:11)
[2019-05-07 04:43] VITALS: BP 109/54
== END 2019-05-07 04:41 | disposition home or self-care (01) ==
LOC: ED 23:20
DX: G89.29 Other chronic pain (principal); R10.9 Unspecified abdominal pain; E78.00 Pure hypercholesterolemia, unspecified; R11.2 Nausea with vomiting, unspecified; J44.9 Chronic obstructive pulmonary disease, unspecified; F17.210 Nicotine dependence, cigarettes, uncomplicated; Z79.899 Other long term (current) drug therapy
CPT/HCPCS: 36415; 80053; 83605; 83690; 84702; 85025; 86140; 96374; 96375; 99284; A9270-GY; J2360; J2405

== ENCOUNTER 2019-06-15 10:39 | Emergency (ER) | payer OTHER ==
--- OUTSIDE RECORDS SUMMARY | 2019-06-15 10:45 | XMS REPORT | Continuity of Care Document ---
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 Suspension Methylphenidate HCL Kian Underwood, 10mg Lesley Buchanan Tablets Gabapentin Take One Unknown 300mg Capsules Capsule By Mouth Four Times A Day Oxycodone HCL Take 1/2 Tablet Unknown 10mg Tablets By Mouth 3 Times A Day as Needed For Pain Maximum Daily Dose 1 1/2 Tablets Neomycin/Polymyxin/Hydr Instill 4 Drops Unknown ocortisone (Otic) Into Right Ear Four Times A [id number] Suspension Day For 7 Days Estradiol Kian Underwood, 1mg Tablets Lesley Buchanan Omeprazole Kian Underwood, 40mg Capsules DR Lesley Buchanan Methylphenidate HCL Kian Underwood, 20mg Lesley Buchanan Tablets Immunizations Description No Information Available Vital Signs Date Vital Result Comment 05/12/2019 11:27am Weight 138.00 lb Weight 62.597 kg Height 60 inches 5'0" Height in cm's 152.4 cm BMI (Body Mass Index) 26.9 kg/m2 05/02/2019 8:55am Weight 138.00 lb Weight 62.597 kg Height 60 inches 5'0" Height in cm's 152.4 cm BMI (Body Mass Index) 26.9 kg/m2 Results Description No Information Available Procedures Date Code Description Status 05/12/2019 03432 Tympanometry Completed 05/02/2019 82720 Tympanometry Completed 05/02/2019 21073 Injec Of Anest,Cervical Plexus Completed Medical Devices Description No Information Available Encounters Type Date Location Provider Dx Diagnosis Office Visit 05/12/2019 Abdulaziz Ventura H92.01 Otalgia, right ear 11:15a 04-09-2019 H69.91 Unspecified Eustachian tube disorder, right ear Office Visit 05/02/2019 8:30a Abdulaziz Ventura H92.01 Otalgia, right 04-09-2019 ear M54.81 Occipital neuralgia H69.91 Unspecified Eustachian tube disorder, right ear Assessments Date Code Description Provider 05/12/2019 H92.01 Otalgia, right ear Abdulaziz Galdamez MD 05/12/2019 H69.91 Unspecified Eustachian tube disorder, right ear Abdulaziz Galdamez MD 05/02/2019 H92.01 Otalgia, right ear Abdulaziz Galdamez MD 05/02/2019 M54.81 Occipital neuralgia Abdulaziz Galdamez MD 05/02/2019 H69.91 Unspecified Eustachian tube disorder, right ear Abdulaziz Galdamez MD Plan of Treatment Future Appointment(s):06/02/2019 11:15 am - Abdulaziz Galdamez MD at [facility] - Abdulaziz Galdamez MDH92.01 Otalgia, right earNew Medication: Azithromycin 500 mg - 1 by mouth every day for 5 daysComments:I suggest using Flonase 2 puffs both sides once a day, recheck back in 6 weeks. In the meantime start someazithromycin for mild inflammatory middle ear [id number] Unspecified Eustachian tube disorder, right earNew Medication:Fluticasone Propionate Nasal Drumright 50 mcg/Act - 1 spray each nostril 2 times a day. Functional Status Description No Information Available Mental Status Description No Information Available Referrals Description No Information Available
[2019-06-15 10:59] VITALS: BP 121/81
--- NOTE | 2019-06-15 11:33 | UC ---
Respiratory Complaint HPI - HPI Summary HPI Summary: Patient is a 34 year old female, who presents today to the urgent care with cough and congestion for past 1 week. Also reports associated fatigue. Has a history of COPD and asthma but takes albuterol when necessary only. Currently out of albuterol. Cough is productive of yellowish sputum. Denies any sore throat. Denies any sick contacts. She has been out of work since Sunday because of this. Denies any fever, chills, chest pain or shortness of breath . Denies any abdominal pain , nausea or vomiting , diarrhea or constipation. - History of Current Complaint Chief Complaint: UCGeneralIllness Stated Complaint: COUGH Time Seen by Provider: 06/15/19 11:27 Hx Obtained From: Patient Hx Last Menstrual Period: hyster Pain Intensity: 1 - Allergies/Home Medications Allergies/Adverse Reactions: Allergies Allergy/AdvReac Type Severity Reaction Status Date / Time No Known Allergies Allergy Verified 06/15/19 10:53 Home Medications: Home Medications Omeprazole CAP (NF) [Prilosec CAP* 20 MG] 40 mg PO DAILY 09/03/16 [History Confirmed 06/15/19] Methylphenidate TAB* [Ritalin TAB*] 10 mg PO QAM 03/04/19 [History Confirmed 11/26] oxyCODONE TAB* [Roxycodone TAB 5 mg*] 5 mg PO Q8H PRN 03/04/19 [History Confirmed 06/15/19] Gabapentin 300 mg PO TID 03/25/19 [History Confirmed 06/15/19] Ibuprofen TAB* [Motrin TAB* 600 MG] 600 mg PO Q8H PRN #30 tab 03/25/19 [Rx Confirmed 06/15/19] Methylphenidate TAB* [Ritalin TAB*] 20 mg PO DAILY 03/25/19 [History Confirmed 06/15/19] estradioL [Estradiol] 1 tab PO DAILY 03/25/19 [History Confirmed 06/15/19] Albuterol HFA INHALER* [Ventolin HFA Inhaler*] 1 puff INH Q6H PRN 7 Days #1 mdi 06/15/19 [Rx] Azithromyxin JORGE (NF) [Z-Jorge (Zithromax) 250 mg tabs #6] 2 tab PO .TODAY, THEN 1 DAILY #6 tab 06/15/19 [Rx] predniSONE 50 mg TAB [Deltasone 50 mg TAB] 50 mg PO DAILY 5 Days #5 tab [Rx] PMH/Surg Hx/FS Hx/Imm Hx - Additional Past Medical History Additional PMH: Past Medical History : COPD, ASthma, bipolar Past Surgical History: MULTIPLE LAPRASCOPIC PROCEDURES, COMPLETE [place]STERECTOMY, 01/2013, [facility] [place] [facility] [place]. Family History : COPD, fibromyalgia Social History : daily alcohol,daily smoker, no drug use. Previously Healthy: Yes Other History Of: Negative For: Anticoagulant Therapy - Surgical History Surgical History: Yes Surgery Procedure, Year, and Place: MULTIPLE LAPRASCOPIC PROCEDURES,. COMPLETE HYSTERECTOMY, 01/2013, [facility]. [place] [facility] [place] - Family History Known Family History: Positive: Cardiac Disease, Hypertension, Diabetes, Other - father: EtOH abuse - Social History Alcohol Use: Daily Alcohol Amount: 1 drink /night Substance Use Type: None Substance Use Comment - Amount & Last Used: 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 Smoking Status (MU): Light Every Day Tobacco Smoker Type: Cigarettes Amount Used/How Often: 1 pack per three days Length of Time of Smoking/Using Tobacco: 10YRS Have You Smoked in the Last Year: Yes When Did the Patient Quit Smoking/Using Tobacco: stopped 2 weeks ago (June 2014 ) Household Exposure Type: Cigarettes - Immunization History Most Recent Influenza Vaccination: 2016 Most Recent Tetanus Shot: 2014 Most Recent Pneumonia Vaccination: never Review of Systems All Other Systems Reviewed And Are Negative: Yes Constitutional: Positive: Negative Skin: Positive: Negative Eyes: Positive: Negative ENT: Positive: Other - congestion. Negative: Sore Throat Respiratory: Positive: Cough - productive Cardiovascular: Positive: Negative Gastrointestinal: Positive: Negative Genitourinary: Positive: Negative Motor: Positive: Negative Neurovascular: Positive: Negative Musculoskeletal: Positive: Negative Neurological/Mental Status: Positive: Negative Psychological: Positive: Negative Is Patient Immunocompromised?: No Physical Exam - Summary Physical Exam Summary: Physical Exam: Const: Appears well. No signs of apparent distress present. Alert and oriented x 3. Musculo: Walks with a normal gait. Head/Face: Atraumatic, normocephalic on inspection. Eyes: EOMI and PERRLA in both eyes. Conjunctivae clear. No discharge noted ENT: Hearing normal, TM normal appearing bilaterally, non bulging , non erythematous No tenderness to palpation on maxillary and frontal sinus. No pharyngeal erythema or exudates . Uvula is midline. No cervical or submandibular lymphadenopathy noted. Respiratory: Respirations are unlabored. Lungs clear to auscultation bilaterally, no wheezing , rhonchi or rales noted . Poor expiration. CVS: Regular rate and Rhythm, S1S2 normal , no murmurs identified. Extremities: Peripheral circulation is grossly normal. Pulses 2+ Abdomen : Soft non tender , nondistended , Bowel sounds present . No guarding , rebound tenderness or rigidity noted. Skin: No lesions or rash located on the upper extremities or on the lower extremities. Neuro: Cranial nerves II to XII intact, motor and sensory intact. DTR Intact bilaterally. Mood is normal. Affect is normal. Triage Information Reviewed: Yes Vital Signs: Initial Vital Signs Temp 98.3 F 06/15/19 10:54 Pulse 81 06/15/19 10:54 Resp 16 06/15/19 10:54 BP 121/81 06/15/19 10:54 Pulse Ox 99 06/15/19 10:54 Vital Signs Reviewed: Yes Respiratory Course/Dx - Course Course Of Treatment: flu test neg likley copd exacerbation /bronchitis will treat with antibiotic/ steroid course. Albuterol prn - Differential Dx/Diagnosis Provider Diagnosis: Bronchitis, COPD (chronic obstructive pulmonary disease) Discharge ED - Sign-Out/Discharge Documenting (check all that apply): Patient Departure All imaging exams completed and their final reports reviewed: No Studies - Discharge Plan Condition: Stable Disposition: HOME Prescriptions: Albuterol HFA INHALER* [Ventolin HFA Inhaler*] 1 puff INH Q6H PRN 7 Days #1 mdi PRN Reason: Shortness Of Breath Azithromyxin JORGE (NF) [Z-Jorge (Zithromax) 250 mg tabs #6] 2 tab PO .TODAY, THEN 1 DAILY #6 tab predniSONE 50 mg TAB [Deltasone 50 mg TAB] 50 mg PO DAILY 5 Days #5 tab Patient Education Materials: COPD (Chronic Obstructive Pulmonary Disease) (ED) Forms: *Work Release Referrals: Lesley Langston MD [Primary Care Provider] - 1 Week Additional Instructions: Please start taking the medication as prescribed to the pharmacy . Follow up with your primary care doctor in 2-3 days Return to Urgent care / ER if symptoms get worse. - Billing Disposition and Condition Condition: STABLE Disposition: Home
[2019-06-15 12:08] LABS: Influenza A Molecular Negative (Negative); Influenza B Molecular Negative (Negative)
== END 2019-06-15 13:00 | disposition home or self-care (01) ==
LOC: UCEAST 10:39
DX: J44.9 Chronic obstructive pulmonary disease, unspecified (principal); F31.9 Bipolar disorder, unspecified; F17.210 Nicotine dependence, cigarettes, uncomplicated; R09.89 Other specified symptoms and signs involving the circulatory and respiratory systems; Z79.52 Long term (current) use of systemic steroids
CPT/HCPCS: 99212; G0463

== ENCOUNTER 2019-06-22 09:44 | Emergency (ER) | payer OTHER ==
[2019-06-22 09:56] VITALS: BP 137/85
[2019-06-22] MEDS ORDERED: methylPREDNISolone 125 MG* 2 ML VIAL IM ONE (10:14)
--- NOTE | 2019-06-22 10:29 | ED ---
Respiratory - HPI Summary HPI Summary: 34 yo WF presents with residual bronchitis symptoms, pleuritic chest pain with cough with minimal sputum production. 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 Her boss told her to come to urgent care to have it checked out and make sure she is cleared to work. Denies SOB, fever, chills, nausea, vomiting, diarrhea. Patient states she still a smoker and has been smoking throughout the illness. - History of Current Complaint Chief Complaint: UCGeneralIllness Stated Complaint: RESPIRATION Time Seen by Provider: 06/22/19 09:49 Hx Obtained From: Patient Onset/Duration: Lasting Weeks Initial Severity: Moderate Current Severity: Moderate Pain Intensity: 4 Character: Cough (Nonproductive) Sputum Amount: Scant Aggravating Factor(s): Other - smoker Alleviating Factor(s): Nothing - Allergy/Home Medications Allergies/Adverse Reactions: Allergies Allergy/AdvReac Type Severity Reaction Status Date / Time No Known Allergies Allergy Verified 06/22/19 09:56 Home Medications: Home Medications Omeprazole CAP (NF) [Prilosec CAP* 20 MG] 40 mg PO DAILY 09/03/16 [History Confirmed 06/22/19] Methylphenidate TAB* [Ritalin TAB*] 10 mg PO QAM 03/04/19 [History Confirmed ] oxyCODONE TAB* [Roxycodone TAB 5 mg*] 5 mg PO Q8H PRN 03/04/19 [History Confirmed 06/22/19] Gabapentin 300 mg PO TID 03/25/19 [History Confirmed 06/22/19] Ibuprofen TAB* [Motrin TAB* 600 MG] 600 mg PO Q8H PRN #30 tab 03/25/19 [Rx Confirmed 06/22/19] Methylphenidate TAB* [Ritalin TAB*] 20 mg PO DAILY 03/25/19 [History Confirmed 06/22/19] estradioL [Estradiol] 1 tab PO DAILY 03/25/19 [History Confirmed 06/22/19] Albuterol HFA INHALER* [Ventolin HFA Inhaler*] 1 puff INH Q6H PRN 7 Days #1 mdi 06/15/19 [Rx Confirmed 06/22/19] methylPREDNISolone [Medrol Dosepak 4 MG*] 4 mg PO .SEE JORGE INSTRUCTION 6 Days # 21 tab 06/22/19 [Rx] PMH/Surg Hx/FS Hx/Imm Hx Previously Healthy: Yes Endocrine/Hematology History: Denies: Hx Anticoagulant Therapy, Hx Blood Disorders, Hx Diabetes, Hx Systemic Lupus Erythematosus, Hx Thyroid Disease Cardiovascular History: Reports: Hx Hypercholesterolemia Denies: Hx Congestive Heart Failure, Hx Hypertension, Hx Pacemaker/ICD, Other Cardiovascular Problems/Disorders Respiratory History: Reports: Hx Asthma, Hx Chronic Obstructive Pulmonary Disease (COPD) Denies: Hx Chronic Bronchitis, Other Respiratory Problems/Disorders GI History: Reports: Hx Gall Bladder Disease, Hx Irritable Bowel, Other GI Disorders - PANCREATITIS Denies: Hx Ulcer History: Denies: Hx Dialysis, Hx Renal Disease, Other Problems/Disorders Musculoskeletal History: Denies: Hx Scoliosis, Other Musculoskeletal History Sensory History: Denies: Hx Contacts or Glasses, Hx Deafness, Hx Hearing Aid Opthamlomology History: Denies: Hx Contacts or Glasses Neurological History: Denies: Hx Headaches, Other Neuro Impairments/Disorders Psychiatric History: Reports: Hx Anxiety, Hx Attention Deficit Hyperactivity Disorder, Hx Depression, Hx Inpatient Treatment, Hx Community Mental Health Tx, Hx Bipolar Disorder, Hx Substance Abuse - etoh abuse hx Denies: Hx Eating Disorder, Hx Panic Disorder, Hx Post Traumatic Stress Disorder, Hx Schizophrenia, Hx Suicide Attempt - some instances of self harm, Hx of Violent Episodes Against Others, Other Psychiatric Issues/Disorders - Cancer History Hx Chemotherapy: No Hx Radiation Therapy: No - Surgical History Surgery Procedure, Year, and Place: MULTIPLE LAPRASCOPIC PROCEDURES,. COMPLETE HYSTERECTOMY, 01/2013, [facility] [place]. NAOMY 06/15/13, [facility] [place]. Right knee scopy 2015 Hx Anesthesia Reactions: No - Immunization History Date of Tetanus Vaccine: Unknown Infectious Disease History: No Infectious Disease History: Denies: Hx Clostridium Difficile, Hx Hepatitis, Hx Human Immunodeficiency Virus (HIV), Hx of Known/Suspected MRSA, Hx Shingles, Hx Tuberculosis, Hx Known/ Suspected VRE, Hx Known/Suspected VRSA, History Other Infectious Disease, Traveled Outside the [place] in Last 30 Days - Family History Known Family History: Positive: Cardiac Disease, Hypertension, Diabetes, Other - father: EtOH abuse - Social History Alcohol Use: Daily Alcohol Amount: 1 drink /night Hx Substance Use: Yes Substance Use Type: Reports: None Substance Use Comment - Amount & Last Used: 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 Hx Tobacco Use: Yes Smoking Status (MU): Light Every Day Tobacco Smoker Type: Cigarettes Amount Used/How Often: 1 pack per three days Length of Time of Smoking/Using Tobacco: 10YRS Have You Smoked in the Last Year: Yes Review of Systems Constitutional: Negative Eyes: Negative ENT: Negative Cardiovascular: Negative Positive: Cough. Negative: Shortness Of Breath Gastrointestinal: Negative Genitourinary: Negative Musculoskeletal: Negative Skin: Negative Neurological/Mental Status: Negative Positive: Headache Psychological: Normal All Other Systems Reviewed And Are Negative: Yes Physical Exam - Summary Physical Exam Summary: Vital Signs Reviewed: Yes Gen: NAD Eye Exam: Normal Eyes: Positive: Conjunctiva Clear ENT: Normal ENT inspection Neck: Supple Respiratory: coarse breath sounds bilaterally, negative for Crackles, Rhonchi, Stridor, Wheezing Cardiovascular Exam: Normal, RRR, S1, S2 Abdomen: NT/ND Musculoskeletal Exam: Normal Neurological Exam: Normal Psychological Exam: Normal Skin Exam: Normal Triage Information Reviewed: Yes Vital Signs On Initial Exam: Initial Vitals Temp Pulse Resp BP Pulse Ox 36.5 C 85 16 137/85 99 06/22/19 09:52 06/22/19 09:52 06/22/19 09:52 06/22/19 09:52 06/22/19 09:52 Diagnostics - Vital Signs Vital Signs Temp Pulse Resp BP Pulse Ox 06/22/19 09:52 36.5 C 85 16 137/85 99 - Laboratory Lab Statement: Any lab studies that have been ordered have been reviewed, and results considered in the medical decision making process. Disposition - Course Assessment/Plan: chest x-ray reveals no acute pulmonary disease. Patient still symptomatic with pleuritic chest pain, advised to quit smoking at least during acute period of illness, prescribed Medrol Dosepak for COPD exacerbation. - Diagnoses Provider Diagnoses: COPD exacerbation Discharge ED - Sign-Out/Discharge Documenting (check all that apply): Patient Departure All imaging exams completed and their final reports reviewed: Yes - Discharge Plan Condition: Stable Disposition: HOME Prescriptions: methylPREDNISolone [Medrol Dosepak 4 MG*] 4 mg PO .SEE JORGE INSTRUCTION 6 Days # 21 tab Patient Education Materials: COPD (Chronic Obstructive Pulmonary Disease) (ED) Forms: *Work Release Referrals: Lesley Langston MD [Primary Care Provider] - - Billing Disposition and Condition Condition: STABLE Disposition: Home
== END 2019-06-22 11:51 | disposition home or self-care (01) ==
LOC: UCEAST 09:44
DX: J44.1 Chronic obstructive pulmonary disease with (acute) exacerbation (principal); F90.9 Attention-deficit hyperactivity disorder, unspecified type; F17.210 Nicotine dependence, cigarettes, uncomplicated; Z79.899 Other long term (current) drug therapy
CPT/HCPCS: 71046; 96372; 99212; G0463; J2930

== ENCOUNTER 2019-07-06 10:35 | Emergency (ER) | payer OTHER ==
[2019-07-06 11:11] VITALS: BP 139/76
[2019-07-06 11:15] LABS: Influenza A Molecular Negative (Negative); Influenza B Molecular Negative (Negative)
--- NOTE | 2019-07-06 11:32 | UC ---
Throat Pain/Nasal Julio César HPI - HPI Summary HPI Summary: The patient is a 34-year-old female with a history of COPD that presents here with mild sore throat and laryngitis times one day. She uses a steroid inhaler. She denies any fever or chills. She has a chronic cough due to her COPD. She states that in terms of her breathing she feels like she is at her baseline. She declines Kovic 19 testing. Her exam was performed in PPE. - History of Current Complaint Chief Complaint: UCGeneralIllness Stated Complaint: SORE THROAT COUGH Time Seen by Provider: 07/06/19 10:47 Hx Obtained From: Patient Hx Last Menstrual Period: hyster Onset/Duration: Gradual Onset, Lasting Hours Severity: Moderate Pain Intensity: 7 Pain Scale Used: 0-10 Numeric - Year Cough: Nonproductive Associated Signs & Symptoms: Positive: Wheezing - chronic - Epiglottits Risk Factors Epiglottis Risk Factors: Negative - Allergies/Home Medications Allergies/Adverse Reactions: Allergies Allergy/AdvReac Type Severity Reaction Status Date / Time No Known Allergies Allergy Verified 07/06/19 10:45 Home Medications: Home Medications Omeprazole CAP (NF) [Prilosec CAP* 20 MG] 40 mg PO DAILY 09/03/16 [History Confirmed 07/06/19] Methylphenidate TAB* [Ritalin TAB*] 10 mg PO QAM 03/04/19 [History Confirmed ] oxyCODONE TAB* [Roxycodone TAB 5 mg*] 5 mg PO Q8H PRN 03/04/19 [History Confirmed 07/06/19] Gabapentin 300 mg PO TID 03/25/19 [History Confirmed 07/06/19] Ibuprofen TAB* [Motrin TAB* 600 MG] 600 mg PO Q8H PRN #30 tab 03/25/19 [Rx Confirmed 07/06/19] Methylphenidate TAB* [Ritalin TAB*] 20 mg PO DAILY 03/25/19 [History Confirmed 07/06/19] estradioL [Estradiol] 1 tab PO DAILY 03/25/19 [History Confirmed 07/06/19] Albuterol HFA INHALER* [Ventolin HFA Inhaler*] 1 puff INH Q6H PRN 7 Days #1 mdi 06/15/19 [Rx Confirmed 07/06/19] Nystatin SUSPENSION* 500,000 units .SEE ORDER QID #[id number] [facility] [place] 07/06/19 [Rx] PMH/Surg Hx/FS Hx/Imm Hx Previously Healthy: Yes Respiratory History: COPD Other History Of: Negative For: Anticoagulant Therapy - Surgical History Surgical History: Yes Surgery Procedure, Year, and Place: MULTIPLE LAPRASCOPIC PROCEDURES,. COMPLETE HYSTERECTOMY, 01/2013, [facility]. NAOMY 06/15/13, [facility] [place]. Right knee scopy 2015 - Family History Known Family History: Positive: Cardiac Disease, Hypertension, Diabetes, Other - father: EtOH abuse - Social History Alcohol Use: Daily Alcohol Amount: 1 drink /night Substance Use Type: None Substance Use Comment - Amount & Last Used: 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 Smoking Status (MU): Light Every Day Tobacco Smoker Type: Cigarettes Amount Used/How Often: 1 pack per three days Length of Time of Smoking/Using Tobacco: 10YRS Have You Smoked in the Last Year: Yes When Did the Patient Quit Smoking/Using Tobacco: stopped 2 weeks ago (June 2014 ) Household Exposure Type: Cigarettes - Immunization History Most Recent Influenza Vaccination: 2016 Most Recent Tetanus Shot: 2014 Most Recent Pneumonia Vaccination: never Review of Systems All Other Systems Reviewed And Are Negative: Yes Constitutional: Positive: Negative Skin: Positive: Negative Eyes: Positive: Negative ENT: Positive: Sore Throat Respiratory: Positive: Cough - chronic Cardiovascular: Positive: Negative Gastrointestinal: Positive: Negative Genitourinary: Positive: Negative Motor: Positive: Negative Neurovascular: Positive: Negative Musculoskeletal: Positive: Negative Neurological/Mental Status: Positive: Negative Psychological: Positive: Negative Physical Exam Triage Information Reviewed: Yes Appearance: Well-Appearing, No Pain Distress, Well-Nourished Vital Signs: Initial Vital Signs Temp 97.3 F 07/06/19 10:47 Pulse 63 07/06/19 10:47 Resp 18 07/06/19 10:47 BP 139/76 07/06/19 10:47 Pulse Ox 97 07/06/19 10:47 Vital Signs Reviewed: Yes Eyes: Positive: Conjunctiva Clear ENT: Positive: Hearing grossly normal, Pharyngeal erythema, TMs normal, Hoarse voice - laryngitis, Uvula midline. Negative: Nasal congestion, Nasal drainage, Tonsillar swelling, Tonsillar exudate, Trismus, Muffled voice, Sinus tenderness Dental Exam: Normal Neck: Positive: Supple, Nontender, No Lymphadenopathy Respiratory: Positive: No respiratory distress, No accessory muscle use, Wheezing - scatterred and mild Cardiovascular: Positive: RRR, No Murmur Abdomen Description: Positive: Nontender, No Organomegaly Musculoskeletal: Positive: ROM Intact, No Edema Neurological: Positive: Alert Psychological Exam: Normal Skin Exam: Normal Throat Pain/Nasal Course/Dx - Differential Dx/Diagnosis Provider Diagnosis: Oral thrush, Laryngitis Discharge ED - Sign-Out/Discharge Documenting (check all that apply): Patient Departure All imaging exams completed and their final reports reviewed: No Studies - Discharge Plan Condition: Stable Disposition: HOME Prescriptions: Nystatin SUSPENSION* 500,000 units .SEE ORDER QID #[id number] [facility] [place] Patient Education Materials: Laryngitis (ED), Oral Candidiasis (ED) Referrals: Lesley Langston MD [Primary Care Provider] - 5 Days (if not improved) Additional Instructions: I think your thrush is due to the steroid inhaler recheck for new or worsening symptoms your flu and strep tests were negative - Billing Disposition and Condition Condition: STABLE Disposition: Home
== END 2019-07-06 11:43 | disposition home or self-care (01) ==
LOC: UCEAST 10:35
DX: B37.0 Candidal stomatitis (principal); J04.0 Acute laryngitis; R03.0 Elevated blood-pressure reading, without diagnosis of hypertension; J44.9 Chronic obstructive pulmonary disease, unspecified; Z87.891 Personal history of nicotine dependence
CPT/HCPCS: 87651; 99212; G0463

== ENCOUNTER 2019-07-08 18:45 | Emergency (ER) | payer OTHER ==
--- NOTE | 2019-07-08 18:49 | UC ---
Laceration HPI - HPI Summary HPI Summary: 34 yo female presents with RIGHT hand laceration. She tells me that just [employer] she was washing a glass and it broke and she sustained a laceration to her right ulnar 5th MCP. She bandaged the area and came directly to . Last tetanus was about 3 years ago. - History Of Current Complaint Stated Complaint: HAND LAC Time Seen by Provider: 07/08/19 18:47 Hx Obtained From: Patient Hx Last Menstrual Period: hyster Laceration Location: Finger Mechanism Of Injury: Sharp Trauma Onset/Duration: Sudden Onset - Allergies/Home Medications Allergies/Adverse Reactions: Allergies Allergy/AdvReac Type Severity Reaction Status Date / Time No Known Allergies Allergy Verified 07/08/19 19:00 Home Medications: Home Medications Omeprazole CAP (NF) [Prilosec CAP* 20 MG] 40 mg PO DAILY 09/03/16 [History Confirmed 07/08/19] Methylphenidate TAB* [Ritalin TAB*] 10 mg PO QAM 03/04/19 [History Confirmed ] oxyCODONE TAB* [Roxycodone TAB 5 mg*] 5 mg PO Q8H PRN 03/04/19 [History Confirmed 07/08/19] Gabapentin 300 mg PO TID 03/25/19 [History Confirmed 07/08/19] Ibuprofen TAB* [Motrin TAB* 600 MG] 600 mg PO Q8H PRN #30 tab 03/25/19 [Rx Confirmed 07/08/19] Methylphenidate TAB* [Ritalin TAB*] 20 mg PO DAILY 03/25/19 [History Confirmed 07/08/19] estradioL [Estradiol] 1 tab PO DAILY 03/25/19 [History Confirmed 07/08/19] Albuterol HFA INHALER* [Ventolin HFA Inhaler*] 1 puff INH Q6H PRN 7 Days #1 mdi 06/15/19 [Rx Confirmed 07/08/19] Nystatin SUSPENSION* 500,000 units .SEE ORDER QID #[id number] [facility] 07/06/19 [Rx Confirmed 07/08/19] PMH/Surg Hx/FS Hx/Imm Hx - Additional Past Medical History Additional PMH: ADHD Asthma Drug abuse Other History Of: Negative For: Anticoagulant Therapy - Surgical History Surgical History: Yes Surgery Procedure, Year, and Place: MULTIPLE LAPRASCOPIC PROCEDURES,. COMPLETE HYSTERECTOMY, 01/2013, [facility]. [place] [facility] [place] - Family History Known Family History: Positive: Cardiac Disease, Hypertension, Diabetes, Other - father: EtOH abuse - Social History Lives: With Family Alcohol Use: Daily Alcohol Amount: 1 drink /night Substance Use Type: None Substance Use Comment - Amount & Last Used: 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 Smoking Status (MU): Light Every Day Tobacco Smoker Type: Cigarettes Amount Used/How Often: 1 pack per three days Length of Time of Smoking/Using Tobacco: 10YRS Have You Smoked in the Last Year: Yes When Did the Patient Quit Smoking/Using Tobacco: stopped 2 weeks ago (June 2014 ) Household Exposure Type: Cigarettes - Immunization History Most Recent Influenza Vaccination: 2016 Most Recent Tetanus Shot: 2014 Most Recent Pneumonia Vaccination: never Review of Systems All Other Systems Reviewed And Are Negative: No Constitutional: Positive: Negative Skin: Positive: Other - Hand laceration Respiratory: Positive: Negative Cardiovascular: Positive: Negative Musculoskeletal: Positive: Negative Neurological/Mental Status: Positive: Negative Psychological: Positive: Negative Physical Exam - Summary Physical Exam Summary: GENERAL: NAD. WDWN. No pain distress. SKIN: RIGHT HAND: Ulnar aspect of the 5th MCP with superficial 8mm linear laceration without gaping or depth. Scant active bleeding. No tendon or bony involvement. CHEST: No accessory muscle use. Breathing comfortably and in no distress. CV: Pulses intact. Cap refill <2seconds NEURO: Alert. PSYCH: Anxious and crying. Triage Information Reviewed: Yes Vital Signs: Vital Signs: Temp Pulse Resp BP Pulse Ox 98.2 F 92 16 132/66 100 07/08/19 19:02 07/08/19 19:02 07/08/19 19:02 07/08/19 19:02 07/08/19 19:02 Vital Signs Reviewed: Yes Laceration Repair - Laceration Repair 1 Description: Linear Laceration Size After Repair: Length (cm) - 0.8 Irrigation With Pressure Irrigation Device: Yes Closure Material: Skin Adhesive Closure Method: Single Layer Suture Of: Skin Laceration Course/Dx - Course/Dx Course Of Treatment: Wound cleansed with saline. Laceration amenable to dermabond as it does not gap open and is superficial and well approximated at rest. Band-aid applied and advised to change band-aid daily until well healed. - Diagnosis Provider Diagnosis: Hand laceration Discharge ED - Sign-Out/Discharge Documenting (check all that apply): Patient Departure All imaging exams completed and their final reports reviewed: No Studies - Discharge Plan Condition: Stable Disposition: HOME Patient Education Materials: Skin Adhesive Care (ED) Referrals: Lesley Langston MD [Primary Care Provider] - Additional Instructions: Change the band-aid daily until well healed - Billing Disposition and Condition Condition: STABLE Disposition: Home
[2019-07-08 19:05] VITALS: BP 132/66
== END 2019-07-08 19:10 | disposition home or self-care (01) ==
LOC: UCEAST 18:45
DX: S61.411A Laceration without foreign body of right hand, initial encounter (principal); W25.XXXA Contact with sharp glass, initial encounter; Y93.G1 Activity, food preparation and clean up; Y92.9 Unspecified place or not applicable; J45.909 Unspecified asthma, uncomplicated; F90.9 Attention-deficit hyperactivity disorder, unspecified type; Z79.899 Other long term (current) drug therapy; Z87.891 Personal history of nicotine dependence
CPT/HCPCS: 12001; 99211; G0463

== ENCOUNTER 2021-01-12 11:47 | Inpatient (IN) ==
[2021-01-12] MEDS ORDERED: Ondansetron ODT 4 mg TAB 4 MG TAB PO ONE (17:21)
[2021-01-12 17:53] LABS: ABS Eosinophils 0.1 10^3/ul (0-0.6); ABS Lymphocytes 0.7 10^3/ul (1.0-4.8); ABS Monocytes 0.5 10^3/ul (0-0.8); ABS Neutrophils 6.7 10^3/ul (1.5-7.7); Eosinophil % 1.5 %; Hematocrit 39 % (35-47); Hemoglobin 13.3 g/dL (12.0-16.0); Mean Corpuscular HGB Conc 34 g/dL (31-36); Mean Corpuscular Hemoglobin 37 pg (27-31); Mean Corpuscular Volume 109 fL (80-97); Mean Platelet Volume 8.9 fL (7.4-10.4); Nucleated Red Blood Cells % 0.1; Platelet Count 107 10^3/uL (150-450); Red Blood Count 3.56 10^6 /uL (3.70-4.87); Red Cell Distribution Width 15 % (10-15)
[2021-01-12 17:54] LABS: Urine Appearance Clear; Urine Bilirubin Negative (Negative); Urine Blood 1+ (Negative); Urine Color Yellow; Urine Glucose Negative (Negative); Urine Ketones Trace (Negative); Urine Nitrite Negative (Negative); Urine Protein Negative (Negative); Urine Urobilinogen Negative (Negative)
[2021-01-12 18:02] LABS: Albumin 3.9 g/dL (3.2-5.2); Albumin/Globulin Ratio 1.4 (1-3); C Reactive Protein 35.62 mg/L (<8.01); Calcium 9.2 mg/dL (8.6-10.3); Globulin 2.7 g/dL (2-4); Potassium 3.1 mmol/L (3.5-5.0); Total Bilirubin 1.8 mg/dL (0.2-1.0); Total Protein 6.6 g/dL (6.4-8.9)
[2021-01-12 18:05] LABS: HCG Pregnancy 0.61 mIU/mL
[2021-01-12 18:07] LABS: Urine Bacteria Absent (Absent); Urine Red Blood Cell Absent (Absent); Urine Squamous Epithelial Cell Present (Absent); Urine White Blood Cell Absent (Absent)
[2021-01-12] MEDS ORDERED: Iohexol 300 (CONTRAST) 10 ML SDV IV ONE (18:20)
[2021-01-12] MEDS ORDERED: Morphine 4 MG/ML VIAL (1 ml) IV ONE ×2 (18:39→21:20)
[2021-01-12] MEDS ORDERED: Potassium Chlor 20 meq TAB.ER PO ONE (22:37)
[2021-01-12] MEDS ORDERED: metroNIDAZOLE IV 500 MG/100ML - ED ONCE IVPB ONE (23:00)
[2021-01-12] MEDS ORDERED: NS 0.9% 1000 ml BAG 1,000 ML IV SCH (23:30)
[2021-01-13] MEDS: HYDROmorphone 1 MG/1 ML SYRINGE IV SLOW PU PRN ×6 (01:05→21:38)
[2021-01-13 01:22] LABS: Rapid COVID-19 Molecular Undetected (Undetected)
[2021-01-13] MEDS: NS 0.9% 1,000 ML IV SCH ×3 (03:07→21:33)
[2021-01-13] MEDS: Ondansetron 4 mg VIAL 2 MG/ML 2 ml VIAL IV PRN ×5 (04:09→21:37)
[2021-01-13 06:59] LABS: ABS Eosinophils 0.2 10^3/ul (0-0.6); ABS Lymphocytes 1.2 10^3/ul (1.0-4.8); ABS Monocytes 0.5 10^3/ul (0-0.8); ABS Neutrophils 4.7 10^3/ul (1.5-7.7); Eosinophil % 2.9 %; Hematocrit 35 % (35-47); Hemoglobin 12.1 g/dL (12.0-16.0); Lymphocyte % 18.2 %; Mean Corpuscular HGB Conc 34 g/dL (31-36); Mean Corpuscular Hemoglobin 38 pg (27-31); Mean Corpuscular Volume 111 fL (80-97); Mean Platelet Volume 9.6 fL (7.4-10.4); Platelet Count 92 10^3/uL (150-450); Red Blood Count 3.18 10^6 /uL (3.70-4.87); Red Cell Distribution Width 15 % (10-15); White Blood Count 6.6 10^3/uL (3.5-10.8)
[2021-01-13 07:11] LABS: ALT 15 U/L (7-52); AST 25 U/L (13-39); Albumin 3.5 g/dL (3.2-5.2); Albumin/Globulin Ratio 1.3 (1-3); Alkaline Phosphatase 53 U/L (35-149); Anion Gap 8 mmol/L (2-11); Blood Urea Nitrogen 4 mg/dL (6-24); CO2 Carbon Dioxide 24 mmol/L (22-32); Calcium 8.7 mg/dL (8.6-10.3); Chloride 106 mmol/L (101-111); Globulin 2.7 g/dL (2-4); Glucose 108 mg/dL (70-100); Potassium 2.9 mmol/L (3.5-5.0); Sodium 138 mmol/L (135-145); Total Protein 6.2 g/dL (6.4-8.9)
[2021-01-13] MEDS: Pantoprazole VIAL 40 MG VIAL IV SCH (07:40)
[2021-01-13] MEDS ORDERED: Potassium Chlor 20 meq TAB.ER PO ONE (10:46)
[2021-01-13 11:09] LABS: Magnesium 1.5 mg/dL (1.9-2.7)
[2021-01-13] MEDS ORDERED: metroNIDAZOLE IV 500 MG/100ML 500 MG/100 ML BAG IVPB SCH (12:00)
[2021-01-13] MEDS ORDERED: Magnesium Sulfate 2 gm BAG 2 GM/50 ML BAG IVPB ONE (12:02)
[2021-01-13 12:57] LABS: Folate > 20.00 ng/mL (5.90-24.80)
[2021-01-13 12:58] LABS: Vitamin B12 584 pg/mL (180-914)
[2021-01-13] MEDS: KCL 20 MEQ/100 ML IVPREMIX 20 MEQ/100 ML BAG IV SCH ×3 (13:15→17:14)
[2021-01-13] MEDS ORDERED: cefTRIAXone 1 gm/50 mL NS BAG 1 GM/50 ML BAG IVPB SCH (21:00)
[2021-01-14] MEDS: Ondansetron 4 mg VIAL 2 MG/ML 2 ml VIAL IV PRN ×3 (01:43→10:24)
[2021-01-14] MEDS: HYDROmorphone 1 MG/1 ML SYRINGE IV SLOW PU PRN ×5 (01:43→19:47)
[2021-01-14 05:39] LABS: HDL Cholesterol 59.2 mg/dL
[2021-01-14] MEDS: NS 0.9% 1,000 ML IV SCH ×2 (05:40→13:38)
[2021-01-14] MEDS: Pantoprazole VIAL 40 MG VIAL IV SCH (08:55)
[2021-01-14 10:39] LABS: ABS Eosinophils 0.1 10^3/ul (0-0.6); ABS Lymphocytes 1.1 10^3/ul (1.0-4.8); ABS Monocytes 0.4 10^3/ul (0-0.8); ABS Neutrophils 4.5 10^3/ul (1.5-7.7); Eosinophil % 2.4 %; Hematocrit 34 % (35-47); Hemoglobin 11.4 g/dL (12.0-16.0); Lymphocyte % 18.1 %; Mean Corpuscular HGB Conc 34 g/dL (31-36); Mean Corpuscular Hemoglobin 38 pg (27-31); Mean Corpuscular Volume 112 fL (80-97); Mean Platelet Volume 9.5 fL (7.4-10.4); Platelet Count 98 10^3/uL (150-450); Red Blood Count 3.01 10^6 /uL (3.70-4.87); Red Cell Distribution Width 15 % (10-15); White Blood Count 6.2 10^3/uL (3.5-10.8)
[2021-01-14 10:48] LABS: Blood Urea Nitrogen 2 mg/dL (6-24); CO2 Carbon Dioxide 22 mmol/L (22-32); Calcium 8.2 mg/dL (8.6-10.3); Chloride 110 mmol/L (101-111); Glucose 96 mg/dL (70-100); Magnesium 1.8 mg/dL (1.9-2.7); Sodium 137 mmol/L (135-145)
[2021-01-14] MEDS: ESTRADIOL 1 MG PO SCH (10:59)
[2021-01-14] MEDS: Nicotine PATCH 14 MG/24 HR PATCH TRANSDERM SCH ×2 (10:59→11:01)
[2021-01-14] MEDS ORDERED: Potassium Chlor 20 meq TAB.ER PO ONE (12:53)
[2021-01-14 18:20] LABS: Anion Gap 5 mmol/L (2-11)
[2021-01-15] MEDS: HYDROmorphone 1 MG/1 ML SYRINGE IV SLOW PU PRN ×2 (00:52→09:31)
[2021-01-15 06:24] LABS: ABS Eosinophils 0.2 10^3/ul (0-0.6); ABS Lymphocytes 1.8 10^3/ul (1.0-4.8); ABS Monocytes 0.4 10^3/ul (0-0.8); ABS Neutrophils 2.5 10^3/ul (1.5-7.7); Eosinophil % 3.3 %; Hematocrit 31 % (35-47); Hemoglobin 10.6 g/dL (12.0-16.0); Lymphocyte % 36.7 %; Mean Corpuscular HGB Conc 34 g/dL (31-36); Mean Corpuscular Hemoglobin 38 pg (27-31); Mean Corpuscular Volume 111 fL (80-97); Mean Platelet Volume 9.1 fL (7.4-10.4); Platelet Count 94 10^3/uL (150-450); Red Blood Count 2.78 10^6 /uL (3.70-4.87); Red Cell Distribution Width 15 % (10-15); White Blood Count 4.8 10^3/uL (3.5-10.8)
[2021-01-15 06:53] LABS: Calcium 8.8 mg/dL (8.6-10.3); Magnesium 1.7 mg/dL (1.9-2.7); Potassium 3.7 mmol/L (3.5-5.0)
[2021-01-15] MEDS ORDERED: Potassium Chlor 20 meq TAB.ER PO ONE (07:11)
[2021-01-15] MEDS: Ondansetron 4 mg VIAL 2 MG/ML 2 ml VIAL IV PRN ×2 (09:31→12:42)
[2021-01-15] MEDS: Pantoprazole VIAL 40 MG VIAL IV SCH (09:31)
[2021-01-15] MEDS: ESTRADIOL 1 MG PO SCH (09:31)
[2021-01-15] MEDS: Nicotine PATCH 14 MG/24 HR PATCH TRANSDERM SCH (09:33)
[2021-01-15 15:46] VITALS: BP 141/70
== END 2021-01-15 19:08 | disposition home or self-care (01) | DRG 282 ==
LOC: ED 11:47 → SUATTDRO 23:31 → MED 23:31
PROVIDERS: ADMIT Internal Medicine; ATTEND Internal Medicine

== ENCOUNTER 2021-12-20 07:50 | Inpatient (IN) ==
[2021-12-20] MEDS ORDERED: Ondansetron 4 mg VIAL 2 MG/ML 2 ml VIAL IV ONE (08:03)
[2021-12-20] MEDS ORDERED: Morphine 4 MG/ML VIAL (1 ml) IV ONE ×3 (08:03→10:06)
[2021-12-20 08:34] LABS: ABS Eosinophils 0.1 10^3/ul (0-0.6); ABS Monocytes 0.7 10^3/ul (0-0.8); ABS Neutrophils 9.9 10^3/ul (1.5-7.7); Eosinophil % 0.9 %; Hematocrit 40 % (35-47); Hemoglobin 13.3 g/dL (12.0-16.0); Lymphocyte % 8.8 %; Mean Corpuscular HGB Conc 33 g/dL (31-36); Mean Corpuscular Hemoglobin 34 pg (27-31); Mean Corpuscular Volume 103 fL (80-97); Mean Platelet Volume 8.5 fL (7.4-10.4); Platelet Count 168 10^3/uL (150-450); Red Cell Distribution Width 13 % (10-15); White Blood Count 11.8 10^3/uL (3.5-10.8)
[2021-12-20 09:23] LABS: ALT 17 U/L (7-52); AST 30 U/L (13-39); Albumin 4.1 g/dL (3.2-5.2); Albumin/Globulin Ratio 1.3 (1-3); Alkaline Phosphatase 87 U/L (35-149); Anion Gap 12 mmol/L (2-11); Blood Urea Nitrogen 9 mg/dL (6-24); C Reactive Protein 3.28 mg/L (<8.01); CO2 Carbon Dioxide 23 mmol/L (22-32); Chloride 102 mmol/L (101-111); Globulin 3.1 g/dL (2-4); Glucose 108 mg/dL (70-100); Lipase 596 U/L (11.0-82.0); Potassium 3.9 mmol/L (3.5-5.0); Sodium 137 mmol/L (135-145); Total Protein 7.2 g/dL (6.4-8.9); eGFR CKD-EPI 115.4 (>60)
[2021-12-20 10:54] LABS: Alcohol, S < 13 mg/dL (<13); Magnesium 1.6 mg/dL (1.9-2.7)
[2021-12-20] MEDS: Morphine 2 MG/ML SYRINGE IV PRN ×9 (11:31→23:05)
[2021-12-20] MEDS: Lactated Ringers 1000 ml BAG 1,000 ML IV SCH ×3 (11:32→22:00)
[2021-12-20 11:46] LABS: Cholesterol 175 mg/dL; HDL Cholesterol 46.3 mg/dL; Triglycerides 589 mg/dL
[2021-12-20] MEDS ORDERED: Magnesium Sulfate IV 3 GM in NS 0.9% 100 ml BAG 100 ML IVPB ONE (12:00)
[2021-12-20 12:02] LABS: LDL Cholesterol Direct 56 mg/dL
[2021-12-20 12:11] LABS: Folate > 20.00 ng/mL (5.90-24.80)
[2021-12-20 12:12] LABS: Vitamin B12 200 pg/mL (180-914)
[2021-12-20] MEDS: Ondansetron 4 mg VIAL 2 MG/ML 2 ml VIAL IV PRN ×2 (13:54→18:27)
[2021-12-20] MEDS: Enoxaparin 40 MG/0.4 ML SYR SUBCUT SCH (13:54)
[2021-12-21] MEDS: Ondansetron 4 mg VIAL 2 MG/ML 2 ml VIAL IV PRN ×3 (00:55→20:43)
[2021-12-21] MEDS: Morphine 2 MG/ML SYRINGE IV PRN ×6 (00:55→07:58)
[2021-12-21] MEDS: Lactated Ringers 1000 ml BAG 1,000 ML IV SCH ×2 (00:57→04:18)
[2021-12-21 05:03] LABS: ABS Eosinophils 0.1 10^3/ul (0-0.6); ABS Lymphocytes 0.9 10^3/ul (1.0-4.8); ABS Monocytes 0.5 10^3/ul (0-0.8); ABS Neutrophils 3.8 10^3/ul (1.5-7.7); Hematocrit 36 % (35-47); Lymphocyte % 17.7 %; Mean Corpuscular HGB Conc 33 g/dL (31-36); Mean Corpuscular Hemoglobin 35 pg (27-31); Mean Corpuscular Volume 104 fL (80-97); Mean Platelet Volume 8.8 fL (7.4-10.4); Nucleated Red Blood Cells % 0.1; Platelet Count 120 10^3/uL (150-450); Red Blood Count 3.48 10^6 /uL (3.70-4.87); Red Cell Distribution Width 13 % (10-15); White Blood Count 5.3 10^3/uL (3.5-10.8)
[2021-12-21 05:14] LABS: INR 0.93 (0.89-1.11)
[2021-12-21 05:19] LABS: ALT 11 U/L (7-52); AST 20 U/L (13-39); Albumin 3.2 g/dL (3.2-5.2); Albumin/Globulin Ratio 1.4 (1-3); Alkaline Phosphatase 78 U/L (35-149); Anion Gap 5 mmol/L (2-11); Blood Urea Nitrogen 3 mg/dL (6-24); CO2 Carbon Dioxide 26 mmol/L (22-32); Calcium 8.1 mg/dL (8.6-10.3); Chloride 107 mmol/L (101-111); Globulin 2.3 g/dL (2-4); Glucose 84 mg/dL (70-100); Magnesium 1.7 mg/dL (1.9-2.7); Potassium 3.7 mmol/L (3.5-5.0); Sodium 138 mmol/L (135-145); Total Protein 5.5 g/dL (6.4-8.9); eGFR CKD-EPI 121.5 (>60)
[2021-12-21] MEDS: Enoxaparin 40 MG/0.4 ML SYR SUBCUT SCH (09:33)
[2021-12-21] MEDS: HYDROmorphone 0.5 MG/0.5 ML SYRINGE IV SLOW PU PRN ×2 (09:51→14:24)
[2021-12-21] MEDS ORDERED: HYDROmorphone 0.5 MG/0.5 ML SYRINGE IV SLOW PU ONE (14:52)
[2021-12-21 16:28] LABS: Folate > 20.00 ng/mL (5.90-24.80)
[2021-12-21 16:29] LABS: Vitamin B12 294 pg/mL (180-914)
[2021-12-21] MEDS: HYDROmorphone 1 MG/1 ML SYRINGE IV SLOW PU PRN ×2 (18:27→22:23)
[2021-12-22] MEDS: Ondansetron 4 mg VIAL 2 MG/ML 2 ml VIAL IV PRN ×5 (00:42→22:00)
[2021-12-22] MEDS: HYDROmorphone 1 MG/1 ML SYRINGE IV SLOW PU PRN ×6 (02:23→22:50)
[2021-12-22 05:57] LABS: ABS Eosinophils 0.1 10^3/ul (0-0.6); ABS Lymphocytes 1.3 10^3/ul (1.0-4.8); ABS Monocytes 0.5 10^3/ul (0-0.8); ABS Neutrophils 3.2 10^3/ul (1.5-7.7); Eosinophil % 2.7 %; Hematocrit 35 % (35-47); Hemoglobin 11.7 g/dL (12.0-16.0); Lymphocyte % 25.5 %; Mean Corpuscular HGB Conc 34 g/dL (31-36); Mean Corpuscular Hemoglobin 35 pg (27-31); Mean Corpuscular Volume 104 fL (80-97); Mean Platelet Volume 9.3 fL (7.4-10.4); Nucleated Red Blood Cells % 0.1; Platelet Count 145 10^3/uL (150-450); Red Blood Count 3.36 10^6 /uL (3.70-4.87); Red Cell Distribution Width 13 % (10-15); White Blood Count 5.1 10^3/uL (3.5-10.8)
[2021-12-22 06:26] LABS: ALT 10 U/L (7-52); AST 18 U/L (13-39); Albumin 3.1 g/dL (3.2-5.2); Albumin/Globulin Ratio 1.3 (1-3); Alkaline Phosphatase 70 U/L (35-149); Anion Gap 7 mmol/L (2-11); Blood Urea Nitrogen 2 mg/dL (6-24); CO2 Carbon Dioxide 27 mmol/L (22-32); Calcium 8.5 mg/dL (8.6-10.3); Chloride 105 mmol/L (101-111); Globulin 2.3 g/dL (2-4); Glucose 94 mg/dL (70-100); Lipase 499 U/L (11.0-82.0); Potassium 3.7 mmol/L (3.5-5.0); Sodium 139 mmol/L (135-145); Total Protein 5.4 g/dL (6.4-8.9); eGFR CKD-EPI 121.5 (>60)
[2021-12-22] MEDS: Enoxaparin 40 MG/0.4 ML SYR SUBCUT SCH (09:15)
[2021-12-22] MEDS: CMCS: Estradiol 1 mg TAB (NF) PO SCH (09:15)
[2021-12-22] MEDS ORDERED: Lactated Ringers 1000 ml BAG 1,000 ML IV ONE (10:26)
[2021-12-23] MEDS: Ondansetron 4 mg VIAL 2 MG/ML 2 ml VIAL IV PRN ×5 (02:00→21:34)
[2021-12-23] MEDS: HYDROmorphone 1 MG/1 ML SYRINGE IV SLOW PU PRN ×5 (02:50→21:37)
[2021-12-23] MEDS: Enoxaparin 40 MG/0.4 ML SYR SUBCUT SCH (08:14)
[2021-12-23] MEDS: CMCS: Estradiol 1 mg TAB (NF) PO SCH (08:14)
[2021-12-23 09:03] LABS: ABS Eosinophils 0.2 10^3/ul (0-0.6); ABS Lymphocytes 1.5 10^3/ul (1.0-4.8); ABS Monocytes 0.5 10^3/ul (0-0.8); ABS Neutrophils 3.7 10^3/ul (1.5-7.7); Eosinophil % 2.8 %; Hematocrit 37 % (35-47); Hemoglobin 12.1 g/dL (12.0-16.0); Lymphocyte % 25.2 %; Mean Corpuscular HGB Conc 33 g/dL (31-36); Mean Corpuscular Hemoglobin 34 pg (27-31); Mean Corpuscular Volume 104 fL (80-97); Mean Platelet Volume 8.8 fL (7.4-10.4); Nucleated Red Blood Cells % 0.1; Platelet Count 152 10^3/uL (150-450); Red Blood Count 3.53 10^6 /uL (3.70-4.87); Red Cell Distribution Width 14 % (10-15); White Blood Count 5.9 10^3/uL (3.5-10.8)
[2021-12-23 09:47] LABS: INR 0.96 (0.89-1.11)
[2021-12-23 09:50] LABS: Albumin 3.5 g/dL (3.2-5.2); Albumin/Globulin Ratio 1.3 (1-3); Globulin 2.7 g/dL (2-4); Potassium 3.6 mmol/L (3.5-5.0); Total Bilirubin 0.4 mg/dL (0.2-1.0); Total Protein 6.2 g/dL (6.4-8.9)
[2021-12-23] MEDS ORDERED: HYDROmorphone 0.5 MG/0.5 ML SYRINGE IV SLOW PU ONE (13:51)
[2021-12-23] MEDS ORDERED: Buffered Lidocaine 1% SYRIN 1 ml INTRADERM ONE (15:53)
[2021-12-23] MEDS ORDERED: Famotidine IV 10 MG/ML 2 ml VIAL (20 mg) IV ONE (15:53)
[2021-12-23] MEDS ORDERED: Lidocaine 2% PF 5 ML VIAL ONE (17:22)
[2021-12-23] MEDS ORDERED: Rocuronium 50 mg VIAL 10 mg/ml 5 ml VIAL (50 mg) ONE (17:22)
[2021-12-23] MEDS ORDERED: Propofol 10 MG/ML 20 ML BTL ONE (17:22)
[2021-12-23] MEDS ORDERED: fentaNYL 100 mcg/2 ml 50 MCG/ML VIAL ONE ×2 (17:22→19:32)
[2021-12-23] MEDS ORDERED: Indomethacin 50 mg SUPP (NF) PR ONE (17:45)
[2021-12-23] MEDS ORDERED: Ondansetron 4 mg VIAL 2 MG/ML 2 ml VIAL ONE (18:49)
[2021-12-23] MEDS ORDERED: Sugammadex 500 MG/5 ML 5 ml VIAL IV PUSH ONE (18:52)
[2021-12-23] MEDS ORDERED: HYDROcodone/ACETAMIN 5/325 mg TAB PO PRN (19:21)
[2021-12-23] MEDS ORDERED: Prochlorperazine 5 mg/ml 2 ml VIAL (10 mg) IV PRN (19:21)
[2021-12-23] MEDS ORDERED: oxyCODONE/Acetamin 5/325 mg TAB PO PRN (19:21)
[2021-12-23] MEDS ORDERED: Naloxone 0.4 mg VIAL 0.4 mg/ml 1 ml VIAL IV PRN (19:21)
[2021-12-23] MEDS: fentaNYL 100 mcg/2 ml 50 MCG/ML VIAL IV PRN ×2 (19:33→19:52)
[2021-12-23] MEDS: Lactated Ringers 1000 ml BAG 1,000 ML IV SCH (21:39)
[2021-12-24] MEDS: Ondansetron 4 mg VIAL 2 MG/ML 2 ml VIAL IV PRN ×5 (02:03→19:12)
[2021-12-24] MEDS: HYDROmorphone 1 MG/1 ML SYRINGE IV SLOW PU PRN ×2 (02:05→06:08)
[2021-12-24] MEDS: Lactated Ringers 1000 ml BAG 1,000 ML IV SCH ×2 (06:07→13:34)
[2021-12-24 07:04] LABS: Hematocrit 34 % (35-47); Hemoglobin 11.2 g/dL (12.0-16.0); Mean Corpuscular HGB Conc 34 g/dL (31-36); Mean Corpuscular Hemoglobin 35 pg (27-31); Mean Corpuscular Volume 104 fL (80-97); Mean Platelet Volume 9.4 fL (7.4-10.4); Platelet Count 145 10^3/uL (150-450); Red Blood Count 3.23 10^6 /uL (3.70-4.87); Red Cell Distribution Width 13 % (10-15)
[2021-12-24 07:17] LABS: Albumin 3.3 g/dL (3.2-5.2); Albumin/Globulin Ratio 1.4 (1-3); Calcium 8.8 mg/dL (8.6-10.3); Globulin 2.3 g/dL (2-4); Potassium 3.7 mmol/L (3.5-5.0); Total Bilirubin 0.8 mg/dL (0.2-1.0); Total Protein 5.6 g/dL (6.4-8.9)
[2021-12-24] MEDS: CMCS: Estradiol 1 mg TAB (NF) PO SCH (08:59)
[2021-12-24] MEDS: HYDROmorphone 0.5 MG/0.5 ML SYRINGE IV SLOW PU PRN ×4 (10:29→23:56)
[2021-12-25 07:05] LABS: Albumin 3.5 g/dL (3.2-5.2); Albumin/Globulin Ratio 1.4 (1-3); Calcium 9.3 mg/dL (8.6-10.3); Globulin 2.5 g/dL (2-4); Potassium 3.9 mmol/L (3.5-5.0); Total Bilirubin 0.4 mg/dL (0.2-1.0); eGFR CKD-EPI 119.5 (>60)
[2021-12-25] MEDS: CMCS: Estradiol 1 mg TAB (NF) PO SCH (08:22)
[2021-12-25] MEDS: HYDROmorphone 0.5 MG/0.5 ML SYRINGE IV SLOW PU PRN (08:23)
[2021-12-25] MEDS: Ondansetron 4 mg VIAL 2 MG/ML 2 ml VIAL IV PRN (08:23)
[2021-12-25 11:07] VITALS: BP 123/82
[2021-12-26] MEDS ORDERED: Enoxaparin 40 MG/0.4 ML SYR SUBCUT SCH (09:00)
== END 2021-12-25 13:30 | disposition home or self-care (01) | DRG 282 ==
LOC: ED 07:50 → EDHOLD 07:50 → SUATTDRO 09:56 → OBSVTOIN 09:56 → EDHOLD 16:27 → MED 17:52
PROVIDERS: ADMIT Internal Medicine; ATTEND Hospitalist

== ENCOUNTER 2022-02-07 13:15 | Inpatient (IN) ==
[2022-02-07] MEDS ORDERED: Lactated Ringers 1000 ml BAG 1,000 ML IV ONE (14:12)
[2022-02-07] MEDS ORDERED: Ondansetron 4 mg VIAL 2 MG/ML 2 ml VIAL IV ONE (14:12)
[2022-02-07] MEDS ORDERED: Morphine 4 MG/ML VIAL (1 ml) IV ONE ×2 (14:12→15:15)
[2022-02-07 14:27] LABS: ABS Eosinophils 0.2 10^3/ul (0-0.6); ABS Lymphocytes 1.1 10^3/ul (1.0-4.8); ABS Monocytes 0.8 10^3/ul (0-0.8); ABS Neutrophils 9.4 10^3/ul (1.5-7.7); Eosinophil % 1.5 %; Hematocrit 42 % (35-47); Hemoglobin 13.7 g/dL (12.0-16.0); Lymphocyte % 9.9 %; Mean Corpuscular HGB Conc 33 g/dL (31-36); Mean Corpuscular Hemoglobin 33 pg (27-31); Mean Corpuscular Volume 102 fL (80-97); Mean Platelet Volume 8.6 fL (7.4-10.4); Platelet Count 190 10^3/uL (150-450); Red Blood Count 4.11 10^6 /uL (3.70-4.87); Red Cell Distribution Width 14 % (10-15); White Blood Count 11.5 10^3/uL (3.5-10.8)
[2022-02-07 14:55] LABS: ALT 12 U/L (7-52); AST 21 U/L (13-39); Albumin 4.1 g/dL (3.2-5.2); Albumin/Globulin Ratio 1.3 (1-3); Alcohol, S < 13 mg/dL (<13); Alkaline Phosphatase 81 U/L (35-149); Anion Gap 6 mmol/L (2-11); Blood Urea Nitrogen 7 mg/dL (6-24); C Reactive Protein 1.63 mg/L (<8.01); CO2 Carbon Dioxide 25 mmol/L (22-32); Calcium 9.1 mg/dL (8.6-10.3); Chloride 106 mmol/L (101-111); Globulin 3.1 g/dL (2-4); Glucose 99 mg/dL (70-100); Potassium 4.4 mmol/L (3.5-5.0); Sodium 137 mmol/L (135-145); Total Protein 7.2 g/dL (6.4-8.9); eGFR CKD-EPI 105.1 (>60)
[2022-02-07 15:20] LABS: HIV 4th Generation Nonreactive (Nonreactive)
[2022-02-07 15:35] LABS: Lipase 838 U/L (11.0-82.0)
[2022-02-07] MEDS ORDERED: HYDROmorphone 0.5 MG/0.5 ML SYRINGE IV ONE ×2 (16:54→17:58)
[2022-02-07] MEDS ORDERED: Iohexol 350 (CONTRAST) 500 ML MDV IV ONE (17:26)
[2022-02-07 17:29] LABS: Hepatitis C Antibody Negative (Negative)
[2022-02-07] MEDS: HYDROmorphone 0.5 MG/0.5 ML SYRINGE IV ONE ×2 (19:22→19:32)
[2022-02-07] MEDS ORDERED: Acetaminophen IV 1 GM/100ML 1,000 MG/100 ML BAG IV PRN (20:37)
[2022-02-07] MEDS ORDERED: Morphine 2 MG/ML SYRINGE IV PRN (20:38)
[2022-02-07] MEDS ORDERED: NS 0.9% 1000 ml BAG 1,000 ML IV SCH ×3 (20:45→22:07)
[2022-02-07] MEDS: Ondansetron 4 mg VIAL 2 MG/ML 2 ml VIAL IV PRN (21:03)
[2022-02-07] MEDS ORDERED: fentaNYL 100 mcg/2 ml 50 MCG/ML VIAL IV SLOW PU PRN (22:39)
[2022-02-07] MEDS ORDERED: fentaNYL 100 mcg/2 ml 50 MCG/ML VIAL ONE (22:49)
[2022-02-07] MEDS ORDERED: Lorazepam PYXIS KEY PRN (22:49)
[2022-02-07] MEDS ORDERED: LORazepam 2 mg VIAL 1 ml IV PUSH ONE (22:49)
[2022-02-07] MEDS ORDERED: Metoclopramide 5 MG/ML VIAL (10 mg) ONE (22:49)
[2022-02-07] MEDS: Metoclopramide 5 MG/ML VIAL (10 mg) IV PRN (22:51)
[2022-02-07] MEDS ORDERED: NS 0.9% 500 ml BAG 500 ML IV ONE (22:54)
[2022-02-07] MEDS: NS 0.9% 1000 ml BAG 1,000 ML IV SCH (22:54)
[2022-02-07] MEDS ORDERED: NS 0.9% 500 ml BAG 500 ML IV SCH (23:00)
[2022-02-07] MEDS ORDERED: Albuterol HFA INHALER 8 gm MDI INH PRN (23:41)
[2022-02-07] MEDS ORDERED: Naloxone 0.4 mg VIAL 0.4 mg/ml 1 ml VIAL IV PUSH PRN (23:43)
[2022-02-07 23:49] LABS: ABS Eosinophils 0.1 10^3/ul (0-0.6); ABS Lymphocytes 0.9 10^3/ul (1.0-4.8); ABS Neutrophils 13.4 10^3/ul (1.5-7.7); Eosinophil % 0.8 %; Hematocrit 42 % (35-47); Hemoglobin 13.9 g/dL (12.0-16.0); Mean Corpuscular HGB Conc 33 g/dL (31-36); Mean Corpuscular Hemoglobin 34 pg (27-31); Mean Corpuscular Volume 102 fL (80-97); Mean Platelet Volume 8.2 fL (7.4-10.4); Platelet Count 158 10^3/uL (150-450); Red Blood Count 4.14 10^6 /uL (3.70-4.87); Red Cell Distribution Width 14 % (10-15); White Blood Count 15.5 10^3/uL (3.5-10.8)
[2022-02-07] MEDS ORDERED: HYDROmorphone 1 MG/1 ML SYRINGE IV SLOW PU PRN (23:55)
[2022-02-07] MEDS ORDERED: Thiamine 100 MG/ML 2 ml VIAL (200 mg) IV ONE (23:59)
[2022-02-08] MEDS: HYDROmorphone 1 MG/1 ML SYRINGE IV SLOW PU PRN ×6 (00:18→14:33)
[2022-02-08 00:24] LABS: Calcium 8.5 mg/dL (8.6-10.3); Potassium 3.6 mmol/L (3.5-5.0); eGFR CKD-EPI 118.5 (>60)
[2022-02-08] MEDS: Pantoprazole VIAL 40 MG VIAL IV SCH ×2 (00:43→09:26)
[2022-02-08] MEDS ORDERED: Thiamine IV 100 MG in NS 0.9% 50 ML IV ONE (01:00)
[2022-02-08 01:49] LABS: Cholesterol 172 mg/dL; HDL Cholesterol 52.5 mg/dL; Triglycerides 488 mg/dL
[2022-02-08] MEDS: fentaNYL 100 mcg/2 ml 50 MCG/ML VIAL IV SLOW PU PRN ×5 (01:56→13:31)
[2022-02-08] MEDS: Acetaminophen IV 1 GM/100ML 1,000 MG/100 ML BAG IV PRN ×2 (02:24→13:44)
[2022-02-08 02:40] LABS: LDL Cholesterol Direct 67 mg/dL
[2022-02-08] MEDS: NS 0.9% 1000 ml BAG 1,000 ML IV SCH ×4 (03:56→23:20)
[2022-02-08] MEDS: Ondansetron 4 mg VIAL 2 MG/ML 2 ml VIAL IV PRN (05:43)
[2022-02-08 06:04] LABS: ABS Lymphocytes 0.4 10^3/ul (1.0-4.8); ABS Monocytes 0.7 10^3/ul (0-0.8); ABS Neutrophils 14.9 10^3/ul (1.5-7.7); Eosinophil % 0.1 %; Hematocrit 39 % (35-47); Hemoglobin 12.7 g/dL (12.0-16.0); Lymphocyte % 2.3 %; Mean Corpuscular HGB Conc 33 g/dL (31-36); Mean Corpuscular Hemoglobin 34 pg (27-31); Mean Corpuscular Volume 103 fL (80-97); Mean Platelet Volume 8.7 fL (7.4-10.4); Platelet Count 154 10^3/uL (150-450); Red Blood Count 3.78 10^6 /uL (3.70-4.87); Red Cell Distribution Width 14 % (10-15)
[2022-02-08] MEDS ORDERED: NS 0.9% 500 ml BAG 500 ML IV ONE (06:08)
[2022-02-08 06:44] LABS: Albumin 3.7 g/dL (3.2-5.2); Calcium 8.4 mg/dL (8.6-10.3); Potassium 3.9 mmol/L (3.5-5.0); Total Bilirubin 1.5 mg/dL (0.2-1.0)
[2022-02-08 06:50] LABS: Albumin/Globulin Ratio 1.4 (1-3); Globulin 2.7 g/dL (2-4); Total Protein 6.4 g/dL (6.4-8.9); eGFR CKD-EPI 118.5 (>60)
[2022-02-08 07:56] LABS: Magnesium 1.6 mg/dL (1.9-2.7)
[2022-02-08] MEDS: Metoclopramide 5 MG/ML VIAL (10 mg) IV PRN ×2 (08:51→18:43)
[2022-02-08] MEDS: Multivitamins/Minerals TAB PO SCH (09:26)
[2022-02-08] MEDS: cefTRIAXone 1 gm/50 mL D5W 1 GM/50 ML BAG IV SCH (10:31)
[2022-02-08] MEDS: metroNIDAZOLE IV 500 MG/100ML 500 MG/100 ML BAG IVPB SCH ×2 (11:06→17:41)
[2022-02-08 11:31] LABS: Erythrocyte Sed Rate 4 mm/Hr (0-19)
[2022-02-08] MEDS ORDERED: Naloxone 0.4 mg VIAL 0.4 mg/ml 1 ml VIAL IV PUSH PRN (15:18)
[2022-02-08] MEDS ORDERED: HYDROmorphone 1 MG/1 ML SYRINGE IV SLOW PU ONE (15:23)
[2022-02-08] MEDS: HYDROmorphone PCA 20 MG/20 ML PCA.SYRING PCA SCH (16:33)
[2022-02-09] MEDS: Acetaminophen IV 1 GM/100ML 1,000 MG/100 ML BAG IV PRN ×4 (00:35→21:12)
[2022-02-09] MEDS: metroNIDAZOLE IV 500 MG/100ML 500 MG/100 ML BAG IVPB SCH ×3 (01:13→17:20)
[2022-02-09] MEDS: NS 0.9% 1000 ml BAG 1,000 ML IV SCH ×3 (04:38→14:14)
[2022-02-09] MEDS: Multivitamins/Minerals TAB PO SCH (08:11)
[2022-02-09] MEDS ORDERED: Magnesium Sulf 4 GM/100 ML IV 4,000 MG/100 ML BAG IVPB ONE (08:30)
[2022-02-09] MEDS: cefTRIAXone 1 gm/50 mL D5W 1 GM/50 ML BAG IV SCH (09:36)
[2022-02-09] MEDS: Pantoprazole VIAL 40 MG VIAL IV SCH (09:43)
[2022-02-09] MEDS: HYDROmorphone PCA 20 MG/20 ML PCA.SYRING PCA SCH (20:53)
[2022-02-09] MEDS: D5LR 1000 ml BAG 1,000 ML IV SCH (21:13)
[2022-02-10] MEDS: metroNIDAZOLE IV 500 MG/100ML 500 MG/100 ML BAG IVPB SCH ×2 (02:10→13:39)
[2022-02-10 05:37] LABS: CO2 Carbon Dioxide 20 mmol/L (22-32); Calcium 7.6 mg/dL (8.6-10.3); Chloride 107 mmol/L (101-111); Sodium 135 mmol/L (135-145)
[2022-02-10] MEDS: Acetaminophen IV 1 GM/100ML 1,000 MG/100 ML BAG IV PRN ×3 (05:39→22:11)
[2022-02-10] MEDS: D5LR 1000 ml BAG 1,000 ML IV SCH ×2 (05:40→14:00)
[2022-02-10 05:43] LABS: Blood Urea Nitrogen 2 mg/dL (6-24); Glucose 91 mg/dL (70-100); eGFR CKD-EPI 123.2 (>60)
[2022-02-10 05:52] LABS: Anion Gap 8 mmol/L (2-11)
[2022-02-10] MEDS: cefTRIAXone 1 gm/50 mL D5W 1 GM/50 ML BAG IV SCH (10:23)
[2022-02-10] MEDS: Multivitamins/Minerals TAB PO SCH (10:27)
[2022-02-10] MEDS ORDERED: Polyethylene Glycol 3350 17 GM PACKET PO PRN (11:32)
[2022-02-10] MEDS: Metoclopramide 5 MG/ML VIAL (10 mg) IV PRN (12:28)
[2022-02-10] MEDS ORDERED: Potassium Chlor 20 meq TAB.ER PO ONE ×3 (16:58→23:00)
[2022-02-10 18:46] LABS: Calcium 7.6 mg/dL (8.6-10.3); Potassium 2.9 mmol/L (3.5-5.0); eGFR CKD-EPI 124.4 (>60)
[2022-02-10 21:01] LABS: Magnesium 1.7 mg/dL (1.9-2.7)
[2022-02-10] MEDS: HYDROmorphone PCA 20 MG/20 ML PCA.SYRING PCA SCH (21:52)
[2022-02-10 23:24] LABS: Calcium 7.7 mg/dL (8.6-10.3); Potassium 2.8 mmol/L (3.5-5.0)
[2022-02-11] MEDS ORDERED: Potassium Chlor 20 meq TAB.ER PO ONE ×3 (01:07→07:09)
[2022-02-11 06:58] LABS: Calcium 7.9 mg/dL (8.6-10.3); Magnesium 1.6 mg/dL (1.9-2.7); Potassium 3.6 mmol/L (3.5-5.0); eGFR CKD-EPI 127.6 (>60)
[2022-02-11] MEDS ORDERED: Magnesium Sulf 4 GM/100 ML IV 4,000 MG/100 ML BAG IVPB ONE (07:09)
[2022-02-11] MEDS: Acetaminophen IV 1 GM/100ML 1,000 MG/100 ML BAG IV PRN (08:24)
[2022-02-11] MEDS: Multivitamins/Minerals TAB PO SCH (08:27)
[2022-02-11 12:26] VITALS: BP 143/75
== END 2022-02-11 14:30 | disposition home or self-care (01) | DRG 282 ==
LOC: EDHOLD 13:15 → ED 13:15 → SUATTDRO 20:32 → MEDTELE 23:22 → SUATTDRO 02-08 11:00
PROVIDERS: ADMIT Internal Medicine; ATTEND Internal Medicine

== ENCOUNTER 2022-02-19 23:12 | Observation (INO) ==
[2022-02-19] MEDS ORDERED: Lactated Ringers 1000 ml BAG 1,000 ML IV ONE (23:16)
[2022-02-19] MEDS ORDERED: Morphine 4 MG/ML VIAL (1 ml) IV ONE (23:16)
[2022-02-19] MEDS ORDERED: Ondansetron 4 mg VIAL 2 MG/ML 2 ml VIAL IV ONE (23:16)
[2022-02-19 23:52] LABS: ABS Eosinophils 0.2 10^3/ul (0-0.6); ABS Lymphocytes 1.6 10^3/ul (1.0-4.8); ABS Monocytes 0.8 10^3/ul (0-0.8); ABS Neutrophils 8.4 10^3/ul (1.5-7.7); Eosinophil % 1.6 %; Hematocrit 37 % (35-47); Hemoglobin 11.7 g/dL (12.0-16.0); Lymphocyte % 14.5 %; Mean Corpuscular HGB Conc 32 g/dL (31-36); Mean Corpuscular Hemoglobin 32 pg (27-31); Mean Corpuscular Volume 102 fL (80-97); Mean Platelet Volume 8.1 fL (7.4-10.4); Platelet Count 307 10^3/uL (150-450); Red Blood Count 3.61 10^6 /uL (3.70-4.87); Red Cell Distribution Width 16 % (10-15); White Blood Count 11.1 10^3/uL (3.5-10.8)
[2022-02-20] MEDS ORDERED: Ondansetron 4 mg VIAL 2 MG/ML 2 ml VIAL IV ONE (00:26)
[2022-02-20] MEDS ORDERED: fentaNYL 100 mcg/2 ml 50 MCG/ML VIAL IV SLOW PU ONE ×3 (00:26→04:09)
[2022-02-20 00:35] LABS: ALT 19 U/L (7-52); Albumin 3.5 g/dL (3.2-5.2); Albumin/Globulin Ratio 1.2 (1-3); Alkaline Phosphatase 92 U/L (35-149); Blood Urea Nitrogen 4 mg/dL (6-24); C Reactive Protein 8.14 mg/L (<8.01); CO2 Carbon Dioxide 27 mmol/L (22-32); Calcium 8.9 mg/dL (8.6-10.3); Chloride 104 mmol/L (101-111); Glucose 91 mg/dL (70-100); Lipase 200 U/L (11.0-82.0); Magnesium 1.8 mg/dL (1.9-2.7); Sodium 139 mmol/L (135-145); Total Protein 6.5 g/dL (6.4-8.9); eGFR CKD-EPI 116.4 (>60)
[2022-02-20 00:40] LABS: HCG Pregnancy 2.22 mIU/mL
[2022-02-20 01:23] LABS: Anion Gap 8 mmol/L (2-11)
[2022-02-20 01:28] LABS: Urine Appearance Cloudy; Urine Bilirubin Negative (Negative); Urine Blood Negative (Negative); Urine Color Yellow; Urine Glucose Negative (Negative); Urine Ketones Negative (Negative); Urine Nitrite Negative (Negative); Urine Protein Negative (Negative); Urine Specific Gravity 1.018 (1.002-1.030); Urine Urobilinogen Negative (Negative)
[2022-02-20] MEDS ORDERED: Iohexol 350 (CONTRAST) 500 ML MDV IV ONE (03:17)
[2022-02-20] MEDS ORDERED: HYDROmorphone 0.5 MG/0.5 ML SYRINGE IV SLOW PU PRN (04:12)
[2022-02-20] MEDS ORDERED: Albuterol HFA INHALER 8 gm MDI INH PRN (04:43)
[2022-02-20 06:26] LABS: Urine Appearance Clear; Urine Bilirubin Negative (Negative); Urine Blood Negative (Negative); Urine Color Straw; Urine Glucose Negative (Negative); Urine Ketones Negative (Negative); Urine Nitrite Negative (Negative); Urine Protein Negative (Negative); Urine Specific Gravity 1.024 (1.002-1.030); Urine Urobilinogen Negative (Negative)
[2022-02-20] MEDS ORDERED: Cyanocobalamin INJ 1,000 MCG/ML VIAL 1 ML VIAL IM ONE (07:35)
[2022-02-20] MEDS ORDERED: Lactated Ringers 1000 ml BAG 1,000 ML IV SCH (08:00)
[2022-02-20 08:11] LABS: Potassium Redraw 4.5 mmol/L (3.5-5.0)
[2022-02-20] MEDS: CMC:Estradiol 1 mg TAB (NF) PO SCH (08:41)
[2022-02-20] MEDS: Vitamin THERAPEUTIC TAB PO SCH (08:42)
[2022-02-20] MEDS: Nicotine PATCH 21 MG/24 HR PATCH TRANSDERM SCH (08:42)
[2022-02-20] MEDS: HYDROmorphone 0.5 MG/0.5 ML SYRINGE IV SLOW PU PRN ×4 (09:27→22:37)
[2022-02-20 10:00] LABS: ABS Eosinophils 0.2 10^3/ul (0-0.6); ABS Lymphocytes 1.7 10^3/ul (1.0-4.8); ABS Monocytes 0.6 10^3/ul (0-0.8); ABS Neutrophils 6.3 10^3/ul (1.5-7.7); Eosinophil % 2.1 %; Hematocrit 35 % (35-47); Hemoglobin 11.1 g/dL (12.0-16.0); Lymphocyte % 19.4 %; Mean Corpuscular HGB Conc 32 g/dL (31-36); Mean Corpuscular Hemoglobin 32 pg (27-31); Mean Corpuscular Volume 102 fL (80-97); Mean Platelet Volume 8.5 fL (7.4-10.4); Platelet Count 300 10^3/uL (150-450); Red Blood Count 3.44 10^6 /uL (3.70-4.87); Red Cell Distribution Width 15 % (10-15); White Blood Count 8.8 10^3/uL (3.5-10.8)
[2022-02-20 10:36] LABS: Albumin 3.3 g/dL (3.2-5.2); Albumin/Globulin Ratio 1.1 (1-3); Calcium 8.9 mg/dL (8.6-10.3); Magnesium 1.9 mg/dL (1.9-2.7); Potassium 4.6 mmol/L (3.5-5.0); Total Bilirubin 0.3 mg/dL (0.2-1.0); Total Protein 6.3 g/dL (6.4-8.9); eGFR CKD-EPI 118.7 (>60)
[2022-02-20] MEDS: Ondansetron 4 mg VIAL 2 MG/ML 2 ml VIAL IV PRN (13:31)
[2022-02-21] MEDS: HYDROmorphone 0.5 MG/0.5 ML SYRINGE IV SLOW PU PRN ×5 (03:01→22:49)
[2022-02-21] MEDS: Vitamin THERAPEUTIC TAB PO SCH (08:31)
[2022-02-21] MEDS: Nicotine PATCH 21 MG/24 HR PATCH TRANSDERM SCH (08:33)
[2022-02-21] MEDS: CMC:Estradiol 1 mg TAB (NF) PO SCH (10:45)
[2022-02-21] MEDS ORDERED: Ondansetron ODT 4 mg TAB 4 MG TAB PO PRN (13:22)
[2022-02-21] MEDS ORDERED: Lactated Ringers 1000 ml BAG 1,000 ML IV SCH (17:00)
[2022-02-21] MEDS: Ondansetron 4 mg VIAL 2 MG/ML 2 ml VIAL IV PRN (18:09)
[2022-02-22] MEDS: HYDROmorphone 0.5 MG/0.5 ML SYRINGE IV SLOW PU PRN ×2 (03:13→08:12)
[2022-02-22] MEDS: Vitamin THERAPEUTIC TAB PO SCH (08:26)
[2022-02-22] MEDS: CMC:Estradiol 1 mg TAB (NF) PO SCH (08:26)
[2022-02-22] MEDS: Nicotine PATCH 21 MG/24 HR PATCH TRANSDERM SCH (08:26)
[2022-02-22] MEDS: Ondansetron 4 mg VIAL 2 MG/ML 2 ml VIAL IV PRN (08:38)
[2022-02-22] MEDS ORDERED: Influenza vaccine *QUAD* *2022-23* 0.5 ML SYRINGE IM ONE (09:00)
[2022-02-22 15:41] VITALS: BP 119/80
== END 2022-02-22 17:45 | disposition home or self-care (01) ==
LOC: ED 23:12 → EDHOLD 23:12 → SUATTDRO 02-20 04:06 → EDHOLD 02-20 19:05 → ICU 02-20 23:10 → MED 02-21 20:17
PROVIDERS: ADMIT Internal Medicine; ATTEND Internal Medicine

== ENCOUNTER 2022-06-04 12:35 | Inpatient (IN) ==
[2022-06-04] MEDS ORDERED: HYDROmorphone 1 MG/1 ML SYRINGE IV ONE ×3 (12:45→15:57)
[2022-06-04] MEDS ORDERED: Ondansetron 4 mg VIAL 2 MG/ML 2 ml VIAL IV ONE ×2 (12:46→15:58)
[2022-06-04] MEDS ORDERED: NS 0.9% 1000 ml BAG 1,000 ML IV ONE ×2 (12:46→15:58)
[2022-06-04 13:31] LABS: ABS Lymphocytes 0.9 10^3/ul (1.0-4.8); ABS Monocytes 0.4 10^3/ul (0-0.8); ABS Neutrophils 8.5 10^3/ul (1.5-7.7); Eosinophil % 0.3 %; Hematocrit 40 % (35-47); Lymphocyte % 8.7 %; Mean Corpuscular HGB Conc 32 g/dL (31-36); Mean Corpuscular Hemoglobin 32 pg (27-31); Mean Corpuscular Volume 98 fL (80-97); Mean Platelet Volume 8.9 fL (7.4-10.4); Platelet Count 206 10^3/uL (150-450); Red Blood Count 4.09 10^6 /uL (3.70-4.87); Red Cell Distribution Width 15 % (10-15); White Blood Count 9.8 10^3/uL (3.5-10.8)
[2022-06-04 14:09] LABS: Albumin 4.2 g/dL (3.2-5.2); Albumin/Globulin Ratio 1.3 (1-3); C Reactive Protein 9.76 mg/L (<8.01); Calcium 9.5 mg/dL (8.6-10.3); Creatinine, Serum 0.73 mg/dL (0.51-0.95); Globulin 3.3 g/dL (2-4); Magnesium 1.8 mg/dL (1.9-2.7); Potassium 4.5 mmol/L (3.5-5.0); Total Bilirubin 0.8 mg/dL (0.2-1.0); Total Protein 7.5 g/dL (6.4-8.9); eGFR CKD-EPI 107.9 (>60)
[2022-06-04] MEDS ORDERED: Iohexol 300 (CONTRAST) 10 ML SDV IV ONE (14:23)
[2022-06-04 15:37] LABS: Urine Appearance Cloudy; Urine Bilirubin Negative (Negative); Urine Blood Negative (Negative); Urine Color Yellow; Urine Glucose Negative (Negative); Urine Ketones 1+ (Negative); Urine Nitrite Negative (Negative); Urine Protein 1+(30 mg/dL) (Negative); Urine Specific Gravity 1.042 (1.002-1.030); Urine Urobilinogen Negative (Negative)
[2022-06-04 15:43] LABS: Urine Bacteria Absent (Absent); Urine Red Blood Cell Absent (Absent); Urine Squamous Epithelial Cell Present (Absent); Urine White Blood Cell Absent (Absent)
[2022-06-04] MEDS ORDERED: HYDROmorphone 1 MG/1 ML SYRINGE IV PRN (18:36)
[2022-06-04] MEDS ORDERED: Lactated Ringers 1000 ml BAG 1,000 ML IV SCH (19:00)
[2022-06-04] MEDS ORDERED: Magnesium Sulfate IV 3 GM in NS 0.9% 100 ml BAG 100 ML IVPB ONE (19:30)
[2022-06-04] MEDS: Acetaminophen IV 1 GM/100ML 1,000 MG/100 ML BAG IV PRN (20:59)
[2022-06-04] MEDS: Ondansetron 4 mg VIAL 2 MG/ML 2 ml VIAL IV PRN (20:59)
[2022-06-04] MEDS: Nicotine PATCH 21 MG/24 HR PATCH TRANSDERM SCH (21:04)
[2022-06-04] MEDS ORDERED: Naloxone 0.4 mg VIAL 0.4 mg/ml 1 ml VIAL IV PUSH PRN (21:48)
[2022-06-05] MEDS: Acetaminophen IV 1 GM/100ML 1,000 MG/100 ML BAG IV PRN ×2 (03:22→10:04)
[2022-06-05] MEDS: Ondansetron 4 mg VIAL 2 MG/ML 2 ml VIAL IV PRN (03:22)
[2022-06-05] MEDS ORDERED: HYDROmorphone 0.5 MG/0.5 ML SYRINGE IV SLOW PU PRN (08:35)
[2022-06-05] MEDS ORDERED: Pantoprazole VIAL 40 MG VIAL IV SCH (09:00)
[2022-06-05 09:05] LABS: ABS Eosinophils 0.1 10^3/ul (0-0.6); ABS Lymphocytes 1.3 10^3/ul (1.0-4.8); ABS Monocytes 0.5 10^3/ul (0-0.8); ABS Neutrophils 2.4 10^3/ul (1.5-7.7); Eosinophil % 1.4 %; Hematocrit 36 % (35-47); Lymphocyte % 30.5 %; Mean Corpuscular HGB Conc 30 g/dL (31-36); Mean Corpuscular Hemoglobin 32 pg (27-31); Mean Corpuscular Volume 106 fL (80-97); Mean Platelet Volume 9.1 fL (7.4-10.4); Platelet Count 140 10^3/uL (150-450); Red Blood Count 3.42 10^6 /uL (3.70-4.87); Red Cell Distribution Width 16 % (10-15); White Blood Count 4.3 10^3/uL (3.5-10.8)
[2022-06-05 09:53] LABS: Calcium 8.4 mg/dL (8.6-10.3); Potassium 3.8 mmol/L (3.5-5.0)
[2022-06-05] MEDS: Nicotine PATCH 21 MG/24 HR PATCH TRANSDERM SCH (09:56)
[2022-06-05 09:59] LABS: Creatinine, Serum 0.59 mg/dL (0.51-0.95); eGFR CKD-EPI 118.2 (>60)
[2022-06-05] MEDS ORDERED: HYDROmorphone 1 MG/1 ML SYRINGE IV SLOW PU PRN (10:45)
[2022-06-05 17:46] LABS: Magnesium 1.9 mg/dL (1.9-2.7)
[2022-06-05] MEDS ORDERED: Naloxone Nasal Spray 4 MG/0.1 ML NASAL.SPR INTRANASAL PRN (18:42)
[2022-06-05] MEDS ORDERED: Al Hydrox/Mg Hydrox/Simet LIQ 30 ML UDC PO PRN (18:42)
[2022-06-06 06:40] LABS: ABS Eosinophils 0.1 10^3/ul (0-0.6); ABS Lymphocytes 1.9 10^3/ul (1.0-4.8); ABS Monocytes 0.5 10^3/ul (0-0.8); ABS Neutrophils 1.8 10^3/ul (1.5-7.7); Eosinophil % 1.8 %; Hematocrit 33 % (35-47); Hemoglobin 10.7 g/dL (12.0-16.0); Lymphocyte % 42.9 %; Mean Corpuscular HGB Conc 33 g/dL (31-36); Mean Corpuscular Hemoglobin 33 pg (27-31); Mean Corpuscular Volume 98 fL (80-97); Mean Platelet Volume 8.9 fL (7.4-10.4); Nucleated Red Blood Cells % 0.2; Platelet Count 146 10^3/uL (150-450); Red Cell Distribution Width 15 % (10-15); White Blood Count 4.3 10^3/uL (3.5-10.8)
[2022-06-06 07:01] LABS: Calcium 8.3 mg/dL (8.6-10.3); Creatinine, Serum 0.58 mg/dL (0.51-0.95); Potassium 3.5 mmol/L (3.5-5.0); eGFR CKD-EPI 118.7 (>60)
[2022-06-06] MEDS: Nicotine PATCH 21 MG/24 HR PATCH TRANSDERM SCH (08:57)
[2022-06-06] MEDS ORDERED: CMCS: Estradiol 1 mg TAB (NF) PO SCH (09:00)
[2022-06-06 10:05] VITALS: BP 135/82
== END 2022-06-06 13:10 | disposition home or self-care (01) | DRG 282 ==
LOC: ED 12:35 → EDHOLD 12:35 → MED 06-05 06:06
PROVIDERS: ADMIT Hospitalist; ATTEND Hospitalist

== ENCOUNTER 2024-02-26 09:59 | Observation (INO) ==
[2024-02-26] MEDS: Lactated Ringers 1000 ml BAG 1,000 ML IV ONE (10:22)
[2024-02-26] MEDS: Morphine 4 MG/ML VIAL (1 ml) IV ONE (10:23)
[2024-02-26] MEDS: Ondansetron 4 mg VIAL 2 MG/ML 2 ml VIAL IV ONE (10:23)
[2024-02-26 10:30] LABS: ABS Eosinophils 0.2 10^3/uL (0.0-0.5); ABS Monocytes 0.7 10^3/uL (0.0-0.9); ABS Neutrophils 7.9 10^3/uL (1.5-7.6); Eosinophil % 1.4 %; Hematocrit 43.3 % (35-45); Hemoglobin 14.6 g/dL (11.5-14.3); Lymphocyte % 18.5 %; Mean Corpuscular Hemoglobin 31.9 pg (27-33); Mean Corpuscular Hgb Conc 33.8 g/dL (31-36); Mean Corpuscular Volume 94.4 fL (80-97); Mean Platelet Volume 9.2 fL (7.5-11.2); Platelet Count 196 10^3/uL (150-450); Red Blood Count 4.58 10^6/uL (3.63-4.92); Red Cell Distribution Width 13.2 % (12-17); White Blood Count 10.7 10^3/uL (3.8-11.8)
[2024-02-26] MEDS: HYDROmorphone 1 MG/1 ML SYRINGE IV ONE ×2 (10:48→11:37)
[2024-02-26 11:17] LABS: HCG Pregnancy 2.15 mIU/mL
[2024-02-26 11:28] LABS: ALT 16 U/L (7-52); AST 24 U/L (13-39); Albumin 4.4 g/dL (3.2-5.2); Albumin/Globulin Ratio 1.6 (1-3); Alkaline Phosphatase 100 U/L (35-149); Anion Gap 10 mmol/L (2-16); Blood Urea Nitrogen 15 mg/dL (6-24); CO2 Carbon Dioxide 24 mmol/L (22-32); Calcium 9.4 mg/dL (8.6-10.3); Chloride 104 mmol/L (101-111); Creatinine, Serum 0.71 mg/dL (0.51-0.95); Globulin 2.8 g/dL (2-4); Glucose 125 mg/dL (70-100); Lipase < 10 U/L (11.0-82.0); Potassium 4.3 mmol/L (3.5-5.0); Sodium 138 mmol/L (135-145); Total Bilirubin 0.6 mg/dL (0.2-1.0); Total Protein 7.2 g/dL (6.4-8.9); eGFR CKD-EPI 110.2 (>60)
[2024-02-26] MEDS: Prochlorperazine 5 mg/ml 2 ml VIAL (10 mg) IV ONE (11:52)
[2024-02-26] MEDS: Droperidol 5 MG/2 ML 2 ML VIAL IV ONE (12:07)
[2024-02-26] MEDS: Iohexol 350 (CONTRAST) 500 ML MDV IV ONE (12:08)
[2024-02-26] MEDS: Metoclopramide 5 MG/ML VIAL (10 mg) IV ONE (13:54)
[2024-02-26] MEDS: Famotidine IV 10 MG/ML 2 ml VIAL (20 mg) IV SLOW PU ONE (14:23)
[2024-02-26 15:02] LABS: Urine Appearance Clear; Urine Bilirubin Negative (Negative); Urine Blood Negative (Negative); Urine Color Light-Yellow; Urine Glucose Negative (Negative); Urine Ketones 1+ (Negative); Urine Nitrite Negative (Negative); Urine Protein Negative (Negative); Urine Specific Gravity 1.048 (1.002-1.030); Urine Urobilinogen Negative (Negative); Urine pH 6.5 (5.0-8.0)
[2024-02-26] MEDS: Haloperidol 5 mg/ml SDV IV/IM 5 MG/ML AMP IV SLOW PU ONE (15:30)
[2024-02-26] MEDS: HYDROmorphone 0.5 MG/0.5 ML SYRINGE IV ONE (20:48)
[2024-02-26 21:03] LABS: C Reactive Protein 10.13 mg/L (<8.01)
[2024-02-26] MEDS ORDERED: Prochlorperazine 5 mg/ml 2 ml VIAL (10 mg) IV PRN (22:46)
[2024-02-26] MEDS ORDERED: Haloperidol 5 mg/ml SDV IV/IM 5 MG/ML AMP IV SLOW PU PRN (22:58)
[2024-02-26] MEDS: Lactated Ringers 1000 ml BAG 1,000 ML IV SCH (23:09)
[2024-02-26] MEDS: Pantoprazole VIAL 40 MG VIAL IV SCH (23:09)
[2024-02-27] MEDS: Acetaminophen IV 1 GM/100ML 1,000 MG/100 ML BAG IV PRN (00:54)
[2024-02-27] MEDS: HYDROmorphone 0.5 MG/0.5 ML SYRINGE IV PRN ×2 (02:04→08:44)
[2024-02-27] MEDS: HYDROmorphone 0.5 MG/0.5 ML SYRINGE ONE (02:16)
[2024-02-27] MEDS: Ondansetron 4 mg VIAL 2 MG/ML 2 ml VIAL IV PRN (05:16)
[2024-02-27] MEDS: Buprenorphine 2 mg SL TAB SL SCH (06:33)
[2024-02-27] MEDS: Enoxaparin 40 MG/0.4 ML SYR SUBCUT SCH (06:34)
[2024-02-27 07:00] LABS: ABS Lymphocytes 1.1 10^3/uL (1.0-4.8); ABS Monocytes 0.5 10^3/uL (0.0-0.9); ABS Neutrophils 10.3 10^3/uL (1.5-7.6); Lymphocyte % 9.1 %; Mean Corpuscular Hgb Conc 34.1 g/dL (31-36); Mean Corpuscular Volume 93.8 fL (80-97); Mean Platelet Volume 9.7 fL (7.5-11.2); Platelet Count 197 10^3/uL (150-450); Red Blood Count 4.69 10^6/uL (3.63-4.92); Red Cell Distribution Width 13.4 % (12-17); White Blood Count 11.9 10^3/uL (3.8-11.8)
[2024-02-27 07:06] LABS: Calcium 9.6 mg/dL (8.6-10.3); Creatinine, Serum 0.57 mg/dL (0.51-0.95); Magnesium 1.4 mg/dL (1.9-2.7); Potassium 3.6 mmol/L (3.5-5.0); eGFR CKD-EPI 117.7 (>60)
[2024-02-27] MEDS: Magnesium Sulf 4 GM/100 ML IV 4,000 MG/100 ML BAG IVPB ONE (08:41)
[2024-02-27 09:24] LABS: High Sensitivity Troponin 1 Hr 11 pg/mL (<15)
[2024-02-27] MEDS: Nicotine PATCH 14 MG/24 HR PATCH TRANSDERM SCH (10:15)
[2024-02-27] MEDS ORDERED: fentaNYL 100 mcg/2 ml 50 MCG/ML VIAL ONE (17:06)
[2024-02-27] MEDS ORDERED: Lidocaine 2% PF 5 ML VIAL ONE (17:06)
[2024-02-27] MEDS ORDERED: Ondansetron 4 mg VIAL 2 MG/ML 2 ml VIAL ONE (17:06)
[2024-02-27] MEDS ORDERED: Propofol 10 MG/ML 20 ML BTL ONE ×2 (17:06→17:35)
[2024-02-27] MEDS ORDERED: Midazolam 2 mg/2 ml VIAL 1 mg/ml 2 ml VIAL (2 mg) ONE (17:06)
[2024-02-27] MEDS ORDERED: Naloxone 0.4 mg VIAL 0.4 mg/ml 1 ml VIAL IV PRN (17:53)
[2024-02-27] MEDS ORDERED: Prochlorperazine 5 mg/ml 2 ml VIAL (10 mg) IV PRN (17:55)
[2024-02-27] MEDS: Lactated Ringers 1000 ml BAG 1,000 ML IV SCH (22:07)
[2024-02-28 07:08] LABS: ABS Basophils 0.1 10^3/uL (0.0-0.1); ABS Lymphocytes 1.7 10^3/uL (1.0-4.8); ABS Monocytes 0.9 10^3/uL (0.0-0.9); ABS Neutrophils 10.7 10^3/uL (1.5-7.6); ABS Nucleated RBC 0.01 10^3/ul; Eosinophil % 0.1 %; Hematocrit 46.1 % (35-45); Hemoglobin 15.6 g/dL (11.5-14.3); Lymphocyte % 12.5 %; Mean Corpuscular Hemoglobin 31.6 pg (27-33); Mean Corpuscular Hgb Conc 33.8 g/dL (31-36); Mean Corpuscular Volume 93.6 fL (80-97); Mean Platelet Volume 9.2 fL (7.5-11.2); Platelet Count 201 10^3/uL (150-450); Red Blood Count 4.92 10^6/uL (3.63-4.92); Red Cell Distribution Width 13.1 % (12-17); White Blood Count 13.4 10^3/uL (3.8-11.8)
[2024-02-28 07:38] LABS: Calcium 9.1 mg/dL (8.6-10.3); Creatinine, Serum 0.56 mg/dL (0.51-0.95); Magnesium 1.9 mg/dL (1.9-2.7); Potassium 3.6 mmol/L (3.5-5.0); eGFR CKD-EPI 118.2 (>60)
[2024-02-28 08:49] LABS: Urine Benzodiazepine Screen Presumptive Positive (None Detect); Urine Buprenorphine Screen Presumptive Positive (None Detect); Urine Cannabinoids Screen Presumptive Positive (None Detect); Urine Fentanyl Screen Presumptive Positive (None Detect); Urine Hydrocodone Screen Presumptive Positive (None Detect); Urine Opiates Screen Presumptive Positive (None Detect)
[2024-02-28 14:50] VITALS: BP 109/67
== END 2024-02-28 18:45 | disposition home or self-care (01) ==
LOC: ED 09:59 → EDHOLD 19:31 → INTOOBSV 19:31 → MED 23:39
PROVIDERS: ADMIT Student in an Organized Health Care Education/Training Program; ATTEND Student in an Organized Health Care Education/Training Program
PROC: O.GIEGD (2024-02-27 15:20)